=== PATIENT | male | born 1945 | race Caucasian/White ===

== ENCOUNTER 2020-05-29 12:18 | Outpatient (REF) | payer MEDICARE, SELFPAY ==
[2020-05-29 14:41] LABS: Prostate Specific Antigen 1.28 ng/mL (<0.05-4.0)
== END 2020-05-29 12:19 | disposition home or self-care (01) ==
LOC: HO.LAB 12:18
PROVIDERS: PCP Internal Medicine; Visit Provider Urology
DX: N40.0 Benign prostatic hyperplasia without lower urinary tract symptoms (principal)
CPT/HCPCS: 84153

== ENCOUNTER → 2020-06-02 | Outpatient (BNVA) | payer MEDICARE, SELFPAY | PROVIDERS: PCP Internal Medicine; Visit Provider Urology | DX: N40.1 Benign prostatic hyperplasia with lower urinary tract symptoms (principal); N13.8 Other obstructive and reflux uropathy; R39.12 Poor urinary stream; R35.1 Nocturia; Z79.899 Other long term (current) drug therapy | CPT/HCPCS: 81002; 99212 ==

== ENCOUNTER 2020-08-01 09:10 | Outpatient (REF) | payer MEDICARE, SELFPAY ==
[2020-08-01 09:35] LABS: MANUAL DIFF FLAG NO
[2020-08-01 09:37] LABS: Basophils Percent Auto 0.5 % (0-2); Eosinophils Absolute Auto 0.1 X10*3/uL (0.0-0.4); Eosinophils Percent Auto 1.9 % (0-4); Hematocrit 47.3 % (42-52); Hemoglobin 16.1 g/dl (14.0-18.0); Imm Gran Abs Auto 0.02 X10*3/uL (0.00-0.03); Imm Gran Pct Auto 0.3 % (0.0-0.4); Lymphocytes Absolute Auto 1.7 X10*3/uL (1.2-4.9); Lymphocytes Percent Auto 22.3 % (20-40); Mean Corpuscular Hemoglobin 29.8 pg (27.0-33.0); Mean Corpuscular Volume 87.4 fL (80-98); Mean Platelet Volume 8.8 fL (9.4-12.4); Monocytes Absolute Auto 0.7 X10*3/uL (0.1-1.2); Monocytes Percent Auto 9.9 % (2-11); Neutrophils Absolute Auto 4.8 X10*3/uL (2.0-8.3); Neutrophils Percent Auto 65.1 % (45-73); Platelet Count 174 X10*3/uL (160-400); Red Blood Count 5.41 X10*6/uL (4.60-5.80); Red Cell Distribution Width 12.7 % (11.0-16.0); White Blood Count 7.4 X10*3/uL (4.8-10.8)
[2020-08-01 10:00] LABS: Alanine Aminotransferase 27 U/L (0-40); Albumin Level 4.6 g/dL (3.5-5.0); Alkaline Phosphatase 63 U/L (39-117); Anion Gap 10 (12-20); Aspartate Amino Transferase 20 U/L (5-37); Bilirubin Total 1.3 mg/dL (0.0-1.0); Blood Urea Nitrogen 14 mg/dL (9-16); Calcium 9.2 mg/dL (8.4-10.2); Carbon Dioxide 32 mmol/L (22-29); Chloride 104 mmol/L (96-108); Cholesterol 155 mg/dL; Estimated Glomerular Filt Rate > 60; Glucose Fasting 108 mg/dL (60-99); HDL Cholesterol 43 mg/dL; LDL Cholesterol Calculated 94 mg/dl; Potassium 4.6 mmol/l (3.3-5.1); Sodium 141 mmol/L (135-145); Total Protein 7.2 g/dL (6.5-8.0); Triglycerides 91 mg/dL
[2020-08-01 10:22] LABS: T4 Thyroxine 6.5 ug/dL (4.5-12.0); Thyroid Stimulating Hormone 1.23 uIU/mL (0.32-4.0); Vitamin D 25-OH Total 28.4 ng/mL (>30)
[2020-08-01 10:51] LABS: Folate 17.3 ng/mL (> or = 4.0); Vitamin B12 425 pg/mL (200-900)
== END 2020-08-01 09:11 | disposition home or self-care (01) ==
LOC: HO.LAB 09:10
PROVIDERS: PCP Internal Medicine; Visit Provider Internal Medicine
DX: R73.01 Impaired fasting glucose (principal); E78.00 Pure hypercholesterolemia, unspecified; M81.0 Age-related osteoporosis without current pathological fracture; N40.1 Benign prostatic hyperplasia with lower urinary tract symptoms
CPT/HCPCS: 36415; 80053; 80061; 82306; 82607; 82746; 84436; 84443; 85025

== ENCOUNTER 2020-08-16 09:54 | Outpatient (REF) | payer MEDICARE, SELFPAY ==
--- NOTE | 2020-08-16 10:00 | MM_ITS ---
EXAMINATION: BONE DENSITOMETRY CLINICAL INDICATION: Age-related osteoporosis without current pathological fracture. Status post vertebral augmentation T12. COMPARISON: Baseline BD dated 06/12/2018. TECHNIQUE: Using a [employer]cam DXA System (software version: 13.1) manufactured by [employer], dual-energy x-ray absorptiometry was performed of the lumbar spine and left hip. The images are of good technical quality. Summary results are attached. FINDINGS: AP SPINE L1-L4: Current: BMD 0.830 g/cm2, Z-score -2.4, T-score -3.3, osteoporosis, 8.9% increase from baseline (<5% change is not significant). Baseline: BMD 0.762 g/cm2. LEFT FEMUR, NECK: Current: BMD 0.739 g/cm2, Z-score -1.0, T-score -2.5, osteoporosis. Baseline: BMD 0.680 g/cm2. LEFT FEMUR, TOTAL: Current: BMD 0.821 g/cm2, Z-score -0.9, T-score -1.9, osteopenia, 9.8% increase from baseline (<5% change is not significant). Baseline: BMD 0.748 g/cm2. IDENTIFIED RISK FACTORS: Osteoporosis, height loss, family history (parental hip fracture), history of fracture (adult). HISTORY OF FRACTURE: Shoulder. Other. MEDICATIONS: Bisphosphonates, Calcium supplements or multivitamin. MM/XR DEXA axial skeleton IMPRESSION: 1. DIAGNOSIS: Severe osteoporosis based on the lowest T-score value of -3.3 in the lumbar spine and vertebral fracture history applying World Health Organization criteria. 2. 10-YEAR FRACTURE RISK PREDICTION, FRAX: Major osteoporotic fracture (clinical spine, forearm, hip or shoulder) 30.5%. Hip fracture 22.3%. 3. Treatment Recommendations: NOF guidelines recommend consideration for treatment in postmenopausal women and men age 50 and older presenting with the following: -A hip or vertebral (clinical or morphometric) fracture. -T-score less than or equal to -2.5 at the femoral neck or spine after appropriate evaluation to exclude secondary causes. -Low bone mass at the hip or spine and a 10-year fracture probability by FRAX of greater than or equal to 3% for hip fracture or greater than or equal to 20% for major osteoporotic fracture based on the [place] adapted WHO algorithm. 4. Other Recommendations: All treatment decisions require clinical judgment and consideration of individual patient factors, including patient preferences, comorbidities, previous drug use, risk factors not captured in the FRAX model (e.g. frailty, falls, vitamin D deficiency, increased bone turnover, interval significant decline in bone density) and possible under or overestimation of fracture risk by FRAX. Additional medical evaluation for secondary cause of low bone mineral density may be appropriate. FUTURE SCAN RECOMMENDATION: People with diagnosed cases of osteoporosis or at high risk for fracture should have regular bone mineral density tests. For patients eligible for Medicare, routine testing is allowed once every 2 years. The testing frequency can be increased to one year for patients who have rapidly progressing disease, those who are receiving or discontinuing medical therapy to restore bone mass, or have additional risk factors.
== END 2020-08-16 09:55 | disposition home or self-care (01) ==
LOC: HO.MAMMO 09:54
PROVIDERS: PCP Internal Medicine; Visit Provider Internal Medicine
DX: M81.0 Age-related osteoporosis without current pathological fracture (principal)
CPT/HCPCS: 77080; 99212

== ENCOUNTER 2020-11-01 10:39 | Outpatient (REF) | payer MEDICARE, SELFPAY ==
--- NOTE | ~2020-11-01 | US_ITS ---
EXAMINATION: US PELVIS LIMITED (BLADDER) CLINICAL INFORMATION: Poor urinary stream. COMPARISON: CT abdomen and pelvis 02/10/2020. Ultrasound abdomen complete 08/03/2012. TECHNIQUE: Real-time imaging of the bladder. FINDINGS: BLADDER: The bladder wall is thickened and trabeculated. No stone or mass is seen. Bilateral ureteral jets are demonstrated. Prevoid bladder volume is 294 mL. Postvoid bladder volume is 79 mL. ADDITIONAL FINDINGS: The prostate gland measures 4.2 x 4.1 x 3.7 cm, volume 34 mL. US/US bladder IMPRESSION: Thickened trabeculated bladder wall. 79 mL post void bladder residual..
== END 2020-11-01 10:40 | disposition home or self-care (01) ==
LOC: HO.US 10:39
PROVIDERS: Visit Provider Urology
DX: N40.1 Benign prostatic hyperplasia with lower urinary tract symptoms (principal); R39.12 Poor urinary stream
CPT/HCPCS: 76857

== ENCOUNTER 2020-12-01 13:23 | Outpatient (REF) | payer MEDICARE, SELFPAY ==
[2020-12-01 16:32] LABS: PSA,Total (Free>4and<10) 0.72 ng/mL (0.00-4.00)
== END 2020-12-01 13:24 | disposition home or self-care (01) ==
LOC: HO.LAB 13:23
PROVIDERS: PCP Internal Medicine; Visit Provider Urology
DX: N40.1 Benign prostatic hyperplasia with lower urinary tract symptoms (principal); N13.8 Other obstructive and reflux uropathy
CPT/HCPCS: 36415; 84153

== ENCOUNTER → 2020-12-05 10:48 | Outpatient (BNVA) | payer MEDICARE, SELFPAY | PROVIDERS: Visit Provider Urology | DX: Z13.89 Encounter for screening for other disorder (principal) | CPT/HCPCS: Q3014 ==

== ENCOUNTER 2020-12-05 14:43 | Outpatient (REF) | payer MEDICARE, SELFPAY ==
--- NOTE | ~2020-12-05 | US_ITS ---
EXAMINATION: US VENOUS ULTRASOUND WITH DOPPLER LOWER EXTREMITY, RIGHT CLINICAL INFORMATION: Pain COMPARISON: None TECHNIQUE: Ultrasound of the deep veins is performed from the hip to the calf with compression sonography and color and pulse Doppler assessment. Spectral analysis with color-flow imaging is performed. FINDINGS: There is normal venous compression and respiratory variation and augmented flow. The visualized common femoral vein, superficial femoral vein, profunda femoral vein, popliteal vein, and the trifurcation region shows no evidence of deep venous thrombosis. There is no significant popliteal fossa cyst. US/US venous duplex LE RT IMPRESSION: No DVT demonstrated in the right lower extremity.
== END 2020-12-05 14:44 | disposition home or self-care (01) ==
LOC: HO.HMGCX 14:43
PROVIDERS: PCP Internal Medicine; Visit Provider Nurse Practitioner Family
DX: M79.661 Pain in right lower leg (principal)
CPT/HCPCS: 93971

== ENCOUNTER 2021-01-26 12:05 | Outpatient (REF) | payer MEDICARE, SELFPAY ==
[2021-01-26 14:05] LABS: Blood Urea Nitrogen 14 mg/dL (9-16); Estimated Glomerular Filt Rate > 60
== END 2021-01-26 12:06 | disposition home or self-care (01) ==
LOC: HO.LAB 12:05
PROVIDERS: PCP Internal Medicine; Visit Provider Otolaryngology
DX: J35.9 Chronic disease of tonsils and adenoids, unspecified (principal)
CPT/HCPCS: 36415; 82565; 84520

== ENCOUNTER 2021-01-30 10:39 | Outpatient (REF) | payer MEDICARE, SELFPAY ==
--- NOTE | ~2021-01-30 | CT_ITS ---
EXAMINATION: CT SOFT TISSUE NECK WITH CONTRAST CLINICAL INFORMATION: Right neck mass. Right tonsillar lesion. COMPARISON: None. TECHNIQUE: Following the intravenous administration of 100 mL of Omnipaque 350 intravenous contrast, helical imaging was performed in the axial plane with generation of coronal and sagittal reformatted images. This CT examination was performed using dose optimization techniques as appropriate, variously including the following: *Automated exposure control *Adjustment of mA and/or kV according to patient size (this includes techniques or standardized protocols for targeted exams where dose is matched to indication/reason for exam; i.e. extremities or head) *Use of iterative reconstruction technique DLP: 289 mGy-cm. FINDINGS: No cervical adenopathy is identified. The parotid glands are homogeneous in attenuation. The submandibular glands are normal. No contour abnormality or pathologic enhancement is seen within the oral cavity. There is mild enlargement of the right lingular tonsil extending laterally and involving the medial and lateral pterygoid muscles resulting in enlarged muscles. The pterygoid plates are intact. The mass extend to the palatoglossal sulcus and obliterates the parapharyngeal fat. The mass is hypodense with subtle thick wall enhancement. It measures approximately 2.8 x 2.3 cm on axial image 56/2 and 2.6 x 2.4 cm in the coronal image 28/3. The mass abuts the posterior right tongue and mildly deviates the tongue the left side. The laryngeal structures are normal. The parapharyngeal fat is preserved. The carotid sheath vasculature opacify normally. No extra mucosal soft tissue mass or fluid collection is seen. No retropharyngeal fluid collection is seen. The thyroid gland is normal. The superior mediastinum is unremarkable. Both lungs are emphysematous with bilateral apical parenchymal scarring. The mastoid air cells and visualized portions of the paranasal sinuses are well-aerated. The temporomandibular. Joints are normal. There are degenerative disc changes with spondylosis C2-C3, C3-C4, C4-C5, C5-C6 and C6-C7 disc levels. No periapical disease is identified. No osseous abnormalities are seen. The imaged portions of the brain parenchyma are unremarkable. CT/CT soft tissue neck w con IMPRESSION: Right tonsillar enlargement with moderate-sized peritonsillar mass. There is mild mass effect on the tongue deviating it to the left. No adjacent or distant abnormal lymph nodes seen. There is obliteration of the right parapharyngeal prestyloid space and palatoglossal sulcus. Bilateral apical emphysema and apical scarring.
[2021-01-30] MEDS: iohexoL 350 MG/ML 100 ML INFUS..BTL IV (11:59)
== END 2021-01-30 10:40 | disposition home or self-care (01) ==
LOC: HO.CT 10:39
PROVIDERS: Visit Provider Otolaryngology
DX: R22.1 Localized swelling, mass and lump, neck (principal)
CPT/HCPCS: 70491; Q9967

== ENCOUNTER → 2021-05-17 10:46 | Outpatient (BNVA) | payer MEDICARE, SELFPAY | PROVIDERS: PCP Internal Medicine; Visit Provider Internal Medicine | DX: J43.9 Emphysema, unspecified (principal); U07.1 COVID-19 | CPT/HCPCS: 99212 ==

== ENCOUNTER → 2021-07-25 12:48 | Outpatient (BNVA) | payer MEDICARE, SELFPAY | PROVIDERS: PCP Internal Medicine; Visit Provider Urology | DX: N40.1 Benign prostatic hyperplasia with lower urinary tract symptoms (principal); R39.12 Poor urinary stream; R39.14 Feeling of incomplete bladder emptying | CPT/HCPCS: 51798; 99212 ==

== ENCOUNTER 2021-08-24 13:31 | Outpatient (REF) | payer MEDICARE, SELFPAY ==
[2021-08-24 14:02] LABS: Binax Internal Control QC Valid; Binax Lot number: 9864; Binax Now Covid-19 Ag Negative (Negative)
== END 2021-08-24 13:32 | disposition home or self-care (01) ==
LOC: HO.LAB 13:31
PROVIDERS: Visit Provider Internal Medicine
DX: Z20.822 Contact with and (suspected) exposure to COVID-19 (principal)
CPT/HCPCS: C9803

== ENCOUNTER 2021-08-28 11:29 | Outpatient (REF) | payer MEDICARE, SELFPAY ==
[2021-08-28 12:23] LABS: COVID-19 Test Negative (Negative); IDNOW Serial# 16C4AD1C
== END 2021-08-28 11:30 | disposition home or self-care (01) ==
LOC: HO.LAB 11:29
PROVIDERS: Visit Provider Internal Medicine
DX: Z20.822 Contact with and (suspected) exposure to COVID-19 (principal)
CPT/HCPCS: 87635; C9803

== ENCOUNTER 2021-09-03 11:23 | Outpatient (REF) | payer MEDICARE, SELFPAY ==
[2021-09-03 12:01] LABS: Binax Internal Control QC Valid; Binax Now Covid-19 Ag Negative (Negative)
== END 2021-09-03 11:24 | disposition home or self-care (01) ==
LOC: HO.LAB 11:23
PROVIDERS: Visit Provider Internal Medicine
DX: Z20.822 Contact with and (suspected) exposure to COVID-19 (principal)
CPT/HCPCS: C9803

== ENCOUNTER → 2021-09-17 10:46 | Outpatient (BNVA) | payer MEDICARE, SELFPAY | PROVIDERS: PCP Internal Medicine; Visit Provider Internal Medicine | DX: J43.9 Emphysema, unspecified (principal) | CPT/HCPCS: 99212 ==

== ENCOUNTER 2021-11-22 08:41 | Outpatient (REF) | payer MEDICARE, SELFPAY ==
[2021-11-22 09:07] LABS: MANUAL DIFF FLAG NO
[2021-11-22 09:20] LABS: Basophils Percent Auto 0.3 % (0-2); Eosinophils Absolute Auto 0.2 X10*3/uL (0.0-0.4); Eosinophils Percent Auto 2.4 % (0-4); Hematocrit 39.2 % (42.0-52.0); Hemoglobin 13.3 g/dl (14.0-18.0); Imm Gran Abs Auto 0.02 X10*3/uL (0.00-0.03); Imm Gran Pct Auto 0.3 % (0.0-0.4); Lymphocytes Percent Auto 14.4 % (20-40); Mean Corpuscular HGB Conc 33.9 g/dl (31.0-36.0); Mean Corpuscular Hemoglobin 28.9 pg (27.0-33.0); Mean Platelet Volume 8.6 fL (9.4-12.4); Monocytes Absolute Auto 0.6 X10*3/uL (0.1-1.2); Monocytes Percent Auto 7.8 % (2-11); Neutrophils Absolute Auto 5.4 x10*3/uL (2.0-8.3); Neutrophils Percent Auto 74.8 % (45-73); Platelet Count 216 X10*3/uL (160-400); Red Blood Count 4.61 X10*6/uL (4.60-5.80); Red Cell Distribution Width 12.8 % (11.0-16.0); White Blood Count 7.2 X10*3/uL (4.8-10.8)
[2021-11-22 09:59] LABS: Alanine Aminotransferase 17 U/L (0-40); Albumin Level 3.9 g/dL (3.5-5.0); Alkaline Phosphatase 79 U/L (39-117); Anion Gap 12 (12-20); Aspartate Amino Transferase 17 U/L (5-37); Blood Urea Nitrogen 14 mg/dL (9-16); Calcium 9.5 mg/dL (8.4-10.2); Carbon Dioxide 29 mmol/L (22-29); Chloride 100 mmol/L (96-108); Cholesterol 119 mg/dL; Estimated Glomerular Filt Rate > 60; Glucose Random 105 mg/dL (60-115); HDL Cholesterol 36 mg/dL; LDL Cholesterol Calculated 65 mg/dl; Potassium 4.7 mmol/L (3.3-5.1); Sodium 136 mmol/L (135-145); Total Protein 6.7 g/dL (6.5-8.0); Triglycerides 90 mg/dL
[2021-11-22 10:12] LABS: Free T4 (Free Thyroxine) 0.99 ng/dL (0.71-1.85); Thyroid Stimulating Hormone 2.06 uIU/mL (0.32-4.0)
[2021-11-22 10:23] LABS: Folate 17.4 ng/mL (> or = 4.0); Vitamin B12 983 pg/mL (200-900)
== END 2021-11-22 08:42 | disposition home or self-care (01) ==
LOC: HO.LAB 08:41
PROVIDERS: PCP Internal Medicine; Visit Provider Internal Medicine
DX: E78.00 Pure hypercholesterolemia, unspecified (principal); I10 Essential (primary) hypertension
CPT/HCPCS: 36415; 80053; 80061; 82607; 82746; 84439; 84443; 85025

== ENCOUNTER 2021-12-01 17:23 | Emergency (ER) | payer MEDICARE, SELFPAY ==
[2021-12-01] VITALS (9 sets, daily range): BP systolic 76–132; BP diastolic 48–86; PULSE 92–136; RESP 16–25; TEMP 37.7–39.6; O2SAT 9–95; BMI 23.1
--- NOTE | ~2021-12-01 | XR_ITS ---
EXAMINATION: XR CHEST CLINICAL INFORMATION: Fever, cough, shortness of breath. COMPARISON: Chest radiograph dated from 01/06/2020. CT of the chest dated from 01/07/2020. TECHNIQUE: AP view of the chest was obtained. FINDINGS: Right-sided CT compatible chest port terminates at the level of the cavoatrial junction. Stable appearance of the cardiomediastinal silhouette. New multifocal patchy lung opacities and increased interstitial coarsening since 2020. No significant pleural effusion. No pneumothorax. No acute osseous abnormalities. XR/XR chest 1V IMPRESSION: Worsening lung disease since 2020 which could represent a combination of chronic emphysema/interstitial lung disease and superimposed multifocal pneumonia. Recommend clinical correlation and a follow-up examination to rule out underlying lesions.
--- NOTE | 2021-12-01 18:03 | ECG_ITS ---
Test Reason : CHEST PAIN Blood Pressure : / mmHG Vent. Rate : 128 BPM Atrial Rate : 128 BPM P-R Int : 144 ms QRS Dur : 068 ms QT Int : 308 ms P-R-T Axes : 072 077 079 degrees QTc Int : 449 ms Sinus tachycardia Septal infarct (cited on or before 01-DEC-2021) Abnormal ECG When compared with ECG of 07-JAN-2020 00:39, Questionable change in initial forces of Septal leads Referred By: Anant Avila Electronically Signed By:NICO GLASGOW MD
--- NOTE | 2021-12-01 18:18 | PC.NURSE ---
pt reports that this morning he woke up sob and throughout the day it progressively got worst. he also reports shakiness, loss of appetite, increased weakness. no chest pain/headache/dizziness. no n/v/d. pt has hx of COPD, he is not on O2 at baseline. pt satting low-mid 80s on 4L n/c on arrival to ed. 88-90% on 8L non-rebreather. Respiratory Therapist at bedside.
--- NOTE | 2021-12-01 18:26 | ED.SOB ---
HPI - SOB/Dyspnea General Chief Complaint: Dyspnea Stated Complaint: DIFF BREATHING 84% RA,NOT FEELING WELL,[id number] Time Seen by Provider: 12/01/21 17:59 Source: patient Mode of arrival: EMS Limitations: no limitations History of Present Illness HPI Narrative: 76-year-old male who presents emergency department for evaluation of shortness of breath. He states that he woke up this morning not feeling well. He states he feels short of breath and shortness of breath got progressively worse to the point where he could not breathe so he called an ambulance. The patient felt hot and cold but did not take his temperature at home. He denied cough, chest pain, nausea, vomiting. The patient states that he does have COPD but does not use oxygen at home, he states that his O2 saturation is normally around 89%. He states that he received 2 COVID 19 [employer] vaccinations but did not receive a booster vaccination. 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 Patient states he has lost a total of 20 lb but has no difficulty drinking and eating. He has been using Ensure. ED bed 8 ED bed a ED bed a bed 8 MD elicited complaint: shortness of breath Pertinent past history: COPD Onset (ago): day(s) (1) Timing: constant Severity: severe Exacerbating factors: nothing Relieving factors: nothing Known history of: COPD Associated symptoms: fever (Boss hot and cold) Related Data Home oxygen amount: none Home Medications Medication Instructions Recorded Confirmed albuterol sulfate 90 mcg/actuation 2 inh INHALATION Q4-6H PRN 05/03/21 11/23/21 aerosol inhaler (ProAir HFA) lidocaine HCl 2 % mucosal solution ml PO 05/17/21 11/23/21 (Lidocaine Viscous) nystatin 100,000 unit/mL oral ml PO 05/17/21 11/23/21 suspension polyethylene glycol 3350 17 17 g PO DAILY 07/25/21 11/23/21 gram/dose oral powder dronabinol 2.5 mg capsule mg PO 09/17/21 11/23/21 Previous Rx's Medication Instructions Recorded fluticasone 250 mcg-salmeterol 50 1 inh INHALATION BID 90 Days #3 ea 03/27/21 mcg/dose blistr powdr for inhalation (Advair Diskus) lisinopril 5 mg tablet 5 mg PO DAILY #90 tab 04/05/21 tamsulosin 0.4 mg capsule 0.4 mg PO BEDTIME #90 cap 07/02/21 alendronate 70 mg tablet 70 mg PO QWEEK #12 tab 07/19/21 sertraline 50 mg tablet 50 mg PO DAILY #90 tab 07/30/21 finasteride 5 mg tablet 5 mg PO DAILY #90 tab 09/12/21 simvastatin 10 mg tablet 10 mg PO BEDTIME 90 Days #90 tab 09/12/21 Allergies Allergy/AdvReac Type Severity Reaction Status Date / Time oxycodone Allergy Unknown severe Verified 11/23/21 16:13 constipation Sulfa (Sulfonamide Allergy Unknown RASH Verified 11/23/21 16:13 Antibiotics) [SULFA (SULFONAMIDE ANTIBIOTICS)] hydrocodone [HYDROCODONE] AdvReac Unknown CONSTIPSATI Verified 11/23/21 16:13 ON Review of Systems Review of Systems: Yes all other systems are reviewed and are negative [facility] Past Medical History [facility] Narrative: Social history: He lives with his and daughter. He is a former smoker, he quit smoking cigarettes 25 years ago. He smoked for at least 25 years. He denies alcohol and drug use. Medical History Anxiety and depression Compression fracture of T6 vertebra COPD (chronic obstructive pulmonary disease) Hypercholesterolemia Hypertension Obstructive sleep apnea Osteoporosis Right humeral fracture Tubular adenoma of colon Surgical History Deficient knowledge of leg surgery History of surgery History of tonsillectomy Family History Family History Father No problems noted. Mother Hypertension CVD (cardiovascular disease) Cancer Social History Social History Housing: House Alcohol intake: never Patient Tobacco Use Status: Former Tobacco user Tobacco use type: Cigarette e-Cigarette/Vaping Use: Never Used Second Hand Smoke Exposure: No Advance Directives: No Advance Directives Information Provided: No service: Yes Current occupational status: retired Cognitive needs: No Hearing needs: No Vision needs: Yes Physical Exam Vital Signs: Vital Signs: Last Vital Signs Temp 100 F 12/01/21 21:17 Pulse 92 12/01/21 22:53 Resp 18 12/01/21 22:53 BP 76/48 L 12/01/21 22:53 Pulse Ox 92 12/01/21 22:53 Oxygen Flow Rate 10 12/01/21 17:40 BMI result Body Mass Index 23.1 Const: General: cooperative and no acute distress Orientation/consciousness: oriented to person and oriented to place Limitations: no limitations HEENT: Head: Yes normal to inspection, Yes normocephalic and Yes atraumatic Ears: external ears normal General nose exam: Normal external nose present Face and sinus: Yes normal facial exam Mouth: Normal oral and palatal mucosa present Throat: Yes posterior oropharynx normal Eyes: General: appearance normal, both eyes and all related structures Pupils: Equal, round and reactive pupils present Neck: Neck: Yes normal visual inspection, Yes no lymphadenopathy, Yes trachea midline and Yes supple Chest: Chest palpation & inspection: normal inspection of the chest and normal palpation of entire chest wall Resp: Effort & Inspection: able to speak in complete sentences and tachypneic Auscultation: rales (Bases bilaterally), no rhonchi and no wheezes Cardio: Rate: tachycardic Rhythm: regular rhythm Heart sounds: S1 normal heart sound present, S2 normal heart sound present and no murmurs GI: Inspection: Yes normal to inspection Palpation (GI): Soft to palpation, nontender and no guarding Auscultation: normal bowel sounds : General: Yes no CVA tenderness Back/Spine/Pelvis: Back: no CVA tenderness Skin: General skin exam: no rashes or lesions noted Neuro: General: oriented to person and oriented to place Cranial nerves: Yes CN's II-XII intact bilaterally and Yes Equal, round and reactive pupils present Cognition (Neuro): normal cognition Motor exam (neuro): 5/5 motor strength present throughout Extrem: General: Yes normal to inspection Psych: Appearance: grossly normal Speech and movement: Normal speech and movement present Affect: normal affect Attitude: cooperative Thought process: Normal thought process present Thought content: Normal thought content present Course Course Course Narrative: 76-year-old male with a history of COPD with baseline O2 saturation of 89% on room air, does not use oxygen at home who presents emergency department for evaluation of shortness of breath this started this morning and got progressively worse. Patient denies cough or chest pain. Initial vital signs revealed a temperature of 103.2. Patient's respiratory was elevated at 22. Pulse was elevated 131. Lung exam revealed rales at the bases otherwise was unremarkable. I did order laboratory evaluation CBC, BMP, liver panel, lactic acid, PT/INR, PTT, troponin, blood cultures x2, COVID-19 influenza test. Twelve EKG and chest x-ray will also be obtained. Patient was ordered to get a 30 cc/kilogram IV normal saline bolus. I also ordered to get Tylenol 975 mg orally and ceftriaxone 1 g IV the orally for possible pneumonia. 1957: Laboratory evaluation: WBC elevated 15,500, glucose elevated 148. Lactate elevated 2.3. COVID-19 and influenza negative. Radiology evaluation: Chest x-ray one view: Radiology impression: Worsening lung disease since 2019 which could represent a combination of chronic emphysema/interstitial lung disease and superimposed multifocal pneumonia. Recommend clinical correlation and a follow-up examination to rule out underlying lesions. I will discuss admission with the covering hospitalist. The patient is currently on OxyMask at 10 L (53%). 3: The patient received is 30 cc/kilogram normal saline bolus (1800 mL) and became hypotensive, he was given another 1.5 L of lactated Ringer's and his systolic blood pressure still remains low. Patient will be started on Levophed. At this time I do not have any intensive care unit bed so I will need transfer this patient. 2303: I did contact the Heart for transfer line and the patient has been accepted at [facility] in [facility] into their medical ICU. The accepting doctor is Dr. Moy. ? MDM - SOB/Dyspnea Lab Data Attestation: I reviewed the patient's lab results. Result diagrams: 12/01/21 18:26 12/01/21 18:26 Labs: Lab Results 12/01/21 12/01/21 12/01/21 Range/Units 18:26 18:26 18:26 WBC 15.5 H (4.8-10.8) X10*3/uL RBC 4.99 (4.60-5.80) X10*6/uL Hgb 14.2 (14.0-18.0) g/dl Hct 42.2 (42.0-52.0) % MCV 84.6 (80.0-98.0) fL MCH 28.5 (27.0-33.0) pg MCHC 33.6 (31.0-36.0) g/dl RDW 13.4 (11.0-16.0) % Plt Count 186 (160-400) X10*3/uL MPV 8.2 L (9.4-12.4) fL Immature Gran % (Auto) 0.5 H (0.0-0.4) % Neut % (Auto) 95.7 H (45-73) % Lymph % (Auto) 1.6 L (20-40) % [place] % (Auto) 2.1 (2-11) % Eos % (Auto) 0.0 (0-4) % Baso % (Auto) 0.1 (0-2) % Lymph # (Auto) 0.3 L (1.2-4.9) X10*3/uL [place] # (Auto) 0.3 (0.1-1.2) X10*3/uL Eos # (Auto) 0.0 (0.0-0.4) X10*3/uL Baso # (Auto) 0.0 (0.0-0.2) X10*3/uL Abs Immat Gran (auto) 0.08 H (0.00-0.03) X10*3/uL Absolute Neuts (auto) 14.8 H (2.0-8.3) x10*3/uL Absolute Nucleated RBC 0.000 (0.0-0.012) X10*3/uL Nucleated RBC % (auto) 0.0 (0.0-0.2) /100WBC Smear Tech's Comments VERIFIED PT (9.9-13.0) SEC INR (0.9-1.1) APTT (24.1-38.0) SEC Sodium 134 L (135-145) mmol/L Potassium 4.2 (3.3-5.1) mmol/L Chloride 99 (96-108) mmol/L Carbon Dioxide 27 (22-29) mmol/L Anion Gap 12 (12-20) BUN 16 (9-16) mg/dL Creatinine 0.94 (0.5-1.4) mg/dL Estim Creat Clear Calc 58.1 Estimated GFR > 60 Random Glucose 148 H D (60-115) mg/dL Lactic Acid 2.3 H* (0.5-2.0) mmol/L Lactic Acid F/U @ 2Hr (0.5-2.0) mmol/L Calcium 9.3 (8.4-10.2) mg/dL Total Bilirubin 1.6 H (0.0-1.0) mg/dL Direct Bilirubin 0.7 H (0.0-0.5) mg/dL AST 17 (5-37) U/L ALT 19 (0-40) U/L Alkaline Phosphatase 83 (39-117) U/L Troponin I High Sens (<3.5-35.0) ng/L Total Protein 6.5 (6.5-8.0) g/dL Albumin 3.9 (3.5-5.0) g/dL COVID-19 ([facility]) (Negative) COVID-19 Clin Com Influenza Type A (CHRISTOPHER) (Negative) Influenza Type B (CHRISTOPHER) (Negative) Influenza A & B Note 12/01/21 12/01/21 12/01/21 Range/Units 18:26 18:26 18:26 WBC (4.8-10.8) X10*3/uL RBC (4.60-5.80) X10*6/uL Hgb (14.0-18.0) g/dl Hct (42.0-52.0) % MCV (80.0-98.0) fL MCH (27.0-33.0) pg MCHC (31.0-36.0) g/dl RDW (11.0-16.0) % Plt Count (160-400) X10*3/uL MPV (9.4-12.4) fL Immature Gran % (Auto) (0.0-0.4) % Neut % (Auto) (45-73) % Lymph % (Auto) (20-40) % [place] % (Auto) (2-11) % Eos % (Auto) (0-4) % Baso % (Auto) (0-2) % Lymph # (Auto) (1.2-4.9) X10*3/uL [place] # (Auto) (0.1-1.2) X10*3/uL Eos # (Auto) (0.0-0.4) X10*3/uL Baso # (Auto) (0.0-0.2) X10*3/uL Abs Immat Gran (auto) (0.00-0.03) X10*3/uL Absolute Neuts (auto) (2.0-8.3) x10*3/uL Absolute Nucleated RBC (0.0-0.012) X10*3/uL Nucleated RBC % (auto) (0.0-0.2) /100WBC Smear Tech's Comments PT 13.3 H (9.9-13.0) SEC INR 1.2 H (0.9-1.1) APTT 37.8 (24.1-38.0) SEC Sodium (135-145) mmol/L Potassium (3.3-5.1) mmol/L Chloride (96-108) mmol/L Carbon Dioxide (22-29) mmol/L Anion Gap (12-20) BUN (9-16) mg/dL Creatinine (0.5-1.4) mg/dL Estim Creat Clear Calc Estimated GFR Random Glucose (60-115) mg/dL Lactic Acid (0.5-2.0) mmol/L Lactic Acid F/U @ 2Hr (0.5-2.0) mmol/L Calcium (8.4-10.2) mg/dL Total Bilirubin (0.0-1.0) mg/dL Direct Bilirubin (0.0-0.5) mg/dL AST (5-37) U/L ALT (0-40) U/L Alkaline Phosphatase (39-117) U/L Troponin I High Sens (<3.5-35.0) ng/L Total Protein (6.5-8.0) g/dL Albumin (3.5-5.0) g/dL COVID-19 ([facility]) Negative (Negative) COVID-19 Clin Com See Note Influenza Type A (CHRISTOPHER) Negative (Negative) Influenza Type B (CHRISTOPHER) Negative (Negative) Influenza A & B Note See Note 12/01/21 12/01/21 12/01/21 Range/Units 18:26 20:37 22:34 WBC (4.8-10.8) X10*3/uL RBC (4.60-5.80) X10*6/uL Hgb (14.0-18.0) g/dl Hct (42.0-52.0) % MCV (80.0-98.0) fL MCH (27.0-33.0) pg MCHC (31.0-36.0) g/dl RDW (11.0-16.0) % Plt Count (160-400) X10*3/uL MPV (9.4-12.4) fL Immature Gran % (Auto) (0.0-0.4) % Neut % (Auto) (45-73) % Lymph % (Auto) (20-40) % [place] % (Auto) (2-11) % Eos % (Auto) (0-4) % Baso % (Auto) (0-2) % Lymph # (Auto) (1.2-4.9) X10*3/uL [place] # (Auto) (0.1-1.2) X10*3/uL Eos # (Auto) (0.0-0.4) X10*3/uL Baso # (Auto) (0.0-0.2) X10*3/uL Abs Immat Gran (auto) (0.00-0.03) X10*3/uL Absolute Neuts (auto) (2.0-8.3) x10*3/uL Absolute Nucleated RBC (0.0-0.012) X10*3/uL Nucleated RBC % (auto) (0.0-0.2) /100WBC Smear Tech's Comments PT (9.9-13.0) SEC INR (0.9-1.1) APTT (24.1-38.0) SEC Sodium (135-145) mmol/L Potassium (3.3-5.1) mmol/L Chloride (96-108) mmol/L Carbon Dioxide (22-29) mmol/L Anion Gap (12-20) BUN (9-16) mg/dL Creatinine (0.5-1.4) mg/dL Estim Creat Clear Calc Estimated GFR Random Glucose (60-115) mg/dL Lactic Acid (0.5-2.0) mmol/L Lactic Acid F/U @ 2Hr 1.0 (0.5-2.0) mmol/L Calcium (8.4-10.2) mg/dL Total Bilirubin (0.0-1.0) mg/dL Direct Bilirubin (0.0-0.5) mg/dL AST (5-37) U/L ALT (0-40) U/L Alkaline Phosphatase (39-117) U/L Troponin I High Sens 10.3 35.2 H D (<3.5-35.0) ng/L Total Protein (6.5-8.0) g/dL Albumin (3.5-5.0) g/dL COVID-19 ([facility]) (Negative) COVID-19 Clin Com Influenza Type A (CHRISTOPHER) (Negative) Influenza Type B (CHRISTOPHER) (Negative) Influenza A & B Note ECG Data Attestation: I personally reviewed and interpreted this ECG as follows: Interpretation: 1804: Sinus tachycardia with a rate of 128, normal AL interval, QRS duration QTC interval, no ST segment elevation, no ST segment depression. Critical Care Time Critical Care Time Critical Care Time: Yes Total Critical Care Time: 45 Attestation: Critical Care: The patient was critically ill with a high probability of imminent or life threatening deterioration. I spent greater than 30 minutes of discontinuous time evaluating the patient,delivering critical care at the bedside, discussing and evaluating pertinent data with consultants. Critical care time does not include time spent performing separately billable procedures or teaching. Total time spent performing critical care was 45 minutes. Discharge Plan Discharge Clinical Impression: Pneumonia, Hypoxia, Acute hypotension, COPD (chronic obstructive pulmonary disease) Patient Disposition: [facility] Transfer Details: [facility] ICU transfer Prescriptions: No Action fluticasone propion-salmeterol [Advair Diskus] 250-50 mcg/dose blister with device 1 inh inhalation BID 90 Days Qty: 3 3RF lisinopril 5 mg tablet 5 mg PO DAILY Qty: 90 3RF tamsulosin 0.4 mg capsule 0.4 mg PO BEDTIME Qty: 90 3RF alendronate 70 mg tablet 70 mg PO QWEEK Qty: 12 3RF sertraline 50 mg tablet 50 mg PO DAILY Qty: 90 2RF finasteride 5 mg tablet 5 mg PO DAILY Qty: 90 2RF simvastatin 10 mg tablet 10 mg PO BEDTIME 90 Days Qty: 90 3RF albuterol sulfate [ProAir HFA] 90 mcg/actuation HFA aerosol inhaler 2 inh inhalation Q4-6H PRN0RF polyethylene glycol 3350 17 gram/dose powder 17 g PO DAILY 0RF lidocaine HCl [Lidocaine Viscous] 2 % solution PO 0RF nystatin 100,000 unit/mL suspension PO 0RF dronabinol 2.5 mg capsule PO 0RF
[2021-12-01 18:38] LABS: Basophils Percent Auto 0.1 % (0-2); Hematocrit 42.2 % (42.0-52.0); Hemoglobin 14.2 g/dl (14.0-18.0); Imm Gran Abs Auto 0.08 X10*3/uL (0.00-0.03); Imm Gran Pct Auto 0.5 % (0.0-0.4); Lymphocytes Absolute Auto 0.3 X10*3/uL (1.2-4.9); Lymphocytes Percent Auto 1.6 % (20-40); MANUAL DIFF FLAG SCAN; Mean Corpuscular HGB Conc 33.6 g/dl (31.0-36.0); Mean Corpuscular Hemoglobin 28.5 pg (27.0-33.0); Mean Corpuscular Volume 84.6 fL (80.0-98.0); Mean Platelet Volume 8.2 fL (9.4-12.4); Monocytes Absolute Auto 0.3 X10*3/uL (0.1-1.2); Monocytes Percent Auto 2.1 % (2-11); Neutrophils Absolute Auto 14.8 x10*3/uL (2.0-8.3); Neutrophils Percent Auto 95.7 % (45-73); Platelet Count 186 X10*3/uL (160-400); Red Blood Count 4.99 X10*6/uL (4.60-5.80); Red Cell Distribution Width 13.4 % (11.0-16.0); SCAN SMEAR FLAG 1; White Blood Count 15.5 X10*3/uL (4.8-10.8)
[2021-12-01 18:49] LABS: IDNOW Serial# 55D5AD1C; INTERNATIONAL NORM RATIO 1.2 (0.9-1.1); Influenza A Negative (Negative); Influenza B2 Negative (Negative); Lactic Acid 2.3 mmol/L (0.5-2.0); Prothrombin Time 13.3 SEC (9.9-13.0)
[2021-12-01 18:51] LABS: COVID-19 Test Negative (Negative); Partial Thromboplastin Time 37.8 SEC (24.1-38.0)
[2021-12-01] MEDS: Acetaminophen 325 MG TABLET 975 MG PO (18:52)
[2021-12-01 18:53] LABS: Alanine Aminotransferase 19 U/L (0-40); Albumin Level 3.9 g/dL (3.5-5.0); Alkaline Phosphatase 83 U/L (39-117); Anion Gap 12 (12-20); Aspartate Amino Transferase 17 U/L (5-37); Bilirubin Direct 0.7 mg/dL (0.0-0.5); Bilirubin Total 1.6 mg/dL (0.0-1.0); Blood Urea Nitrogen 16 mg/dL (9-16); Calcium 9.3 mg/dL (8.4-10.2); Carbon Dioxide 27 mmol/L (22-29); Chloride 99 mmol/L (96-108); Creatinine Clr Calc Pharmacy 58.1; Estimated Glomerular Filt Rate > 60; Glucose Random 148 mg/dL (60-115); Potassium 4.2 mmol/L (3.3-5.1); Sodium 134 mmol/L (135-145); Total Protein 6.5 g/dL (6.5-8.0)
[2021-12-01] MEDS: cefTRIAXone sodium 1 GM in 0.9 % Sodium Chloride 50 ML IV (18:56)
[2021-12-01 18:57] LABS: Troponin-I High Sensitivity 10.3 ng/L (<3.5-35.0)
[2021-12-01 19:07] LABS: SLIDE REVIEW VERIFIED
[2021-12-01] MEDS: Azithromycin 500 MG in 0.9 % Sodium Chloride 250 ML 125 MG IV (20:00)
[2021-12-01] MEDS: Ibuprofen 600 MG TABLET PO (20:21)
[2021-12-01] MEDS: Lactated Ringers 500 ML 1000 ML IV ×2 (20:30→21:00)
[2021-12-01 20:33] LABS: Reflex Lactate? Lactic Acid Added
--- NOTE | 2021-12-01 20:40 | PC.NURSE ---
Pt BP 96/49, Dr Avila made aware, fluids to be given
[2021-12-01] MEDS: Lactated Ringers 500 ML 999 ML IV (21:16)
--- NOTE | 2021-12-01 22:26 | PM.IMHP ---
History of Present Illness Date of Service: 12/01/21 Chief Complaint: SOB PMFSH Medical History Anxiety and depression Compression fracture of T6 vertebra COPD (chronic obstructive pulmonary disease) Hypercholesterolemia Hypertension Obstructive sleep apnea Osteoporosis Right humeral fracture Tubular adenoma of colon Family History Father No problems noted. Mother Hypertension CVD (cardiovascular disease) Cancer Surgical History Deficient knowledge of leg surgery History of surgery History of tonsillectomy Social History Housing: House Alcohol intake: never Patient Tobacco Use Status: Former Tobacco user Tobacco use type: Cigarette e-Cigarette/Vaping Use: Never Used Second Hand Smoke Exposure: No Advance Directives: No Advance Directives Information Provided: No service: Yes Current occupational status: retired Cognitive needs: No Hearing needs: No Vision needs: Yes Meds Allergies Allergy/AdvReac Type Severity Reaction Status Date / Time oxycodone Allergy Unknown severe Verified 11/23/21 16:13 constipation Sulfa (Sulfonamide Allergy Unknown RASH Verified 11/23/21 16:13 Antibiotics) [SULFA (SULFONAMIDE ANTIBIOTICS)] hydrocodone [HYDROCODONE] AdvReac Unknown CONSTIPSATI Verified 11/23/21 16:13 ON Active Medications: Current Medications Acetaminophen (Acetaminophen 325 Mg Tablet) 650 mg PO Q6H PRN PRN Reason: Pain, Mild (Pain Scale 1-3) Albuterol/Ipratropium (Albuterol/Iprat 2.5/0.5mg 3 Ml Ampul.Neb) 3 ml INHALE RQ4H PRN PRN Reason: Shortness of Breath/Wheezing Albuterol/Ipratropium (Albuterol/Iprat 2.5/0.5mg 3 Ml Ampul.Neb) 3 ml INHALE RQ4H WHILE AWAKE ZAIRA Docusate Sodium (Docusate Sodium 100 Mg Capsule) 100 mg PO DAILY PRN PRN Reason: Constipation Ceftriaxone Sodium 1 gm/ (Sodium Chloride) 50 mls @ 100 mls/hr IV Q24H ZAIRA Azithromycin 500 mg/ Sodium (Chloride) 250 mls @ 125 mls/hr IV Q24H ZAIRA Ondansetron HCl (Ondansetron Hcl 4 Mg/2 Ml Vial) 4 mg IVPUSH Q8H PRN PRN Reason: Nausea and Vomiting Home Medications Medication Instructions Recorded Confirmed Last Taken Type albuterol sulfate 90 mcg/actuation 2 inh INHALATION Q4-6H PRN 05/03/21 11/23/21 Unknown History aerosol inhaler (ProAir HFA) lidocaine HCl 2 % mucosal solution ml PO 05/17/21 11/23/21 Unknown History (Lidocaine Viscous) nystatin 100,000 unit/mL oral ml PO 05/17/21 11/23/21 Unknown History suspension polyethylene glycol 3350 17 17 g PO DAILY 07/25/21 11/23/21 Unknown History gram/dose oral powder dronabinol 2.5 mg capsule mg PO 09/17/21 11/23/21 Unknown History Physical Exam Vital Signs and Narrative: Vital Signs: Last Vital Signs Temp 100 F 12/01/21 21:17 Pulse 100 12/01/21 21:17 Resp 17 12/01/21 21:17 BP 91/50 L 12/01/21 21:17 Pulse Ox 92 12/01/21 21:17 Oxygen Flow Rate 10 12/01/21 17:40 BMI result Body Mass Index 23.1 Results Labs CBC and Chem 7: 12/01/21 18:26 12/01/21 18:26 Labs: Laboratory Results - last 24 hr 12/01/21 12/01/21 12/01/21 18:26 18:26 18:26 MCV 84.6 MCH 28.5 MCHC 33.6 RDW 13.4 Plt Count 186 MPV 8.2 L Immature Gran % (Auto) 0.5 H Neut % (Auto) 95.7 H Lymph % (Auto) 1.6 L [place] % (Auto) 2.1 Eos % (Auto) 0.0 Baso % (Auto) 0.1 Lymph # (Auto) 0.3 L [place] # (Auto) 0.3 Eos # (Auto) 0.0 Baso # (Auto) 0.0 Abs Immat Gran (auto) 0.08 H Absolute Neuts (auto) 14.8 H Absolute Nucleated RBC 0.000 Nucleated RBC % (auto) 0.0 Smear Tech's Comments VERIFIED PT INR APTT Anion Gap 12 Estim Creat Clear Calc 58.1 Estimated GFR > 60 Random Glucose 148 H D Lactic Acid 2.3 H* Lactic Acid F/U @ 2Hr Calcium 9.3 Total Bilirubin 1.6 H Direct Bilirubin 0.7 H AST 17 ALT 19 Alkaline Phosphatase 83 Troponin I High Sens Total Protein 6.5 Albumin 3.9 COVID-19 ([facility]) COVID-19 Clin Com Influenza Type A (CHRISTOPHER) Influenza Type B (CHRISTOPHER) Influenza A & B Note 12/01/21 12/01/21 12/01/21 18:26 18:26 18:26 MCV MCH MCHC RDW Plt Count MPV Immature Gran % (Auto) Neut % (Auto) Lymph % (Auto) [place] % (Auto) Eos % (Auto) Baso % (Auto) Lymph # (Auto) [place] # (Auto) Eos # (Auto) Baso # (Auto) Abs Immat Gran (auto) Absolute Neuts (auto) Absolute Nucleated RBC Nucleated RBC % (auto) Smear Tech's Comments PT 13.3 H INR 1.2 H APTT 37.8 Anion Gap Estim Creat Clear Calc Estimated GFR Random Glucose Lactic Acid Lactic Acid F/U @ 2Hr Calcium Total Bilirubin Direct Bilirubin AST ALT Alkaline Phosphatase Troponin I High Sens Total Protein Albumin COVID-19 ([facility]) Negative COVID-19 Clin Com See Note Influenza Type A (CHRISTOPHER) Negative Influenza Type B (CHRISTOPHER) Negative Influenza A & B Note See Note 12/01/21 12/01/21 18:26 20:37 MCV MCH MCHC RDW Plt Count MPV Immature Gran % (Auto) Neut % (Auto) Lymph % (Auto) [place] % (Auto) Eos % (Auto) Baso % (Auto) Lymph # (Auto) [place] # (Auto) Eos # (Auto) Baso # (Auto) Abs Immat Gran (auto) Absolute Neuts (auto) Absolute Nucleated RBC Nucleated RBC % (auto) Smear Tech's Comments PT INR APTT Anion Gap Estim Creat Clear Calc Estimated GFR Random Glucose Lactic Acid Lactic Acid F/U @ 2Hr 1.0 Calcium Total Bilirubin Direct Bilirubin AST ALT Alkaline Phosphatase Troponin I High Sens 10.3 Total Protein Albumin COVID-19 ([facility]) COVID-19 Clin Com Influenza Type A (CHRISTOPHER) Influenza Type B (CHRISTOPHER) Influenza A & B Note Imaging Radiologist's Impressions: Impressions Chest X-Ray 12/01/21 18:33 IMPRESSION: Worsening lung disease since 2019 which could represent a combination of chronic emphysema/interstitial lung disease and superimposed multifocal pneumonia. Recommend clinical correlation and a follow-up examination to rule out underlying lesions. Quality VTE VTE Risk Level:: Medical - moderate - high VTE Device Contraindication: Treatment Not Indicated VTE Drug Contraindication: N/A - Med Ordered
--- NOTE | 2021-12-01 23:00 | PC.NURSE ---
See paper chart for all vital signs.
--- NOTE | 2021-12-01 23:00 | PC.NURSE ---
BP still low, Dr Avila made aware, Norepi to be given.
[2021-12-01 23:06] LABS: Troponin-I High Sensitivity 35.2 ng/L (<3.5-35.0)
== END 2021-12-02 00:45 | disposition short-term general hospital (02) ==
PROVIDERS: Emergency Provider Emergency Medicine Emergency Medical Services; PCP Internal Medicine
DX: J18.9 Pneumonia, unspecified organism (principal); I95.9 Hypotension, unspecified; R09.02 Hypoxemia; R50.9 Fever, unspecified; R05.9 Cough, unspecified; R06.02 Shortness of breath; Z20.822 Contact with and (suspected) exposure to COVID-19; Z87.891 Personal history of nicotine dependence; Z79.899 Other long term (current) drug therapy
CPT/HCPCS: 36415; 71045; 80048; 80076; 83605; 84484; 85025; 85610; 85730; 87040; 87502; 87635; 93005; 96361; 96365; 96366; 96367; 96375; 99285; 99291; J0456; J0696

== ENCOUNTER 2021-12-20 13:25 | Outpatient (REF) | payer MEDICARE, SELFPAY ==
--- NOTE | ~2021-12-20 | XR_ITS ---
EXAMINATION: XR CHEST CLINICAL INFORMATION: Pneumonia COMPARISON: Previous chest x-ray most recent November 2021 TECHNIQUE: 2 views of the chest were obtained. FINDINGS: The cardiac and mediastinal contours are stable. The previously identified multifocal bilateral infiltrates appears significantly improved. There is minimal residual scarring or subsegmental atelectasis at the left lung base. The lungs are otherwise clear. There is no pleural effusion or pneumothorax. There is a right jugular port with tip projecting over the SVC. There are multiple thoracic vertebral body compression fractures and post vertebroplasty change. There is an old sternal fracture. There are old left rib fractures. Bone findings are stable. XR/XR chest 2V IMPRESSION: Improved bilateral infiltrates from November 2021 chest x-ray. There is residual scarring or subsegmental atelectasis at the left lung base.
== END 2021-12-20 13:26 | disposition home or self-care (01) ==
LOC: HO.XRAY 13:25
PROVIDERS: PCP Internal Medicine; Visit Provider Internal Medicine
DX: J18.9 Pneumonia, unspecified organism (principal); J44.9 Chronic obstructive pulmonary disease, unspecified; R09.02 Hypoxemia
CPT/HCPCS: 71046; 99212

== ENCOUNTER → 2022-01-24 10:48 | Outpatient (BNVA) | payer MEDICARE, SELFPAY | PROVIDERS: PCP Internal Medicine; Visit Provider Urology | DX: N40.1 Benign prostatic hyperplasia with lower urinary tract symptoms (principal); N13.8 Other obstructive and reflux uropathy; R33.8 Other retention of urine | CPT/HCPCS: 51798; 99212 ==

== ENCOUNTER → 2022-01-29 13:10 | Outpatient (BNVA) | payer MEDICARE, SELFPAY | PROVIDERS: PCP Internal Medicine; Visit Provider Internal Medicine | DX: J44.9 Chronic obstructive pulmonary disease, unspecified (principal); R09.02 Hypoxemia; Z86.16 Personal history of COVID-19; Z85.9 Personal history of malignant neoplasm, unspecified; Z92.3 Personal history of irradiation; Z92.21 Personal history of antineoplastic chemotherapy | CPT/HCPCS: 99212 ==

== ENCOUNTER → 2022-03-14 13:16 | Outpatient (BNVA) | payer MEDICARE, SELFPAY | PROVIDERS: PCP Internal Medicine; Visit Provider Internal Medicine | DX: J44.9 Chronic obstructive pulmonary disease, unspecified (principal) | CPT/HCPCS: 99212 ==

== ENCOUNTER 2022-03-21 10:01 | Outpatient (REF) | payer MEDICARE, SELFPAY ==
[2022-03-21 10:30] LABS: MANUAL DIFF FLAG NO
--- NOTE | 2022-03-21 10:54 | ECG_ITS ---
Test Reason : preop Blood Pressure : / mmHG Vent. Rate : 075 BPM Atrial Rate : 075 BPM P-R Int : 152 ms QRS Dur : 074 ms QT Int : 352 ms P-R-T Axes : 074 077 063 degrees QTc Int : 393 ms Sinus rhythm with Premature atrial complexes Otherwise normal ECG When compared with ECG of 01-DEC-2021 18:04, Premature atrial complexes are now Present Vent. rate has decreased BY 53 BPM Referred By: Tila Mcclure Electronically Signed By:ALEAH YIN
[2022-03-21 11:26] LABS: Basophils Percent Auto 0.4 % (0-2); Eosinophils Absolute Auto 0.2 X10*3/uL (0.0-0.4); Eosinophils Percent Auto 2.7 % (0-4); Hematocrit 41.1 % (42.0-52.0); Hemoglobin 14.3 g/dl (14.0-18.0); Imm Gran Abs Auto 0.02 X10*3/uL (0.00-0.03); Imm Gran Pct Auto 0.4 % (0.0-0.4); Lymphocytes Absolute Auto 1.5 X10*3/uL (1.2-4.9); Lymphocytes Percent Auto 27.5 % (20-40); Mean Corpuscular HGB Conc 34.8 g/dl (31.0-36.0); Mean Corpuscular Hemoglobin 29.9 pg (27.0-33.0); Mean Corpuscular Volume 85.8 fL (80.0-98.0); Mean Platelet Volume 8.8 fL (9.4-12.4); Monocytes Absolute Auto 0.5 X10*3/uL (0.1-1.2); Monocytes Percent Auto 9.8 % (2-11); Neutrophils Absolute Auto 3.3 x10*3/uL (2.0-8.3); Neutrophils Percent Auto 59.2 % (45-73); Platelet Count 144 X10*3/uL (160-400); Red Blood Count 4.79 X10*6/uL (4.60-5.80); Red Cell Distribution Width 14.2 % (11.0-16.0); White Blood Count 5.5 X10*3/uL (4.8-10.8)
[2022-03-21 12:26] LABS: Anion Gap 14 (12-20); Blood Urea Nitrogen 12 mg/dL (9-16); Calcium 9.3 mg/dL (8.4-10.2); Carbon Dioxide 27 mmol/L (22-29); Chloride 102 mmol/L (96-108); Estimated Glomerular Filt Rate > 60; Glucose Random 90 mg/dL (60-115); Potassium 4.7 mmol/L (3.3-5.1); Sodium 138 mmol/L (135-145)
== END 2022-03-21 10:02 | disposition home or self-care (01) ==
LOC: HO.LAB 10:01
PROVIDERS: PCP Internal Medicine; Visit Provider Internal Medicine
DX: Z01.818 Encounter for other preprocedural examination (principal); I49.1 Atrial premature depolarization
CPT/HCPCS: 36415; 80048; 85025; 93005

== ENCOUNTER → 2022-03-22 11:18 | Outpatient (BNVA) | payer MEDICARE, SELFPAY | PROVIDERS: PCP Internal Medicine; Visit Provider Urology | DX: N40.1 Benign prostatic hyperplasia with lower urinary tract symptoms (principal); R33.9 Retention of urine, unspecified; R35.1 Nocturia | CPT/HCPCS: Q3014 ==

== ENCOUNTER 2022-04-01 08:46 | Day surgery (SDC) | payer MEDICARE, SELFPAY ==
[2022-03-25 16:47] VITALS: BMI 22.9
--- NOTE | 2022-03-28 13:40 | P.CONAN_ITS ---
Documented by User: Nathalie Deluca NP 03/28/22 13:41 HPI - Anesthesia Eval Consult details Narrative: 77yo M for Laser Ablation Prostate w/Green Light Medically optimized per PCP [facility] Active Problems Active Problems: All Active Problems (Updated 03/19/22 @ 16:04 by Tila Mcclure MD) BPH loc w urin obs/LUTS (Acute) Nocturia more than twice per night (Acute) Weak urinary stream (Acute) Impaired fasting glucose (Acute) Sialadenitis (Acute) Tonsillar cancer (Acute) Generalized anxiety disorder (Acute) Feeling of incomplete bladder emptying (Acute) Pulmonary nodule (Acute) Annual physical exam (Acute) Incomplete emptying of bladder due to benign prostatic hyperplasia (Acute) Preop exam for internal medicine (Acute) Hypoxemia (Acute) Pneumonia (Acute) Osteoporosis (Acute) Hypercholesterolemia (Acute) COPD (chronic obstructive pulmonary disease) (Acute) Hypertension (Acute) Past Medical History Medical History Anxiety and depression Calf pain Compression fracture of T6 vertebra COPD (chronic obstructive pulmonary disease) COVID-19 virus infection Dental infection Generalized anxiety disorder Hypercholesterolemia Hypertension Hypoxemia Mass of right side of neck Obstructive sleep apnea Osteoporosis Pneumonia Primary basaloid carcinoma of oropharynx Right humeral fracture Squamous cell carcinoma Tubular adenoma of colon Family History Family History Father No problems noted. Mother Hypertension CVD (cardiovascular disease) Cancer Surgical History Surgical History (Updated 03/25/22 @ 16:55 by Shamika Nicholson RN) Deficient knowledge of leg surgery History of tonsillectomy Hx of colonoscopy Hx of kyphoplasty Social History Social History Housing: House Are you a primary healthcare management consultant to a significant other at home: No Do you presently have visiting nurse or other home services: No Alcohol intake: never Patient Tobacco Use Status: Former Tobacco user Quit Date: 1996 Tobacco use type: Cigarette Years Smoked: quit 1995 e-Cigarette/Vaping Use: Never Used Second Hand Smoke Exposure: Yes Have you been hit, kicked, punched, or otherwise hurt by someone within the past year? If so, by whom?: No Are you DNR?: No Advance Directives: No (will bring dos) Advance Directives Information Provided: Yes Advance Directives on File: No Recently lost weight without trying: Yes How much weight loss: 24-33 pounds Eating poorly because of decreased appetite: Yes Nutrition screen score: 6 Nutrition Risks: Surgical patient >75years service: Yes Current occupational status: retired Cognitive needs: No Hearing needs: No Vision needs: Yes Meds Allergies Allergy/AdvReac Type Severity Reaction Status Date / Time Sulfa (Sulfonamide Allergy Unknown RASH Verified 04/01/22 09:37 Antibiotics) [SULFA (SULFONAMIDE ANTIBIOTICS)] hydrocodone [HYDROCODONE] AdvReac Severe severe Verified 04/01/22 09:37 constipation oxycodone AdvReac Severe severe Verified 04/01/22 09:37 constipation Home Medications Medication Instructions Recorded Confirmed Last Taken Type albuterol sulfate 90 mcg/actuation 2 inh inhalation Q4-6H PRN 05/03/21 03/25/22 Unknown History aerosol inhaler (ProAir HFA) Shortness Of Breath polyethylene glycol 3350 17 17 g PO DAILY PRN Constipation 07/25/21 03/25/22 Unknown History gram/dose oral powder mirtazapine 7.5 mg tablet 15 mg PO BEDTIME 12/26/21 03/25/22 Unknown History omeprazole 20 mg capsule,delayed 20 mg PO DAILY 12/26/21 03/25/22 Unknown History release pilocarpine HCl 5 mg tablet 5 mg PO TID 03/14/22 03/25/22 Unknown History multivitamin 1 tab PO DAILY 03/25/22 03/25/22 Unknown History Exam Exam Date and Time: March 28, 2022 1340 Height,Weight and Vital Signs: Height 5 ft 5 in Weight 62.596 kg Pertinent Lab Results Pertinent Lab Results: Laboratory Tests 03/21/22 03/21/22 10:27 10:27 WBC 5.5 Hgb 14.3 Hct 41.1 L Plt Count 144 L Sodium 138 Potassium 4.7 Chloride 102 Carbon Dioxide 27 BUN 12 Creatinine 0.95 Narrative Narrative: EKG 03/2022 Vent. Rate : 075 BPM ? ? Atrial Rate : 075 BPM ?? P-R Int : 152 ms? QRS Dur : 074 ms ? ? QT Int : 352 ms ? ? ? P-R-T Axes : 074 077 063 degrees ?? QTc Int : 393 ms ? Sinus rhythm with Premature atrial complexes Otherwise normal ECG When compared with ECG of 01-DEC-2021 18:04, Premature atrial complexes are now Present Vent. rate has decreased BY? 53 BPM Assessment and Plan Assessment Anesthesia Assessment: Chart Reviewed Documented by User: Brenda Musa MD 04/01/22 09:48 PMFSH Past Medical History Medical History Anxiety and depression Calf pain Compression fracture of T6 vertebra COPD (chronic obstructive pulmonary disease) COVID-19 virus infection Dental infection Generalized anxiety disorder Hypercholesterolemia Hypertension Hypoxemia Mass of right side of neck Obstructive sleep apnea Osteoporosis Pneumonia Primary basaloid carcinoma of oropharynx Right humeral fracture Squamous cell carcinoma Tubular adenoma of colon Family History Family History Father No problems noted. Mother Hypertension CVD (cardiovascular disease) Cancer Family history of problems with anesthesia: No Surgical History Surgical History (Updated 03/25/22 @ 16:55 by Shamika Nicholson RN) Deficient knowledge of leg surgery History of tonsillectomy Hx of colonoscopy Hx of kyphoplasty History of Problems with Anesthesia: No Social History Social History Housing: House Are you a primary healthcare management consultant to a significant other at home: No Do you presently have visiting nurse or other home services: No Alcohol intake: never Patient Tobacco Use Status: Former Tobacco user Quit Date: 1996 Tobacco use type: Cigarette Years Smoked: quit 1995 e-Cigarette/Vaping Use: Never Used Second Hand Smoke Exposure: Yes Have you been hit, kicked, punched, or otherwise hurt by someone within the past year? If so, by whom?: No Are you DNR?: No Advance Directives: No (will bring dos) Advance Directives Information Provided: Yes Advance Directives on File: No Recently lost weight without trying: Yes How much weight loss: 24-33 pounds Eating poorly because of decreased appetite: Yes Nutrition screen score: 6 Nutrition Risks: Surgical patient >75years service: Yes Current occupational status: retired Cognitive needs: No Hearing needs: No Vision needs: Yes Meds Allergies Allergy/AdvReac Type Severity Reaction Status Date / Time Sulfa (Sulfonamide Allergy Unknown RASH Verified 04/01/22 09:37 Antibiotics) [SULFA (SULFONAMIDE ANTIBIOTICS)] hydrocodone [HYDROCODONE] AdvReac Severe severe Verified 04/01/22 09:37 constipation oxycodone AdvReac Severe severe Verified 04/01/22 09:37 constipation Home Medications Medication Instructions Recorded Confirmed Last Taken Type albuterol sulfate 90 mcg/actuation 2 inh inhalation Q4-6H PRN 05/03/21 03/25/22 Unknown History aerosol inhaler (ProAir HFA) Shortness Of Breath polyethylene glycol 3350 17 17 g PO DAILY PRN Constipation 07/25/21 03/25/22 Unknown History gram/dose oral powder mirtazapine 7.5 mg tablet 15 mg PO BEDTIME 12/26/21 03/25/22 Unknown History omeprazole 20 mg capsule,delayed 20 mg PO DAILY 12/26/21 03/25/22 Unknown History release pilocarpine HCl 5 mg tablet 5 mg PO TID 03/14/22 03/25/22 Unknown History multivitamin 1 tab PO DAILY 03/25/22 03/25/22 Unknown History Exam Airway Mallampati Class: II TM Dist: >3cm Neck ROM: Full Denture: Upper and Lower Heart: rrr Lungs: cta Assessment and Plan Assessment Anesthesia Assessment: Anesthesia Plan Discussed and Chart Reviewed Final Anesthetic Review Family History of Problems with Anesthesia: No History of Problems with Anesthesia: No NPO: Yes ASA Class: III Final Preanesthetic Review: No Changes in Pt Med Stat, Meds/Allgs Chart Reviewed and Consent Obtained/Reviewed Patient Risk: Intermediate Procedure Risk: Intermediate Anesthetic Plan Anesthetic Plan: GA Disposition: Standard PACU
[2022-04-01] VITALS (7 sets, daily range): BP systolic 119–139; BP diastolic 64–77; PULSE 77–87; RESP 16–18; TEMP 36.1–36.7; O2SAT 93–97
[2022-04-01] MEDS: Lactated Ringers 1,000 ML 100 ML IVCONT (09:17)
--- NOTE | 2022-04-01 09:42 | MHC.SHP ---
Pre-Procedural Eval Section A Date of Service: 04/01/22 The patient is an INPATIENT: No Changes since office visit: No Cold of Flu in the past 2 weeks, No New Medical Problems, No Changes in Medication and No Patient answered all questions The History & Physical has been completed within 30 days and I have reviewed it.: Yes Section B Chief Complaint: bph Details of Present Illness: Persistent symptoms despite therapy Relevant Family History (Specify if Yes): No Relevant Social History: None Present Medications: see Short Stay Collaborative assessment Medical History: No relevant PMH History of Previous Operations: No relevant previous surgery Allergies: Allergies Allergy/AdvReac Type Severity Reaction Status Date / Time Sulfa (Sulfonamide Allergy Unknown RASH Verified 04/01/22 09:37 Antibiotics) [SULFA (SULFONAMIDE ANTIBIOTICS)] hydrocodone [HYDROCODONE] AdvReac Severe severe Verified 04/01/22 09:37 constipation oxycodone AdvReac Severe severe Verified 04/01/22 09:37 constipation Review of Systems Sugical H&P ROS: Negative: Constitution, Cardiovascular, Respiratory, Neurological, Psychiatric, Hem-Onc, Allergic/Immunologic, Gastrointestinal, Genitourinary, Musculoskeletal, Integumentary, Endocrine and Eyes/Ears/Nose/Throat Exam Surgical H&P Exam: Normal: HEENT, Normal: Heart, Normal: Lungs, Normal: Extremities, Normal: Abdomen, Normal: Skin and Normal: Neurological Plan Diagnosis/Plan: Unchanged (Laser prostatectomy) I have reviewed the history and physical and performed a pertinent physical examination on my patient. No changes have occurred unless specified.
--- NOTE | 2022-04-01 10:48 | P.OP_ITS ---
Operative Note Operative Note Date of Service: 04/01/22 Narrative: PreOperative Diagnosis: Bladder outlet obstruction Post Operative Diagnosis: Bladder outlet obstruction Procedure: GreenLight Laser Enucleation of the prostate Surgeon: Dr Carlos A Lewis Anesthesia: General Indications for procedure: Progressive symptoms despite medication History of bladder outlet obstruction. Treated with alpha-agnieszka and other medications. Still with symptoms. On cystoscopy in office has trilobar prostate . Recommendation for prostate procedure with laser enucleation of prostate. It has been discussed. Focus was placed on development of retrograde examination which is a normal part of this procedure. Procedure: After informed consent was verified the patient was brought to the operating room and placed in a supine position. Anesthesia was administered per protocol. Patient was placed in modified dorsal lithotomy position and prepped and draped in a sterile fashion. Safety pause time-out was confirmed. Antibiotics have been given. Twenty-four Burmese laser cystoscope was inserted per urethra. No abnormalities found the anterior posterior urethra. The bladder was filled on both ureteric orifices were seen in normal position away from our area of interest. Using a GreenLight laser settings of 80 w incisions were made at the 5 and 7 o'clock position. They were taken down and then laterally on each side. They were brought from the bladder neck down to the level of the veru. These defined the lateral aspects of the median lobe area. The median lobe was ablated and enucleated tissue removed. Once the median lobe area had been cleaned attention was directed to the lateral lobes. We started with the patient's left lateral lobe. Firstly the 05:00 o'clock groove was further developed. This was moved in the lateral position to undermine the tissue on the lateral side. Focus was then placed on the laser at the 1 o'clock position in developing a secondary groove down to the level of bladder fibers. The intervening tissue between these 2 grooves was removed with a combination of enucleation ablation working from the apex toward the bladder neck. A similar procedure was repeated on the patient's right-hand side. When this was completed debris and pieces of prostate removed from the bladder. Both ureteric orifices were reviewed again in shown to be patent in away from any areas of energy damage. The apical area was reviewed in any stray ooze was controlled. A 22 Burmese 30 cc balloon Moore catheter was placed over stylet into the bladder. Clear efflux was obtained. 30 cc was placed in the balloon and gentle traction was placed. A snap was used to hold tension once the patient will be moved and transported. Once transportation its finish this novel be removed. A belladonna and opiate suppository was placed for postprocedure pain man agement. He tolerated procedure well was extubated in the operating and transferred in a stable condition to the recovery area. Total Power 152 kW 20miun lase time Pathology: Prostate tissue Drains: Moore catheter
[2022-04-01] MEDS: traMADoL HCL 50 MG TABLET PO (11:09)
[2022-04-01] MEDS: Acetaminophen 325 MG TABLET 650 MG PO (11:09)
== END 2022-04-01 12:16 | disposition home or self-care (01) ==
PROVIDERS: PCP Internal Medicine; Visit Provider Urology
PROC: (CPT 52648; principal; 2022-04-01 10:50)
DX: N40.1 Benign prostatic hyperplasia with lower urinary tract symptoms (principal); R33.8 Other retention of urine; R35.1 Nocturia; N32.0 Bladder-neck obstruction; J44.9 Chronic obstructive pulmonary disease, unspecified; G47.33 Obstructive sleep apnea (adult) (pediatric); R09.02 Hypoxemia; F41.8 Other specified anxiety disorders; I10 Essential (primary) hypertension; E78.00 Pure hypercholesterolemia, unspecified; M81.0 Age-related osteoporosis without current pathological fracture; Z79.899 Other long term (current) drug therapy; Z88.2 Allergy status to sulfonamides; Z88.8 Allergy status to other drugs, medicaments and biological substances; Z85.818 Personal history of malignant neoplasm of other sites of lip, oral cavity, and pharynx; Z87.891 Personal history of nicotine dependence; Z86.16 Personal history of COVID-19
CPT/HCPCS: 52648; 88305; J1100; J1956; J2405; J3010

== ENCOUNTER → 2022-04-04 08:51 | Outpatient (BNVA) | payer MEDICARE, SELFPAY | PROVIDERS: PCP Internal Medicine; Visit Provider Urology | DX: N40.1 Benign prostatic hyperplasia with lower urinary tract symptoms (principal); N13.8 Other obstructive and reflux uropathy | CPT/HCPCS: 51700; 51798 ==

== ENCOUNTER → 2022-05-16 15:08 | Outpatient (BNVA) | payer MEDICARE, SELFPAY | PROVIDERS: PCP Internal Medicine; Visit Provider Urology | DX: N40.1 Benign prostatic hyperplasia with lower urinary tract symptoms (principal); N13.8 Other obstructive and reflux uropathy | CPT/HCPCS: 51798; 99212 ==

== ENCOUNTER 2022-09-13 13:53 | Outpatient (REF) | payer MEDICARE, SELFPAY ==
--- NOTE | ~2022-09-13 | MM_ITS ---
EXAMINATION: BONE DENSITOMETRY CLINICAL INDICATION: Osteoporosis. COMPARISON: Previous BD dated 08/16/2020 and baseline BD dated 06/12/2018. TECHNIQUE: Using a Canva DXA System (software version: 13.1) manufactured by [employer], dual-energy x-ray absorptiometry was performed of the lumbar spine and left hip. The images are of good technical quality. Summary results are attached. FINDINGS: AP SPINE L1-L4: Current: BMD 0.885 g/cm2, Z-score -1.7, T-score -2.8, osteoporosis, 6.6% increase from previous, 16.1% increase from baseline (<5% change is not significant). Prior: BMD 0.830 g/cm2. Baseline: BMD 0.762 g/cm2. LEFT FEMUR, NECK: Current: BMD 0.707 g/cm2, Z-score -1.1, T-score -2.8, osteoporosis. Prior: BMD 0.739 g/cm2. Baseline: BMD 0.680 g/cm2. LEFT FEMUR, TOTAL: Current: BMD 0.796 g/cm2, Z-score -0.9, T-score -2.1, osteopenia, 3.0% decrease from previous, 6.4% increase from baseline (<5% change is not significant). Prior: BMD 0.821 g/cm2. Baseline: BMD 0.748 g/cm2. IDENTIFIED RISK FACTORS: Osteoporosis, height loss, history of fracture (adult), family history (parent hip fracture). HISTORY OF FRACTURE: Thoracic spine, shoulder, other fracture. MEDICATIONS: Multivitamin. MM/XR DEXA axial skeleton IMPRESSION: 1. DIAGNOSIS: Severe osteoporosis based on the lowest T-score value of -2.8 in the lumbar spine and femur neck and history of fracture of spine and shoulder applying World Health Organization criteria. 2. 10-YEAR FRACTURE RISK PREDICTION, FRAX: According to the guidelines, FRAX calculation should only be performed on patients in the osteopenia bone density category. Therefore, FRAX was not performed on this patient. 3. Treatment Recommendations: NOF guidelines recommend consideration for treatment in postmenopausal women and men age 50 and older presenting with the following: -A hip or vertebral (clinical or morphometric) fracture. -T-score less than or equal to -2.5 at the femoral neck or spine after appropriate evaluation to exclude secondary causes. -Low bone mass at the hip or spine and a 10-year fracture probability by FRAX of greater than or equal to 3% for hip fracture or greater than or equal to 20% for major osteoporotic fracture based on the [place] adapted WHO algorithm. 4. Other Recommendations: All treatment decisions require clinical judgment and consideration of individual patient factors, including patient preferences, comorbidities, previous drug use, risk factors not captured in the FRAX model (e.g. frailty, falls, vitamin D deficiency, increased bone turnover, interval significant decline in bone density) and possible under or overestimation of fracture risk by FRAX. Additional medical evaluation for secondary cause of low bone mineral density may be appropriate. FUTURE SCAN RECOMMENDATION: People with diagnosed cases of osteoporosis or at high risk for fracture should have regular bone mineral density tests. For patients eligible for Medicare, routine testing is allowed once every 2 years. The testing frequency can be increased to one year for patients who have rapidly progressing disease, those who are receiving or discontinuing medical therapy to restore bone mass, or have additional risk factors.
== END 2022-09-13 13:54 | disposition home or self-care (01) ==
LOC: HO.MAMMO 13:53
PROVIDERS: PCP Internal Medicine; Visit Provider Internal Medicine
DX: M81.0 Age-related osteoporosis without current pathological fracture (principal)
CPT/HCPCS: 77080

== ENCOUNTER 2022-10-11 08:18 | Outpatient (REF) | payer MEDICARE, SELFPAY ==
[2022-10-11 08:32] LABS: MANUAL DIFF FLAG NO
[2022-10-11 08:56] LABS: Estimated Average Glucose 97 mg/dL
[2022-10-11 09:21] LABS: Basophils Percent Auto 0.5 % (0-2); Eosinophils Absolute Auto 0.2 X10*3/uL (0.0-0.4); Eosinophils Percent Auto 3.1 % (0-4); Hemoglobin 15.4 g/dl (14.0-18.0); Imm Gran Abs Auto 0.01 X10*3/uL (0.00-0.03); Imm Gran Pct Auto 0.2 % (0.0-0.4); Lymphocytes Absolute Auto 1.5 X10*3/uL (1.2-4.9); Lymphocytes Percent Auto 25.9 % (20-40); Mean Corpuscular Hemoglobin 30.4 pg (27.0-33.0); Mean Corpuscular Volume 86.8 fL (80.0-98.0); Mean Platelet Volume 8.8 fL (9.4-12.4); Monocytes Absolute Auto 0.4 X10*3/uL (0.1-1.2); Monocytes Percent Auto 7.4 % (2-11); Neutrophils Absolute Auto 3.7 x10*3/uL (2.0-8.3); Neutrophils Percent Auto 62.9 % (45-73); Platelet Count 157 X10*3/uL (160-400); Red Blood Count 5.07 X10*6/uL (4.60-5.80); Red Cell Distribution Width 12.9 % (11.0-16.0); White Blood Count 5.8 X10*3/uL (4.8-10.8)
[2022-10-11 09:33] LABS: Alanine Aminotransferase 16 U/L (0-40); Albumin Level 4.5 g/dL (3.5-5.0); Alkaline Phosphatase 63 U/L (39-117); Anion Gap 12 (12-20); Aspartate Amino Transferase 19 U/L (5-37); Bilirubin Total 1.9 mg/dL (0.0-1.0); Blood Urea Nitrogen 14 mg/dL (9-16); Calcium 9.4 mg/dL (8.4-10.2); Carbon Dioxide 29 mmol/L (22-29); Chloride 106 mmol/L (96-108); Cholesterol 140 mg/dL; Estimated Glomerular Filt Rate > 60; Glucose Random 101 mg/dL (60-115); HDL Cholesterol 42 mg/dL; LDL Cholesterol Calculated 86 mg/dl; Potassium 4.8 mmol/L (3.3-5.1); Sodium 142 mmol/L (135-145); Total Protein 6.9 g/dL (6.5-8.0); Triglycerides 60 mg/dL
[2022-10-11 09:42] LABS: Free T4 (Free Thyroxine) 0.86 ng/dL (0.71-1.85); Vitamin D 25-OH Total 39.1 ng/mL (>30)
[2022-10-11 10:04] LABS: Folate 16.5 ng/mL (> or = 4.0); Prostate Specific Antigen 0.42 ng/mL (<0.05-4.0); Thyroid Stimulating Hormone 4.14 uIU/mL (0.32-4.0); Vitamin B12 667 pg/mL (200-900)
== END 2022-10-11 08:19 | disposition home or self-care (01) ==
LOC: HO.LAB 08:18
PROVIDERS: Urology; Visit Provider Internal Medicine
DX: M80.00XS Age-related osteoporosis with current pathological fracture, unspecified site, sequela (principal); N40.1 Benign prostatic hyperplasia with lower urinary tract symptoms; E78.00 Pure hypercholesterolemia, unspecified; R73.01 Impaired fasting glucose; Z12.5 Encounter for screening for malignant neoplasm of prostate; X58.XXXD Exposure to other specified factors, subsequent encounter
CPT/HCPCS: 36415; 80053; 80061; 82306; 82607; 82746; 83036; 84153; 84439; 84443; 85025

== ENCOUNTER → 2022-11-14 14:36 | Outpatient (BNVA) | payer MEDICARE, SELFPAY | PROVIDERS: PCP Internal Medicine; Visit Provider Urology | DX: N40.1 Benign prostatic hyperplasia with lower urinary tract symptoms (principal) | CPT/HCPCS: Q3014 ==

== ENCOUNTER 2023-03-04 09:47 | Outpatient (REF) | payer MEDICARE, SELFPAY ==
[2023-03-04 11:33] LABS: Estimated Average Glucose 94 mg/dL; Hemoglobin A1c % 4.9 %
[2023-03-04 13:12] LABS: Alanine Aminotransferase 16 U/L (0-40); Albumin Level 4.3 g/dL (3.5-5.0); Alkaline Phosphatase 69 U/L (39-117); Anion Gap 8 (12-20); Aspartate Amino Transferase 15 U/L (5-37); Bilirubin Total 1.5 mg/dL (0.0-1.0); Blood Urea Nitrogen 9 mg/dL (9-16); Calcium 9.5 mg/dL (8.4-10.2); Carbon Dioxide 31 mmol/L (22-29); Chloride 106 mmol/L (96-108); Estimated Glomerular Filt Rate > 60; Free T4 (Free Thyroxine) 0.78 ng/dL (0.71-1.85); Glucose Random 95 mg/dL (60-115); Potassium 4.3 mmol/L (3.3-5.1); Sodium 141 mmol/L (135-145); Thyroid Stimulating Hormone 2.84 uIU/mL (0.32-4.0)
== END 2023-03-04 09:48 | disposition home or self-care (01) ==
LOC: HO.LAB 09:47
PROVIDERS: PCP Internal Medicine; Visit Provider Internal Medicine
DX: R73.01 Impaired fasting glucose (principal); R94.6 Abnormal results of thyroid function studies
CPT/HCPCS: 36415; 80053; 83036; 84439; 84443

== ENCOUNTER 2023-03-14 10:34 | Outpatient (AMB) | payer MEDICARE, SELFPAY ==
--- NOTE | 2023-03-14 10:38 | A.OFFPC_ITS ---
Vital Signs 03/14/23 10:40 Height 5 ft 5 in Weight 143 lb BMI 23.8 BP 130/62 Blood Pressure Location Lt brachial Position Sitting Pulse 65 Pulse Source Pulse Oximeter Pulse Oximetry (%) 97 Oxygen Delivery Method Room Air Intake Visit Reasons: IGT, TSH Allergies Sulfa (Sulfonamide Antibiotics) [SULFA (SULFONAMIDE ANTIBIOTICS)] Allergy (Unknown, Verified 03/14/23 10:41) RASH hydrocodone [HYDROCODONE] Adverse Reaction (Severe, Verified 03/14/23 10:41) severe constipation oxycodone Adverse Reaction (Severe, Verified 03/14/23 10:41) severe constipation Tobacco use date assessed: 09/03/22 Fall risk assessment: No Falls in past year Last assessed Fall Risk: 03/14/23 Dental Screening Dental Screen Date: 03/14/23 Did you have a dental visit in the last 12 months?: No Did you have a dental problem in the last 6 months where you did not have access to dental care?: No Was dental information given to patient?: No HPI IGT, TSH HPI Details 78-year-old male with tonsillar cancer, hypertension COPD hypercholesterolemia osteoporosis impaired glucose tolerance BPH coming in for follow-up last seen in November 2022 patient follows up with hematology oncology in [facility] concern of some dysphagia advised gastroenterology 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 Oncology referred to a Gastroenterology in [facility]. COPD on inhalers. controlled [facility] Medical History (Updated 12/04/22 @ 10:28 by Tila Mcclure MD) Anxiety and depression Calf pain Compression fracture of T6 vertebra COPD (chronic obstructive pulmonary disease) COVID-19 virus infection Dental infection Generalized anxiety disorder Hypercholesterolemia Hypertension Hypoxemia Mass of right side of neck Obstructive sleep apnea Osteoporosis Pneumonia Preop exam for internal medicine Primary basaloid carcinoma of oropharynx Right humeral fracture Squamous cell carcinoma Tubular adenoma of colon Surgical History Deficient knowledge of leg surgery History of tonsillectomy Hx of colonoscopy Hx of kyphoplasty Family History Father No problems noted. Mother Hypertension CVD (cardiovascular disease) Cancer Social History Housing: House Are you a primary care management specialist to a significant other at home: No Do you presently have visiting nurse or other home services: No Alcohol intake: never Patient Tobacco Use Status: Former Tobacco user Quit Date: 1996 Tobacco use type: Cigarette Years Smoked: quit 1995 e-Cigarette/Vaping Use: Never Used Second Hand Smoke Exposure: Yes service: Yes Current occupational status: retired Cognitive needs: No Hearing needs: No Vision needs: Yes Questionnaire PHQ-9 Over the last 2 weeks, how often have you been bothered by any of the following problems? 1. Little interest or pleasure in doing things: not at all 2. Feeling down, depressed, or hopeless: not at all 3. Trouble falling or staying asleep, or sleeping too much: not at all 4. Feeling tired or having little energy: not at all 5. Poor appetite or overeating: not at all 6. Feeling bad about yourself - or that you are a failure or have let yourself or your family down: not at all 7. Trouble concentrating on things, such as reading the newspaper or watching television: not at all 8. Moving or speaking so slowly that other people could have noticed. Or the opposite - being so fidgety or restless that you have been moving around a lot more than usual: not at all 9. Thoughts that you would be better off or of hurting yourself in some way: not at all Total score: 0 Depression Screening Interpretation: Negative Source: Developed by Drs. Paul Greer, Capri Meraz, Robin Barksdale and colleagues, with an educational nanette from [email or web address]. Thrive Questionnaire Date Thrive assessed: 09/03/22 Currently or been in a relationship where the following occur: no concerns reported AUDIT C Alcohol Use Questionnaire (AUDIT-C) 1. How often do you have a drink containing alcohol?: Never 3. How often do you have six or more drinks on one occasion?: Never Total Score: 0 JOHAN-7 AMB Questionnaire JOHAN-7 Date JOHAN - 7 assessed: 09/03/22 Source: Developed by Drs. Paul Greer, Capri Meraz, Robin Barksdale and colleagues, with an educational nanette from [email or web address]. Physical exam (Primary Care) Vital Signs: Last Vital Signs Pulse 65 03/14/23 10:40 BP 130/62 03/14/23 10:40 Pulse Ox 97 03/14/23 10:40 Oxygen Delivery Method Room Air 03/14/23 10:40 BMI result Body Mass Index 23.8 Tobacco/Smoking Status: Tobacco use Status Tobacco use date assessed 09/03/22 03/14/23 10:44 Patient Tobacco Use Status Former Tobacco user 03/14/23 10:44 Tobacco use type Cigarette 03/14/23 10:44 e-Cigarette/Vaping Use Never Used 03/14/23 10:44 PHQ-9: PHQ-9 Score PHQ-9: Total score 0 03/14/23 10:44 Depression Screening Interpretation: Negative Thrive Assessment: Date of Thrive Assessment Date Thrive assessed 09/03/22 03/14/23 10:44 Currently or been in a relationship where the following occur: no concerns reported Const General: alert; No acute distress Eyes Conjunctivae: conjunctivae normal Resp Auscultation: clear to auscultation bilaterally Cardio Rate: regular rate Rhythm: regular rhythm GI Inspection: Yes normal to inspection Extrem General: Yes normal to inspection and No edema Assessment and Plan Assessment & Plan (1) Tonsillar cancer: Comment: 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 Code(s): C09.9 - Malignant neoplasm of tonsil, unspecified Plan: Patient follows up with Hematology Oncology in [facility] was going to be discharged from the practice as the patient is doing good concerns though of dysphagia (2) Generalized anxiety disorder: Code(s): F41.1 - Generalized anxiety disorder Plan: Continue with present medication (3) Hypertension: Code(s): I10 - Essential (primary) hypertension Qualifiers: Hypertension type: essential hypertension Qualified Code(s): I10 - Essential (primary) hypertension Plan: Continue with blood pressure medication. Decrease salt intake and exercise patient on lisinopril 5 mg once a day (4) COPD (chronic obstructive pulmonary disease): Comment: Has rather severe degree of COPD , but doing OK on current regimen AND IS STABLE . TX : Continue Advair 250-50 1 inhalation b.i.d. and use albuterol HFA 2 puffs Q 4-6 hours p.r.n.. Rinse the mouth thoroughly after using Advair. Code(s): J44.9 - Chronic obstructive pulmonary disease, unspecified Plan: Continue with inhaler as needed (5) Hypercholesterolemia: Code(s): E78.00 - Pure hypercholesterolemia, unspecified Plan: Avoid fried foods, chicken skin, eggs, butter margarine, pastries and meat. Be it pork or beef they have a lot of cholesterol LDL goal of less than 130 and triglyceride of less than 1/5 Coding Level of Care Code Est Pt Level 4 (20236) Diagnoses Tonsillar cancer C09.9 Generalized anxiety disorder F41.1 Hypertension I10 Hypertension type: essential hypertension COPD (chronic obstructive pulmonary disease) J44.9 Hypercholesterolemia E78.00 Additional Codes PHQ-9 - 67950 - PHQ-9 Billing: Y ([id number])
[2023-03-14 10:40] VITALS: BP 130/62; PULSE 65; O2SAT 97; BMI 23.8
== END 2023-03-14 11:45 | disposition home or self-care (01) ==
PROVIDERS: PCP Internal Medicine; Visit Provider Internal Medicine
DX: C09.9 Malignant neoplasm of tonsil, unspecified (principal); F41.1 Generalized anxiety disorder; I10 Essential (primary) hypertension; J44.9 Chronic obstructive pulmonary disease, unspecified; E78.00 Pure hypercholesterolemia, unspecified
CPT/HCPCS: 99214

== ENCOUNTER 2023-08-21 11:05 | Outpatient (AMB) | payer MEDICARE, SELFPAY ==
[2023-08-21 11:07] VITALS: BP 146/78; PULSE 72; O2SAT 94; BMI 23.8
--- NOTE | 2023-08-21 11:07 | MHC.PC.OV ---
Vital Signs 08/21/23 11:07 Height 5 ft 5 in Weight 143 lb 0.8 oz BMI 23.8 BP 146/78 H Blood Pressure Location Lt brachial Position Sitting Pulse 72 Pulse Source Pulse Oximeter Pulse Oximetry (%) 94 Oxygen Delivery Method Room Air Intake Visit Reasons: pe Intake Note: Patient is here today for a physical. Surgery Specialist Required: No Allergies Sulfa (Sulfonamide Antibiotics) [SULFA (SULFONAMIDE ANTIBIOTICS)] Allergy (Unknown, Verified 08/21/23 11:07) RASH hydrocodone [HYDROCODONE] Adverse Reaction (Severe, Verified 08/21/23 11:07) severe constipation oxycodone Adverse Reaction (Severe, Verified 08/21/23 11:07) severe constipation Medication List - Last Reconciled 08/21/23 by Tila Mcclure MD albuterol sulfate 90 mcg/actuation (ProAir HFA) 2 inhalations inhalation Q4-6H PRN alendronate 70 mg PO QWEEK fluticasone propion-salmeterol 250-50 mcg/dose (Advair Diskus) 1 inh inhalation BID 90 days lisinopril 5 mg PO DAILY mirtazapine 15 mg PO BEDTIME multivitamin 1 tab PO DAILY omeprazole 20 mg PO DAILY pilocarpine HCl 5 mg PO .QD simvastatin 10 mg PO BEDTIME 90 days Tobacco use date assessed: 08/21/23 Fall risk assessment: No Falls in past year Last assessed Fall Risk: 08/21/23 Dental Screening Dental Screen Date: 08/21/23 Did you have a dental visit in the last 12 months?: No Did you have a dental problem in the last 6 months where you did not have access to dental care?: No HPI pe HPI Details 78-year-old male with history of tonsillar cancer status post surgery, hypertension COPD hypercholesterolemia and generalized anxiety disorder last seen in March 2023. Patient is here for physical exam. Colonoscopy May 2019 tubular adenoma. Patient follows up with Dermatology actinic keratosis seborrheic keratosis history of squamous cell carcinoma status post Mohs 2019 history of basal cell carcinoma. Received note also in March 2023 had an EGD done esophagus stomach and duodenum normal Dr. Chao. 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 Mother Hypertension CVD (cardiovascular disease) Cancer Social History Housing: House Are you a primary manager wound care to a significant other at home: No Do you presently have visiting nurse or other home services: No Alcohol intake: never Patient Tobacco Use Status: Former Tobacco user Quit Date: 1996 Tobacco use type: Cigarette Years Smoked: quit 1995 e-Cigarette/Vaping Use: Never Used Second Hand Smoke Exposure: Yes service: Yes Current occupational status: retired Cognitive needs: No Hearing needs: No Vision needs: Yes Questionnaire PHQ-9 Over the last 2 weeks, how often have you been bothered by any of the following problems? 1. Little interest or pleasure in doing things: not at all 2. Feeling down, depressed, or hopeless: not at all 3. Trouble falling or staying asleep, or sleeping too much: not at all 4. Feeling tired or having little energy: not at all 5. Poor appetite or overeating: not at all 6. Feeling bad about yourself - or that you are a failure or have let yourself or your family down: not at all 7. Trouble concentrating on things, such as reading the newspaper or watching television: not at all 8. Moving or speaking so slowly that other people could have noticed. Or the opposite - being so fidgety or restless that you have been moving around a lot more than usual: not at all 9. Thoughts that you would be better off or of hurting yourself in some way: not at all Total score: 0 Depression Screening Interpretation: Negative Depression Screening Done: Yes Source: Developed by Drs. Paul Greer, Capri B.W. Robin Meraz and colleagues, with an educational nanette from [employer]. Thrive Questionnaire Date Thrive assessed: 09/03/22 AUDIT C Alcohol Use Questionnaire (AUDIT-C) 1. How often do you have a drink containing alcohol?: Never 3. How often do you have six or more drinks on one occasion?: Never Total Score: 0 JOHAN-7 AMB Questionnaire JOHAN-7 Date JOHAN - 7 assessed: 08/21/23 Source: Developed by Drs. Paul Greer, Robin Neil and colleagues, with an educational nanette from [employer]. Review of Systems Const Denies poor appetite and Denies weakness Eyes Denies no additional complaints ENT Reports Normal hearing present, Denies dizziness, Denies nasal congestion, Denies tinnitus and Denies sore throat Card Denies chest pain, Denies syncope, Denies rapid heart rate and Denies dyspnea Resp Denies cough and Denies dyspnea GI Denies change in stool character, Reports constipation, Denies diarrhea, Denies nausea and Denies vomiting Denies dysuria and Denies urinary frequency Neuro Reports Normal hearing present, Denies confusion, Denies dizziness, Denies syncope and Denies weakness Psych Denies confusion Physical exam (Primary Care) Vital Signs: Last Vital Signs Pulse 72 08/21/23 11:07 BP 146/78 H 08/21/23 11:07 Pulse Ox 94 08/21/23 11:07 Oxygen Delivery Method Room Air 08/21/23 11:07 BMI result Body Mass Index 23.8 Tobacco/Smoking Status: Tobacco use Status Tobacco use date assessed 08/21/23 08/21/23 11:08 Patient Tobacco Use Status Former Tobacco user 08/21/23 11:08 Tobacco use type Cigarette 08/21/23 11:08 e-Cigarette/Vaping Use Never Used 08/21/23 11:08 PHQ-9: PHQ-9 Score PHQ-9: Total score 0 08/21/23 11:08 Depression Screening Interpretation: Negative Thrive Assessment: Date of Thrive Assessment Date Thrive assessed 09/03/22 08/21/23 11:08 Const General: alert and awake; No confusion Orientation/consciousness: No confusion HENMT Other: impacted cerumen bilateral Head: Yes normocephalic Ears: external ears normal Face and sinus: Yes normal facial exam Mouth: moist mucous membranes Throat: Yes tonsils normal Eyes Conjunctivae: conjunctivae normal Pupils: Equal, round and reactive pupils present and Pupil accommodation reflex normal Direct Ophthalmoscopy: normal light reflex Neck Neck: No lymphadenopathy Thyroid: Thyroid normal Chest Chest palpation & inspection: normal inspection of the chest Resp Effort & Inspection: normal respiratory effort and no audible wheezes Auscultation: clear to auscultation bilaterally, no crackles, no wheezes and lung sounds not diminished Cardio Rate: regular rate Rhythm: regular rhythm Peripheral pulses: radial pulses present and dorsalis pedis present GI Other: guaiac neg, prostate N Palpation (GI): no masses Auscultation: normal bowel sounds and normoactive bowel sounds Male General Exam: Yes normal external exam Skin General skin exam: no rashes or lesions noted Rashes: no rashes Neuro General: deep tendon reflexes 2+ bilaterally and No confusion Cranial nerves: Yes Equal, round and reactive pupils present, Yes Midline tongue present, Yes Normal hearing present and Yes Ability to bilaterally elevate shoulders present Cognition (Neuro): normal cognition Gait exam (Neuro): Normal gait present Motor exam (neuro): 5/5 motor strength present throughout Deep tendon reflexes (DTR's): Right brachioradialis reflex intensity grade: 2+, Left brachioradialis reflex intensity grade: 2+, Right patellar reflex intensity grade: 2+ and Left patellar reflex intensity grade: 2+ Extrem General: No edema Assessment and Plan Assessment & Plan (1) Annual physical exam: Code(s): Z00.00 - Encounter for general adult medical examination without abnormal findings (2) Tonsillar cancer: Comment: 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 Code(s): C09.9 - Malignant neoplasm of tonsil, unspecified Plan: Continue to follow-up with Hematology-Oncology (3) COPD (chronic obstructive pulmonary disease): Comment: Has rather severe degree of COPD , but doing OK on current regimen AND IS STABLE . TX : Continue Advair 250-50 1 inhalation b.i.d. and use albuterol HFA 2 puffs Q 4-6 hours p.r.n.. Rinse the mouth thoroughly after using Advair. Code(s): J44.9 - Chronic obstructive pulmonary disease, unspecified Plan: Continue with inhalers and follow-up with Pulmonary (4) Hypertension: Code(s): I10 - Essential (primary) hypertension Qualifiers: Hypertension type: essential hypertension Qualified Code(s): I10 - Essential (primary) hypertension Plan: Continue with blood pressure medication. Decrease salt intake and exercise patient on lisinopril 5 mg once a day (5) Osteoporosis: Comment: May Code(s): M81.0 - Age-related osteoporosis without current pathological fracture Qualifiers: Osteoporosis type: age-related Presence of current pathological fracture: with current pathological fracture Encounter type: sequela Qualified Code(s): M80.00XS - Age-related osteoporosis with current pathological fracture, unspecified site, sequela Plan: Bone density is up-to-date on alendronate (6) Pulmonary nodule: Comment: PET scan September 30 4.7 cm right lateral lung Code(s): R91.1 - Solitary pulmonary nodule (7) Generalized anxiety disorder: Code(s): F41.1 - Generalized anxiety disorder Plan: Continue with present medication (8) BPH loc w urin obs/LUTS: Comment: Laser enucleation of the prostate March 2022 Dr. Lewis Code(s): N40.1 - Benign prostatic hyperplasia with lower urinary tract symptoms Plan: Continue with tamsulosin 0.4 (9) Hypercholesterolemia: Code(s): E78.00 - Pure hypercholesterolemia, unspecified Plan: Avoid fried foods, chicken skin, eggs, butter margarine, pastries and meat. Be it pork or beef they have a lot of cholesterol LDL goal of less than 130 and triglyceride of less than 150 patient on simvastatin 10 mg once a day (10) Impacted cerumen of both ears: Code(s): H61.23 - Impacted cerumen, bilateral Plan: if causing problem will need to schedule for irrigation Orders: Orders Free T4 (Free Thyroxine) 2 Months E78.00 - Pure hypercholesterolemia, unspecified Lipid Panel 2 Months E78.00 - Pure hypercholesterolemia, unspecified Vitamin B12 and Folate 2 Months E78.00 - Pure hypercholesterolemia, unspecified Complete Blood Count Auto Diff 2 Months E78.00 - Pure hypercholesterolemia, unspecified Comprehensive Met. Panel 2 Months E78.00 - Pure hypercholesterolemia, unspecified Thyroid Stimulating Hormone 2 Months E78.00 - Pure hypercholesterolemia, unspecified Coding Level of Care Code Est Pt Prev Care >65y(34355) Diagnoses Annual physical exam Z00.00 Tonsillar cancer C09.9 Pulmonary emphysema, unspecified emphysema type J44.9 Essential hypertension I10 Hypertension type: essential hypertension Age-related osteoporosis with current pathological fracture, sequela M80.00XS Osteoporosis type: age-related Presence of current pathological fracture: with current pathological fracture Encounter type: sequela Pulmonary nodule R91.1 Generalized anxiety disorder F41.1 BPH loc w urin obs/LUTS N40.1 Hypercholesterolemia E78.00 Impacted cerumen of both ears H61.23 Additional Codes PHQ-9 - 01890 - PHQ-9 Billing: ([id number])
== END 2023-08-21 12:03 | disposition home or self-care (01) ==
PROVIDERS: PCP Internal Medicine; Visit Provider Internal Medicine
DX: Z00.00 Encounter for general adult medical examination without abnormal findings (principal); C09.9 Malignant neoplasm of tonsil, unspecified; J44.9 Chronic obstructive pulmonary disease, unspecified; I10 Essential (primary) hypertension; M80.00XS Age-related osteoporosis with current pathological fracture, unspecified site, sequela; R91.1 Solitary pulmonary nodule; F41.1 Generalized anxiety disorder; N40.1 Benign prostatic hyperplasia with lower urinary tract symptoms; E78.00 Pure hypercholesterolemia, unspecified; H61.23 Impacted cerumen, bilateral
CPT/HCPCS: 99397

== ENCOUNTER 2023-10-01 09:24 | Outpatient (AMB) | payer MEDICARE, SELFPAY ==
--- NOTE | 2023-10-01 09:25 | MHC.PC.OV ---
Intake Visit Reasons: Cold Symptoms Allergies Sulfa (Sulfonamide Antibiotics) [SULFA (SULFONAMIDE ANTIBIOTICS)] Allergy (Unknown, Verified 10/01/23 09:25) RASH hydrocodone [HYDROCODONE] Adverse Reaction (Severe, Verified 10/01/23 09:25) severe constipation oxycodone Adverse Reaction (Severe, Verified 10/01/23 09:25) severe constipation Tobacco use date assessed: 08/21/23 Fall risk assessment: No Falls in past year Last assessed Fall Risk: 10/01/23 Dental Screening Dental Screen Date: 10/01/23 Did you have a dental visit in the last 12 months?: No Did you have a dental problem in the last 6 months where you did not have access to dental care?: No Was dental information given to patient?: No (Dentures) HPI Cold Symptoms HPI Details 78-year-old male with multiple medical problems history of tonsillar cancer COPD hypertension generalized anxiety disorder hypercholesterolemia BPH calling in for an acute problem.cough, low grade temp, mild productive, no sob, , no wheezing. [facility] Medical History (Updated 10/01/23 @ 09:58 by Tila Mcclure MD) Preop exam for internal medicine Hypoxemia Pneumonia Generalized anxiety disorder Primary basaloid carcinoma of oropharynx Squamous cell carcinoma COVID-19 virus infection Mass of right side of neck Dental infection Calf pain Compression fracture of T6 vertebra Obstructive sleep apnea Osteoporosis Right humeral fracture Anxiety and depression Hypercholesterolemia COPD (chronic obstructive pulmonary disease) Hypertension Tubular adenoma of colon Surgical History Hx of kyphoplasty Hx of colonoscopy Deficient knowledge of leg surgery History of tonsillectomy Family History Father No problems noted. Mother Hypertension CVD (cardiovascular disease) Cancer Social History Housing: House Are you a primary foster care therapist to a significant other at home: No Do you presently have visiting nurse or other home services: No Alcohol intake: never Patient Tobacco Use Status: Former Tobacco user Quit Date: 1996 Tobacco use type: Cigarette Years Smoked: quit 1995 e-Cigarette/Vaping Use: Never Used Second Hand Smoke Exposure: Yes service: Yes Current occupational status: retired Cognitive needs: No Hearing needs: No Vision needs: Yes Questionnaire PHQ-9 Over the last 2 weeks, how often have you been bothered by any of the following problems? 1. Little interest or pleasure in doing things: not at all 2. Feeling down, depressed, or hopeless: not at all 3. Trouble falling or staying asleep, or sleeping too much: not at all 4. Feeling tired or having little energy: not at all 5. Poor appetite or overeating: not at all 6. Feeling bad about yourself - or that you are a failure or have let yourself or your family down: not at all 7. Trouble concentrating on things, such as reading the newspaper or watching television: not at all 8. Moving or speaking so slowly that other people could have noticed. Or the opposite - being so fidgety or restless that you have been moving around a lot more than usual: not at all 9. Thoughts that you would be better off or of hurting yourself in some way: not at all Total score: 0 Depression Screening Interpretation: Negative Depression Screening Done: Yes Source: Developed by Drs. Paul Greer, Capri Meraz, Robin Barksdale and colleagues, with an educational nanette from [employer]. Thrive Questionnaire Date Thrive assessed: 10/01/23 I am a: Patient What is your living situation today?: I have a steady place to live Within the past 12 months, did the food you bought not last and you didn't have the money to get more?: Never true Within the past 12 months, did you worry whether your food would run out before you got money to buy more?: Never true Do you have trouble paying for medicines?: No Do you have trouble getting transportation to medical appointments?: No Do you have trouble paying your heating and electricity bill?: No Do you have trouble taking care of your child, family member or friend?: No Do you have trouble with day-to-day activities such as bathing, preparing meals, shopping, managing finances, etc.?: No Are you currently unemployed and looking for a job?: No Are you interested in more education?: No Currently or been in a relationship where the following occur: no concerns reported THRIVE Score: 0 AUDIT C Alcohol Use Questionnaire (AUDIT-C) 1. How often do you have a drink containing alcohol?: Never 3. How often do you have six or more drinks on one occasion?: Never Total Score: 0 JOHAN-7 AMB Questionnaire JOHAN-7 Date JOHAN - 7 assessed: 08/21/23 Source: Developed by Drs. Paul Greer, Capri Meraz, Robin Barksdale and colleagues, with an educational nanette from [employer]. Physical exam (Primary Care) Tobacco/Smoking Status: Tobacco use Status Tobacco use date assessed 08/21/23 10/01/23 09:26 Patient Tobacco Use Status Former Tobacco user 10/01/23 09:26 Tobacco use type Cigarette 10/01/23 09:26 e-Cigarette/Vaping Use Never Used 10/01/23 09:26 PHQ-9: PHQ-9 Score PHQ-9: Total score 0 10/01/23 09:26 Depression Screening Interpretation: Negative Thrive Assessment: Date of Thrive Assessment Date Thrive assessed 10/01/23 10/01/23 09:26 Currently or been in a relationship where the following occur: no concerns reported Telehealth Telehealth Location of provider rendering services: practice address Location of patient: address on file Patient Identification confirmed using: Name, : Yes Telehealth method: voice only Patient verbally consented to treatment: Yes Patient verbally consented to billing insurance company: Yes Patient informed of any privacy concerns related to visit: Yes Assessment and Plan Assessment & Plan (1) Acute bronchitis: Code(s): J20.9 - Acute bronchitis, unspecified Plan: Advised to increase oral fluids antibiotics sent declined any cough medication. Medications: New azithromycin (Zithromax) For 250 mg dose pack: take 500 mg today (day 1), then 250 mg for 4 days (days 2-5) PO 6 tabs 0RF azithromycin (Zithromax) For 250 mg dose pack: take 500 mg today (day 1), then 250 mg for 4 days (days 2-5) PO 6 tabs 0RF Coding Level of Care Code Tele Est Pt Level 3 (16735) Diagnoses Acute bronchitis J20.9 Additional Codes PHQ-9 - 62504 - PHQ-9 Billing: ([id number])
== END 2023-10-01 10:21 | disposition home or self-care (01) ==
LOC: HO.HMGH 09:24
PROVIDERS: PCP Internal Medicine; Visit Provider Internal Medicine
DX: J20.9 Acute bronchitis, unspecified (principal)
CPT/HCPCS: 99442

== ENCOUNTER 2023-10-20 09:29 | Outpatient (REF) | payer MEDICARE, SELFPAY ==
[2023-10-20 09:54] LABS: MANUAL DIFF FLAG NO
[2023-10-20 10:50] LABS: Basophils Percent Auto 0.5 % (0-2); Eosinophils Absolute Auto 0.1 X10*3/uL (0.0-0.4); Eosinophils Percent Auto 1.2 % (0-4); Hematocrit 41.3 % (42.0-52.0); Hemoglobin 14.2 g/dl (14.0-18.0); Imm Gran Abs Auto 0.02 X10*3/uL (0.00-0.03); Imm Gran Pct Auto 0.2 % (0.0-0.4); Lymphocytes Absolute Auto 1.4 X10*3/uL (1.2-4.9); Lymphocytes Percent Auto 16.2 % (20-40); Mean Corpuscular HGB Conc 34.4 g/dl (31.0-36.0); Mean Corpuscular Hemoglobin 30.3 pg (27.0-33.0); Mean Corpuscular Volume 88.1 fL (80.0-98.0); Mean Platelet Volume 8.9 fL (9.4-12.4); Monocytes Absolute Auto 0.7 X10*3/uL (0.1-1.2); Monocytes Percent Auto 8.3 % (2-11); Neutrophils Absolute Auto 6.1 x10*3/uL (2.0-8.3); Neutrophils Percent Auto 73.6 % (45-73); Platelet Count 287 X10*3/uL (160-400); Red Blood Count 4.69 X10*6/uL (4.60-5.80); Red Cell Distribution Width 13.5 % (11.0-16.0); White Blood Count 8.3 X10*3/uL (4.8-10.8)
[2023-10-20 11:47] LABS: Alanine Aminotransferase 16 U/L (0-40); Albumin Level 4.2 g/dL (3.5-5.0); Alkaline Phosphatase 74 U/L (39-117); Anion Gap 11 (12-20); Aspartate Amino Transferase 13 U/L (5-37); Bilirubin Total 1.6 mg/dL (0.0-1.0); Blood Urea Nitrogen 12 mg/dL (9-16); Calcium 9.7 mg/dL (8.4-10.2); Carbon Dioxide 29 mmol/L (22-29); Chloride 105 mmol/L (96-108); Cholesterol 107 mg/dL (<200); Estimated Glomerular Filt Rate > 60; Glucose Random 100 mg/dL (60-115); HDL Cholesterol 39 mg/dL (>40); LDL Cholesterol Calculated 55 mg/dL (<100); Potassium 4.1 mmol/L (3.3-5.1); Sodium 141 mmol/L (135-145); Total Protein 7.7 g/dL (6.5-8.0); Triglycerides 69 mg/dL (<150)
[2023-10-20 11:52] LABS: Thyroid Stimulating Hormone 2.57 uIU/mL (0.32-4.0)
[2023-10-20 12:07] LABS: Folate 14.1 ng/mL (> or = 4.0); Vitamin B12 780 pg/mL (200-900)
== END 2023-10-20 09:30 | disposition home or self-care (01) ==
LOC: HO.LAB 09:29
PROVIDERS: PCP Internal Medicine; Visit Provider Internal Medicine
DX: E78.00 Pure hypercholesterolemia, unspecified (principal)
CPT/HCPCS: 36415; 80053; 80061; 82607; 82746; 84439; 84443; 85025

== ENCOUNTER 2023-11-13 09:02 | Outpatient (AMB) | payer MEDICARE, SELFPAY ==
--- NOTE | 2023-11-13 09:58 | A.OFFVIS_ITS ---
Intake Intake Visit Reasons: 1y/PVR Intake Note: Patient presents today for a telehealth follow up on BPH w Luts Meds- None Allergies to Antibiotic- Sulfa Blood Thinner- None Director Of Career Services Required: No Allergies Sulfa (Sulfonamide Antibiotics) [SULFA (SULFONAMIDE ANTIBIOTICS)] Allergy (Unknown, Verified 11/13/23 10:00) RASH hydrocodone [HYDROCODONE] Adverse Reaction (Severe, Verified 11/13/23 10:00) severe constipation oxycodone Adverse Reaction (Severe, Verified 11/13/23 10:00) severe constipation HPI HPI Comments History of Present Illness Details Laureano is a pleasant male. He is a patient of Dr. Mcclure. He is seen for following urologic conditions - incomplete bladder emptying - bladder outlet obstruction Telemedicine Evaluation 15 min Consultation Right Hemisphere Hector Video attempted Less nocturia x1 Adequate force of stream, good emptying Maintaining adequate function since procedure Follow-up p.r.n. Lower Urinary Tract Symptoms: Current visit is for further symptom evaluation of, lower urinary tract symptoms, predominate obstructive symptoms. Current treatment includes 04/01 GreenLight laser prostate Prostate Symptom Score Moderate (9-19), Bother 2. Prostate volume 30-50gm. Investigations - bladder ultrasound 11/29 prostate 40 g, PVR 80 cc, trabeculated bladder with thickened wall PSA - 11/29 0.72, 12/01 0.4 PFSH Medical History Preop exam for internal medicine Hypoxemia Pneumonia Generalized anxiety disorder Primary basaloid carcinoma of oropharynx Squamous cell carcinoma COVID-19 virus infection Mass of right side of neck Dental infection Calf pain Compression fracture of T6 vertebra Obstructive sleep apnea Osteoporosis Right humeral fracture Anxiety and depression Hypercholesterolemia COPD (chronic obstructive pulmonary disease) Hypertension Tubular adenoma of colon Surgical History Hx of kyphoplasty Hx of colonoscopy Deficient knowledge of leg surgery History of tonsillectomy Family History Father No problems noted. Mother Hypertension CVD (cardiovascular disease) Cancer Social History Housing: House Are you a primary healthcare network consultant to a significant other at home: No Do you presently have visiting nurse or other home services: No Alcohol intake: never Patient Tobacco Use Status: Former Tobacco user Quit Date: 1996 Tobacco use type: Cigarette Years Smoked: quit 1995 e-Cigarette/Vaping Use: Never Used Second Hand Smoke Exposure: Yes service: Yes Current occupational status: retired Cognitive needs: No Hearing needs: No Vision needs: Yes Review of Systems Const All systems reviewed & are unremarkable except as noted in HPI and below Reports no additional complaints Resp Reports no additional complaints GI Reports no additional complaints Reports as per HPI Musc Reports no additional complaints Physical Exam Telemedicine evaluation Appropriate responses Regular breathing rate and rhythm HEENT Head: Yes normal to inspection Ears: hearing grossly normal bilaterally Eyes General: appearance normal, both eyes and all related structures Neck Neck: Yes normal visual inspection Chest Chest palpation & inspection: normal inspection of the chest Resp Effort & Inspection: normal respiratory effort and able to speak in complete sentences Assessment & Plan Assessment & Plan (1) BPH loc w urin obs/LUTS: Comment: Laser enucleation of the prostate March 2022 Dr. Lewis Code(s): N40.1 - Benign prostatic hyperplasia with lower urinary tract symptoms (2) Nocturia more than twice per night: Code(s): R35.1 - Nocturia Plan P.r.n. follow-up Patient Instructions: Imaging studies, laboratory and physical exam results were discussed and reviewed in detail. No major barriers to patient understanding were identified. An opportunity to ask questions regarding the treatment plan was provided. All questions were answered. The patient expressed understanding and agreement with the above treatment plan. The patient is aware they should contact our office by phone for worsening of their current condition or the appearance of new urologic symptoms. Compliance is encouraged with any medications and followup testing that is ordered. It is a privilege to participate in the urologic care of your patient. If you have any questions or concerns regarding treatment for the above conditions, or other urologic issues, please do not hesitate to contact me. The office telephone contact is [phone]. This note is constructed using voice recognition software. While every effort has been made to ensure accuracy responder errors may have been included. Yours sincerely, Dr Carlos A Lewis MD, [facility] Urology Providers of Expert, Compassionate Care for the Genitourinary System Telehealth Telehealth Location of provider rendering services: practice address Location of patient: address on file Patient Identification confirmed using: Name, : Yes Telehealth method: voice only Patient verbally consented to treatment: Yes Patient verbally consented to billing insurance company: Yes Patient informed of any privacy concerns related to visit: Yes Coding Level of Care Code Tele Est Pt Level 4 (15426) Diagnoses BPH loc w urin obs/LUTS N40.1 Nocturia more than twice per night R35.1
== END 2023-11-13 11:13 | disposition home or self-care (01) ==
LOC: HO.HUSH 09:02
PROVIDERS: PCP Internal Medicine; Visit Provider Urology
DX: N40.1 Benign prostatic hyperplasia with lower urinary tract symptoms (principal); R35.1 Nocturia
CPT/HCPCS: 99442

== ENCOUNTER → 2023-11-13 09:02 | Outpatient (BNVA) | payer MEDICARE, SELFPAY | PROVIDERS: PCP Internal Medicine; Visit Provider Urology ==

== ENCOUNTER 2024-02-24 10:47 | Outpatient (AMB) | payer MEDICARE, SELFPAY ==
[2024-02-24 10:48] VITALS: BP 142/74; PULSE 84; O2SAT 93; BMI 22.1
--- NOTE | 2024-02-24 10:48 | MHC.PC.OV ---
Vital Signs 02/24/24 10:48 Height 5 ft 5 in Weight 133 lb 0.8 oz BMI 22.1 BP 142/74 H Blood Pressure Location Lt brachial Position Sitting Pulse 84 Pulse Source Pulse Oximeter Pulse Oximetry (%) 93 Oxygen Delivery Method Room Air Intake Visit Reasons: COPD, HTN - see comments Intake Note: Patient is here to follow up on [symptoms]. Waste Chopper Required: No Allergies Sulfa (Sulfonamide Antibiotics) [SULFA (SULFONAMIDE ANTIBIOTICS)] Allergy (Unknown, Verified 02/24/24 10:48) RASH hydrocodone [HYDROCODONE] Adverse Reaction (Severe, Verified 02/24/24 10:48) severe constipation oxycodone Adverse Reaction (Severe, Verified 02/24/24 10:48) severe constipation Tobacco use date assessed: 08/21/23 Fall risk assessment: No Falls in past year Last assessed Fall Risk: 02/24/24 Dental Screening Dental Screen Date: 10/01/23 HPI COPD, HTN - see comments HPI Details 79 year old male with multiple medical problems last seen in September for bronchitis but patient has COPD hypertension hypercholesterolemia BPH (laser enucleation of prostate March 2022) generalized anxiety disorder tonsillar cancer impaired glucose tolerance. Review of the notes patient follows up with urology for the BPH with incomplete bladder emptying through Telehealth. change insurance and not covering ff up with oncology??? 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 Mother Hypertension CVD (cardiovascular disease) Cancer Social History Housing: House Are you a primary women's health care nurse practitioner to a significant other at home: No Do you presently have visiting nurse or other home services: No Alcohol intake: never Patient Tobacco Use Status: Former Tobacco user Tobacco use type: Cigarette Years Smoked: quit 1995 e-Cigarette/Vaping Use: Never Used Second Hand Smoke Exposure: Yes service: Yes Current occupational status: retired Cognitive needs: No Hearing needs: No Vision needs: Yes Questionnaire Thrive Questionnaire Date Thrive assessed: 10/01/23 I am a: Patient What is your living situation today?: I have a steady place to live Within the past 12 months, did the food you bought not last and you didn't have the money to get more?: Never true Within the past 12 months, did you worry whether your food would run out before you got money to buy more?: Never true Do you have trouble paying for medicines?: No Do you have trouble getting transportation to medical appointments?: No Do you have trouble paying your heating and electricity bill?: No Do you have trouble taking care of your child, family member or friend?: No Do you have trouble with day-to-day activities such as bathing, preparing meals, shopping, managing finances, etc.?: No Are you currently unemployed and looking for a job?: No Are you interested in more education?: No THRIVE Score: 0 AUDIT C Alcohol Use Questionnaire (AUDIT-C) 1. How often do you have a drink containing alcohol?: Never 3. How often do you have six or more drinks on one occasion?: Never Total Score: 0 JOHAN-7 AMB Questionnaire JOHAN-7 Date JOHAN - 7 assessed: 08/21/23 Source: Developed by Drs. Paul Greer, Capri Meraz, Robin Barksdale and colleagues, with an educational nanette from [employer]. Physical exam (Primary Care) Vital Signs: Last Vital Signs Pulse 84 02/24/24 10:48 BP 142/74 H 02/24/24 10:48 Pulse Ox 93 02/24/24 10:48 Oxygen Delivery Method Room Air 02/24/24 10:48 BMI result Body Mass Index 22.1 Tobacco/Smoking Status: Tobacco use Status Tobacco use date assessed 08/21/23 02/24/24 10:49 Patient Tobacco Use Status Former Tobacco user 02/24/24 10:49 Tobacco use type Cigarette 02/24/24 10:49 e-Cigarette/Vaping Use Never Used 02/24/24 10:49 Thrive Assessment: Date of Thrive Assessment Date Thrive assessed 10/01/23 02/24/24 10:49 Const General: alert; No acute distress Eyes Conjunctivae: conjunctivae normal Resp Auscultation: clear to auscultation bilaterally Cardio Rate: regular rate Rhythm: regular rhythm GI Inspection: Yes normal to inspection Extrem General: Yes normal to inspection and No edema Assessment and Plan Assessment & Plan (1) Tonsillar cancer: Comment: 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 Code(s): C09.9 - Malignant neoplasm of tonsil, unspecified Plan: Continue to follow-up with urology (2) Hypertension: Code(s): I10 - Essential (primary) hypertension Qualifiers: Hypertension type: essential hypertension Qualified Code(s): I10 - Essential (primary) hypertension Plan: Continue with blood pressure medication. Decrease salt intake and exercise presently on lisinopril 5 mg once a day (3) COPD (chronic obstructive pulmonary disease): Comment: Has rather severe degree of COPD , but doing OK on current regimen AND IS STABLE . TX : Continue Advair 250-50 1 inhalation b.i.d. and use albuterol HFA 2 puffs Q 4-6 hours p.r.n.. Rinse the mouth thoroughly after using Advair. Code(s): J44.9 - Chronic obstructive pulmonary disease, unspecified Plan: Continue with the inhalers ProAir as needed and continue with the Advair and remember to rinse mouth after using the inhaler every time. (4) Hypercholesterolemia: Code(s): E78.00 - Pure hypercholesterolemia, unspecified Plan: Avoid fried foods, chicken skin, eggs, butter margarine, pastries and meat. Be it pork or beef they have a lot of cholesterol 10/2023 blood work (5) BPH loc w urin obs/LUTS: Comment: Laser enucleation of the prostate March 2022 Dr. Lewis Code(s): N40.1 - Benign prostatic hyperplasia with lower urinary tract symptoms Plan: Continue to follow-up with urology. (6) Weight loss: Code(s): R63.4 - Abnormal weight loss Plan: patient states loss of taste from the surgery and will be ff up with Oncology Medications: Changed From lisinopril 5 mg PO DAILY 90 tabs 3RF E78.00 - Pure hypercholesterolemia, unspecified To lisinopril 10 mg PO DAILY 90 tabs 3RF E78.00 - Pure hypercholesterolemia, unspecified Refilled simvastatin 10 mg PO BEDTIME 90 days 90 tabs 3RF Coding Level of Care Code Est Pt Level 4 (42088) Diagnoses Tonsillar cancer C09.9 Essential hypertension I10 Hypertension type: essential hypertension Pulmonary emphysema, unspecified emphysema type J44.9 Hypercholesterolemia E78.00 BPH loc w urin obs/LUTS N40.1 Weight loss R63.4
== END 2024-02-24 11:21 | disposition home or self-care (01) ==
PROVIDERS: PCP Internal Medicine; Visit Provider Internal Medicine
DX: C09.9 Malignant neoplasm of tonsil, unspecified (principal); I10 Essential (primary) hypertension; J44.9 Chronic obstructive pulmonary disease, unspecified; E78.00 Pure hypercholesterolemia, unspecified; N40.1 Benign prostatic hyperplasia with lower urinary tract symptoms; R63.4 Abnormal weight loss
CPT/HCPCS: 99214

== ENCOUNTER 2024-03-05 10:05 | Inpatient (IN) | payer MEDICARE, SELFPAY ==
[2024-03-05] VITALS (11 sets, daily range): BP systolic 98–153; BP diastolic 50–77; PULSE 91–108; RESP 16–22; TEMP 36.2–36.9; O2SAT 84–95; BMI 21.8; BMI 22.2
--- NOTE | 2024-03-05 | ECG_ITS ---
Test Reason : dif breathing Blood Pressure : / mmHG Vent. Rate : 088 BPM Atrial Rate : 088 BPM P-R Int : 142 ms QRS Dur : 074 ms QT Int : 358 ms P-R-T Axes : 064 052 043 degrees QTc Int : 433 ms Normal sinus rhythm Normal ECG When compared with ECG of 21-MAR-2022 10:51, No significant changes seen Referred By: Cara Berman Electronically Signed By:ALEAH YIN
--- NOTE | ~2024-03-05 | CT_ITS ---
EXAMINATION: CT ANGIOGRAM OF THE CHEST WITH AND WITHOUT CONTRAST (CT PULMONARY ANGIOGRAM FOR PE) CLINICAL INFORMATION: Reason for Exam elevated dimer, sob, hypoxia COMPARISON: 01/07/2020 TECHNIQUE: Prior to contrast administration, noncontrast localization images were obtained. Subsequently, multidetector volumetric imaging was performed from the thoracic inlet to below the diaphragms following the administration of 65 mL Omnipaque 350 intravenous contrast. No contrast reaction reported Sagittal, coronal, and MIP oblique sagittal reformatted images were obtained on the CT workstation, uploaded to PACS, and reviewed. This CT examination was performed using dose optimization techniques as appropriate, variously including the following: *Automated exposure control *Adjustment of mA and/or kV according to patient size (this includes techniques or standardized protocols for targeted exams where dose is matched to indication/reason for exam; i.e. extremities or head) *Use of iterative reconstruction technique Total exam dose-length product 186 mGy-cm FINDINGS: QUALITY OF STUDY/CONTRAST BOLUS: Suboptimal. PULMONARY ARTERIES: No central pulmonary emboli. THORACIC AORTA: No aneurysm. LUNG: Scarring at the lung apices. Marked centrilobular emphysema. Multifocal tree-in-bud nodules involving the left upper lobe, lingula, left lower lobe and right middle lobe. 9 mm nodule right middle lobe on image 322. 9 mm nodule right middle lobe on image 298. 1.3 cm nodule left lower lobe on image 296. There is bronchial wall thickening with peribronchial consolidation involving the right middle lobe and bilateral lower lobes. Central airways are patent. PLEURA: No significant pleural effusion. MEDIASTINUM: Normal heart size. Trace pericardial effusion. No hilar or mediastinal lymphadenopathy. No evidence of septal bowing or right heart strain. CORONARY ARTERY CALCIFICATION: Severe. CHEST WALL/AXILLA: No axillary or internal mammary lymphadenopathy. OSSEOUS STRUCTURES: Prior vertebral body augmentation at T6. Mild height loss of T4 and T5 vertebral bodies. Old healed sternal fracture. UPPER ABDOMEN: Small hiatal hernia. No reflux of contrast into the hepatic veins to suggest elevated right heart pressures. CT/CT angio chest PE protocol IMPRESSION: No central pulmonary embolus. Multifocal tree-in-bud nodules involving the left upper lobe, lingula, left lower lobe and right middle lobe. Bronchial wall thickening with peribronchial consolidation involving the right middle lobe and bilateral lower lobes. Infectious and inflammatory etiologies should be considered. Bilateral pulmonary nodules measuring up to 1.3 cm. These may be on an inflammatory basis. Follow-up chest CT in 3 months is advised. VTE: negative Fleischner guidelines were followed.
--- NOTE | ~2024-03-05 | XR_ITS ---
EXAMINATION: XR CHEST CLINICAL INFORMATION: Shortness of breath. COMPARISON: 12/20/2021 TECHNIQUE: Frontal view of the chest was obtained. FINDINGS: The lungs are hyperexpanded. There is stable left apical scarring. No significant pleural effusion. There is bilateral multifocal airspace disease. Cardiac silhouette is unchanged. XR/XR chest 1V IMPRESSION: Bilateral multifocal airspace disease may represent pneumonia. Follow-up until resolution is advised.
--- NOTE | 2024-03-05 10:30 | ED_ITS ---
HPI - SOB/Dyspnea General Chief Complaint: Dyspnea Stated Complaint: diff breating, copd Time Seen by Provider: 03/05/24 10:10 Source: patient, RN notes reviewed and old records reviewed History of Present Illness ED Provider: Cara Berman PA-C HPI Narrative: 79-year-old male with a past medical history of anxiety, JOSE, osteoporosis, HLD, HTN, COPD with p.r.n. O2, presenting to the ED complaining of COPD exacerbation with increasing O2 requirement. States has been using oxygen at home continuously the past few days when usually only uses at night. Reports chronic productive cough. Denies SOB at present, chest pain, pedal edema, recent travel, sick contacts, abdominal pain, nausea/vomiting Related Data Home Medications ?Medication ?Instructions ?Recorded ?Confirmed albuterol sulfate 90 mcg/actuation 2 inh inhalation Q4-6H PRN 05/03/21 08/21/23 aerosol inhaler (ProAir HFA) Shortness Of Breath mirtazapine 7.5 mg tablet 15 mg PO BEDTIME 12/26/21 08/21/23 omeprazole 20 mg capsule,delayed 20 mg PO DAILY 12/26/21 08/21/23 release multivitamin 1 tab PO DAILY 03/25/22 08/21/23 pilocarpine HCl 5 mg tablet 5 mg PO .QD 12/04/22 08/21/23 Previous Rx's ?Medication ?Instructions ?Recorded alendronate 70 mg tablet 70 mg PO QWEEK #12 tabs 06/17/23 fluticasone 250 mcg-salmeterol 50 1 inh inhalation BID 90 days #3 ea 01/22/24 mcg/dose blistr powdr for inhalation (Advair Diskus) lisinopril 10 mg tablet 10 mg PO DAILY #90 tabs 02/24/24 simvastatin 10 mg tablet 10 mg PO BEDTIME 90 days #90 tabs 02/24/24 Allergies Allergy/AdvReac Type Severity Reaction Status Date / Time Sulfa (Sulfonamide Allergy Unknown RASH Verified 03/05/24 10:10 Antibiotics) [SULFA (SULFONAMIDE ANTIBIOTICS)] hydrocodone [HYDROCODONE] AdvReac Severe severe Verified 03/05/24 10:10 constipation oxycodone AdvReac Severe severe Verified 03/05/24 10:10 constipation Review of Systems 2 Review of Systems: Constitutional: No Fever, No Chills ENT/Mouth: No Ear Pain, No Nasal Congestion, No Sinus Pain, No Hoarseness, No sore throat, No Rhinorrhea, No Swallowing Difficulty Cardiovascular: No Chest Pain, + SOB Respiratory: + Cough, + Sputum, No Wheezing Gastrointestinal: No Nausea, No Vomiting, No Diarrhea, No Constipation, No Abdominal pain Musculoskeletal: No joint pain, No Myalgias, No Joint Swelling Skin: No Skin Lesions, No rash Neuro: No Weakness, No Numbness, No Paresthesias Yes all other systems are reviewed and are negative Constitutional: Constitutional: Reports as per [facility] Past Medical History Attestation statement: The following information was validated with the patient. 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 Mother Hypertension CVD (cardiovascular disease) Cancer Social History Social History Housing: House Are you a primary hearing healthcare practitioner to a significant other at home: No Do you presently have visiting nurse or other home services: No Alcohol intake: never Patient Tobacco Use Status: Former Tobacco user Tobacco use type: Cigarette Years Smoked: quit 1996 Smoked in Last 30 Days: No e-Cigarette/Vaping Use: Never Used Second Hand Smoke Exposure: Yes Use of substances other than those prescribed or required for medical reasons: No Advance Directives: No Advance Directives Information Provided: Yes Do you have a plan to hurt others: No Plan service: Yes Current occupational status: retired Cognitive needs: No Hearing needs: No Vision needs: Yes Physical Exam 2 Vital Signs: Vital Signs: Last Vital Signs Temp 98.2 F 03/05/24 14:13 Pulse 93 03/05/24 14:13 Resp 19 03/05/24 14:13 BP 119/63 03/05/24 14:13 Pulse Ox 95 03/05/24 14:13 O2 Del Method Nasal Cannula 03/05/24 14:13 O2 Flow Rate 2 03/05/24 14:13 BMI result Body Mass Index 21.8 Const: General: cooperative, healthy appearing and no acute distress O rientation/consciousness: patient oriented x3 Limitations: no limitations HEENT: Head: Yes normal to inspection and Yes atraumatic Ears: hearing grossly normal bilaterally General nose exam: Normal external nose present Face and sinus: Yes normal facial exam Eyes: General: appearance normal, both eyes and all related structures EOM: EOMs intact bilaterally Neck: Neck: Yes normal visual inspection and Yes no meningeal signs Resp: Effort & Inspection: normal respiratory effort, no respiratory distress and tachypneic Auscultation: clear to auscultation bilaterally and diminished lung sounds bilateral in the lower lung costa Cardio: Rate: regular rate Heart sounds: S1 normal heart sound present and S2 normal heart sound present GI: Inspection: Yes normal to inspection Palpation (GI): Soft to palpation, nontender, no guarding and not rigid : General: Yes no CVA tenderness Back/Spine/Pelvis: Back: no CVA tenderness Skin: Rashes: no rashes Wounds: no wounds Neuro: General: patient oriented x3, tone normal and no meningeal signs C ranial nerves: Yes CN's II-XII intact bilaterally Gait exam (Neuro): Normal gait present Extrem: General: Yes normal to inspection, Yes no pedal edema and Yes no calf tenderness Course Course Course Narrative: -1205--no leukocytosis. D-dimer elevated > will obtain CTA to rule out PE -troponin negative -COVID/flu/RSV negative XR chest 1V IMPRESSION: Bilateral multifocal airspace disease may represent pneumonia. Follow-up until resolution is advised. >> IV Azithro and Rocephin ordered 1547--CT angio chest PE protocol IMPRESSION: No central pulmonary embolus. Multifocal tree-in-bud nodules involving the left upper lobe, lingula, left lower lobe and right middle lobe. Bronchial wall thickening with peribronchial consolidation involving the right middle lobe and bilateral lower lobes. Infectious and inflammatory etiologies should be considered. Bilateral pulmonary nodules measuring up to 1.3 cm. These may be on an inflammatory basis. Follow-up chest CT in 3 months is advised. VTE: negative Fleischner guidelines were followed. > plan to admit for further management Medications Administered Discontinued Medications Generic Name Dose Route Start Last Admin Trade Name Funmilayo PRN Reason Stop Dose Admin Albuterol/Ipratropium 3 ml 03/05/24 11:06 03/05/24 11:38 Albuterol/Iprat 2.5/0.5mg 3 Ml Ampul.Neb INHALE 03/05/24 11:07 3 ml ONCE ONE Administration Azithromycin 500 mg/ Sodium 250 mls @ 125 mls/hr 03/05/24 10:52 03/05/24 13:04 Chloride IV 03/05/24 12:51 Infused ONCE ONE Infusion Ceftriaxone Sodium 1 gm/ 50 mls @ 100 mls/hr 03/05/24 12:06 03/05/24 12:53 Sodium Chloride IV 03/05/24 12:35 Infused ONCE ONE Infusion Iohexol 100 ml 03/05/24 13:17 03/05/24 13:17 Iohexol 350 Mg/Ml 100 Ml Infus..Btl IV 03/05/24 13:18 65 ml ONCE ONE Administration Methylprednisolone Sodium Succinate 125 mg 03/05/24 10:24 03/05/24 10:33 Methylprednisolone Sod Succ 125 Mg/2 Ml Vial IVPUSH 03/05/24 10:25 125 mg ONCE ONE Administration Medical Decision Making Medical Decision Making [facility] Narrative: 79-year-old male with a past medical history of anxiety, JOSE, osteoporosis, HLD, HTN, COPD with p.r.n. O2, presenting to the ED complaining of COPD exacerbation with increasing O2 requirement. On exam initially tachycardic, satting 84% on RA, tachypneic, diminished lung sounds bibasilarly, no pedal edema/calf tenderness. Concern for COPD exacerbation vs pneumonia vs bronchitis vs PE. Unlikely ACS. Low suspicion for severe sepsis at this time Plan: EKG, labs, CXR, viral testing, ED Pedro protocol, IV Solu-Medrol Please refer to course for remaining clinical decision making, interpretation of labs/imaging results, and discussions with consultants and/or family members. Differential Diagnosis Differential Diagnoses: The differential diagnosis associated with the presentation includes As above Admission/Observation Consideration of admission/observation: Escalation of care including admission/observation considered Lab Data [facility] Lab Attestation statement: I reviewed the patient's lab results. 03/05/24 10:24 03/05/24 10:24 Labs: Lab Results 03/05/24 03/05/24 03/05/24 Range/Units 10:24 10:25 10:38 WBC 7.6 (4.8-10.8) X10*3/uL RBC 4.68 (4.60-5.80) X10*6/uL Hgb 14.5 (14.0-18.0) g/dl Hct 41.2 L (42.0-52.0) % MCV 88.0 (80.0-98.0) fL MCH 31.0 (27.0-33.0) pg MCHC 35.2 (31.0-36.0) g/dl RDW 13.6 (11.0-16.0) % Plt Count 165 D (160-400) X10*3/uL MPV 8.8 L (9.4-12.4) fL Immature Gran % (Auto) 0.5 H (0.0-0.4) % Neut % (Auto) 78.8 H (45-73) % Lymph % (Auto) 12.6 L (20-40) % Sterling % (Auto) 6.6 (2-11) % Eos % (Auto) 1.2 (0-4) % Baso % (Auto) 0.3 (0-2) % Lymph # (Auto) 1.0 L (1.2-4.9) X10*3/uL Sterling # (Auto) 0.5 (0.1-1.2) X10*3/uL Eos # (Auto) 0.1 (0.0-0.4) X10*3/uL Baso # (Auto) 0.0 (0.0-0.2) X10*3/uL Abs Immat Gran (auto) 0.04 H (0.00-0.03) X10*3/uL Absolute Neuts (auto) 6.0 (2.0-8.3) x10*3/uL Absolute Nucleated RBC 0.000 (0.0-0.012) X10*3/uL Nucleated RBC % (auto) 0.0 (0.0-0.2) /100WBC D-Dimer High Sensitivty 413 NG/ML Sodium 141 (135-145) mmol/L Potassium 3.7 (3.3-5.1) mmol/L Chloride 106 (96-108) mmol/L Carbon Dioxide 24 (22-29) mmol/L Anion Gap 15 (12-20) BUN 13 (9-16) mg/dL Creatinine 0.98 (0.5-1.4) mg/dL Estim Creat Clear Calc 51.2 Estimated GFR > 60 Random Glucose 136 H (60-115) mg/dL Lactic Acid 2.0 (0.5-2.0) mmol/L Calcium 9.1 D (8.4-10.2) mg/dL Total Bilirubin 1.4 H (0.0-1.0) mg/dL AST 15 (5-37) U/L ALT 11 (0-40) U/L Alkaline Phosphatase 89 (39-117) U/L Troponin I High Sens < 2.7 (<3.5-35.0) ng/L B-Natriuretic Peptide < 10 (<100) pg/mL Total Protein 7.5 (6.5-8.0) g/dL Albumin 4.2 (3.5-5.0) g/dL Influenza Type A (PCR) NEGATIVE (Negative) Influenza Type B (PCR) NEGATIVE (Negative) RSV RNA Qual (PCR) NEGATIVE (Negative) SARS-CoV-2 RNA (RT-PCR) NEGATIVE (Negative) Independent Interpretation I performed an independent interpretation of an: EKG and Plain X-Ray Radiology Impression Discussion of test interpretation with radiology: I have reviewed the radiologist's reading. Independent Historian Clinical information obtained from an independent historian. History obtained from or confirmed by: Spouse External Record Review External record reviewed: Inpatient record, Office record, Outpatient record, Prior outpatient labs, Prior outpatient radiology, Primary care record and Outside ED record Tests considered The following testing was considered but not selected: As above Chronic Conditions Patient?s care impacted by: Hypertension and Other (COPD) Critical Care Time Critical Care Time Critical Care Time: Yes Total Critical Care Time: 40 Attestation: I have personally provided critical care time exclusive of time spent on separately billable procedures. Time includes review of lab data, radiology results, discussion with consultants, and monitoring for potential decompensation. Intervention performed as documented. Discharge Plan Discharge Clinical Impression: Multifocal pneumonia Patient Disposition: Admitted As Inpatient Print Language: [place]
[2024-03-05 10:31] LABS: MANUAL DIFF FLAG NO
[2024-03-05] MEDS: methylPREDNISolone Sod Succ 125 MG/2 ML VIAL IVPUSH (10:33)
[2024-03-05 10:35] LABS: Basophils Percent Auto 0.3 % (0-2); Eosinophils Absolute Auto 0.1 X10*3/uL (0.0-0.4); Eosinophils Percent Auto 1.2 % (0-4); Hematocrit 41.2 % (42.0-52.0); Hemoglobin 14.5 g/dl (14.0-18.0); Imm Gran Abs Auto 0.04 X10*3/uL (0.00-0.03); Imm Gran Pct Auto 0.5 % (0.0-0.4); Lymphocytes Percent Auto 12.6 % (20-40); Mean Corpuscular HGB Conc 35.2 g/dl (31.0-36.0); Mean Platelet Volume 8.8 fL (9.4-12.4); Monocytes Absolute Auto 0.5 X10*3/uL (0.1-1.2); Monocytes Percent Auto 6.6 % (2-11); Neutrophils Percent Auto 78.8 % (45-73); Platelet Count 165 X10*3/uL (160-400); Red Blood Count 4.68 X10*6/uL (4.60-5.80); Red Cell Distribution Width 13.6 % (11.0-16.0); White Blood Count 7.6 X10*3/uL (4.8-10.8)
--- NOTE | 2024-03-05 10:35 | PC.NURSE ---
a&ox4. vss and up to date aside from being 87% on RA. nsr on the cardiac exercise specialist. pt presents to the ED w/ increasing sob/productive cough/intermittent fevers for the past few days. pt has a hx of copd. reports using home O2 PRN but has been using it more frequently (mostly at night). 87% on RA - pt placed on 2L via NC - resting at 93%. productive cough noted. no sob/wob noted. respirations even/unlabored. lung sounds slightly diminished throughout. 18gIV placed in the right AC - labs obtained/sent to lab. medication administered per provider order. ekg performed by tech. pt resting comfortably in no apparent distress. pt waiting for chest xray to be completed. family bedside for support. plan of care ongoing.
--- NOTE | 2024-03-05 10:43 | PC.NURSE ---
xray being completed at this time.
[2024-03-05 10:50] LABS: Alanine Aminotransferase 11 U/L (0-40); Albumin Level 4.2 g/dL (3.5-5.0); Alkaline Phosphatase 89 U/L (39-117); Anion Gap 15 (12-20); Aspartate Amino Transferase 15 U/L (5-37); Bilirubin Total 1.4 mg/dL (0.0-1.0); Blood Urea Nitrogen 13 mg/dL (9-16); Calcium 9.1 mg/dL (8.4-10.2); Carbon Dioxide 24 mmol/L (22-29); Chloride 106 mmol/L (96-108); Creatinine Clr Calc Pharmacy 51.2; Estimated Glomerular Filt Rate > 60; Glucose Random 136 mg/dL (60-115); Potassium 3.7 mmol/L (3.3-5.1); Sodium 141 mmol/L (135-145); Total Protein 7.5 g/dL (6.5-8.0)
[2024-03-05 10:55] LABS: D Dimer High Sensitivity 413 NG/ML
[2024-03-05 10:56] LABS: B Type Natriuretic Peptide < 10 pg/mL (<100)
[2024-03-05 10:58] LABS: Troponin-I High Sensitivity < 2.7 ng/L (<3.5-35.0)
[2024-03-05] MEDS: Azithromycin 500 MG in 0.9 % Sodium Chloride 250 ML 125 MG IV (11:01)
--- NOTE | 2024-03-05 11:03 | PC.NURSE ---
abx administered per provider order.
--- NOTE | 2024-03-05 11:07 | PC.NURSE ---
pt receiving breathing treatment via RT at this time.
[2024-03-05 11:11] LABS: Influenza A PCR NEGATIVE (Negative); Influenza B PCR NEGATIVE (Negative); Resp Syncy Virus RNA Qual PCR NEGATIVE (Negative); SARS COV2 PCR INHOUSE NEGATIVE (Negative)
[2024-03-05] MEDS: Albuterol/Iprat 2.5/0.5MG 3 ML AMPUL.NEB INHALE ×2 (11:38→19:49)
[2024-03-05] MEDS: cefTRIAXone sodium 1 GM in 0.9 % Sodium Chloride 50 ML IV (12:21)
--- NOTE | 2024-03-05 12:49 | PC.NURSE ---
new 18gIV placed in the left forearm - abx administered per provider order. pt continues to rest on 2L via NC - resting at 92%. no sob/wob noted. respirations even/unlabored. pt sitting upright to promote patent airway. family remains bedside for support. plan of care ongoing. call clay placed within reach.
--- NOTE | 2024-03-05 13:03 | PC.NURSE ---
pt to CT at this time.
[2024-03-05] MEDS: iohexoL 350 MG/ML 100 ML INFUS..BTL IV (13:17)
--- NOTE | 2024-03-05 16:36 | P.HPHOSP_ITS ---
History of Present Illness Date of Service: 03/05/24 Attending physician on admission: Sabina Roberts Chief Complaint: SOB, difficulty breathing Pt is a 79-year-old male with a PMH significant for?HTN, HLD, COPD on prn home O2, BPH, tonsilar cancer with residual dysphagia, and osteoporosis who presents to the ED with?increasing SOB, WALTER, and difficulty breathing x3 days. Reports symptoms began when he awoke on Friday morning. Has been feeling tired with generalized weakness. Chronic cough mostly productive in the mornings, around baseline. On Friday night measured a fever at home of 102, for which he has been taking Tylenol. Home inhalers have been of little relief, but reports taking a couple of pills of amoxicillin that his had left over which helped some. Patient also has been using his home O2 around the clock, which he normally rarely uses. Presents today as symptoms have persisted and worsened. Denies nausea, vomiting, abdominal pain. No chest pain/pressure, palpitations. In the ED pt was tachycardic up to 108, tachypneic up to 22, and desatting as low as 84% on RA. Labs were grossly unremarkable and around baseline for patient. No leukocytosis. Stable H& H. No significant electrolyte abnormalities. Renal function baseline. Hepatic function baseline. BNP and troponin negative. Lactic acid WNL at 2.0. Tested negative for flu, RSV, and COVID. CXR showed bilateral multifocal airspace disease may represent pneumonia. CTA of chest found no central pulmonary embolus, but multifocal tree-in-bud nodules involving left upper lobe, lingula, left lower lobe, and right middle lobe suggestive of infectious or inflammatory etiology. EKG demonstrated normal sinus rhythm without evidence of significant ST elevations or depressions. Pt was treated with Solu-Medrol, DuoNebs, ceftriaxone, and azithromycin. Pt will be admitted to the hospital for treatment and further evaluation of acute hypoxic respiratory failure in the setting of COPD exacerbation with underlying multifocal pneumonia with sepsis. 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 Mother Hypertension CVD (cardiovascular disease) Cancer Surgical History Hx of kyphoplasty Hx of colonoscopy Deficient knowledge of leg surgery History of tonsillectomy Social History Household Members: Spouse and Family Housing: House Are you a primary care trainer to a significant other at home: No Do you presently have visiting nurse or other home services: No Alcohol intake: never Patient Tobacco Use Status: Former Tobacco user Tobacco use type: Cigarette Years Smoked: quit 1995 Smoked in Last 30 Days: No e-Cigarette/Vaping Use: Never Used Second Hand Smoke Exposure: Yes Use of substances other than those prescribed or required for medical reasons: No Currently Displaying Signs/Symptoms of Drug Intoxication Withdrawal: No Have you been hit, kicked, punched, or otherwise hurt by someone within the past year? If so, by whom?: No Do you feel safe in your current relationship?: Yes Is there a partner from a previous relationship who is making you feel unsafe now?: No Are you made to feel afraid or neglected: No Advance Directives: No Advance Directives Information Provided: Yes Do you have a plan to hurt others: No Plan Recently lost weight without trying: Yes How much weight loss: Unsure Eating poorly because of decreased appetite: Yes Nutrition screen score: 5 Nutrition Risks: Difficulty chewing service: Yes Current occupational status: retired Cognitive needs: No Hearing needs: No Vision needs: Yes Meds Allergies Allergy/AdvReac Type Severity Reaction Status Date / Time Sulfa (Sulfonamide Allergy Unknown RASH Verified 03/05/24 10:10 Antibiotics) [SULFA (SULFONAMIDE ANTIBIOTICS)] hydrocodone [HYDROCODONE] AdvReac Severe severe Verified 03/05/24 10:10 constipation oxycodone AdvReac Severe severe Verified 03/05/24 10:10 constipation Home Medications ?Medication ?Instructions ?Recorded ?Confirmed ?Last Taken ?Type omeprazole 20 mg capsule,delayed 20 mg PO DAILY@0630 12/26/21 03/05/24 03/05/24 06:30 History release multivitamin 1 tab PO DAILY 03/25/22 03/05/24 03/05/24 06:30 History albuterol sulfate 90 mcg/actuation 2 puff inhalation Q6H PRN 03/05/24 03/05/24 03/05/24 06:30 History aerosol inhaler Shortness Of Breath alendronate 70 mg tablet 70 mg PO ROLDAN 03/05/24 03/05/24 02/29/24 History melatonin 10 mg tablet 10 mg PO BEDTIME PRN Sleep 03/05/24 03/05/24 03/04/24 History Physical Exam 2 Vital Signs and Narrative: Vital Signs: Last Vital Signs Temp 98.2 F 03/05/24 14:13 Pulse 93 03/05/24 14:13 Resp 19 03/05/24 14:13 BP 119/63 03/05/24 14:13 Pulse Ox 95 03/05/24 14:13 O2 Del Method Nasal Cannula 03/05/24 14:13 O2 Flow Rate 2 03/05/24 14:13 BMI result Body Mass Index 21.8 General: AOx3, no acute distress Resp: Lung sounds diminished, expiratory rhonchi CVS: S1, S2, RRR GI: +BS, NT, no distention Skin: Warm, dry Neuro: Cranial nerves II-XII grossly intact bilaterally. Motor grossly intact bilaterally Extremities: No edema Psych: Appropriate affect Results Labs 03/05/24 10:24 03/05/24 10:24 Labs: Laboratory Results - last 24 hr 03/05/24 03/05/24 03/05/24 10:24 10:25 10:38 MCV 88.0 MCH 31.0 MCHC 35.2 RDW 13.6 Plt Count 165 D MPV 8.8 L Immature Gran % (Auto) 0.5 H Neut % (Auto) 78.8 H Lymph % (Auto) 12.6 L [place] % (Auto) 6.6 Eos % (Auto) 1.2 Baso % (Auto) 0.3 Lymph # (Auto) 1.0 L [place] # (Auto) 0.5 Eos # (Auto) 0.1 Baso # (Auto) 0.0 Abs Immat Gran (auto) 0.04 H Absolute Neuts (auto) 6.0 Absolute Nucleated RBC 0.000 Nucleated RBC % (auto) 0.0 D-Dimer High Sensitivty 413 Anion Gap 15 Estim Creat Clear Calc 51.2 Estimated GFR > 60 Random Glucose 136 H Lactic Acid 2.0 Calcium 9.1 D Total Bilirubin 1.4 H AST 15 ALT 11 Alkaline Phosphatase 89 Troponin I High Sens < 2.7 B-Natriuretic Peptide < 10 Total Protein 7.5 Albumin 4.2 Influenza Type A (PCR) NEGATIVE Influenza Type B (PCR) NEGATIVE RSV RNA Qual (PCR) NEGATIVE SARS-CoV-2 RNA (RT-PCR) NEGATIVE Imaging Radiologist's Impressions: Impressions Chest X-Ray 03/05/24 10:40 IMPRESSION: Bilateral multifocal airspace disease may represent pneumonia. Follow-up until resolution is advised. Chest CTA 03/05/24 13:45 IMPRESSION: No central pulmonary embolus. Multifocal tree-in-bud nodules involving the left upper lobe, lingula, left lower lobe and right middle lobe. Bronchial wall thickening with peribronchial consolidation involving the right middle lobe and bilateral lower lobes. Infectious and inflammatory etiologies should be considered. Bilateral pulmonary nodules measuring up to 1.3 cm. These may be on an inflammatory basis. Follow-up chest CT in 3 months is advised. VTE: negative Fleischner guidelines were followed. Assessment and Plan (1) Multifocal pneumonia: Status: Acute Plan Pt is a 79-year-old male with a PMH significant for?HTN, HLD, COPD on prn home O2, BPH, tonsilar cancer with residual dysphagia, and osteoporosis who presents to the ED with?increasing SOB, WALTER, and difficulty breathing x3 days. Pt will be admitted to the hospital for treatment and further evaluation of acute hypoxic respiratory failure in the setting of COPD exacerbation with underlying multifocal pneumonia with sepsis. Acute hypoxic respiratory failure in the setting of COPD exacerbation with underlying multifocal pneumonia with sepsis Patient with increased SOB, WALTER, productive cough, desatting to 84% on RA, Imaging showing multifocal pneumonia Patient meets sepsis criteria: Tachycardia and tachypnea; lactic acid WNL Patient is started broad-spectrum antibiotics in the ED Will treat with ceftriaxone and azithromycin, started 03/05/2024 DuoNebs, Solu-Medrol, guaifenesin Titrate supplemental O2 >92, wean as tolerated Monitor respiratory status Follow cultures Pulmonary nodules CTA of chest found bilateral pulmonary nodules measuring up to 1.3 cm Possibly inflammatory Follow-up chest CT in 3 months is advised Hx of tonsillar cancer with dysphagia Patient reports difficulty swallowing meets Will place on chopped/advanced diet HTN Continue lisinopril HLD Continue statin GERD Continue PPI Full Code Attending:?Dr. Roberts DVT Prophylaxis: Lovenox Pt will require a hospitalization of at least two nights for treatment of?acute hypoxic respiratory failure in the setting of COPD exacerbation with underlying multifocal pneumonia with sepsis. Given that patient is requiring increased O2 demands and meets sepsis criteria, he will require hospitalization for administration of IV antibiotics, IV steroids, breathing treatments, and close monitoring respiratory status. Quality Stroke Does the patient have a stroke diagnosis?: No VTE Prior VTE?: No VTE Risk Level:: Medical - moderate - high VTE Device Contraindication: Treatment Not Indicated VTE Drug Contraindication: N/A - Med Ordered
--- NOTE | 2024-03-05 17:50 | PHA.MEDREC ---
Pharmacy Consult ? Medication Reconciliation Pharmacy has completed the medication reconciliation. Confirmed medications with patient. Patient confirmed his Alendronate 70mg tab once weekly, he said he usually takes it on Sundays and he last took it this past Wednesday 02/28.
--- NOTE | 2024-03-05 18:18 | PC.NURSE ---
pt continues to rest in no apparent distress. pt remains on 2L via NC. no sob/wob noted. respirations even/unlabored. waiting for bed assignment at this time. plan of care ongoing. call clay placed within reach.
[2024-03-05] MEDS: methylPREDNISolone Sod Succ 40 MG/ML VIAL IVPUSH (20:31)
[2024-03-05] MEDS: Enoxaparin Sodium 40 MG/0.4 ML SYRINGE SUBCUT (20:31)
[2024-03-05] MEDS: Atorvastatin Calcium 10 MG TABLET PO (20:31)
[2024-03-05] MEDS: 0.9 % Sodium Chloride Flush 3 ML SYRINGE IVFLUSH (21:13)
[2024-03-06] VITALS (8 sets, daily range): BP systolic 118–148; BP diastolic 63–72; PULSE 88–111; RESP 16–20; TEMP 36.2–37.2; O2SAT 92–96
[2024-03-06] MEDS: Omeprazole 20 MG CAPSULE.DR PO (06:21)
[2024-03-06] MEDS: Albuterol/Iprat 2.5/0.5MG 3 ML AMPUL.NEB INHALE ×4 (07:52→19:40)
[2024-03-06] MEDS: 0.9 % Sodium Chloride Flush 3 ML SYRINGE IVFLUSH ×3 (09:03→21:01)
[2024-03-06] MEDS: methylPREDNISolone Sod Succ 40 MG/ML VIAL IVPUSH ×2 (09:04→21:01)
[2024-03-06] MEDS: Azithromycin 500 MG in 0.9 % Sodium Chloride 250 ML 125 MG IV (11:20)
[2024-03-06] MEDS: cefTRIAXone sodium 1 GM in 0.9 % Sodium Chloride 50 ML IV (12:33)
--- NOTE | 2024-03-06 14:19 | HO.PM.IMPN ---
Subjective Subjective Date of Service: 03/06/24 Interval History: seen and evaluated this morning still on O2 supplement feels little better Review of Systems Review of Systems: Yes all other systems are reviewed and are negative Physical Exam Vital Signs: Vital Signs: Last Vital Signs Temp 97.9 F 03/06/24 06:57 Pulse 93 03/06/24 11:19 Resp 16 03/06/24 11:19 BP 123/63 03/06/24 06:57 Pulse Ox 92 03/06/24 06:57 O2 Del Method Nasal Cannula 03/06/24 06:57 O2 Flow Rate 2 03/06/24 06:57 BMI result Body Mass Index 22.2 Const: Other: Constitutional : Awake, interactive, not in distress Neck : Normal inspection, Supple Cardiovascular : RRR, no JVP, no lower extremity edema Respiratory : decreased bilateral air entry, no crackles, expiratory wheezes Gastrointestinal: soft, lax, Normal bowel sounds, Non tender Skin : Warm, Dry Neurological : Alert & oriented x3, No focal deficit Objective Data Active Medications Acetaminophen (Acetaminophen 325 Mg Tablet) 650 mg PO Q6H PRN PRN Reason: Pain, Mild (Pain Scale 1-3), fever or headache Albuterol/Ipratropium (Albuterol/Iprat 2.5/0.5mg 3 Ml Ampul.Neb) 3 ml INHALE RQ4H WHILE AWAKE [facility] Last Admin: 03/06/24 11:17 Dose: 3 ml Documented By: GHASSAN Atorvastatin Calcium (Atorvastatin Calcium 10 Mg Tablet) 10 mg PO BEDTIME [facility] Last Admin: 03/05/24 20:31 Dose: 10 mg Documented By: DUDLEY Calcium Carbonate (Calcium Carbonate 750 Mg Tab.Chew) 750 mg PO Q4H PRN PRN Reason: Heartburn Enoxaparin Sodium (Enoxaparin Sodium 40 Mg/0.4 Ml Syringe) 40 mg SUBCUT Q24H [facility] Last Admin: 03/05/24 20:31 Dose: 40 mg Documented By: DUDLEY Guaifenesin/Dextromethorphan (Guaifenesin Dm 200/20/10 Ml 10 Ml Syrup) 10 ml PO Q6H PRN PRN Reason: Cough Ceftriaxone Sodium 1 gm/ (Sodium Chloride) 50 mls @ 100 mls/hr IV Q24H [facility] Last Infusion: 03/06/24 13:18 Dose: Infused Documented By: KATIUSKA Azithromycin 500 mg/ Sodium (Chloride) 250 mls @ 125 mls/hr IV Q24H [facility] Last Infusion: 03/06/24 13:58 Dose: Infused Documented By: KATIUSKA Magnesium Hydroxide (Milk Of Magnesia 30 Ml Oral.Susp) 30 ml PO DAILY PRN PRN Reason: Constipation Melatonin (Melatonin 3 Mg Tablet) 6 mg PO BEDTIME PRN PRN Reason: Insomnia Methylprednisolone Sodium Succinate (Methylprednisolone Sod Succ 40 Mg/Ml Vial) 40 mg IVPUSH Q12H [facility] Last Admin: 03/06/24 09:04 Dose: 40 mg Documented By: KATIUSKA Omeprazole (Omeprazole 20 Mg Capsule.Dr) 20 mg PO DAILY@0630 [facility] Last Admin: 03/06/24 06:21 Dose: 20 mg Documented By: ROBYN Ondansetron HCl (Ondansetron Hcl 4 Mg/2 Ml Vial) 4 mg IVPUSH Q8H PRN PRN Reason: Nausea and Vomiting Sodium Chloride (0.9 % Sodium Chloride Flush 3 Ml Syringe) 3 ml IVFLUSH QSHIFT [facility] Last Admin: 03/06/24 09:03 Dose: 3 ml Documented By: KATIUSKA Labs 03/05/24 10:24 03/05/24 10:24 Microbiology Microbiology Results: Microbiology 03/05/24 10:38 Blood Culture - Preliminary Blood - Subclavian No growth after 24 hours. 03/05/24 10:25 Blood Culture - Preliminary Blood - Subclavian No growth after 24 hours. Assessment and Plan (1) Multifocal pneumonia: Status: Acute (2) COPD (chronic obstructive pulmonary disease): Status: Acute (3) Acute on chronic respiratory failure with hypoxemia: Status: Acute Plan Pt is a 79-year-old male with a PMH significant for?HTN, HLD, COPD on prn home O2, BPH, tonsilar cancer with residual dysphagia, and osteoporosis who presents to the ED with?increasing SOB, WALTER, and difficulty breathing x3 days. Pt will be admitted to the hospital for treatment and further evaluation of acute hypoxic respiratory failure in the setting of COPD exacerbation with underlying multifocal pneumonia with sepsis. Acute hypoxic respiratory failure 2/2 Sepsis from CAP and COPD exacerbation Pending cultures Continue ceftriaxone and azithromycin, started 03/05/2024 DuoNebs, Solu-Medrol, guaifenesin Titrate supplemental O2 >92, wean as tolerated Monitor respiratory status Follow cultures Pulmonary nodules CTA of chest found bilateral pulmonary nodules measuring up to 1.3 cm Possibly inflammatory Follow-up chest CT in 3 months is advised Hx of tonsillar cancer with dysphagia Patient reports difficulty swallowing meets on modified diet HTN Continue lisinopril HLD Continue statin GERD Continue PPI Full Code DVT Prophylaxis: Lovenox Pt will require a hospitalization overnight for treatment of?acute hypoxic respiratory failure in the setting of COPD exacerbation with underlying multifocal pneumonia with sepsis for administration of IV antibiotics, IV steroids, breathing treatments, and close monitoring respiratory status. Quality Stroke Does the patient have a stroke diagnosis?: No VTE Prior VTE?: No VTE Risk Level:: Medical - moderate - high VTE Device Contraindication: Treatment Not Indicated VTE Drug Contraindication: N/A - Med Ordered
[2024-03-06] MEDS: Enoxaparin Sodium 40 MG/0.4 ML SYRINGE SUBCUT (21:00)
[2024-03-06] MEDS: Atorvastatin Calcium 10 MG TABLET PO (21:01)
[2024-03-07] VITALS (9 sets, daily range): BP systolic 131–151; BP diastolic 59–75; PULSE 88–103; RESP 16–20; TEMP 36.4–37.4; O2SAT 90–98
[2024-03-07] MEDS: Omeprazole 20 MG CAPSULE.DR PO (06:00)
[2024-03-07 07:16] LABS: Hematocrit 35.8 % (42.0-52.0); Hemoglobin 12.8 g/dl (14.0-18.0); Mean Corpuscular HGB Conc 35.8 g/dl (31.0-36.0); Mean Corpuscular Hemoglobin 30.8 pg (27.0-33.0); Mean Corpuscular Volume 86.3 fL (80.0-98.0); Mean Platelet Volume 8.9 fL (9.4-12.4); Platelet Count 201 X10*3/uL (160-400); Red Blood Count 4.15 X10*6/uL (4.60-5.80); Red Cell Distribution Width 13.2 % (11.0-16.0); White Blood Count 13.2 X10*3/uL (4.8-10.8)
[2024-03-07 07:20] LABS: Anion Gap 13 (12-20); Blood Urea Nitrogen 14 mg/dL (9-16); Carbon Dioxide 24 mmol/L (22-29); Chloride 107 mmol/L (96-108); Creatinine Clr Calc Pharmacy 58.3; Estimated Glomerular Filt Rate > 60; Glucose Random 118 mg/dL (60-115); Potassium 4.3 mmol/L (3.3-5.1); Sodium 140 mmol/L (135-145)
[2024-03-07] MEDS: Albuterol/Iprat 2.5/0.5MG 3 ML AMPUL.NEB INHALE ×4 (07:44→19:35)
[2024-03-07] MEDS: methylPREDNISolone Sod Succ 40 MG/ML VIAL IVPUSH ×2 (08:09→20:07)
[2024-03-07] MEDS: 0.9 % Sodium Chloride Flush 3 ML SYRINGE IVFLUSH ×3 (08:10→20:07)
[2024-03-07] MEDS: Azithromycin 500 MG in 0.9 % Sodium Chloride 250 ML 125 MG IV (09:24)
--- NOTE | 2024-03-07 10:40 | P.PNIM_ITS ---
Subjective Subjective Date of Service: 03/07/24 Interval History: seen and evaluated this morning feels better overall still on O2 supplement no other overnight events Review of Systems Review of Systems: Yes all other systems are reviewed and are negative Physical Exam 2 Vital Signs: Vital Signs: Last Vital Signs Temp 97.5 F 03/07/24 07:30 Pulse 94 03/07/24 07:46 Resp 18 03/07/24 07:46 BP 131/75 03/07/24 07:30 Pulse Ox 97 03/07/24 07:30 O2 Del Method Room Air 03/07/24 07:30 O2 Flow Rate 2 03/07/24 04:00 BMI result Body Mass Index 22.2 Const: Other: Constitutional : Awake, interactive, not in distress Neck : Normal inspection, Supple Cardiovascular : RRR, no JVP, no lower extremity edema Respiratory : decreased bilateral air entry, basal fine crackles, expiratory wheezes Gastrointestinal: soft, lax, Normal bowel sounds, Non tender Skin : Warm, Dry Neurological : Alert & oriented x3, No focal deficit Objective Data Active Medications Acetaminophen (Acetaminophen 325 Mg Tablet) 650 mg PO Q6H PRN PRN Reason: Pain, Mild (Pain Scale 1-3), fever or headache Albuterol/Ipratropium (Albuterol/Iprat 2.5/0.5mg 3 Ml Ampul.Neb) 3 ml INHALE RQ4H WHILE AWAKE [facility] Last Admin: 03/07/24 07:44 Dose: 3 ml Documented By: GHASSAN Atorvastatin Calcium (Atorvastatin Calcium 10 Mg Tablet) 10 mg PO BEDTIME [facility] Last Admin: 03/06/24 21:01 Dose: 10 mg Documented By: ROBYN Calcium Carbonate (Calcium Carbonate 750 Mg Tab.Chew) 750 mg PO Q4H PRN PRN Reason: Heartburn Enoxaparin Sodium (Enoxaparin Sodium 40 Mg/0.4 Ml Syringe) 40 mg SUBCUT Q24H [facility] Last Admin: 03/06/24 21:00 Dose: 40 mg Documented By: ROBYN Guaifenesin/Dextromethorphan (Guaifenesin Dm 200/20/10 Ml 10 Ml Syrup) 10 ml PO Q6H PRN PRN Reason: Cough Ceftriaxone Sodium 1 gm/ (Sodium Chloride) 50 mls @ 100 mls/hr IV Q24H [facility] Last Infusion: 03/06/24 13:18 Dose: Infused Documented By: KATIUSKA Azithromycin 500 mg/ Sodium (Chloride) 250 mls @ 125 mls/hr IV Q24H [facility] Last Admin: 03/07/24 09:24 Dose: 125 mls/hr Documented By: SUZANNE Magnesium Hydroxide (Milk Of Magnesia 30 Ml Oral.Susp) 30 ml PO DAILY PRN PRN Reason: Constipation Melatonin (Melatonin 3 Mg Tablet) 6 mg PO BEDTIME PRN PRN Reason: Insomnia Methylprednisolone Sodium Succinate (Methylprednisolone Sod Succ 40 Mg/Ml Vial) 40 mg IVPUSH Q12H [facility] Last Admin: 03/07/24 08:09 Dose: 40 mg Documented By: SUZANNE Omeprazole (Omeprazole 20 Mg Capsule.Dr) 20 mg PO DAILY@0630 [facility] Last Admin: 03/07/24 06:00 Dose: 20 mg Documented By: BREANN Ondansetron HCl (Ondansetron Hcl 4 Mg/2 Ml Vial) 4 mg IVPUSH Q8H PRN PRN Reason: Nausea and Vomiting Sodium Chloride (0.9 % Sodium Chloride Flush 3 Ml Syringe) 3 ml IVFLUSH QSHIFT [facility] Last Admin: 03/07/24 08:10 Dose: 3 ml Documented By: SUZANNE Labs 03/07/24 06:57 03/07/24 06:57 Labs: Laboratory Results - last 24 hr 03/07/24 06:57 MCV 86.3 MCH 30.8 MCHC 35.8 RDW 13.2 Plt Count 201 MPV 8.9 L Absolute Nucleated RBC 0.000 Nucleated RBC % (auto) 0.0 Anion Gap 13 Estim Creat Clear Calc 58.3 Estimated GFR > 60 Random Glucose 118 H Calcium 9.0 Microbiology Microbiology Results: Microbiology 03/05/24 10:38 Blood Culture - Preliminary Blood - Subclavian No growth after 24 hours. 03/05/24 10:25 Blood Culture - Preliminary Blood - Subclavian No growth after 24 hours. Assessment and Plan (1) Acute on chronic respiratory failure with hypoxemia: Status: Acute (2) Multifocal pneumonia: Status: Acute Plan Pt is a 79-year-old male with a PMH significant for?HTN, HLD, COPD on prn home O2, BPH, tonsilar cancer with residual dysphagia, and osteoporosis who presents to the ED with?increasing SOB, WALTER, and difficulty breathing x3 days. Pt will be admitted to the hospital for treatment and further evaluation of acute hypoxic respiratory failure in the setting of COPD exacerbation with underlying multifocal pneumonia with sepsis. Acute hypoxic respiratory failure 2/2 Sepsis from CAP and COPD exacerbation Pending cultures Continue ceftriaxone and azithromycin, started 03/05/2024 DuoNebs, Solu-Medrol, guaifenesin Titrate supplemental O2 >92, wean as tolerated Monitor respiratory status Follow cultures Pulmonary nodules CTA of chest found bilateral pulmonary nodules measuring up to 1.3 cm Possibly inflammatory Follow-up chest CT in 3 months is advised Hx of tonsillar cancer with dysphagia Patient reports difficulty swallowing meets on modified diet HTN Continue lisinopril HLD Continue statin GERD Continue PPI Full Code DVT Prophylaxis: Lovenox Pt will require a hospitalization overnight for treatment of?acute hypoxic respiratory failure in the setting of COPD exacerbation with underlying multifocal pneumonia with sepsis for administration of IV antibiotics, IV steroids, breathing treatments, and close monitoring respiratory status. Quality Stroke Does the patient have a stroke diagnosis?: No VTE Prior VTE?: No VTE Risk Level:: Medical - moderate - high VTE Device Contraindication: Treatment Not Indicated VTE Drug Contraindication: N/A - Med Ordered
[2024-03-07] MEDS: cefTRIAXone sodium 1 GM in 0.9 % Sodium Chloride 50 ML IV (13:14)
--- NOTE | 2024-03-07 16:21 | MHC.CM.PN ---
CM MET WITH PT AND AT BEDSIDE PT LIVES AT HOME WITH HIS , DAUGHTER, GRANDDAUGHTER AND GREAT GRANDSON HE IS INDEPENDENT WITH CARE AND USES HOME OXYGEN PT REPORTS HE WAS GETTING O2 FROM [facility], HOWEVER HIS INSURANCE CHANGED AND HE IS WAITING FOR MD ORDERS TO GET IT FROM A CONTRACTED VENDOR. [facility] IS SUPPOSED TO BE PICKING UP THEIR EQUIPMENT ANY TIME. PT SAYS HE HAS A HCP, COPY REQUESTED PCP: STEPHY JAIN IMM DELIVERED DCP: HOME NO SERVICES VIA FAMILY TRANSPORT
[2024-03-07] MEDS: Enoxaparin Sodium 40 MG/0.4 ML SYRINGE SUBCUT (20:05)
[2024-03-07] MEDS: Atorvastatin Calcium 10 MG TABLET PO (20:07)
[2024-03-08 00:40] VITALS: RESP 16
[2024-03-08 03:10] VITALS: BP 139/69; PULSE 81; RESP 20; TEMP 36.8; O2SAT 91
[2024-03-08 06:40] LABS: Anion Gap 13 (12-20); Blood Urea Nitrogen 15 mg/dL (9-16); Calcium 8.8 mg/dL (8.4-10.2); Carbon Dioxide 25 mmol/L (22-29); Chloride 106 mmol/L (96-108); Creatinine Clr Calc Pharmacy 64.1; Estimated Glomerular Filt Rate > 60; Glucose Random 113 mg/dL (60-115); Potassium 4.1 mmol/L (3.3-5.1); Sodium 140 mmol/L (135-145)
[2024-03-08] MEDS: Omeprazole 20 MG CAPSULE.DR PO (06:43)
[2024-03-08 06:59] LABS: Hematocrit 37.3 % (42.0-52.0); Hemoglobin 13.2 g/dl (14.0-18.0); Mean Corpuscular HGB Conc 35.4 g/dl (31.0-36.0); Mean Corpuscular Hemoglobin 30.6 pg (27.0-33.0); Mean Corpuscular Volume 86.3 fL (80.0-98.0); Mean Platelet Volume 9.2 fL (9.4-12.4); Platelet Count 189 X10*3/uL (160-400); Red Blood Count 4.32 X10*6/uL (4.60-5.80); Red Cell Distribution Width 12.8 % (11.0-16.0); White Blood Count 10.3 X10*3/uL (4.8-10.8)
[2024-03-08 07:31] VITALS: BP 156/72; PULSE 86; RESP 20; TEMP 36.5; O2SAT 92
[2024-03-08] MEDS: Albuterol/Iprat 2.5/0.5MG 3 ML AMPUL.NEB INHALE ×2 (07:37→11:13)
[2024-03-08 07:38] VITALS: PULSE 92; RESP 18; O2SAT 91
[2024-03-08] MEDS: methylPREDNISolone Sod Succ 40 MG/ML VIAL IVPUSH (08:08)
[2024-03-08] MEDS: 0.9 % Sodium Chloride Flush 3 ML SYRINGE IVFLUSH (08:08)
--- NOTE | 2024-03-08 10:26 | PM.DS ---
DS: Providers Provider Date of Service: 03/08/24 Date of admission: 03/05/24 17:43 Primary care physician: Tila Mcclure MD DS: Diagnosis Discharge Diagnosis (1) Acute on chronic respiratory failure with hypoxemia: Status: Acute (2) Multifocal pneumonia: Status: Acute (3) COPD exacerbation: Status: Acute (4) Pulmonary nodule: Status: Acute DS: Summary Hospital Course Hospital Course: Admission note HPI Pt is a 79-year-old male with a PMH significant for?HTN, HLD, COPD on prn home O2, BPH, tonsilar cancer with residual dysphagia, and osteoporosis who presents to the ED with?increasing SOB, WALTER, and difficulty breathing x3 days. Reports symptoms began when he awoke on Friday morning. Has been feeling tired with generalized weakness. Chronic cough mostly productive in the mornings, around baseline. On Friday night measured a fever at home of 102, for which he has been taking Tylenol. Home inhalers have been of little relief, but reports taking a couple of pills of amoxicillin that his had left over which helped some. Patient also has been using his home O2 around the clock, which he normally rarely uses. Presents today as symptoms have persisted and worsened. Denies nausea, vomiting, abdominal pain. No chest pain/pressure, palpitations. In the ED pt was tachycardic up to 108, tachypneic up to 22, and desatting as low as 84% on RA. Labs were grossly unremarkable and around baseline for patient. No leukocytosis. Stable H& H. No significant electrolyte abnormalities. Renal function baseline. Hepatic function baseline. BNP and troponin negative. Lactic acid WNL at 2.0. Tested negative for flu, RSV, and COVID. CXR showed bilateral multifocal airspace disease may represent pneumonia. CTA of chest found no central pulmonary embolus, but multifocal tree-in-bud nodules involving left upper lobe, lingula, left lower lobe, and right middle lobe suggestive of infectious or inflammatory etiology. EKG demonstrated normal sinus rhythm without evidence of significant ST elevations or depressions. Pt was treated with Solu-Medrol, DuoNebs, ceftriaxone, and azithromycin. Pt will be admitted to the hospital for treatment and further evaluation of acute hypoxic respiratory failure in the setting of COPD exacerbation with underlying multifocal pneumonia with sepsis. Hospital course Acute hypoxic respiratory failure secondary to Sepsis from CAP and COPD exacerbation that was treated with IV antibiotics of Ceftriaxone and azithromycin, started 03/05/2024, DuoNebs, Solu-Medrol, guaifenesin and O2 supplement with good response over the course of hospital stay. Titrated down to room air maintaining O2 88-91 on RA. dropped to 86% upon ambulation but recovered within 30 sec back to 90s with no complaints of dyspnea or SOB. He has O2 at home that he uses PRN and was advised to wear it to keep sats 88-92%. To be discharged on Steroid taper, Antibiotics, LABA+steroid inhaler. blood cultures remained negative. Has hx of Pulmonary nodules with CTA of chest found bilateral pulmonary nodules measuring up to 1.3 cm. Will need a Follow-up chest CT in 3 months by PCP. Discharge plan Start Prednisone tapering dose as prescribed Finish 5 more days of Azithromycin and Ceftin Start Fluticasone\Salmeterol inhaler twice daily Cough medicine as needed Albuterol inhaler as needed Time Attestation Discharge Coordination Time (in mins): 38 Quality: Safe Use of Opioids Does Pt have an Active Cancer Diagnosis on the Problem List?: No Quality: Stroke Does the patient have a stroke diagnosis?: No Physical Exam Vital Signs: Vital Signs: Last Vital Signs Temp 97.7 F 03/08/24 07:31 Pulse 92 03/08/24 07:38 Resp 18 03/08/24 07:38 BP 156/72 H 03/08/24 07:31 Pulse Ox 92 03/08/24 07:31 O2 Del Method Nasal Cannula 03/08/24 07:31 O2 Flow Rate 2 03/08/24 07:31 BMI result Body Mass Index 22.2 Const: Other: Constitutional : Awake, interactive, not in distress Neck : Normal inspection, Supple Cardiovascular : RRR, no JVP, no lower extremity edema Respiratory : fair bilateral air entry, no crackles, no wheezes Gastrointestinal: soft, lax, Normal bowel sounds, Non tender Skin : Warm, Dry Neurological : Alert & oriented x3, No focal deficit DS: Data Data Completed and Pending Labs on day of discharge: Laboratory Results - last 24 hr 03/08/24 05:56 WBC 10.3 RBC 4.32 L Hgb 13.2 L Hct 37.3 L MCV 86.3 MCH 30.6 MCHC 35.4 RDW 12.8 Plt Count 189 MPV 9.2 L Absolute Nucleated RBC 0.000 Nucleated RBC % (auto) 0.0 Sodium 140 Potassium 4.1 Chloride 106 Carbon Dioxide 25 Anion Gap 13 BUN 15 Creatinine 0.80 Estim Creat Clear Calc 64.1 Estimated GFR > 60 Random Glucose 113 Calcium 8.8 Preliminary micro results at discharge 03/05/24 10:38 Blood Culture - Preliminary Blood - Subclavian No growth after 48 hours. 03/05/24 10:25 Blood Culture - Preliminary Blood - Subclavian No growth after [address] scan - chest: Radiologist's impression: ITS Impressions Chest X-Ray 03/05/24 10:40 IMPRESSION: Bilateral multifocal airspace disease may represent pneumonia. Follow-up until resolution is advised. Chest CTA 03/05/24 13:45 IMPRESSION: No central pulmonary embolus. Multifocal tree-in-bud nodules involving the left upper lobe, lingula, left lower lobe and right middle lobe. Bronchial wall thickening with peribronchial consolidation involving the right middle lobe and bilateral lower lobes. Infectious and inflammatory etiologies should be considered. Bilateral pulmonary nodules measuring up to 1.3 cm. These may be on an inflammatory basis. Follow-up chest CT in 3 months is advised. VTE: negative Fleischner guidelines were followed. Discharge Plan Discharge Anticipated Discharge Date/Time: 03/08/24 10:20 Patient Disposition: Home, Self-Care Discharge Diagnosis: Pneumonia COPD exacerbation Referrals: Po,Tila Gonzalez MD [Primary Care Provider] - 1 Week Discharge Medications: New dextromethorphan-guaifenesin 10-100 mg/5 mL Syrup 10 ml PO Q6H PRN (Reason: Cough) Qty: 237 1RF prednisone 10 mg tablet See Taper PO DIRECTED Qty: 30 0RF Taper: Prednisone 40 mg daily for 3 Days and 0 Hour 30 mg daily for 3 Days and 0 Hour 20 mg daily for 3 Days and 0 Hour 10 mg daily for 3 Days and 0 Hour Rx Instructions: see taper instructions azithromycin 500 mg tablet 500 mg PO DAILY 5 Days Qty: 5 0RF cefuroxime axetil 500 mg tablet 500 mg PO BID Qty: 10 0RF fluticasone propion-salmeterol 55-14 mcg/actuation aerosol powdr breath activated 1 inh inhalation BID Qty: 1 1RF Continued multivitamin Tablet 1 tab PO DAILY melatonin 10 mg Tablet 10 mg PO BEDTIME PRN (Reason: Sleep) alendronate 70 mg tablet 70 mg PO ROLDAN albuterol sulfate 90 mcg/actuation Hfa Aerosol Inhaler 2 puff INHALATION Q6H PRN (Reason: Shortness Of Breath) omeprazole 20 mg capsule,delayed release(DR/EC) 20 mg PO DAILY@0630 lisinopril 10 mg tablet 10 mg PO DAILY Qty: 90 3RF simvastatin 10 mg tablet 10 mg PO BEDTIME 90 Days Qty: 90 3RF Discharge Orders: Discharge Order (Routine); Ordered 03/08/24 Ordered By: Sabina Roberts Diet: Advance to usual diet Activity on Discharge: As tolerated Stand Alone Forms: Patient Portal Discharge page Print Language: Azerbaijani Care Plan Goals: Start Prednisone tapering dose as prescribed Finish 5 more days of Azithromycin and Ceftin Start Fluticasone\Salmeterol inhaler twice daily Cough medicine as needed Albuterol inhaler as needed Health Concerns: Read below Plan of Treatment: Read below Assessment: Read below
[2024-03-08 11:14] VITALS: PULSE 102; PULSE 104; RESP 16; O2SAT 89; O2SAT 92; O2SAT 97
[2024-03-08 11:18] LABS: Glucose, Whole Blood 107 mg/dL (60-115)
== END 2024-03-08 12:01 | disposition home or self-care (01) | DRG 871 ==
LOC: HO.ED 14:54 → HO.EDOVER 18:12 → HO.IMC 19:21
PROVIDERS: Physician Assistant; Admitting Provider Student in an Organized Health Care Education/Training Program; Emergency Provider Emergency Medicine; PCP Internal Medicine; Visit Provider Student in an Organized Health Care Education/Training Program
DX: A41.9 Sepsis, unspecified organism (principal); J18.9 Pneumonia, unspecified organism; J96.01 Acute respiratory failure with hypoxia; J44.0 Chronic obstructive pulmonary disease with (acute) lower respiratory infection; N40.0 Benign prostatic hyperplasia without lower urinary tract symptoms; R13.10 Dysphagia, unspecified; I10 Essential (primary) hypertension; R91.8 Other nonspecific abnormal finding of lung field; Z20.822 Contact with and (suspected) exposure to COVID-19; Z85.819 Personal history of malignant neoplasm of unspecified site of lip, oral cavity, and pharynx; Z99.81 Dependence on supplemental oxygen; Z87.891 Personal history of nicotine dependence; Z79.51 Long term (current) use of inhaled steroids; Z79.899 Other long term (current) drug therapy
CPT/HCPCS: 0241U; 36415; 71045; 71275; 80048; 80053; 82947; 83605; 83880; 84484; 85025; 85027; 85379; 87040; 93005; 94640; 99285; J0456; J0696; J1650; J2919; Q9967

== ENCOUNTER → 2024-03-05 10:48 | Outpatient (BNV) | payer MEDICARE, SELFPAY | PROVIDERS: Emergency Provider Emergency Medicine; PCP Internal Medicine; Visit Provider Internal Medicine | DX: R06.02 Shortness of breath (principal) | CPT/HCPCS: 93010 ==

== ENCOUNTER → 2024-03-05 17:43 | Outpatient (BNV) | payer MEDICARE, SELFPAY | PROVIDERS: Admitting Provider Student in an Organized Health Care Education/Training Program; Emergency Provider Emergency Medicine; PCP Internal Medicine; Visit Provider Student in an Organized Health Care Education/Training Program | DX: J96.21 Acute and chronic respiratory failure with hypoxia (principal); J18.9 Pneumonia, unspecified organism; J44.1 Chronic obstructive pulmonary disease with (acute) exacerbation; R91.1 Solitary pulmonary nodule | CPT/HCPCS: 99223; 99232; 99239 ==

== ENCOUNTER 2024-03-15 14:05 | Outpatient (AMB) | payer MEDICARE, SELFPAY ==
--- NOTE | 2024-03-15 14:10 | MHC.OFFVIS ---
Vital Signs 03/15/24 14:11 Height 5 ft 5 in Weight 128 lb 15.527 oz BMI 21.5 BP 130/58 L Blood Pressure Location Lt brachial Position Sitting Pulse 99 Pulse Source Pulse Oximeter Pulse Oximetry (%) 91 L Oxygen Delivery Method Room Air Intake Visit Reasons: hospital follow up Intake Note: pt is here for follow up and states his shortness of breath is always there, almost at baseline, Animal Impersonator Required: No Allergies Sulfa (Sulfonamide Antibiotics) [SULFA (SULFONAMIDE ANTIBIOTICS)] Allergy (Unknown, Verified 03/15/24 14:41) RASH hydrocodone [HYDROCODONE] Adverse Reaction (Severe, Verified 03/15/24 14:41) severe constipation oxycodone Adverse Reaction (Severe, Verified 03/15/24 14:41) severe constipation Medication List - Last Reconciled 03/15/24 by Niranjan Yusuf MD albuterol sulfate 90 mcg/actuation 2 puffs inhalation Q6H PRN alendronate 70 mg PO ROLDAN dextromethorphan-guaifenesin 10-100 mg/5 mL 10 mL PO Q6H PRN fluticasone propion-salmeterol 250-50 mcg/dose (Wixela Inhub) 1 inh inhalation BID lisinopril 10 mg PO DAILY melatonin 10 mg PO BEDTIME PRN multivitamin 1 tab PO DAILY omeprazole 20 mg PO DAILY@0630 prednisone See Taper mg PO DIRECTED simvastatin 10 mg PO BEDTIME 90 days Do you need a note to return to daycare/school/sports/work: No HPI HPI hospital follow up: Details: THIS 75 YEARS OLD GENTLEMAN IS FOR POST HOSPITAL FOLLOW-UP. ADMITTED TO [facility] ABOUT 10 DAYS AGO WITH THE COUGH SHORTNESS OF BREATH AND LOW-GRADE FEVER. FOUND TO HAVE ACUTE RESPIRATORY INFECTION AND THE CTA OF THE CHEST SHOWED MULTILOBAR INFILTRATES. HE WAS TREATED FOR COMMUNITY-ACQUIRED MULTILOBAR PNEUMONIA WITH BROAD-SPECTRUM ANTIBIOTICS. HE IMPROVED RELATIVELY QUICKLY. HE WAS ALSO ON IV STEROIDS. HE WAS ON OXYGEN SUPPLEMENTATION BUT BE FOR DISCHARGE HE WAS CHECKED WITH WALKING TEST AND HIS O2 SAT REMAINED ABOVE 89%. AT PRESENT HE FEELS MORE, AT BASELINE HOWEVER HE STILL LITTLE BIT WEAK HE IS ON TAPERING PREDNISONE AND HIS IS AFRAID THAT ONCE THE PREDNISONE IS STOP COMPLETELY HIS O2 SAT MAY FALL DOWN. * THIS GENTLEMAN HAS HISTORY OF RIGHT TONSILLAR CARCINOMA, DIAGNOSED AND TREATED IN 2020, WITH RADIATION THERAPY WELL CHEMOTHERAPY. LUCKILY, HE RECOVERED BUT AFTER THE TREATMENT HE HAS CONTINUE TO HAVE DIFFICULTY IN SWALLOWING SOLID FOOD ESPECIALLY BEEF ( EVEN GROUND MEAT) HE DOES SWALLOW THICK CURRENT LIQUIDS AND SOFT TYPE OF FOODS, AND HAS MAINTAINED HIS WEIGHT.. HE ALSO HAS THE CHRONIC OBSTRUCTIVE PULMONARY DISEASE, MODERATELY SEVERE, REMAINED CONTROLLED WITH USE OF WIXELA 250-51 INHALATION B.I.D.. PAST 80 OF SMOKING BUT QUIT IN 2020. 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 Mother Hypertension CVD (cardiovascular disease) Cancer Social History Household Members: Spouse and Family Housing: House Are you a primary restorative care technician to a significant other at home: No Do you presently have visiting nurse or other home services: No Alcohol intake: never Patient Tobacco Use Status: Former Tobacco user Tobacco use type: Cigarette Years Smoked: quit 1995 e-Cigarette/Vaping Use: Never Used Second Hand Smoke Exposure: Yes service: Yes Current occupational status: retired Cognitive needs: No Hearing needs: No Vision needs: Yes Review of Systems Const All systems reviewed & are unremarkable except as noted in HPI and below Eyes Reports no additional complaints ENT Reports no additional complaints Card Denies chest pain, Denies irregular heart rhythm and Denies leg edema Resp Reports as per HPI GI Reports constipation Reports no additional complaints Musc Reports back pain (Mild) Skin/Breast Reports system reviewed and no additional complaints, except as documented Neuro Reports no additional complaints Psych Reports depression (Well controlled with med) Endo Reports no additional complaints Physical Exam Vital Signs: Last Vital Signs Pulse 99 03/15/24 14:11 BP 130/58 L 03/15/24 14:11 Pulse Ox 91 L 03/15/24 14:11 Oxygen Delivery Method Room Air 03/15/24 14:11 BMI result Body Mass Index 21.5 Const General: comfortable, no acute distress, alert and awake Orientation/consciousness: patient oriented x3 HEENT Head: Yes normal to inspection General nose exam: No nasal polyps present and No nasal discharge present Face and sinus: Yes sinuses nontender Mouth: oropharynx normal Throat: Yes posterior oropharynx normal Eyes General: appearance normal, both eyes and all related structures Neck Neck: Yes normal visual inspection, Yes no lymphadenopathy, Yes trachea midline and Yes no JVD Thyroid: Thyroid normal Chest Chest palpation & inspection: normal inspection of the chest, normal palpation of entire chest wall and no tenderness Resp Other: Percussion note hyper-resonant, breath sounds are equal on both sides but distant with prolonged expiratory phase. Both lungs are clear and there are no audible wheezes or Creps. Cardio Palpation: normal PMI Rate: regular rate Rhythm: regular rhythm Heart sounds: no gallops and no murmurs Peripheral pulses: Peripheral pulses 2+ throughout GI Palpation (GI): Soft to palpation, nontender, No hepatosplenomegaly present and no masses Auscultation: normal bowel sounds Back/Spine/Pelvis Thoracic/Lumbar Spine: thoracic and lumbar spine normal to inspection Skin General skin exam: no rashes or lesions noted Neuro General: patient oriented x3 and no focal motor deficits Cranial nerves: Yes CN's II-XII intact bilaterally Extrem General: Yes normal to inspection, Yes no clubbing, cyanosis or edema and Yes no calf tenderness Psych Appearance: grossly normal and well kempt Speech and movement: Normal speech and movement present Results Reviewed Results Reviewed: HOSPITAL COURSE IS REVIEWED. CAT OF CHEST REPORT 03/05 REVIEWED No central pulmonary embolus. Multifocal tree-in-bud nodules involving the left upper lobe, lingula, left lower lobe and right middle lobe. Bronchial wall thickening with peribronchial consolidation involving the right middle lobe and bilateral lower lobes. Infectious and inflammatory etiologies should be considered. Bilateral pulmonary nodules measuring up to 1.3 cm. These may be on an inflammatory basis. Follow-up chest CT in 3 months is advised. Assessment & Plan Assessment & Plan (1) COPD exacerbation: Comment: HE HAD AN ACUTE EXACERBATION OF COPD, CAUSED BY MULTILOBAR PNEUMONIA. TREATED IN THE HOSPITAL WITH BROAD-SPECTRUM ANTIBIOTIC AND DISCHARGED HOME ON AZITHROMYCIN WELL CEFTIN WHICH HE IS COMPLETING. SEEMS TO HAVE RESOLVED AND CURRENTLY SEEMS TO BE AT BASELINE. Code(s): J44.1 - Chronic obstructive pulmonary disease with (acute) exacerbation Category: Medical Plan: CONTINUE PREDNISONE TAPER. CONTINUE TO USE WIXELA 250-51 INHALATION B.I.D.. CONTINUE TO USE ALBUTEROL HFA 2 PUFFS Q 6 HOURS P.R.N. (2) Acute on chronic respiratory failure with hypoxemia: Comment: THIS PATIENT HAS HAD BORDERLINE O2 SATS IN THE PAST. HE DID HAVE O2 CONCENTRATOR AT HOME AFTER HE HAD TREATMENT FOR THROAT CANCER. BUT THEN HIS O2 APPARATUS WAS TAKEN AWAY HE DID NOT USE O2. NOW WHILE IN THE HOSPITAL HE REQUIRED OXYGEN SUPPLEMENTATION. HOWEVER AT THE TIME OF DISCHARGE HE HAD 6 MINUTES WALK TEST AND O2 SAT DID NOT DROP BELOW 89% SO HE WAS SENT HOME WITHOUT OXYGEN. I MADE HIM WALK [facility] FOR FOR 5 MINUTES AND THE LOWEST O2 SAT AT THE END OF THE WALK WAS 89%. Code(s): J96.21 - Acute and chronic respiratory failure with hypoxia Category: Medical Plan: HAD GOOD DISCUSSION WITH THE PATIENT AND HIS THAT AT PRESENT HE DOES NOT NEED OXYGEN SUPPLEMENTATION AT HOME HOWEVER AFTER HE STOPS PREDNISONE COMPLETELY THE O2 SATS MAY FALL DOWN I WOULD LIKE TO SEE HIM IN 2 WEEKS FOR FOLLOW-UP, AND CHECK WITH 6 MINUTES WALK AT THAT TIME. (3) Multifocal pneumonia: Comment: PATIENT HAD MULTIFOCAL PNEUMONIA. IT MAY BE SECONDARY TO ACUTE RESPIRATORY INFECTION OR MAY BE ASPIRATION PNEUMONITIS. ANYWAY HE RECOVERED VERY WELL . SO FOR Code(s): J18.9 - Pneumonia, unspecified organism Category: Medical Plan: COMPLETE THE COURSE OF AZITHROMYCIN AND CEFTIN. WILL RECHECK HIM IN [address] HE NEEDS CT SCAN OF THE CHEST IN 3 MONTHS (4) Tonsillar cancer: Comment: 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 Code(s): C09.9 - Malignant neoplasm of tonsil, unspecified Category: Medical Plan: AT PRESENT THERE IS NO INDICATION OF ANY RECURRENCE OF NEOPLASTIC PROCESS IN THE THROAT. Coding Level of Care Code Est Pt Level 4 (49184) Diagnoses COPD exacerbation J44.1 Acute on chronic respiratory failure with hypoxemia J96.21 Multifocal pneumonia J18.9 Tonsillar cancer C09.9
[2024-03-15 14:11] VITALS: BP 130/58; PULSE 99; O2SAT 91; BMI 21.5
== END 2024-03-15 14:37 | disposition home or self-care (01) ==
PROVIDERS: PCP Internal Medicine; Visit Provider Internal Medicine
DX: J44.1 Chronic obstructive pulmonary disease with (acute) exacerbation (principal); J96.21 Acute and chronic respiratory failure with hypoxia; J18.9 Pneumonia, unspecified organism; C09.9 Malignant neoplasm of tonsil, unspecified
CPT/HCPCS: 99214

== ENCOUNTER → 2024-03-15 14:05 | Outpatient (BNVA) | payer MEDICARE, SELFPAY | PROVIDERS: PCP Internal Medicine; Visit Provider Internal Medicine | DX: J44.1 Chronic obstructive pulmonary disease with (acute) exacerbation (principal); J96.21 Acute and chronic respiratory failure with hypoxia; J18.9 Pneumonia, unspecified organism; C09.9 Malignant neoplasm of tonsil, unspecified; Z87.891 Personal history of nicotine dependence | CPT/HCPCS: 99212 ==

== ENCOUNTER 2024-03-19 08:58 | Outpatient (AMB) | payer MEDICARE, SELFPAY ==
--- NOTE | 2024-03-19 09:05 | MHC.PC.OV ---
Vital Signs 03/19/24 09:07 Height 5 ft 5 in Weight 128 lb 0.6 oz BMI 21.3 BP 148/70 H Blood Pressure Location Lt brachial Position Sitting Pulse 107 H Pulse Source Pulse Oximeter Pulse Oximetry (%) 95 Oxygen Delivery Method Room Air Intake Visit Reasons: COPD EXACERBATION Camp Counselor Required: No Allergies Sulfa (Sulfonamide Antibiotics) [SULFA (SULFONAMIDE ANTIBIOTICS)] Allergy (Unknown, Verified 03/19/24 09:05) RASH hydrocodone [HYDROCODONE] Adverse Reaction (Severe, Verified 03/19/24 09:05) severe constipation oxycodone Adverse Reaction (Severe, Verified 03/19/24 09:05) severe constipation Tobacco use date assessed: 08/21/23 Fall risk assessment: No Falls in past year Last assessed Fall Risk: 03/19/24 Dental Screening Dental Screen Date: 10/01/23 HPI TCM TCM Information Date of Discharge 03/08/24 Discharged From [facility] HPI Comments History of Present Illness Details 79 y/o male patient who presents to the clinic today for HDF. He was [place] [facility] [place]05[place] for Pneumonia. He was discharged home on 03/08/24. Had a f/u Appointment with Pulmonology 03/15/24. He is currently using Wixela with good improvement. Today Pt c/o difficult swallowing solids, this is aslo associated with changes on Taste buds. Reports that unable to taste most foods and some mild oral pain and burning. 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 Mother Hypertension CVD (cardiovascular disease) Cancer Social History Household Members: Spouse and Family Housing: House Are you a primary intensive care unit registered nurse to a significant other at home: No Do you presently have visiting nurse or other home services: No Alcohol intake: never Patient Tobacco Use Status: Former Tobacco user Tobacco use type: Cigarette Years Smoked: quit 1995 e-Cigarette/Vaping Use: Never Used Second Hand Smoke Exposure: Yes service: Yes Current occupational status: retired Cognitive needs: No Hearing needs: No Vision needs: Yes Questionnaire Thrive Questionnaire Date Thrive assessed: 03/07/24 AUDIT C Alcohol Use Questionnaire (AUDIT-C) 1. How often do you have a drink containing alcohol?: Never 3. How often do you have six or more drinks on one occasion?: Never Total Score: 0 JOHAN-7 AMB Questionnaire JOHAN-7 Date JOHAN - 7 assessed: 08/21/23 Source: Developed by Drs. Paul Greer, Capri Meraz, Robin Barksdale and colleagues, with an educational nanette from [employer]. Review of Systems Const All systems reviewed & are unremarkable except as noted in HPI and below Physical exam (Primary Care) Vital Signs: Last Vital Signs Pulse 107 H 03/19/24 09:07 BP 148/70 H 03/19/24 09:07 Pulse Ox 95 03/19/24 09:07 Oxygen Delivery Method Room Air 03/19/24 09:07 BMI result Body Mass Index 21.3 Tobacco/Smoking Status: Tobacco use Status Tobacco use date assessed 08/21/23 03/19/24 09:05 Patient Tobacco Use Status Former Tobacco user 03/19/24 09:05 Tobacco use type Cigarette 03/19/24 09:05 e-Cigarette/Vaping Use Never Used 03/19/24 09:05 Thrive Assessment: Date of Thrive Assessment Date Thrive assessed 03/07/24 03/19/24 09:05 Const General: comfortable and no acute distress Orientation/consciousness: patient oriented x3 HENMT Head: Yes normocephalic Ears: hearing grossly normal bilaterally and external ears normal General nose exam: Normal nasal mucous membranes and turbinates present Face and sinus: Yes sinuses nontender Mouth: Abnormal oral and palatal mucosa present erythematous and white patches (on the tongue and throat) and tongue abnormal with white coating and papillated Teeth and gingiva: dentures Throat: Yes uvula midline Resp Effort & Inspection: normal respiratory effort Auscultation: clear to auscultation bilaterally, no crackles, no rales, no rhonchi and no wheezes Cardio Heart sounds: S1 normal heart sound present and S2 normal heart sound present Neuro General: patient oriented x3, gait normal and moves all extremities Psych Speech and movement: Normal speech and movement present Vital Signs: Last Vital Signs Pulse 107 H 03/19/24 09:07 BP 148/70 H 03/19/24 09:07 Pulse Ox 95 03/19/24 09:07 Oxygen Delivery Method Room Air 03/19/24 09:07 BMI result Body Mass Index 21.3 Const General: comfortable and no acute distress Orientation/consciousness: patient oriented x3 HEENT Head: Yes normocephalic Ears: hearing grossly normal bilaterally and external ears normal General nose exam: Normal nasal mucous membranes and turbinates present Face and sinus: Yes sinuses nontender Mouth: Abnormal oral and palatal mucosa present erythematous and white patches (on the tongue and throat) and tongue abnormal with white coating and papillated Teeth and gingiva: dentures Throat: Yes uvula midline Resp Effort & Inspection: normal respiratory effort Auscultation: clear to auscultation bilaterally, no crackles, no rales, no rhonchi and no wheezes Cardio Heart sounds: S1 normal heart sound present and S2 normal heart sound present Neuro General: patient oriented x3, gait normal and moves all extremities Psych Speech and movement: Normal speech and movement present Assessment and Plan Assessment & Plan (1) COPD exacerbation: Comment: HE HAD AN ACUTE EXACERBATION OF COPD, CAUSED BY MULTILOBAR PNEUMONIA. TREATED IN THE HOSPITAL WITH BROAD-SPECTRUM ANTIBIOTIC AND DISCHARGED HOME ON AZITHROMYCIN WELL CEFTIN WHICH HE IS COMPLETING. SEEMS TO HAVE RESOLVED AND CURRENTLY SEEMS TO BE AT BASELINE. Code(s): J44.1 - Chronic obstructive pulmonary disease with (acute) exacerbation Plan: Continue f/u with Pulmonology as scheduled Continue on Wixela as directed. (2) Acute pneumonia: Code(s): J18.9 - Pneumonia, unspecified organism Plan: Recovering well at home. Finish Abx as directed. (3) Oral thrush: Code(s): B37.0 - Candidal stomatitis Plan: Ordered Nystatin Oral wash. Coding Level of Care Code TCM Mod MDM <= 14 Days Diagnoses COPD exacerbation J44.1 Acute pneumonia J18.9 Oral thrush B37.0 Time Spent (min) 20 Comment Spent reviewing hospital notes and education
[2024-03-19 09:07] VITALS: BP 148/70; PULSE 107; O2SAT 95; BMI 21.3
== END 2024-03-19 09:33 | disposition home or self-care (01) ==
PROVIDERS: PCP Internal Medicine; Visit Provider Nurse Practitioner Family
DX: J44.1 Chronic obstructive pulmonary disease with (acute) exacerbation (principal); J18.9 Pneumonia, unspecified organism; B37.0 Candidal stomatitis
CPT/HCPCS: 99495

== ENCOUNTER 2024-03-30 10:14 | Outpatient (AMB) | payer MEDICARE, SELFPAY ==
[2024-03-30 10:17] VITALS: BP 140/60; PULSE 67; O2SAT 93; BMI 21.8
--- NOTE | 2024-03-30 10:17 | A.OFFVIS_ITS ---
Vital Signs 03/30/24 10:17 Height 5 ft 5 in Weight 131 lb 2.801 oz BMI 21.8 BP 140/60 H Blood Pressure Location Lt brachial Position Sitting Pulse 67 Pulse Source Pulse Oximeter Pulse Oximetry (%) 93 Oxygen Delivery Method Room Air Intake Visit Reasons: COPD Intake Note: pt is here for 2 week follow up and states his breathing is affected by what he is doing. 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 Allergies Sulfa (Sulfonamide Antibiotics) [SULFA (SULFONAMIDE ANTIBIOTICS)] Allergy (Unknown, Verified 03/30/24 10:26) RASH hydrocodone [HYDROCODONE] Adverse Reaction (Severe, Verified 03/30/24 10:26) severe constipation oxycodone Adverse Reaction (Severe, Verified 03/30/24 10:26) severe constipation Medication List - Last Reconciled 03/30/24 by Niranjan Yusuf MD albuterol sulfate 90 mcg/actuation 2 puffs inhalation Q6H PRN alendronate 70 mg PO ROLDAN dextromethorphan-guaifenesin 10-100 mg/5 mL 10 mL PO Q6H PRN fluticasone propion-salmeterol 250-50 mcg/dose (Wixela Inhub) 1 inh inhalation BID lisinopril 10 mg PO DAILY melatonin 10 mg PO BEDTIME PRN mirtazapine 15 mg (2 x 7.5 mg) PO BEDTIME multivitamin 1 tab PO DAILY nystatin 1 mL PO QID 7 days omeprazole 20 mg PO DAILY@0630 simvastatin 10 mg PO BEDTIME 90 days Do you need a note to return to daycare/school/sports/work: No HPI HPI COPD: Details: CARMEN 79 YEARS OLD GENTLEMAN IS HERE FOR A SHORT TERM FOLLOW-UP, AFTER HE WAS TREATED FOR MULTILOBAR PNEUMONIA IN THE HOSPITAL. HE IS DOING VERY WELL AND SEEMS TO BE BACK TO HIS BASELINE. HE GETS SHORT OF BREATH WHEN HE WALKS THE MORE THAN A FEW MINUTES AND ESPECIALLY IF HE WALKS UP HILL. 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 HE USES WIXELA 250-51 INHALATION B.I.D. AND HARDLY NEEDS TO USE THE ALBUTEROL. HE IS EATING SOFT FOOD FAIRLY WELL, THERE IS SOME COUGH AFTER EATING BUT HE HAS HAD NO CHOKING EPISODES. 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 Mother Hypertension CVD (cardiovascular disease) Cancer Social History Household Members: Spouse and Family Housing: House Are you a primary hospice care sales consultant to a significant other at home: No Do you presently have visiting nurse or other home services: No Alcohol intake: never Patient Tobacco Use Status: Former Tobacco user Tobacco use type: Cigarette Years Smoked: quit 1995 e-Cigarette/Vaping Use: Never Used Second Hand Smoke Exposure: Yes service: Yes Current occupational status: retired Cognitive needs: No Hearing needs: No Vision needs: Yes Review of Systems Const All systems reviewed & are unremarkable except as noted in HPI and below Eyes Reports no additional complaints ENT Reports no additional complaints Card Denies chest pain, Denies irregular heart rhythm and Denies leg edema Resp Reports as per HPI GI Reports constipation Reports no additional complaints Musc Reports back pain (Mild) Skin/Breast Reports system reviewed and no additional complaints, except as documented Neuro Reports no additional complaints Psych Reports depression (Well controlled with med) Endo Reports no additional complaints Physical Exam Vital Signs: Last Vital Signs Pulse 67 03/30/24 10:17 BP 140/60 H 03/30/24 10:17 Pulse Ox 93 03/30/24 10:17 Oxygen Delivery Method Room Air 03/30/24 10:17 BMI result Body Mass Index 21.8 Const General: comfortable, no acute distress, alert and awake Orientation/consciousness: patient oriented x3 HEENT Head: Yes normal to inspection General nose exam: No nasal polyps present and No nasal discharge present Face and sinus: Yes sinuses nontender Mouth: oropharynx normal Throat: Yes posterior oropharynx normal Eyes General: appearance normal, both eyes and all related structures Neck Neck: Yes normal visual inspection, Yes no lymphadenopathy, Yes trachea midline and Yes no JVD Thyroid: Thyroid normal Chest Chest palpation & inspection: normal inspection of the chest, normal palpation of entire chest wall and no tenderness Resp Other: Percussion note hyper-resonant, breath sounds are equal on both sides but distant with prolonged expiratory phase. Both lungs are clear and there are no audible wheezes or Creps. Cardio Palpation: normal PMI Rate: regular rate Rhythm: regular rhythm Heart sounds: no gallops and no murmurs Peripheral pulses: Peripheral pulses 2+ throughout GI Palpation (GI): Soft to palpation, nontender, No hepatosplenomegaly present and no masses Auscultation: normal bowel sounds Back/Spine/Pelvis Thoracic/Lumbar Spine: thoracic and lumbar spine normal to inspection Skin General skin exam: no rashes or lesions noted Neuro General: patient oriented x3 and no focal motor deficits Cranial nerves: Yes CN's II-XII intact bilaterally Extrem General: Yes normal to inspection, Yes no clubbing, cyanosis or edema and Yes no calf tenderness Psych Appearance: grossly normal and well kempt Speech and movement: Normal speech and movement present Results Reviewed Results Reviewed: I WALKED WITH HIM AT A RELATIVELY FAST PACE. O2 SAT AT REST 92%. AFTER WALKING 5 MINUTES, THE LOWEST O2 SAT WAS 89%, HE WAS NOT VISIBLY SHORT OF BREATH. Assessment & Plan Assessment & Plan (1) COPD exacerbation: Comment: HE HAD AN ACUTE EXACERBATION OF COPD, CAUSED BY MULTILOBAR PNEUMONIA. TREATED IN THE HOSPITAL WITH BROAD-SPECTRUM ANTIBIOTIC AND DISCHARGED HOME ON AZITHROMYCIN WELL CEFTIN WHICH HE IS COMPLETING. SEEMS TO HAVE RESOLVED AND CURRENTLY SEEMS TO BE AT BASELINE. Code(s): J44.1 - Chronic obstructive pulmonary disease with (acute) exacerbation Category: Medical Plan: HE STEAM TO BE STABLE AT THIS TIME. ADVISED TO CONTINUE USING WIXELA 250-51 INHALATION B.I.D. AND USE ALBUTEROL HFA 2 PUFFS Q 4-6 HOURS BUT ONLY P.R.N. FOR ACUTE DISTRESS. REPEAT CT SCAN OF THE CHEST IN 3 MONTHS INTERVAL. 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 LUCKILY NO RECURRENCE. Code(s): C09.9 - Malignant neoplasm of tonsil, unspecified Category: Medical Plan: ADVISED TO BE CAREFUL WHEN EATING AND, STAY ON SOFT DIET, AVOID ANY CHOKING EPISODE (3) Hypoxemia: Comment: Post hospital discharge he was on oxygen supplementation, Now he has not used oxygen in the last few months. He walked with me for 5 minutes in the hallway, and O2 sat at rest 92% after walking THE LOWEST O2 SAT 89 % HE WAS NOT VISIBLY SHORT OF BREATH. Code(s): R09.02 - Hypoxemia Category: Medical Plan: As he is reluctant to use O2 I think he can go without oxygen at this time. Orders: Orders CT chest wo IV con 10 Weeks C09.9 - Malignant neoplasm of tonsil, unspecified, J44.1 - Chronic obstructive pulmonary disease with (acute) exacerbation Coding Level of Care Code Est Pt Level 3 (21876) Diagnoses COPD exacerbation J44.1 Tonsillar cancer C09.9 Hypoxemia R09.02
== END 2024-03-30 10:36 | disposition home or self-care (01) ==
PROVIDERS: PCP Internal Medicine; Visit Provider Internal Medicine
DX: J44.1 Chronic obstructive pulmonary disease with (acute) exacerbation (principal); C09.9 Malignant neoplasm of tonsil, unspecified; R09.02 Hypoxemia
CPT/HCPCS: 99213

== ENCOUNTER → 2024-03-30 10:14 | Outpatient (BNVA) | payer MEDICARE, SELFPAY | PROVIDERS: PCP Internal Medicine; Visit Provider Internal Medicine | DX: J44.1 Chronic obstructive pulmonary disease with (acute) exacerbation (principal); C09.9 Malignant neoplasm of tonsil, unspecified; R09.02 Hypoxemia | CPT/HCPCS: 99212 ==

== ENCOUNTER 2024-06-18 14:27 | Outpatient (REF) | payer MEDICARE, SELFPAY | END 2024-06-18 14:28 | disposition home or self-care (01) | LOC: HO.CT 14:27 | PROVIDERS: PCP Internal Medicine; Visit Provider Internal Medicine | DX: J44.1 Chronic obstructive pulmonary disease with (acute) exacerbation (principal); C09.9 Malignant neoplasm of tonsil, unspecified | CPT/HCPCS: 71250 ==

== ENCOUNTER → 2024-06-18 14:29 | Outpatient (BNV) | payer MEDICARE, SELFPAY | PROVIDERS: PCP Internal Medicine; Visit Provider Radiology Diagnostic Radiology | DX: R91.1 Solitary pulmonary nodule (principal); J43.2 Centrilobular emphysema | CPT/HCPCS: 71250 ==

== ENCOUNTER 2024-06-29 11:04 | Outpatient (AMB) | payer MEDICARE, SELFPAY ==
[2024-06-29 11:11] VITALS: BP 130/60; PULSE 78; O2SAT 94; BMI 22.2
--- NOTE | 2024-06-29 11:11 | A.OFFVIS_ITS ---
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 Allergies Sulfa (Sulfonamide Antibiotics) [SULFA (SULFONAMIDE ANTIBIOTICS)] Allergy (Unknown, Verified 06/29/24 11:34) RASH hydrocodone [HYDROCODONE] Adverse Reaction (Severe, Verified 06/29/24 11:34) severe constipation oxycodone Adverse Reaction (Severe, Verified 06/29/24 11:34) severe constipation Medication List - Last Reconciled 06/29/24 by Niranjan Yusuf MD albuterol sulfate 90 mcg/actuation 2 puffs inhalation Q6H PRN alendronate 70 mg PO ROLDAN dextromethorphan-guaifenesin 10-100 mg/5 mL 10 mL PO Q6H PRN fluticasone propion-salmeterol 250-50 mcg/dose (Wixela Inhub) 1 inh inhalation BID lisinopril 10 mg PO DAILY melatonin 10 mg PO BEDTIME PRN mirtazapine 15 mg (2 x 7.5 mg) PO BEDTIME multivitamin 1 tab PO DAILY nystatin 1 mL PO QID PRN omeprazole 20 mg PO DAILY@0630 simvastatin 10 mg PO BEDTIME 90 days Do you need a note to return to daycare/school/sports/work: No HPI HPI COPD: Details: THIS 79 YEARS OLD VERY PLEASANT GENTLEMAN, WITH COPD. HAS BEEN TREATED FOR ORAL CANCER A FEW YEARS AGO. HE HAS DIFFICULTY IN SWALLOWING BUT DOING WELL WITH SOFT DIET. AND RECENTLY HE HAS HAD NO CHOKING EPISODES. HE GETS SHORT OF BREATH WHEN HE WALKS AROUND BUT AT REST HE IS DOING OKAY. HAS MILD INTERMITTENT COUGH, NO WHEEZING ATTACKS. HE IS MAINTAINING HIS WEIGHT. 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 Mother Hypertension CVD (cardiovascular disease) Cancer Social History Household Members: Spouse and Family Housing: House Are you a primary child care lead teacher to a significant other at home: No Do you presently have visiting nurse or other home services: No Alcohol intake: never Patient Tobacco Use Status: Former Tobacco user Tobacco use type: Cigarette Years Smoked: quit 1995 e-Cigarette/Vaping Use: Never Used Second Hand Smoke Exposure: Yes service: Yes Current occupational status: retired Cognitive needs: No Hearing needs: No Vision needs: Yes Review of Systems Const All systems reviewed & are unremarkable except as noted in HPI and below Eyes Reports no additional complaints ENT Reports no additional complaints Card Denies chest pain, Denies irregular heart rhythm and Denies leg edema Resp Reports as per HPI GI Reports constipation Reports no additional complaints Musc Reports back pain (Mild) Skin/Breast Reports system reviewed and no additional complaints, except as documented Neuro Reports no additional complaints Psych Reports depression (Well controlled with med) Endo Reports no additional complaints Physical Exam Vital Signs: Last Vital Signs Pulse 78 06/29/24 11:11 BP 130/60 06/29/24 11:11 Pulse Ox 94 06/29/24 11:11 Oxygen Delivery Method Room Air 06/29/24 11:11 BMI result Body Mass Index 22.2 Const General: comfortable, no acute distress, alert and awake Orientation/consciousness: patient oriented x3 HEENT Head: Yes normal to inspection General nose exam: No nasal polyps present and No nasal discharge present Face and sinus: Yes sinuses nontender Mouth: oropharynx normal Throat: Yes posterior oropharynx normal Eyes General: appearance normal, both eyes and all related structures Neck Neck: Yes normal visual inspection, Yes no lymphadenopathy, Yes trachea midline and Yes no JVD Thyroid: Thyroid normal Chest Chest palpation & inspection: normal inspection of the chest, normal palpation of entire chest wall and no tenderness Resp Other: Percussion note hyper-resonant, breath sounds are equal on both sides but distant with prolonged expiratory phase. Both lungs are clear and there are no audible wheezes or Creps. Cardio Palpation: normal PMI Rate: regular rate Rhythm: regular rhythm Heart sounds: no gallops and no murmurs Peripheral pulses: Peripheral pulses 2+ throughout GI Palpation (GI): Soft to palpation, nontender, No hepatosplenomegaly present and no masses Auscultation: normal bowel sounds Back/Spine/Pelvis Thoracic/Lumbar Spine: thoracic and lumbar spine normal to inspection Skin General skin exam: no rashes or lesions noted Neuro General: patient oriented x3 and no focal motor deficits Cranial nerves: Yes CN's II-XII intact bilaterally Extrem General: Yes normal to inspection, Yes no clubbing, cyanosis or edema and Yes no calf tenderness Psych Appearance: grossly normal and well kempt Speech and movement: Normal speech and movement present Results Reviewed Results Reviewed: Had a CT scan of the chest last week. Has not been officially read. I HAVE LOOKED AT THE IMAGING. HE HAS NO RESIDUAL PNEUMONIA OR INFILTRATE. HAS FINDINGS OF PULMONARY EMPHYSEMA AND BRONCHIECTASIS. 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 LUCKILY NO RECURRENCE. HAS INTERMITTENT DIFFICULTY IN SWALLOWING. BUT NOW DOING OKAY WITH SOFT DIET. Code(s): C09.9 - Malignant neoplasm of tonsil, unspecified Category: Medical Plan: SOFT DIET, HEAT IN SMALL AMOUNTS, BE WATCHFUL FOR ANY CHOKING. (2) COPD (chronic obstructive pulmonary disease): Comment: Has rather severe degree of COPD , but doing OK on current regimen AND IS STABLE . Code(s): J44.9 - Chronic obstructive pulmonary disease, unspecified Category: Medical Plan: TX : Continue Advair 250-50 1 inhalation b.i.d. and use albuterol HFA 2 puffs Q 4-6 hours p.r.n.. Rinse the mouth thoroughly after using Advair. PRESCRIPTIONS SENT TO THE PHARMACY, Medications: New fluticasone propion-salmeterol 250-50 mcg/dose (Wixela Inhub) 1 inh inhalation BID 60 ea 5RF 30 days albuterol sulfate 90 mcg/actuation 2 puffs inhalation Q4-6H PRN 8.5 grams 3RF shortness of breath or wheezing 30 days Coding Level of Care Code Est Pt Level 3 (46630) Diagnoses Tonsillar cancer C09.9 Pulmonary emphysema, unspecified emphysema type J44.9
== END 2024-06-29 11:29 | disposition home or self-care (01) ==
PROVIDERS: PCP Internal Medicine; Visit Provider Internal Medicine
DX: C09.9 Malignant neoplasm of tonsil, unspecified (principal); J44.9 Chronic obstructive pulmonary disease, unspecified
CPT/HCPCS: 99213

== ENCOUNTER → 2024-06-29 11:04 | Outpatient (BNVA) | payer MEDICARE, SELFPAY | PROVIDERS: PCP Internal Medicine; Visit Provider Internal Medicine | DX: C09.9 Malignant neoplasm of tonsil, unspecified (principal); J44.9 Chronic obstructive pulmonary disease, unspecified | CPT/HCPCS: 99212 ==

== ENCOUNTER 2024-07-06 10:32 | Outpatient (AMB) | payer MEDICARE, SELFPAY ==
[2024-07-06 10:36] VITALS: BP 130/68; PULSE 65; O2SAT 97; BMI 22.0
--- NOTE | 2024-07-06 10:36 | MHC.PC.OV ---
Vital Signs 07/06/24 10:36 Height 5 ft 5 in Weight 132 lb BMI 22.0 BP 130/68 Blood Pressure Location Lt brachial Position Sitting Pulse 65 Pulse Source Pulse Oximeter Pulse Oximetry (%) 97 Oxygen Delivery Method Room Air Intake Visit Reasons: HTN, weight loss , tonsillar cancer Allergies Sulfa (Sulfonamide Antibiotics) [SULFA (SULFONAMIDE ANTIBIOTICS)] Allergy (Unknown, Verified 07/06/24 10:36) RASH hydrocodone [HYDROCODONE] Adverse Reaction (Severe, Verified 07/06/24 10:36) severe constipation oxycodone Adverse Reaction (Severe, Verified 07/06/24 10:36) severe constipation Tobacco use date assessed: 08/21/23 Fall risk assessment: No Falls in past year Last assessed Fall Risk: 07/06/24 Dental Screening Dental Screen Date: 10/01/23 HPI HTN, weight loss , tonsillar cancer HPI Details 79-year-old male with a history of tonsillar cancer(2020) hypertension COPD hypercholesterolemia BPH last seen in 02/28/2024. Review of the notes was seen by Pulmonary and June 29 severe degree of COPD on Advair and albuterol had a chest CT but the results are pending. 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 Mother Hypertension CVD (cardiovascular disease) Cancer Social History Household Members: Spouse and Family Housing: House Are you a primary home care liaison to a significant other at home: No Do you presently have visiting nurse or other home services: No Alcohol intake: never Patient Tobacco Use Status: Former Tobacco user Tobacco use type: Cigarette Years Smoked: quit 1995 e-Cigarette/Vaping Use: Never Used Second Hand Smoke Exposure: Yes service: Yes Current occupational status: retired Cognitive needs: No Hearing needs: No Vision needs: Yes Questionnaire PHQ-9 Over the last 2 weeks, how often have you been bothered by any of the following problems? 1. Little interest or pleasure in doing things: not at all 2. Feeling down, depressed, or hopeless: not at all 3. Trouble falling or staying asleep, or sleeping too much: not at all 4. Feeling tired or having little energy: not at all 5. Poor appetite or overeating: not at all 6. Feeling bad about yourself - or that you are a failure or have let yourself or your family down: not at all 7. Trouble concentrating on things, such as reading the newspaper or watching television: not at all 8. Moving or speaking so slowly that other people could have noticed. Or the opposite - being so fidgety or restless that you have been moving around a lot more than usual: not at all 9. Thoughts that you would be better off or of hurting yourself in some way: not at all Total score: 0 Depression Screening Interpretation: Negative Depression Screening Done: Yes Source: Developed by Drs. Paul Greer, Robin Neil and colleagues, with an educational nanette from [employer]. Thrive Questionnaire Date Thrive assessed: 03/07/24 AUDIT C Alcohol Use Questionnaire (AUDIT-C) 1. How often do you have a drink containing alcohol?: Never 3. How often do you have six or more drinks on one occasion?: Never Total Score: 0 JOHAN-7 AMB Questionnaire JOHAN-7 Date JOHAN - 7 assessed: 08/21/23 Source: Developed by Drs. Paul Greer, Robin Neil and colleagues, with an educational nanette from [employer]. Physical exam (Primary Care) Vital Signs: Last Vital Signs Pulse 65 07/06/24 10:36 BP 130/68 07/06/24 10:36 Pulse Ox 97 07/06/24 10:36 Oxygen Delivery Method Room Air 07/06/24 10:36 BMI result Body Mass Index 22.0 Tobacco/Smoking Status: Tobacco use Status Tobacco use date assessed 08/21/23 07/06/24 10:41 Patient Tobacco Use Status Former Tobacco user 07/06/24 10:41 Tobacco use type Cigarette 07/06/24 10:41 e-Cigarette/Vaping Use Never Used 07/06/24 10:41 PHQ-9: PHQ-9 Score PHQ-9: Total score 0 07/06/24 10:41 Depression Screening Interpretation: Negative Thrive Assessment: Date of Thrive Assessment Date Thrive assessed 03/07/24 07/06/24 10:41 Const General: alert; No acute distress Eyes Conjunctivae: conjunctivae normal Resp Auscultation: clear to auscultation bilaterally Cardio Rate: regular rate Rhythm: regular rhythm GI Inspection: Yes normal to inspection Extrem General: Yes normal to inspection and No edema Coding Level of Care Code Est Pt Level 4 (01555) Complex EM visit Add On G2211 Diagnoses Pulmonary emphysema, unspecified emphysema type J43.9 COPD type: emphysema Emphysema type: unspecified Essential hypertension I10 Hypertension type: essential hypertension Hypercholesterolemia E78.00 Generalized anxiety disorder F41.1 BPH loc w urin obs/LUTS N40.1 Age-related osteoporosis with current pathological fracture, sequela M80.00XS Osteoporosis type: age-related Presence of current pathological fracture: with current pathological fracture Encounter type: sequela Assessment & Plan Assessment & Plan (1) COPD (chronic obstructive pulmonary disease): Comment: Has rather severe degree of COPD , but doing OK on current regimen AND IS STABLE . Code(s): J44.9 - Chronic obstructive pulmonary disease, unspecified Category: Medical Qualifiers: COPD type: emphysema Emphysema type: unspecified Qualified Code(s): J43.9 - Emphysema, unspecified Plan: Patient follows up with Pulmonary and the on Wixela and albuterol. (2) Hypertension: Code(s): I10 - Essential (primary) hypertension Category: Medical Qualifiers: Hypertension type: essential hypertension Qualified Code(s): I10 - Essential (primary) hypertension Plan: Continue with blood pressure medication. Decrease salt intake and exercise lisinopril 10 mg once a day (3) Hypercholesterolemia: Code(s): E78.00 - Pure hypercholesterolemia, unspecified Category: Medical Plan: Avoid fried foods, chicken skin, eggs, butter margarine, pastries and meat. Be it pork or beef they have a lot of cholesterol LDL goal of less than 130 and triglyceride of less than 150. Last blood work was in October 2023 (4) Generalized anxiety disorder: Code(s): F41.1 - Generalized anxiety disorder Category: Medical Plan: Continue with present medication of mirtazapine (5) BPH loc w urin obs/LUTS: Comment: Laser enucleation of the prostate March 2022 Dr. Lewis Code(s): N40.1 - Benign prostatic hyperplasia with lower urinary tract symptoms Category: Medical Plan: Stable (6) Osteoporosis: Comment: May Code(s): M81.0 - Age-related osteoporosis without current pathological fracture Category: Medical Qualifiers: Osteoporosis type: age-related Presence of current pathological fracture: with current pathological fracture Encounter type: sequela Qualified Code(s): M80.00XS - Age-related osteoporosis with current pathological fracture, unspecified site, sequela Plan: Continuing with alendronate and next year September will need bone density. Orders: Orders Hemoglobin A1c 4 Months R73.01 - Impaired fasting glucose Thyroid Stimulating Hormone 4 Months R73.01 - Impaired fasting glucose Comprehensive Met. Panel 4 Months R73.01 - Impaired fasting glucose Ferritin 4 Months R73.01 - Impaired fasting glucose Lipid Panel 4 Months E78.00 - Pure hypercholesterolemia, unspecified, R73.01 - Impaired fasting glucose Vitamin B12 and Folate 4 Months R73.01 - Impaired fasting glucose Reticulocyte Count 4 Months R73.01 - Impaired fasting glucose XR DEXA axial skeleton 4 Months M80.00XS - Age-related osteoporosis with current pathological fracture, unspecified site, sequela, M81.0 - Age-related osteoporosis without current pathological fracture Free T4 (Free Thyroxine) 4 Months R73.01 - Impaired fasting glucose Complete Blood Count Auto Diff 4 Months R73.01 - Impaired fasting glucose IRON PROFILE 4 Months R73.01 - Impaired fasting glucose
== END 2024-07-06 10:58 | disposition home or self-care (01) ==
PROVIDERS: PCP Internal Medicine; Visit Provider Internal Medicine
DX: J43.9 Emphysema, unspecified (principal); I10 Essential (primary) hypertension; E78.00 Pure hypercholesterolemia, unspecified; F41.1 Generalized anxiety disorder; N40.1 Benign prostatic hyperplasia with lower urinary tract symptoms; M80.00XS Age-related osteoporosis with current pathological fracture, unspecified site, sequela

== ENCOUNTER → 2024-07-06 10:32 | Outpatient (BNVA) | payer MEDICARE, SELFPAY | PROVIDERS: PCP Internal Medicine; Visit Provider Internal Medicine | DX: J43.9 Emphysema, unspecified (principal); I10 Essential (primary) hypertension; E78.00 Pure hypercholesterolemia, unspecified; F41.1 Generalized anxiety disorder; N40.1 Benign prostatic hyperplasia with lower urinary tract symptoms; M80.00XS Age-related osteoporosis with current pathological fracture, unspecified site, sequela | CPT/HCPCS: 96127; 99212 ==

== ENCOUNTER 2024-09-03 19:46 | Inpatient (IN) | payer MEDICARE, SELFPAY ==
--- NOTE | 2024-09-03 | ECG_ITS ---
Test Reason : sob Blood Pressure : */* mmHG Vent. Rate : 118 BPM Atrial Rate : 118 BPM P-R Int : 172 ms QRS Dur : 64 ms QT Int : 300 ms P-R-T Axes : 78 68 145 degrees QTcB Int : 420 ms Sinus tachycardia Septal infarct , age undetermined Nonspecific ST abnormality Abnormal ECG When compared with ECG of 05-Mar-2024 10:48, Septal infarct is now Present ST now depressed in Inferior leads Nonspecific T wave abnormality now evident in Lateral leads Referred By: Generic ED Physician Electronically Signed By: NICO GLASGOW MD
--- NOTE | ~2024-09-03 | CT_ITS ---
CLINICAL HISTORY: hypoxia, fever ro pe CT angiography chest with contrast. 3D Postprocessing. Comparison: CT/DC/SR - CT CHEST WO IV CON - 06/18/2024 02:[address]/DC/SR - CT ANGIO CHEST PE PROTOCOL - 03/05/2024 01:03 PM EDT Findings: There is no cardiomegaly. There is atherosclerotic disease of the coronary arteries. No mediastinal adenopathy or pericardial effusion. No heart strain by CT. No large central or segmental pulmonary embolism. Patchy multifocal airspace opacity most pronounced within the right lower lobe. Severe centrilobular emphysema with regions of scarring and/or atelectasis. No effusion. No pneumothorax. The visualized upper abdomen is unremarkable. Impression: Multifocal pneumonia. No evidence of pulmonary embolism or heart strain. Follow-up recommended to ensure resolution. This document has been electronically signed by: Luc Fraser MD on 09/04/2024 13:39:41
--- NOTE | ~2024-09-03 | XR_ITS ---
CLINICAL HISTORY: Shortness of breath Chest X-ray, 1 View COMPARISON: CR/VA/SR - XR CHEST 1V - 03/05/24 10:42 EDT CR/VA/SR - XR CHEST 1V - 12/01/21 18:24 EDT FINDINGS: Diffuse prominent bilateral interstitial pulmonary markings. Patchy airspace disease in the bilateral mid to lower lungs. Pulmonary hyperinflation suggestive of COPD. Atelectasis or scarring at the lung bases. No pleural effusion. No pneumothorax. No cardiomegaly. No acute fracture. IMPRESSION: Bilateral airspace disease, which could be due to pulmonary edema and/or atypical pneumonia. Interstitial pulmonary edema versus chronic interstitial lung disease. This document has been electronically signed by: Adam Lindsey MD on 09/03/2024 21:22:51
[2024-09-03 19:53] VITALS: BP 136/77; PULSE 122; RESP 22; TEMP 37.1; O2SAT 92; O2SAT 94; BMI 22.7
[2024-09-03 20:44] LABS: Hematocrit 46.1 % (42.0-52.0); Hemoglobin 16.4 g/dl (14.0-18.0); Mean Corpuscular HGB Conc 35.6 g/dl (31.0-36.0); Mean Corpuscular Hemoglobin 30.2 pg (27.0-33.0); Mean Corpuscular Volume 84.9 fL (80.0-98.0); Mean Platelet Volume 8.7 fL (9.4-12.4); Platelet Count 133 X10*3/uL (160-400); Red Blood Count 5.43 X10*6/uL (4.60-5.80); Red Cell Distribution Width 14.1 % (11.0-16.0); White Blood Count 14.4 X10*3/uL (4.8-10.8)
--- OUTSIDE RECORDS SUMMARY | 2024-09-03 20:50 | XMS_ITS | Data Portability ---
Author Organization [place] - [facility], Allergy Address [address] [place] [id number] Care Team Providers Care Security Business Analyst Name Role Phone STEPHY JAIN Primary Care Provider Assessment Encounter Date Assessment Date Assessment LastModified by Organization Details LastModified Time 04/22/2024 04/22/2024 No evidence of disease on examination today. Fiberoptic examination of nasopharynx, hypopharynx and larynx was stable. Cancer surveillance in 6 months was recommended. [email or web address] Not available 04/21/2024 17:37:16 Plan of Treatment Reminders Order Date Submit Date Provider Last Modified By Organization Details Last Modified Time Details Appointments Establish ed 15 2024 11:00A M LINDA EDOUARD MD Not available Not available Not available Lab None recorded. Referral None recorded. Procedures None recorded. Surgeries None recorded. Imaging None recorded. Medication Orders None recorded. Patient TargetsNo targets recorded. Patient InstructionsNo instructions recorded. Reason for Referral None Reported. Results Created Date Observation Date Name Description Value Unit Range Abnormal Flag Note LastModifiedBy Organization Detail LastModifiedTime 04/01/2009/24/2021 imagi ng/di agnos tic resul t No observ ation record ed. [email or web address] Not Available 19:53:38 04/01/20 24 09/24/2021 imagi ng/di agnos tic resul t No observ ation record ed. [email or web address] Not Available 19:53:40 04/01/20 24 10/02/2022 imagi ng/di agnos tic resul t No observ ation record ed. [email or web address] Not Available 19:53:42 04/01/20 24 11/12/2021 imagi ng/di agnos tic resul t No observ ation record ed. [email or web address] Not Available 19:53:45 04/01/20 24 01/30/2021 imagi ng/di agnos tic resul t No observ ation record ed. [email or web address] Not Available 19:53:54 04/01/20 24 02/13/2021 imagi ng/di agnos tic resul t No observ ation record ed. [email or web address] Not Available 19:54:05 04/01/20 24 02/14/2021 imagi ng/di agnos tic resul t No observ ation record ed. [email or web address] Not Available 19:54:08 04/01/20 24 02/16/2021 imagi ng/di agnos tic resul t No observ ation record ed. [email or web address] Not Available 19:54:09 04/01/20 24 03/23/2021 imagi ng/di agnos tic resul t No observ ation record ed. [email or web address] Not Available 19:54:23 Result Notes None recorded. 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; Note: Date Diagnosed : 02/09/2021 2:43 PM (C11.1) Not Available [facility] 4 03:29:21 Dysphagia [id number] Active 2022 Dysphagia , unspecifi ed; Note: Date Diagnosed : 01/22/2023 2:16 PM (R13.10) Not Available [facility] 4 03:29:21 Follow-up visit Active 2021 Encounter for follow-up examinati on after completed treatment for malignant neoplasm; Note: Date Diagnosed : 06/13/2022 11:00 AM (Z08) Not Available [facility] 4 03:29:22 History of malignant neoplasm of tonsil [id number] 102 Active 2023 Primary tumor location: Right tonsil SCCA p16+ T umor staging: T2N1 Treatment : chemo XRT Date of treatment completio n: 05/29/21 Oncology team: Antonio De Los Santos MD [address],[facility], [address], [place], [address] , [place] - [facility] 17:35:39 Problem Notes None recorded. Procedures Surgical History Date Name Laterality Status Provider Name and Address Organization Details Recorded Time 04/22/2024 FOL_DP completed LINDA EDOUARD MD [address], [place], [address], [place] - [facility] 04/21/2024 17:36:01 Imaging Results Imaging Date Name Status LastModified by Organiz ation Details LastModified Time 09/24/2021 imaging/diag nostic result completed Information not available 04/01/2024 19:53:38 09/24/2021 imaging/diag nostic result completed Information not available 04/01/2024 19:53:40 10/02/2022 imaging/diag nostic result completed Information not available 04/01/2024 19:53:42 11/12/2021 imaging/diag nostic result completed Information not available 04/01/2024 19:53:45 01/30/2021 imaging/diag nostic result completed Information not available 04/01/2024 19:53:54 02/13/2021 imaging/diag nostic result completed Information not available 04/01/2024 19:54:05 02/14/2021 imaging/diag nostic result completed Information not available 04/01/2024 19:54:08 02/16/2021 imaging/diag nostic result completed Information not available 04/01/2024 19:54:09 03/23/2021 imaging/diag nostic result completed Information not available 04/01/2024 19:54:23 Procedure Notes None recorded. Medical Equipment None Reported. Allergies Allergen ID Allergen Name Allergen Category Reaction Reaction Severity Criticality Documentation Date Start Date Code Code System Note Provider Name and Address Organization Details Recorded Time [id number] hydrocodo ne Not available other Not available Not available 12/23/2023 5489 RxNorm React ion: other react ion, Unkno wn; Not Available [facility] Medications Name Sig Start Date Stop Date Status Note LastModified by Organization Details LastModified Time fluticaso ne 250 mcg-salme terol 50 mcg/dose blistr powdr for inhalatio n active Medicati on ID: [id number] B rand Name: fluticas one propion- salmeter ol Send Method: E-Prescr ibed Sub s Allowed: subs OK Speci al Instruct ion: INHALE 1 PUFF BY MOUTH TWICE DAILY Me dication GenericN jolynn: fluticas one propion- salmeter ol Not Available Not Available Not Available nystatin 100,000 unit/mL oral suspensio n 04/22 completed Not Available Not Available Not Available prednison e 10 mg tablet TAKE 4 TABLETS BY MOUTH EVERY DAY FOR 3 DAYS. TAKE 3 TABLETS BY MOUTH X3 DAYS. T2 TABLETS X3 DAYS. 1 TABLET X3 DAYS. TAPER DIRECTED 04/22 completed Not Available Not Available Not Available azithromy maryann 250 mg tablet TAKE 2 TABLETS BY MOUTH ON DAY 1 TAKE 1 TABLET BY MOUTH DAILY ON DAYS 2-5 04/22 completed Not Available Not Available Not Available alendrona te 70 mg tablet TAKE 1 TABLET BY MOUTH EVERY WEEK active Not Available Not Available No t Available simvastat in 10 mg tablet TAKE 1 TABLET BY MOUTH AT BEDTIME active Not Available Not Available No t Available tamsulosi n 0.4 mg capsule 08/13 completed Medicati on ID: [id number] B rand Name: tamsulos in Send Method: E-Prescr ibed Sub s Allowed: subs OK Speci al Instruct ion: TAKE 1 CAPSULE BY MOUTH AT BEDTIME Medicati onGeneri cName: tamsulos in Not Available Not Available Not Available lisinopri l 10 mg tablet TAKE 1 TABLET BY MOUTH DAILY active Not Available Not Available No t Available omeprazol e 20 mg capsule,d elayed release TAKE 1 CAPSULE BY MOUTH DAILY AT 6.30 AM active Not Available Not Available No t Available lisinopri l 5 mg tablet TAKE 1 TABLET BY MOUTH DAILY 04/22 completed Not Available Not Available Not Available cefuroxim e axetil 500 mg tablet TAKE 1 TABLET BY MOUTH TWICE DAILY 04/22 completed Not Available Not Available Not Available sertralin e 50 mg tablet 08/13 completed Medicati on ID: [id number] B rand Name: sertrali ne Send Method: E-Prescr ibed Sub s Allowed: subs OK Speci al Instruct ion: TAKE 1 TABLET BY MOUTH DAILY Me dication GenericN jolynn: sertrali ne Not Available Not Available Not Available finasteri de 5 mg tablet 08/13 completed Medicati on ID: [id number] B rand Name: finaster julia Send Method: E-Prescr ibed Sub s Allowed: subs OK Speci al Instruct ion: TAKE 1 TABLET BY MOUTH DAILY Me dication GenericN jolynn: finaster julia Not Available Not Available Not Available amoxicill in 875 mg-potass ium clavulana te 125 mg tablet 08/13 completed Medicati on ID: [id number] B rand Name: amoxicil myra-pot clavulan ate Send Method: E-Prescr ibed Sub s Allowed: subs OK Speci al Instruct ion: TAKE 1 TABLET BY MOUTH TWICE DAILY FOR 7 DAYS Med icationG enericNa me: amoxicil myra-pot clavulan ate Not Available Not Available Not Available azithromy maryann 500 mg tablet TAKE 1 TABLET BY MOUTH EVERY DAY 04/22 completed Not Available Not Available Not Available mirtazapi ne 7.5 mg tablet TAKE 2 TABLETS BY MOUTH EVERY NIGHT AT BEDTIME active Not Available Not Available No t Available Vitals None Recorded Social History None recorded. Functional Status None recorded. Mental Status None recorded. Family History Nothing Reported. Medical History Condition Response Hypertension Y High Cholesterol Y GERD/Reflux Y Past Encounters Encounter ID Performer Location Encounter Start Date Encounter Closed Date Diagnosis/Indication Diagnosis SNOMED-CT Code Diagnosis ICD10 Code Diagnosis Note [id number] LINDA EDOUARD MD [facility] [address] [phone] 04/22/2024 09:41:53 04/22/2024 10:24:54 History of malignant neoplasm of tonsil [id number] 9102 Z85.818 Health Concerns Section Related Observation LastModified by Organization Detai ls LastModified Time None Recorded Concern Status LastModified by Organization Details LastModified Time None Recorded Advance Directives Directive None Recorded Payers Encounter Date Sequence Insurance Name Policy Number Policy Ramsay Covered Member ID Ramsay Member ID Guarantor Name 04/22/2024 1 [facility] - DOS ON OR AFTER 2022 - MEDICARE ADVANTAGE [place] (MEDICARE REPLACEMENT/ADV ANTAGE - PPO) Dragan Gagnon [id number] Dragan Gagnon Notes Date Note Type Note Provider Name and Address Organization Details Recorded Time 04/22/2024 text/html Primary tumor location: Right tonsil SCCA p16+ Tumor staging: E1P6Pzspcalhs: chemo XRTDate of treatment completion: 05/29/21Oncology team: Antonio De Los Santos feels an occasional tight in right neck, relaxes after a minute LINDA EDOUARD MD [address] [place] [address], [place], [address], [facility] - [facility] 04/22/2024 10:21:31
[2024-09-03 21:00] LABS: Alanine Aminotransferase 13 U/L (0-40); Albumin Level 4.4 g/dL (3.5-5.0); Alkaline Phosphatase 78 U/L (39-117); Anion Gap 14 (12-20); Aspartate Amino Transferase 19 U/L (5-37); Bilirubin Total 4.7 mg/dL (0.0-1.0); Blood Urea Nitrogen 16 mg/dL (9-16); Calcium 9.1 mg/dL (8.4-10.2); Carbon Dioxide 26 mmol/L (22-29); Chloride 103 mmol/L (96-108); Creatinine Clr Calc Pharmacy 52.6; Estimated Glomerular Filt Rate > 60; Glucose Random 114 mg/dL (60-115); Potassium 3.8 mmol/L (3.3-5.1); Sodium 139 mmol/L (135-145); Total Protein 7.6 g/dL (6.5-8.0)
[2024-09-03 21:09] LABS: SLIDE REVIEW MANUAL DIFF
[2024-09-03 21:15] LABS: Band Neutrophils Percent 6 % (3-5); Lymphocytes Absolute Manual 0.7 X10*3/uL (1.2-4.9); Lymphocytes Percent Manual 5 % (20-40); Metamyelocytes Absolute 0.1 X10*3/uL; Metamyelocytes Percent 1 %; Monocytes Absolute Manual 0.4 X10*3/uL (0.1-1.2); Monocytes Percent Manual 3 % (2-11); Neutrophils Absolute Manual 13.1 X10*3/uL (2.0-8.3); Neutrophils Percent Manual 85 % (45-73)
[2024-09-03 21:17] LABS: Platelet Estimate NORMAL (NORMAL); Platelet Morphology Comment NORMAL; RBC Morphology NORMAL
[2024-09-03 21:20] LABS: Influenza A PCR NEGATIVE (Negative); Influenza B PCR NEGATIVE (Negative); Resp Syncy Virus RNA Qual PCR NEGATIVE (Negative); SARS COV2 PCR INHOUSE NEGATIVE (Negative)
--- NOTE | 2024-09-03 21:25 | ED.SOB ---
HPI - SOB/Dyspnea General Chief Complaint: Dyspnea Stated Complaint: sob hx yesterday Time Seen by Provider: 09/03/24 21:05 Source: patient, family and EMS Mode of arrival: EMS Limitations: no limitations History of Present Illness ED Provider: Dr. Nicole Weiner HPI Narrative: Patient comes to the emergency room via ambulance from an urgent care. Patient reports that he has been having shortness of breath for over 24 hours. Patient known to have COPD, not oxygen dependent. Patient reporting chills, no fever. Patient states that when he was in urgent Care, he was short of breath, his oxygen saturation was 82-84% on room air, placed on 3 L and given a DuoNeb, patient was brought to emergency room via ambulance. Patient denies any sick contacts to his knowledge. Patient denies any nausea vomiting or diarrhea, denies UTI symptoms. Denies any chest pain. Patient states that with exertion he does feel short of breath but now that he is resting in bed with be L he is breathing comfortably but feels that his breathing is a bit tight and is requesting another breathing treatment. Related Data Home Medications ?Medication ?Instructions ?Recorded ?Confirmed multivitamin 1 tab PO DAILY 03/25/22 09/03/24 melatonin 10 mg tablet 10 mg PO BEDTIME PRN Sleep 03/05/24 09/03/24 nystatin 100,000 unit/mL oral 1 ml PO QID PRN Mouth Pain 06/29/24 09/03/24 suspension albuterol sulfate 90 mcg/actuation 2 puff inhalation Q4H PRN 09/03/24 09/03/24 aerosol inhaler shortness of breath or wheezing lisinopril 10 mg tablet 10 mg PO DAILY 09/03/24 09/03/24 omeprazole 20 mg capsule,delayed 20 mg PO DAILY@0630 09/03/24 09/03/24 release simvastatin 10 mg tablet 10 mg PO BEDTIME 09/03/24 09/03/24 Previous Rx's ?Medication ?Instructions ?Recorded alendronate 70 mg tablet 70 mg PO ROLDAN #12 tabs 05/24/24 mirtazapine 7.5 mg tablet 15 mg (2 x 7.5 mg) PO BEDTIME #90 05/24/24 tabs fluticasone 250 mcg-salmeterol 50 1 inh inhalation BID 30 days #60 ea 06/29/24 mcg/dose blistr powdr for inhalation (Wixela Inhub) Allergies Allergy/AdvReac Type Severity Reaction Status Date / Time Sulfa (Sulfonamide Allergy Unknown RASH Verified 09/03/24 19:57 Antibiotics) [SULFA (SULFONAMIDE ANTIBIOTICS)] hydrocodone [HYDROCODONE] AdvReac Severe severe Verified 09/03/24 19:57 constipation oxycodone AdvReac Severe severe Verified 09/03/24 19:57 constipation Review of Systems Review of Systems: Constitutional : No Weight loss, No Fever, No Chills, No Night Sweats, No Fatigue, No Malaise ENT/Mouth : No Hearing loss, No Ear Pain, No Nasal Congestion, No Sinus Pain, No Hoarseness, No sore throat, No Rhinorrhea, No Swallowing Difficulty Eyes: No Eye Pain, No Swelling, No Redness, No Foreign Body, No Discharge, No Vision Changes Cardiovascular : No Chest Pain, No SOB, No Dyspnea on Exertion, No Orthopnea, No Edema, No Palpitations Respiratory : Complaining of cough, wheezing and shortness of breath Gastrointestinal : No Nausea, No Vomiting, No Diarrhea, No Constipation, No abdominal Pain, No Hematochezia, No Melena Genitourinary : no irregular bleeding, No Dysuria, No Urinary Frequency, No Hematuria, No Urinary Incontinence, No Urgency, No Flank Pain, No Urinary Flow Changes, No Hesitancy Musculoskeletal : No joint pain, No Myalgias, No Joint Swelling Skin : No Skin Lesions, No rash Neuro : No Weakness, No Numbness, No Paresthesias, No Loss of Consciousness, No Dizziness, No Headache Psych : No Anxiety/Panic, No Depression, No SI/HI/AH/VH, No Social Issues, Heme/Lymph: No Bruising, No Bleeding,No Lymphadenopathy Endocrine : No Polyuria, No Polydipsia, No Temperature Intolerance [facility] Past Medical History Medical History COPD (chronic obstructive pulmonary disease) Hypoxemia Preop exam for internal medicine Pneumonia Generalized anxiety disorder 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 Mother Hypertension CVD (cardiovascular disease) Cancer Social History Social History Household Members: Spouse and Family Housing: House Are you a primary career counselor to a significant other at home: No Do you presently have visiting nurse or other home services: No Alcohol intake: never Patient Tobacco Use Status: Former Tobacco user Tobacco use type: Cigarette Years Smoked: quit 1995 e-Cigarette/Vaping Use: Never Used Second Hand Smoke Exposure: Yes Advance Directives: No Advance Directives Information Provided: No Do you have a plan to hurt others: No Plan service: Yes Current occupational status: retired Cognitive needs: No Hearing needs: No Vision needs: Yes Physical Exam Vital Signs: Vital Signs: Last Vital Signs Temp 102.0 F H 09/03/24 22:14 Pulse 122 H 09/03/24 19:53 Resp 22 H 09/03/24 19:53 BP 136/77 09/03/24 19:53 Pulse Ox 92 09/03/24 19:53 O2 Del Method Nasal Cannula 09/03/24 19:53 Oxygen Flow Rate 3 09/03/24 19:53 BMI result Body Mass Index 22.7 Const: Other: Appearance: Alert. Oriented X3. Eyes: Pupils equal, round and reactive to light. ENT: Pharynx normal. Neck: Normal inspection. Neck supple. No lymph nodes noted. No crepitus CVS: Normal heart rate and rhythm. Pulses normal. Normal S1 and S2 Respiratory: Per slips inspirations, decreased air movement bilaterally, bilateral mild wheezing Abdomen: Soft and nontender. No rigidity. No distention. Skin: Skin warm and dry. Normal skin color. Normal skin turgor. Extremities: No lower extremity edema. No Lacerations. No Rash Neuro: Oriented X 3. No motor deficit. No sensory deficit. Moving all extremities. No slurred speech. CN 2 through 12 grossly intact Psych: calm, cooperative, normal affect Course Course Course Narrative: It was noted on physical exam that patient is very hot to touch. Inpatients initial vitals, patient does not have a fever. However, we will obtain a rectal temperature now. Patient empirically being started on IV fluids, antibiotics IV Medications Administered Generic Name Dose Route Start Last Admin Trade Name Freq PRN Reason Stop Dose Admin Acetaminophen 975 mg 09/03/24 22:08 09/03/24 22:26 Acetaminophen 325 Mg Tablet PO 975 mg Q6H PRN Administration Pain, Mild 1-3,fever,headache Magnesium Sulfate 2 gm in 50 mls @ 25 mls/hr 09/03/24 21:22 09/03/24 21:42 Magnesium Sulfate/H2o IV 09/03/24 23:21 25 mls/hr ONCE ONE Administration Sodium Chloride 2,000 mls @ 999 mls/hr 09/03/24 21:22 09/03/24 22:07 Ns IVCONT 09/03/24 23:22 999 mls/hr .Q2H1M ONE Administration Azithromycin 500 mg/ Sodium 250 mls @ 125 mls/hr 09/03/24 21:22 09/03/24 22:07 Chloride IV 09/03/24 23:21 125 mls/hr ONCE ONE Administration Discontinued Medications Generic Name Dose Route Start Last Admin Trade Name Freq PRN Reason Stop Dose Admin Ceftriaxone Sodium 1 gm 09/03/24 21:22 09/03/24 22:07 Ceftriaxone Sodium 1 Gm Vial IVPUSH 09/03/24 21:23 1 gm ONCE ONE Administration Methylprednisolone Sodium Succinate 125 mg 09/03/24 21:22 09/03/24 21:42 Methylprednisolone Sod Succ 125 Mg/2 Ml Vial IVPUSH 09/03/24 21:23 125 mg ONCE ONE Administration Medical Decision Making Medical Decision Making MDM Narrative: My interpretation of labs: Patient's white blood cell count 14.4, normal chemistry LFTs. Serology negative for influenza a and B, RSV and COVID. Troponin negative My interpretation of CT scan: Bilateral mid to lower lung airspace disease, possible pulmonary edema versus atypical pneumonia. Patient is currently saturating 90-91% on 3 L. With any slight movement in bed, oxygen saturation drops to 88% on 3 L I discussed with the patient that he is using 3 L of oxygen. Without oxygen, his oxygen drops quite a bit. In urgent Care it was 82 24%. Patient's lactic acid and blood cultures pending I discussed the patient with Dr. Nuñez from the Medicine team, patient being admitted Patient has already been admitted I was informed by the patient's nurse that patient's rectal temperature is 102 degrees F Tylenol has been ordered Differential Diagnosis Differential Diagnoses: The differential diagnosis associated with the presentation includes (COPD, pneumonia, influenza, COVID, RSV) Admission/Observation Consideration of admission/observation: Escalation of care including admission/observation considered Consult Healthcare Provider Management of the patient was discussed with: Hospitalist Lab Data MDM Lab Attestation statement: I reviewed the patient's lab results. 09/03/24 20:04 09/03/24 20:04 Labs: Lab Results 09/03/24 09/03/24 Range/Units 20:04 21:49 WBC 14.4 H (4.8-10.8) X10*3/uL RBC 5.43 D (4.60-5.80) X10*6/uL Hgb 16.4 D (14.0-18.0) g/dl Hct 46.1 D (42.0-52.0) % MCV 84.9 (80.0-98.0) fL MCH 30.2 (27.0-33.0) pg MCHC 35.6 (31.0-36.0) g/dl RDW 14.1 (11.0-16.0) % Plt Count 133 L D (160-400) X10*3/uL MPV 8.7 L (9.4-12.4) fL Immature Gran % (Auto) Cancelled Neut % (Auto) Cancelled Lymph % (Auto) Cancelled Dickinson % (Auto) Cancelled Eos % (Auto) Cancelled Baso % (Auto) Cancelled Lymph # (Auto) Cancelled Dickinson # (Auto) Cancelled Eos # (Auto) Cancelled Baso # (Auto) Cancelled Abs Immat Gran (auto) Cancelled Absolute Neuts (auto) Cancelled Absolute Nucleated RBC 0.000 (0.0-0.012) X10*3/uL Nucleated RBC % (auto) 0.0 (0.0-0.2) /100WBC Neutrophils % (Manual) 85 H (45-73) % Band Neutrophils % 6 H (3-5) % Lymphocytes % (Manual) 5 L (20-40) % Monocytes % (Manual) 3 (2-11) % Metamyelocytes % 1 % Abs Neuts (Manual) 13.1 H (2.0-8.3) X10*3/uL Lymphocytes # (Manual) 0.7 L (1.2-4.9) X10*3/uL Monocytes # (Manual) 0.4 (0.1-1.2) X10*3/uL Metamyelocytes # 0.1 X10*3/uL Platelet Estimate NORMAL (NORMAL) Plt Morphology Comment NORMAL RBC Morphology NORMAL Smear Tech's Comments MANUAL DIFF VBG pH 7.44 H (7.32-7.43) VBG pCO2 47 mmHg VBG pO2 26 mmHg VBG HCO3 32 H (22-26) mmol/L VBG O2 Saturation 34.0 % VBG Base Excess 6.9 mmol/L Sodium 139 (135-145) mmol/L Potassium 3.8 (3.3-5.1) mmol/L Chloride 103 (96-108) mmol/L Carbon Dioxide 26 (22-29) mmol/L Anion Gap 14 (12-20) BUN 16 (9-16) mg/dL Creatinine 0.99 (0.5-1.4) mg/dL Estim Creat Clear Calc 52.6 Estimated GFR > 60 Random Glucose 114 (60-115) mg/dL Calcium 9.1 (8.4-10.2) mg/dL Total Bilirubin 4.7 H (0.0-1.0) mg/dL AST 19 (5-37) U/L ALT 13 (0-40) U/L Alkaline Phosphatase 78 (39-117) U/L Troponin I High Sens 7.4 D (<3.5-35.0) ng/L B-Natriuretic Peptide 20 (<100) pg/mL Total Protein 7.6 (6.5-8.0) g/dL Albumin 4.4 (3.5-5.0) g/dL Influenza Type A (PCR) NEGATIVE (Negative) Influenza Type B (PCR) NEGATIVE (Negative) RSV RNA Qual (PCR) NEGATIVE (Negative) SARS-CoV-2 RNA (RT-PCR) NEGATIVE (Negative) Independent Interpretation I performed an independent interpretation of an: EKG (My interpretation of EKG: Normal sinus rhythm, heart rate 64, nonspecific ST segment depression in V4 V5, no reciprocal changes, QTC 420) and Plain X-Ray Radiology Impression Discussion of test interpretation with radiology: I have reviewed the radiologist's reading. Radiologist Impression: FINDINGS: Diffuse prominent bilateral interstitial pulmonary markings. Patchy airspace disease in the bilateral mid to lower lungs. Pulmonary hyperinflation suggestive of COPD. Atelectasis or scarring at the lung bases. No pleural effusion. No pneumothorax. No cardiomegaly. No acute fracture. IMPRESSION: Bilateral airspace disease, which could be due to pulmonary edema and/or atypical pneumonia. Interstitial pulmonary edema versus chronic interstitial lung disease.
--- NOTE | 2024-09-03 21:36 | P.HPHOSP_ITS ---
History of Present Illness Date of Service: 09/03/24 Attending physician on admission: Adelina Daniels Chief Complaint: SOB Pt is a 79-year-old male with a PMH significant for?HTN, HLD, COPD no longer on prn home O2, BPH, tonsilar cancer with residual dysphagia, and osteoporosis who presents to the ED via ambulance from urgent care after noting to be desatting to 82% on RA. Pt reports sudden onset of symptoms yesterday afternoon when he experienced shaking chills, SOB, and difficulty breathing. Chronic nonproductive cough around baseline. Pt initially found some relief with home inhalers, but symptoms persisted through the night and into the morning, so he presented to urgent care. Denies chest pain/pressure, palpitations. No nausea, vomiting, abdominal pain. ? In the ED pt was tachycardic to 122, tachypneic up to 22, febrile up to 102.0, and satting at 92% on 3 L NC. Labs were significant for leukocytosis 14.4 with bandemia of 6, bilirubin 4.7, and lactic acid of 2.3. Stable H&H. No significant electrolyte abnormalities. Renal function baseline. Tested negative for flu, RSV, and COVID. CXR showed bilateral airspace disease representing likely pulmonary edema and/or atypical pneumonia, as well as interstitial pulmonary edema vs chronic ILD. Pt was treated with Solu-Medrol, Mag sulfate, ceftriaxone, and azithromycin. Pt will be admitted to the hospital for treatment and further evaluation of acute hypoxic respiratory failure in the setting of COPD exacerbation with superimposed pneumonia with sepsis. 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 Mother Hypertension CVD (cardiovascular disease) Cancer Surgical History Hx of kyphoplasty Hx of colonoscopy Deficient knowledge of leg surgery History of tonsillectomy Social History Household Members: Spouse and Family Housing: House Are you a primary client care coordinator to a significant other at home: No Do you presently have visiting nurse or other home services: No Alcohol intake: never Patient Tobacco Use Status: Former Tobacco user Tobacco use type: Cigarette Years Smoked: quit 1995 e-Cigarette/Vaping Use: Never Used Second Hand Smoke Exposure: Yes Advance Directives: No Advance Directives Information Provided: No Do you have a plan to hurt others: No Plan service: Yes Current occupational status: retired Cognitive needs: No Hearing needs: No Vision needs: Yes Meds Allergies Allergy/AdvReac Type Severity Reaction Status Date / Time Sulfa (Sulfonamide Allergy Unknown RASH Verified 09/03/24 19:57 Antibiotics) [SULFA (SULFONAMIDE ANTIBIOTICS)] hydrocodone [HYDROCODONE] AdvReac Severe severe Verified 09/03/24 19:57 constipation oxycodone AdvReac Severe severe Verified 09/03/24 19:57 constipation Active Medications: Current Medications Magnesium Sulfate (Magnesium Sulfate/H2o) 2 gm in 50 mls @ 25 mls/hr IV ONCE ONE Stop: 09/03/24 23:21 Sodium Chloride (Ns) 2,000 mls @ 999 mls/hr IVCONT .Q2H1M ONE Stop: 09/03/24 23:22 Azithromycin 500 mg/ Sodium (Chloride) 250 mls @ 125 mls/hr IV ONCE ONE Stop: 09/03/24 23:21 Home Medications ?Medication ?Instructions ?Recorded ?Confirmed ?Last Taken ?Type multivitamin 1 tab PO DAILY 03/25/22 09/03/24 09/03/24 History melatonin 10 mg tablet 10 mg PO BEDTIME PRN Sleep 03/05/24 09/03/24 03/04/24 History nystatin 100,000 unit/mL oral 1 ml PO QID PRN Mouth Pain 06/29/24 09/03/24 Unknown History suspension albuterol sulfate 90 mcg/actuation 2 puff inhalation Q4H PRN 09/03/24 09/03/24 Unknown History aerosol inhaler shortness of breath or wheezing lisinopril 10 mg tablet 10 mg PO DAILY 09/03/24 09/03/24 09/02/24 History omeprazole 20 mg capsule,delayed 20 mg PO DAILY@0630 09/03/24 09/03/24 09/03/24 History release simvastatin 10 mg tablet 10 mg PO BEDTIME 09/03/24 09/03/24 09/02/24 History Physical Exam 2 Vital Signs and Narrative: Vital Signs: Last Vital Signs Temp 98.8 F 09/03/24 19:53 Pulse 122 H 09/03/24 19:53 Resp 22 H 09/03/24 19:53 BP 136/77 09/03/24 19:53 Pulse Ox 92 09/03/24 19:53 O2 Del Method Nasal Cannula 09/03/24 19:53 Oxygen Flow Rate 3 09/03/24 19:53 BMI result Body Mass Index 22.7 Constitutional: Alert, in no acute distress. Mental Status: Oriented to person, place and time. Eyes: Pupils are equal, round, and reactive to light. Ear, Nose, and Throat: Oropharynx clear, mucous membranes moist. Ears and nose without deformities. Trachea midline. Respiratory: Decreased airflow bilaterally, breath sounds diminished. No significant wheezing or rhonchi appreciated. Diaphoretic breathing. Capable of speaking in full sentences Cardiovascular: S1, S2 regular rhythm, tachycardic. No murmurs, rubs, or gallops. Gastrointestinal: Abdomen soft, non-tender, non-distended. Normal bowel sounds. Neurologic: Cranial nerves II-XII are grossly intact bilaterally. No focal neurological deficits. Moves all extremities spontaneously. Skin: Warm, dry. Musculoskeletal: No cyanosis or clubbing. Extremities: No edema. Psychiatric: Normal mood and affect. Results Labs 09/03/24 20:04 09/03/24 20:04 Labs: Laboratory Results - last 24 hr 09/03/24 20:04 MCV 84.9 MCH 30.2 MCHC 35.6 RDW 14.1 Plt Count 133 L D MPV 8.7 L Immature Gran % (Auto) Cancelled Neut % (Auto) Cancelled Lymph % (Auto) Cancelled [place] % (Auto) Cancelled Eos % (Auto) Cancelled Baso % (Auto) Cancelled Lymph # (Auto) Cancelled [place] # (Auto) Cancelled Eos # (Auto) Cancelled Baso # (Auto) Cancelled Abs Immat Gran (auto) Cancelled Absolute Neuts (auto) Cancelled Absolute Nucleated RBC 0.000 Nucleated RBC % (auto) 0.0 Neutrophils % (Manual) 85 H Band Neutrophils % 6 H Lymphocytes % (Manual) 5 L Monocytes % (Manual) 3 Metamyelocytes % 1 Abs Neuts (Manual) 13.1 H Lymphocytes # (Manual) 0.7 L Monocytes # (Manual) 0.4 Metamyelocytes # 0.1 Platelet Estimate NORMAL Plt Morphology Comment NORMAL RBC Morphology NORMAL Smear Tech's Comments MANUAL DIFF Anion Gap 14 Estim Creat Clear Calc 52.6 Estimated GFR > 60 Random Glucose 114 Calcium 9.1 Total Bilirubin 4.7 H AST 19 ALT 13 Alkaline Phosphatase 78 Total Protein 7.6 Albumin 4.4 Influenza Type A (PCR) NEGATIVE Influenza Type B (PCR) NEGATIVE RSV RNA Qual (PCR) NEGATIVE SARS-CoV-2 RNA (RT-PCR) NEGATIVE Assessment and Plan (1) Hypoxemia: Status: Acute (2) COPD exacerbation: Status: Acute Plan Pt is a 79-year-old male with a PMH significant for?HTN, HLD, COPD no longer on prn home O2, BPH, tonsilar cancer with residual dysphagia, and osteoporosis who presents to the ED via ambulance from urgent care after noting to be desatting to 82% on RA. Pt will be admitted to the hospital for treatment and further evaluation of acute hypoxic respiratory failure in the setting of COPD exacerbation with superimposed pneumonia with sepsis. Acute hypoxic respiratory failure in the setting of COPD exacerbation with underlying pneumonia with sepsis Patient with increased SOB, WALTER, rigors, desatting to 82% on RA not on home O2, CXR showing pneumonia and/or pumonary edema Patient meets sepsis criteria: Tachycardia, tachypnea, leukocytosis, and fever; lactic acid 2.3 Patient given IVF and started on broad-spectrum antibiotics in the ED Will treat with ceftriaxone and azithromycin, started 09/03/2024 DuoNebs, Solu-Medrol, guaifenesin Titrate supplemental O2 >92, wean as tolerated Monitor respiratory status No hx of CHF; check BNP to r/o CHF Follow cultures Hx of tonsillar cancer with dysphagia Will place on chopped/advanced diet, thin liquids HTN Continue lisinopril HLD Continue statin GERD Continue PPI Full Code Attending:?Dr. Nuñez DVT Prophylaxis: Lovenox Pt will require a hospitalization of at least two nights for treatment of?acute hypoxic respiratory failure in the setting of COPD exacerbation with underlying pneumonia with sepsis. Given that patient is requiring O2 demands and meets sepsis criteria, he will require hospitalization for administration of IV antibiotics, IV steroids, breathing treatments, and close monitoring of respiratory status. Quality Stroke Does the patient have a stroke diagnosis?: No VTE Prior VTE?: No VTE Risk Level:: Medical - moderate - high VTE Device Contraindication: Treatment Not Indicated VTE Drug Contraindication: N/A - Med Ordered
[2024-09-03] MEDS: Magnesium Sulfate/H2O 2 GM/50 ML PIGGYBACK IV (21:42)
[2024-09-03] MEDS: methylPREDNISolone Sod Succ 125 MG/2 ML VIAL IVPUSH (21:42)
[2024-09-03 21:54] LABS: VBG Base Excess 6.9 mmol/L; VBG HCO3 32 mmol/L (22-26); VBG pCO2 47 mmHg; VBG pH 7.44 (7.32-7.43); VBG pO2 26 mmHg
[2024-09-03 21:55] LABS: Venous Blood Gas Refer to POC result
[2024-09-03 21:56] LABS: Troponin-I High Sensitivity 7.4 ng/L (<3.5-35.0)
[2024-09-03] MEDS: cefTRIAXone sodium 1 GM VIAL IVPUSH (22:07)
[2024-09-03] MEDS: Azithromycin 500 MG in 0.9 % Sodium Chloride 250 ML 125 MG IV (22:07)
[2024-09-03] MEDS: 0.9 % Sodium Chloride 2,000 ML 999 ML IVCONT (22:07)
[2024-09-03 22:09] LABS: B Type Natriuretic Peptide 20 pg/mL (<100)
[2024-09-03 22:14] VITALS: TEMP 38.9
[2024-09-03] MEDS: Acetaminophen 325 MG TABLET 975 MG PO (22:26)
--- NOTE | 2024-09-03 22:27 | PHA.MEDREC ---
Pharmacy Consult ? Medication Reconciliation Pharmacy has completed the medication reconciliation. Spoke to patient to confirm medication list. Last dose of medication was this morning 09/03/24.
[2024-09-03 22:31] LABS: Lactic Acid 2.3 mmol/L (0.5-2.0)
[2024-09-04] VITALS (15 sets, daily range): BP systolic 106–155; BP diastolic 53–73; PULSE 92–115; RESP 16–22; TEMP 36.4–38; O2SAT 92–96; BMI 22.3
[2024-09-04 00:09] LABS: Reflex Lactate? Lactic Acid Added
[2024-09-04] MEDS: Mirtazapine 15 MG TABLET PO ×2 (00:47→21:07)
[2024-09-04] MEDS: Omeprazole 20 MG CAPSULE.DR PO (05:46)
[2024-09-04 06:34] LABS: Alanine Aminotransferase 7 U/L (0-40); Albumin Level 3.7 g/dL (3.5-5.0); Anion Gap 13 (12-20); Aspartate Amino Transferase 17 U/L (5-37); Bilirubin Total 2.4 mg/dL (0.0-1.0); Blood Urea Nitrogen 16 mg/dL (9-16); Calcium 8.7 mg/dL (8.4-10.2); Carbon Dioxide 21 mmol/L (22-29); Chloride 111 mmol/L (96-108); Creatinine Clr Calc Pharmacy 57.2; Estimated Glomerular Filt Rate > 60; Glucose Random 157 mg/dL (60-115); Potassium 4.4 mmol/L (3.3-5.1); Sodium 141 mmol/L (135-145); Total Protein 6.8 g/dL (6.5-8.0)
[2024-09-04 06:37] LABS: Alkaline Phosphatase 66 U/L (39-117)
[2024-09-04] MEDS: Albuterol/Iprat 2.5/0.5MG 3 ML AMPUL.NEB INHALE ×4 (07:28→20:11)
[2024-09-04] MEDS: 0.9 % Sodium Chloride Flush 3 ML SYRINGE IVFLUSH ×3 (08:40→21:07)
[2024-09-04] MEDS: methylPREDNISolone Sod Succ 40 MG/ML VIAL IVPUSH ×2 (08:40→21:07)
[2024-09-04] MEDS: Enoxaparin Sodium 40 MG/0.4 ML SYRINGE SUBCUT (08:40)
[2024-09-04] MEDS: Multivitamin TABLET 1 TAB PO (08:40)
[2024-09-04] MEDS: lisinopriL 10 MG TABLET PO (08:40)
[2024-09-04 10:02] LABS: Procalcitonin 0.44 ng/mL
[2024-09-04] MEDS: iohexoL 350 MG/ML 100 ML INFUS..BTL 85 ML IV (12:53)
--- NOTE | 2024-09-04 16:04 | HO.PM.IMPN ---
Subjective Subjective Date of Service: 09/04/24 Interval History: breathing improved, weaned off of O2 Review of Systems Review of Systems: Yes all other systems are reviewed and are negative Physical Exam Vital Signs: Vital Signs: Last Vital Signs Temp 98.0 F 09/04/24 15:15 Pulse 112 H 09/04/24 15:39 Resp 18 09/04/24 15:39 BP 134/53 L 09/04/24 15:15 Pulse Ox 94 09/04/24 15:15 O2 Del Method Room Air 09/04/24 15:15 O2 Flow Rate 1 09/04/24 08:43 Oxygen Flow Rate 3 09/03/24 19:53 BMI result Body Mass Index 22.3 Gen: in no acute distress HEENT: sclera anicteric, moist mucus membranes Neck: supple Lungs: diminished Heart: regular rate and rhythm, no murmurs Abd: soft, non-tender, non-distended Ext: no edema Skin: warm/well-perfused Neuro: alert and oriented x3, no focal findings Psych: appropriate affect Objective Data Active Medications Acetaminophen (Acetaminophen 325 Mg Tablet) 975 mg PO Q6H PRN PRN Reason: Pain, Mild 1-3,fever,headache Last Admin: 09/03/24 22:26 Dose: 975 mg Documented By: ISRAEL Albuterol Sulfate (Albuterol Sulfate (0.083%) 2.5 Mg/3 Ml Vial.Neb) 2.5 mg INHALE Q2H PRN PRN Reason: Shortness of Breath/Wheezing Albuterol/Ipratropium (Albuterol/Iprat 2.5/0.5mg 3 Ml Ampul.Neb) 3 ml INHALE RQ4H WHILE AWAKE [facility] Last Admin: 09/04/24 15:37 Dose: 3 ml Documented By: AMBER Atorvastatin Calcium (Atorvastatin Calcium 10 Mg Tablet) 10 mg PO BEDTIME [facility] Calcium Carbonate (Calcium Carbonate 750 Mg Tab.Chew) 750 mg PO Q4H PRN PRN Reason: Heartburn Ceftriaxone Sodium (Ceftriaxone Sodium 1 Gm Vial) 1 gm IVPUSH Q24H [facility] Enoxaparin Sodium (Enoxaparin Sodium 40 Mg/0.4 Ml Syringe) 40 mg SUBCUT Q24H [facility] Last Admin: 09/04/24 08:40 Dose: 40 mg Documented By: RICHAR Guaifenesin/Dextromethorphan (Guaifenesin Dm 200/20/10 Ml 10 Ml Syrup) 10 ml PO Q4H PRN PRN Reason: Cough Azithromycin 500 mg/ Sodium (Chloride) 250 mls @ 125 mls/hr IV Q24H [facility] Lisinopril (Lisinopril 10 Mg Tablet) 10 mg PO DAILY [facility]; Protocol Last Admin: 09/04/24 08:40 Dose: 10 mg Documented By: RICHAR Magnesium Hydroxide (Milk Of Magnesia 30 Ml Oral.Susp) 30 ml PO DAILY PRN PRN Reason: Constipation Melatonin (Melatonin 3 Mg Tablet) 9 mg PO BEDTIME PRN PRN Reason: Insomnia Methylprednisolone Sodium Succinate (Methylprednisolone Sod Succ 40 Mg/Ml Vial) 40 mg IVPUSH BID [facility] Last Admin: 09/04/24 08:40 Dose: 40 mg Documented By: RICHAR Mirtazapine (Mirtazapine 15 Mg Tablet) 15 mg PO BEDTIME [facility] Last Admin: 09/04/24 00:47 Dose: 15 mg Documented By: ISRAEL Multivitamins/Vitamin C (Multivitamin Tablet) 1 tab PO DAILY [facility] Last Admin: 09/04/24 08:40 Dose: 1 tab Documented By: RICHAR Omeprazole (Omeprazole 20 Mg Capsule.Dr) 20 mg PO DAILY@0630 [facility] Last Admin: 09/04/24 05:46 Dose: 20 mg Documented By: ISRAEL Sodium Chloride (0.9 % Sodium Chloride Flush 3 Ml Syringe) 3 ml IVFLUSH QSHIFT [facility] Last Admin: 09/04/24 08:40 Dose: 3 ml Documented By: RICHAR Labs 09/03/24 20:04 09/04/24 05:36 Labs: Laboratory Results - last 24 hr 09/03/24 09/03/24 09/03/24 20:04 21:49 22:02 MCV 84.9 MCH 30.2 MCHC 35.6 RDW 14.1 Plt Count 133 L D MPV 8.7 L Immature Gran % (Auto) Cancelled Neut % (Auto) Cancelled Lymph % (Auto) Cancelled [place] % (Auto) Cancelled Eos % (Auto) Cancelled Baso % (Auto) Cancelled Lymph # (Auto) Cancelled [place] # (Auto) Cancelled Eos # (Auto) Cancelled Baso # (Auto) Cancelled Abs Immat Gran (auto) Cancelled Absolute Neuts (auto) Cancelled Absolute Nucleated RBC 0.000 Nucleated RBC % (auto) 0.0 Neutrophils % (Manual) 85 H Band Neutrophils % 6 H Lymphocytes % (Manual) 5 L Monocytes % (Manual) 3 Metamyelocytes % 1 Abs Neuts (Manual) 13.1 H Lymphocytes # (Manual) 0.7 L Monocytes # (Manual) 0.4 Metamyelocytes # 0.1 Platelet Estimate NORMAL Plt Morphology Comment NORMAL RBC Morphology NORMAL Smear Tech's Comments MANUAL DIFF Hold Purple Top VBG pH 7.44 H VBG pCO2 47 VBG pO2 26 VBG HCO3 32 H VBG O2 Saturation 34.0 VBG Base Excess 6.9 Anion Gap 14 Estim Creat Clear Calc 52.6 Estimated GFR > 60 Random Glucose 114 Lactic Acid 2.3 H* Lactic Acid F/U @ 2Hr Calcium 9.1 Total Bilirubin 4.7 H AST 19 ALT 13 Alkaline Phosphatase 78 Troponin I High Sens 7.4 D B-Natriuretic Peptide 20 Total Protein 7.6 Albumin 4.4 Procalcitonin Influenza Type A (PCR) NEGATIVE Influenza Type B (PCR) NEGATIVE RSV RNA Qual (PCR) NEGATIVE SARS-CoV-2 RNA (RT-PCR) NEGATIVE 09/04/24 09/04/24 00:34 05:36 MCV MCH MCHC RDW Plt Count MPV Immature Gran % (Auto) Neut % (Auto) Lymph % (Auto) [place] % (Auto) Eos % (Auto) Baso % (Auto) Lymph # (Auto) [place] # (Auto) Eos # (Auto) Baso # (Auto) Abs Immat Gran (auto) Absolute Neuts (auto) Absolute Nucleated RBC Nucleated RBC % (auto) Neutrophils % (Manual) Band Neutrophils % Lymphocytes % (Manual) Monocytes % (Manual) Metamyelocytes % Abs Neuts (Manual) Lymphocytes # (Manual) Monocytes # (Manual) Metamyelocytes # Platelet Estimate Plt Morphology Comment RBC Morphology Smear Tech's Comments Hold Purple Top SEE NOTE VBG pH VBG pCO2 VBG pO2 VBG HCO3 VBG O2 Saturation VBG Base Excess Anion Gap 13 Estim Creat Clear Calc 57.2 Estimated GFR > 60 Random Glucose 157 H Lactic Acid Lactic Acid F/U @ 2Hr 1.0 Calcium 8.7 Total Bilirubin 2.4 H AST 17 ALT 7 Alkaline Phosphatase 66 Troponin I High Sens B-Natriuretic Peptide Total Protein 6.8 Albumin 3.7 Procalcitonin 0.44 Influenza Type A (PCR) Influenza Type B (PCR) RSV RNA Qual (PCR) SARS-CoV-2 RNA (RT-PCR) Assessment and Plan (1) COPD (chronic obstructive pulmonary disease): Status: Acute Plan d2 for 79yo M with HTN, HLD, COPD, BPH, hx tonsillar CA with residual dysphagia, osteoporosis sent in from Urgent Care after noted to be hypoxic to 82% admitted for hypoxia due to COPD exacerbation, sepsis due to PNA AHRF due to COPD exacerbation sepsis due to PNA - lactate normalized - continue ceftriaxone + azithromycin 09/03-, follow BCx, trend PCT, send urinary antigens for pneumococcus + Legionella - continue IV methylprednisolone 09/03-, nebulized bronchodilators hx tonsillar CA with dysphaga - NDD3 solids, thin liquids HTN - lisinopril HLD - statin GERD - PPI VTE ppx - enoxaparin dispo - PT evaluation In my clinical judgment, the patient requires continued inpatient hospitalization for the following reasons: IV ABX Total time managing care of this patient today: 35 minutes. Quality Stroke Does the patient have a stroke diagnosis?: No VTE Prior VTE?: No VTE Risk Level:: Medical - moderate - high VTE Device Contraindication: Treatment Not Indicated VTE Drug Contraindication: N/A - Med Ordered
[2024-09-04] MEDS: cefTRIAXone sodium 1 GM VIAL IVPUSH (21:07)
[2024-09-04] MEDS: Azithromycin 500 MG in 0.9 % Sodium Chloride 250 ML 125 MG IV (21:08)
[2024-09-04] MEDS: Atorvastatin Calcium 10 MG TABLET PO (21:08)
[2024-09-05] VITALS (10 sets, daily range): BP systolic 117–145; BP diastolic 58–75; PULSE 84–119; RESP 16–18; TEMP 36.2–36.9; O2SAT 89–94
[2024-09-05 07:29] LABS: Venous Blood Gas Refer to POC result
[2024-09-05 07:32] LABS: VBG Base Excess 2.5 mmol/L; VBG HCO3 28 mmol/L (22-26); VBG pCO2 47 mmHg; VBG pH 7.38 (7.32-7.43); VBG pO2 28 mmHg
[2024-09-05 07:32] LABS: Hematocrit 41.2 % (42.0-52.0); Hemoglobin 14.2 g/dl (14.0-18.0); Mean Corpuscular HGB Conc 34.5 g/dl (31.0-36.0); Mean Corpuscular Hemoglobin 29.6 pg (27.0-33.0); Mean Platelet Volume 8.7 fL (9.4-12.4); Platelet Count 174 X10*3/uL (160-400); Red Blood Count 4.79 X10*6/uL (4.60-5.80); Red Cell Distribution Width 14.3 % (11.0-16.0); White Blood Count 14.5 X10*3/uL (4.8-10.8)
[2024-09-05 07:56] LABS: Anion Gap 12 (12-20); Blood Urea Nitrogen 18 mg/dL (9-16); Calcium 9.5 mg/dL (8.4-10.2); Carbon Dioxide 25 mmol/L (22-29); Chloride 110 mmol/L (96-108); Creatinine Clr Calc Pharmacy 57.7; Estimated Glomerular Filt Rate > 60; Glucose Random 117 mg/dL (60-115); Potassium 4.2 mmol/L (3.3-5.1); Sodium 143 mmol/L (135-145)
[2024-09-05] MEDS: Albuterol/Iprat 2.5/0.5MG 3 ML AMPUL.NEB INHALE ×4 (08:35→20:08)
[2024-09-05] MEDS: methylPREDNISolone Sod Succ 40 MG/ML VIAL IVPUSH ×2 (09:34→21:13)
[2024-09-05] MEDS: 0.9 % Sodium Chloride Flush 3 ML SYRINGE IVFLUSH ×2 (09:34→21:14)
[2024-09-05] MEDS: Enoxaparin Sodium 40 MG/0.4 ML SYRINGE SUBCUT (09:34)
[2024-09-05] MEDS: Multivitamin TABLET 1 TAB PO (09:34)
[2024-09-05] MEDS: lisinopriL 10 MG TABLET PO (09:38)
--- NOTE | 2024-09-05 10:40 | MHC.CM.PN ---
IMM 09/05. Pt self-care, lives at home with his , adult daughter, granddaughter, and great grandson. Pts will transport him home at discharge. New HCP completed with pt, now on file. PCP: Dr. Walton Po
--- NOTE | 2024-09-05 12:44 | HO.PM.IMPN ---
Subjective Subjective Date of Service: 09/05/24 Interval History: f/u on copd exacerbation, acute hypoxic resp failure, PNA overal doing better, no sob, Physical Exam Vital Signs: Vital Signs: Last Vital Signs Temp 97.6 F 09/05/24 11:04 Pulse 119 H 09/05/24 11:04 Resp 18 09/05/24 11:04 BP 139/69 09/05/24 11:04 Pulse Ox 94 09/05/24 11:04 O2 Del Method Room Air 09/05/24 11:04 O2 Flow Rate 1 09/04/24 08:43 Oxygen Flow Rate 3 09/03/24 19:53 BMI result Body Mass Index 22.3 Const: Other: General: AO X 3, no acute distress Resp: CTA bilateral CVS: S1,S2,RRR GI: +BS, NT, no distention Skin: No rash Neuro: motor grossly intact Psych: appropriate affect Objective Data Active Medications Acetaminophen (Acetaminophen 325 Mg Tablet) 975 mg PO Q6H PRN PRN Reason: Pain, Mild 1-3,fever,headache Last Admin: 09/03/24 22:26 Dose: 975 mg Documented By: ISRAEL Albuterol Sulfate (Albuterol Sulfate (0.083%) 2.5 Mg/3 Ml Vial.Neb) 2.5 mg INHALE Q2H PRN PRN Reason: Shortness of Breath/Wheezing Albuterol/Ipratropium (Albuterol/Iprat 2.5/0.5mg 3 Ml Ampul.Neb) 3 ml INHALE RQ4H WHILE AWAKE [facility] Last Admin: 09/05/24 08:35 Dose: 3 ml Documented By: SHAUN Atorvastatin Calcium (Atorvastatin Calcium 10 Mg Tablet) 10 mg PO BEDTIME [facility] Last Admin: 09/04/24 21:08 Dose: 10 mg Documented By: CECILY Calcium Carbonate (Calcium Carbonate 750 Mg Tab.Chew) 750 mg PO Q4H PRN PRN Reason: Heartburn Ceftriaxone Sodium (Ceftriaxone Sodium 1 Gm Vial) 1 gm IVPUSH Q24H [facility] Last Admin: 09/04/24 21:07 Dose: 1 gm Documented By: CECILY Enoxaparin Sodium (Enoxaparin Sodium 40 Mg/0.4 Ml Syringe) 40 mg SUBCUT Q24H [facility] Last Admin: 09/05/24 09:34 Dose: 40 mg Documented By: VANESSA Guaifenesin/Dextromethorphan (Guaifenesin Dm 200/20/10 Ml 10 Ml Syrup) 10 ml PO Q4H PRN PRN Reason: Cough Azithromycin 500 mg/ Sodium (Chloride) 250 mls @ 125 mls/hr IV Q24H [facility] Last Infusion: 09/04/24 23:23 Dose: Infused Documented By: CECILY Lisinopril (Lisinopril 10 Mg Tablet) 10 mg PO DAILY [facility]; Protocol Last Admin: 09/05/24 09:38 Dose: 10 mg Documented By: VANESSA Magnesium Hydroxide (Milk Of Magnesia 30 Ml Oral.Susp) 30 ml PO DAILY PRN PRN Reason: Constipation Melatonin (Melatonin 3 Mg Tablet) 9 mg PO BEDTIME PRN PRN Reason: Insomnia Methylprednisolone Sodium Succinate (Methylprednisolone Sod Succ 40 Mg/Ml Vial) 40 mg IVPUSH BID [facility] Last Admin: 09/05/24 09:34 Dose: 40 mg Documented By: VANESSA Mirtazapine (Mirtazapine 15 Mg Tablet) 15 mg PO BEDTIME [facility] Last Admin: 09/04/24 21:07 Dose: 15 mg Documented By: CECILY Multivitamins/Vitamin C (Multivitamin Tablet) 1 tab PO DAILY [facility] Last Admin: 09/05/24 09:34 Dose: 1 tab Documented By: VANESSA Omeprazole (Omeprazole 20 Mg Capsule.Dr) 20 mg PO DAILY@0630 [facility] Last Admin: 09/05/24 05:36 Dose: Not Given Documented By: CECILY Non-Admin Reason: Patient Asleep Sodium Chloride (0.9 % Sodium Chloride Flush 3 Ml Syringe) 3 ml IVFLUSH QSHIFT [facility] Last Admin: 09/05/24 09:34 Dose: 3 ml Documented By: VANESSA Labs 09/05/24 07:21 09/05/24 07:21 Labs: Laboratory Results - last 24 hr 09/05/24 09/05/24 07:21 07:27 MCV 86.0 MCH 29.6 MCHC 34.5 RDW 14.3 Plt Count 174 D MPV 8.7 L Absolute Nucleated RBC 0.000 Nucleated RBC % (auto) 0.0 VBG pH 7.38 VBG pCO2 47 VBG pO2 28 VBG HCO3 28 H VBG O2 Saturation 40.0 VBG Base Excess 2.5 Anion Gap 12 Estim Creat Clear Calc 57.7 Estimated GFR > 60 Random Glucose 117 H Calcium 9.5 D Microbiology Microbiology Results: Microbiology 09/03/24 22:02 Blood Culture - Preliminary Blood - Venous No growth after 24 hours. 09/03/24 21:44 Blood Culture - Preliminary Blood - Venous No growth after 24 hours. Assessment and Plan (1) COPD (chronic obstructive pulmonary disease): Status: Acute Plan 79yo M with HTN, HLD, COPD, BPH, hx tonsillar CA with residual dysphagia, osteoporosis sent in from Urgent Care after noted to be hypoxic to 82% admitted for hypoxia due to COPD exacerbation, sepsis due to PNA AHRF due to COPD exacerbation--improving sepsis due to PNA - lactate normalized - continue ceftriaxone + azithromycin 09/03-, follow BCx, trend PCT, send urinary antigens for pneumococcus + Legionella - continue IV methylprednisolone 09/03-, nebulized bronchodilators hx tonsillar CA with dysphaga - NDD3 solids, thin liquids HTN - lisinopril HLD - statin GERD - PPI VTE ppx - enoxaparin dispo - PT evaluationn in am In my clinical judgment, the patient requires continued inpatient hospitalization for the following reasons: IV ABX Total time managing care of this patient today: 35 minutes. Quality Stroke Does the patient have a stroke diagnosis?: No VTE Prior VTE?: No VTE Risk Level:: Medical - moderate - high VTE Device Contraindication: Treatment Not Indicated VTE Drug Contraindication: N/A - Med Ordered
[2024-09-05] MEDS: cefTRIAXone sodium 1 GM VIAL IVPUSH (21:13)
[2024-09-05] MEDS: Mirtazapine 15 MG TABLET PO (21:13)
[2024-09-05] MEDS: Azithromycin 500 MG in 0.9 % Sodium Chloride 250 ML 125 MG IV (21:13)
[2024-09-05] MEDS: Atorvastatin Calcium 10 MG TABLET PO (21:13)
[2024-09-06] VITALS (7 sets, daily range): BP systolic 132–154; BP diastolic 60–71; PULSE 64–114; RESP 12–18; TEMP 36.3–36.6; O2SAT 86–97
[2024-09-06] MEDS: Omeprazole 20 MG CAPSULE.DR PO (05:33)
[2024-09-06] MEDS: Albuterol/Iprat 2.5/0.5MG 3 ML AMPUL.NEB INHALE ×2 (07:55→11:32)
[2024-09-06] MEDS: methylPREDNISolone Sod Succ 40 MG/ML VIAL IVPUSH (08:58)
[2024-09-06] MEDS: 0.9 % Sodium Chloride Flush 3 ML SYRINGE IVFLUSH (08:58)
[2024-09-06] MEDS: Multivitamin TABLET 1 TAB PO (08:58)
[2024-09-06] MEDS: lisinopriL 10 MG TABLET PO (08:58)
[2024-09-06] MEDS: Enoxaparin Sodium 40 MG/0.4 ML SYRINGE SUBCUT (08:58)
--- NOTE | 2024-09-06 09:28 | P.DS_ITS ---
DS: Providers Provider Date of Service: 09/06/24 Date of admission: 09/03/24 22:09 Date of discharge: 09/06/24 Primary care physician: Tila Mcclure MD DS: Diagnosis Discharge Diagnosis (1) COPD (chronic obstructive pulmonary disease): Status: Acute DS: Summary Hospital Course Hospital Course: A 79-year-old male with a history of hypertension (HTN), hyperlipidemia (HLD), chronic obstructive pulmonary disease (COPD), benign prostatic hyperplasia (BPH), tonsillar cancer with residual dysphagia, and osteoporosis was sent from Urgent Care after being noted to be hypoxic to 82%. Workup revealed acute hypoxic respiratory failure associated with pneumonia, leading to a COPD exacerbation. His management included Azithromycin and Ceftriaxone for pneumonia, started on 09/03/24, as well as IV steroids and nebulized bronchodilators for the COPD exacerbation. Cultures have been negative. He has shown overall improvement, with no respiratory distress at present. He has been weaned off oxygen and is maintaining adequate oxygen saturation. He will be transitioned to oral Prednisone to complete a total of 5 days of steroid therapy, oral Azithromycin to complete a 5-day course, and oral Ceftin (cefuroxime) to complete a 7-day antibiotic course (in place of Ceftriaxone). He has qualified for home oxygen therapy. hx tonsillar CA with dysphaga - NDD3 solids, thin liquids HTN - lisinopril HLD - statin GERD - PPI Final diagnoses: Acute Hypoxic respiatory failure COPD exacerbation Sepsis Pneumonia Time Attestation Discharge Coordination Time (in mins): 45 Quality: Safe Use of Opioids Does Pt have an Active Cancer Diagnosis on the Problem List?: No Quality: Stroke Does the patient have a stroke diagnosis?: No Physical Exam Vital Signs: Vital Signs: Last Vital Signs Temp 97.4 F 09/06/24 08:00 Pulse 105 H 09/06/24 08:00 Resp 14 09/06/24 08:00 BP 141/69 H 09/06/24 08:00 Pulse Ox 88 L 09/06/24 08:00 O2 Del Method Room Air 09/06/24 08:00 O2 Flow Rate 1 09/04/24 08:43 Oxygen Flow Rate 3 09/03/24 19:53 BMI result Body Mass Index 22.3 Const: Other: General: AO X 3, no acute distress Resp: CTA bilateral CVS: S1,S2,RRR GI: +BS, NT, no distention Skin: No rash Neuro: motor grossly intact Psych: appropriate affect DS: Data Data Completed and Pending Labs on day of discharge: Preliminary micro results at discharge 09/03/24 22:02 Blood Culture - Preliminary Blood - Venous No growth after 48 hours. 09/03/24 21:44 Blood Culture - Preliminary Blood - Venous No growth after 48 hours. Discharge Plan Discharge Anticipated Discharge Date/Time: 09/06/24 10:34 Patient Disposition: Home Health Service Discharge Diagnosis: Acute hypoxic respiratory failure, COPD exacerbation, pneumonia, sepsis. Referrals: [facility] [Outside] - 1 Week Po,Tila Gonzalez MD [Primary Care Provider] - 1 Week Discharge Medications: New azithromycin 250 mg tablet 250 mg PO DAILY 2 Days Qty: 2 0RF Rx Instructions: start on day 2 of therapy cefuroxime axetil 500 mg tablet 500 mg PO BID 4 Days Qty: 8 0RF prednisone 10 mg tablet See Taper PO DIRECTED Qty: 14 0RF Taper: Prednisone 40 mg daily for 1 Day and 0 Hour 30 mg daily for 2 Days and 0 Hour 20 mg daily for 2 Days and 0 Hour Rx Instructions: see taper instructions Continued mirtazapine 7.5 mg tablet 15 mg PO BEDTIME Qty: 90 2RF alendronate 70 mg tablet 70 mg PO ROLDAN Qty: 12 2RF multivitamin Tablet 1 tab PO DAILY lisinopril 10 mg tablet 10 mg PO DAILY omeprazole 20 mg capsule,delayed release(DR/EC) 20 mg PO DAILY@0630 simvastatin 10 mg tablet 10 mg PO BEDTIME melatonin 10 mg Tablet 10 mg PO BEDTIME PRN (Reason: Sleep) nystatin 100,000 unit/mL suspension 1 ml PO QID PRN (Reason: Mouth Pain) Rx Instructions: swish in the mouth and retain for as long as possible (several minutes) before swallowing. fluticasone propion-salmeterol [Wixela Inhub] 250-50 mcg/dose blister with device 1 inh inhalation BID 30 Days Qty: 60 5RF No Action albuterol sulfate 90 mcg/actuation HFA aerosol inhaler 2 puff inhalation Q4H PRN (Reason: shortness of breath or wheezing) 60 Days Qty: 8.5 3RF Discharge Orders: Discharge Order (Routine); Ordered 09/06/24 Ordered By: Red Haney Diet: Advance to usual diet Activity on Discharge: As tolerated Stand Alone Forms: Patient Portal Discharge page Print Language: Jordanian Care Plan Goals: recovery from pneumonia, copd exacerbation and sepsis Health Concerns: COPD exacerbation Sepsis Pneumonia Acute hypoxic respiratory failure Plan of Treatment: Take azithromycin and cefuroxime as recommended for pneumonia Take prednisone as directed for COPD exacerbation, use oxygen as directed, avoid smoking Use oxygen as recommended Follow-up with your primary care doctor within a week call for appointment. Assessment: see above
--- NOTE | 2024-09-06 11:48 | P.F2F_ITS ---
Service Date Service Date: 09/06/24 Encounter Date of encounter: 09/06/24 Reasons for Services Signs and symptoms assessed: shortness of breath due to sepsis, pneumonia and acute hypoxic respiratory failure due to copd, new to oxygen Reason for intermediate: CV/CP assess and/or care, medication management and teach disease management Homebound: Leaving the home is medically contraindicated at this time without the asist of a device and/or another person due th the listed conditions above and below. Reason homebound: shortness of breath with minimal effort and shortness of breath at rest Homebound supporting statement: homebound due to shortness of breath with minimal effort, oxygen dependent and ther re needing the help of another person Certification: Based on the above findings, I certify that this patient is confined to the home and needs intermittent intermediate care, physical therapy and/or speech therapy, or continues to need occupational therapy. The patient is under my care, and I have initiated the establishment of the plan of care. The patient will be followed by a physician who will periodically review the plan of care. Time Spent With Patient Time: Total time managing care of this patient today ____ minutes.
--- NOTE | 2024-09-06 14:34 | MHC.CM.PN ---
Pt has been medically cleared for DC, he will go home via family transport and have home care services from [facility].
[2024-09-08 15:49] LABS: Legionella Ag Urine Not Detected (Not Detected)
[2024-09-08 19:38] LABS: Strep Pneumo Ag urine Not Detected (Not Detected)
== END 2024-09-06 14:00 | disposition home health service (06) | DRG 871 ==
LOC: HO.ED 21:05 → HO.EDOVER 22:18 → HO.IMC 09-04 07:49
PROVIDERS: Family Medicine; Admitting Provider Internal Medicine; Emergency Provider Emergency Medicine; PCP Internal Medicine; Visit Provider Internal Medicine
DX: A41.9 Sepsis, unspecified organism (principal); J18.9 Pneumonia, unspecified organism; J96.01 Acute respiratory failure with hypoxia; J43.9 Emphysema, unspecified; N40.0 Benign prostatic hyperplasia without lower urinary tract symptoms; R13.10 Dysphagia, unspecified; Z20.822 Contact with and (suspected) exposure to COVID-19; Z85.818 Personal history of malignant neoplasm of other sites of lip, oral cavity, and pharynx; Z87.891 Personal history of nicotine dependence; Z79.51 Long term (current) use of inhaled steroids; Z79.899 Other long term (current) drug therapy
CPT/HCPCS: 0241U; 36415; 71045; 71275; 80048; 80053; 82803; 83605; 83880; 84145; 84484; 85007; 85025; 85027; 87040; 87449; 87899; 93005; 94640; 99285; J0456; J0696; J1650; J2919; J3475; Q9967

== ENCOUNTER → 2024-09-03 20:07 | Outpatient (BNV) | payer MEDICARE, SELFPAY | PROVIDERS: Admitting Provider Internal Medicine; Emergency Provider Emergency Medicine; PCP Internal Medicine; Visit Provider Internal Medicine Cardiovascular Disease | DX: R06.02 Shortness of breath (principal); R00.0 Tachycardia, unspecified; R94.31 Abnormal electrocardiogram [ECG] [EKG] | CPT/HCPCS: 93010 ==

== ENCOUNTER → 2024-09-03 20:30 | Outpatient (BNV) | payer MEDICARE, SELFPAY | PROVIDERS: Emergency Provider Emergency Medicine; PCP Internal Medicine; Visit Provider Radiology Diagnostic Radiology | DX: R06.02 Shortness of breath (principal) | CPT/HCPCS: 71045 ==

== ENCOUNTER 2024-09-03 22:09 | Outpatient (BNV) | payer MEDICARE, SELFPAY | END 2024-09-04 12:15 | PROVIDERS: Admitting Provider Internal Medicine; Emergency Provider Emergency Medicine; PCP Internal Medicine; Visit Provider Radiology Vascular & Interventional Radiology | DX: J18.9 Pneumonia, unspecified organism (principal) | CPT/HCPCS: 71275 ==

== ENCOUNTER → 2024-09-03 22:09 | Outpatient (BNV) | payer MEDICARE, SELFPAY | PROVIDERS: Admitting Provider Internal Medicine; Emergency Provider Emergency Medicine; PCP Internal Medicine; Visit Provider Family Medicine | DX: J43.9 Emphysema, unspecified (principal) | CPT/HCPCS: 99223; 99232; 99239; G0180 ==

== ENCOUNTER 2024-09-17 10:17 | Outpatient (AMB) | payer MEDICARE, SELFPAY ==
[2024-09-17 10:20] VITALS: BP 120/76; PULSE 89; O2SAT 95; BMI 22.0
--- NOTE | 2024-09-17 10:20 | A.OFFPC_ITS ---
Vital Signs 09/17/24 10:20 Height 5 ft 5 in Weight 132 lb BMI 22.0 BP 120/76 Blood Pressure Location Lt brachial Position Sitting Pulse 89 Pulse Source Pulse Oximeter Pulse Oximetry (%) 95 Oxygen Delivery Method Nasal Cannula Oxygen Flow Rate 2 Intake Visit Reasons: [place] [facility] [place] COPD Accompanied by: Self / Same As Patient Allergies Sulfa (Sulfonamide Antibiotics) [SULFA (SULFONAMIDE ANTIBIOTICS)] Allergy (Unknown, Verified 09/17/24 10:21) RASH hydrocodone [HYDROCODONE] Adverse Reaction (Severe, Verified 09/17/24 10:21) severe constipation oxycodone Adverse Reaction (Severe, Verified 09/17/24 10:21) severe constipation Tobacco use date assessed: 09/17/24 Fall risk assessment: No Falls in past year Last assessed Fall Risk: 09/17/24 Dental Screening Dental Screen Date: 09/17/24 Did you have a dental visit in the last 12 months?: No Did you have a dental problem in the last 6 months where you did not have access to dental care?: No Was dental information given to patient?: No HPI TCM TCM Information Date of Discharge 09/07/24 Discharged From 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 Mother Hypertension CVD (cardiovascular disease) Cancer Social History Household Members: Spouse Housing: House Are you a primary healthcare economics manager to a significant other at home: No Do you presently have visiting nurse or other home services: No Alcohol intake: never Patient Tobacco Use Status: Former Tobacco user Tobacco use type: Cigarette Cigarette Packs Per Day: 1 Cigarettes Per Day: 20.0 Years Smoked: 35 Packs Per Year: 35 Packs per year/per ci.00 e-Cigarette/Vaping Use: Never Used Second Hand Smoke Exposure: Yes (marijuana) service: No Current occupational status: retired Cognitive needs: No Hearing needs: No Vision needs: Yes Questionnaire PHQ-9 Over the last 2 weeks, how often have you been bothered by any of the following problems? 1. Little interest or pleasure in doing things: not at all 2. Feeling down, depressed, or hopeless: not at all 3. Trouble falling or staying asleep, or sleeping too much: not at all 4. Feeling tired or having little energy: not at all 5. Poor appetite or overeating: not at all 6. Feeling bad about yourself - or that you are a failure or have let yourself or your family down: not at all 7. Trouble concentrating on things, such as reading the newspaper or watching television: not at all 8. Moving or speaking so slowly that other people could have noticed. Or the opposite - being so fidgety or restless that you have been moving around a lot more than usual: not at all 9. Thoughts that you would be better off or of hurting yourself in some way: not at all Total score: 0 Depression Screening Interpretation: Negative Depression Screening Done: Yes Source: Developed by Drs. Paul Greer, Capri Meraz, Robin Barksdale and colleagues, with an educational nanette from [employer]. Thrive Questionnaire Date Thrive assessed: 09/17/24 I am a: Patient What is your living situation today?: I have a steady place to live Within the past 12 months, did the food you bought not last and you didn't have the money to get more?: Never true Within the past 12 months, did you worry whether your food would run out before you got money to buy more?: Never true Do you have trouble paying for medicines?: No Do you have trouble getting transportation to medical appointments?: No Do you have trouble paying your heating and electricity bill?: No Do you have trouble taking care of your child, family member or friend?: No Do you have trouble with day-to-day activities such as bathing, preparing meals, shopping, managing finances, etc.?: No Are you currently unemployed and looking for a job?: No Are you interested in more education?: No Please select the resources that you would like help with: None Currently or been in a relationship where the following occur: No concerns reported THRIVE Score: 0 AUDIT C Alcohol Use Questionnaire (AUDIT-C) 1. How often do you have a drink containing alcohol?: Never 3. How often do you have six or more drinks on one occasion?: Never Total Score: 0 JOHAN-7 AMB Questionnaire JOHAN-7 Date JOHAN - 7 assessed: 09/17/24 Feeling nervous, anxious, or on edge: 0 = Not at all Not being able to stop or control worryin = Not at all Worrying too much about different things: 0 = Not at all Trouble relaxin = Not at all Being so restless that it is hard to sit still: 0 = Not at all Becoming easily annoyed or irritable: 0 = Not at all Feeling afraid as if something awful might happen: 0 = Not at all Total JOHAN-7 score (0-4 normal; 5-9 mild; 10-14 moderate; 15-21 severe): 0 Source: Developed by Drs. Paul Greer, Capri Meraz, Robin Barksdale and colleagues, with an educational nanette from [employer]. Review of Systems Const All systems reviewed & are unremarkable except as noted in HPI and below Physical exam (Primary Care) Vital Signs: Last Vital Signs Pulse 89 09/17/24 10:20 BP 120/76 09/17/24 10:20 Pulse Ox 95 09/17/24 10:20 Oxygen Delivery Method Nasal Cannula 09/17/24 10:20 Oxygen Flow Rate 2 09/17/24 10:20 BMI result Body Mass Index 22.0 Tobacco/Smoking Status: Tobacco use Status Tobacco use date assessed 09/17/24 09/17/24 10:21 Patient Tobacco Use Status Former Tobacco user 09/17/24 10:21 Tobacco use type Cigarette 09/17/24 10:21 e-Cigarette/Vaping Use Never Used 09/17/24 10:21 PHQ-9: PHQ-9 Score PHQ-9: Total score 0 09/17/24 10:33 Depression Screening Interpretation: Negative Thrive Assessment: Date of Thrive Assessment Date Thrive assessed 09/17/24 09/17/24 10:25 Currently or been in a relationship where the following occur: No concerns reported Const General: cooperative, comfortable and no acute distress Orientation/consciousness: patient oriented x3 Resp Other: On 2L of Oxygen via NC Effort & Inspection: normal respiratory effort and able to speak in complete sentences Auscultation: clear to auscultation bilaterally, no crackles, no rales, no rhonchi and no wheezes Cardio Heart sounds: S1 normal heart sound present and S2 normal heart sound present Neuro General: patient oriented x3 Coding Level of Care Code TCM Mod MDM <= 14 Days Diagnoses COPD with acute exacerbation J44.1 Time Spent (min) 20 Assessment & Plan Assessment & Plan (1) COPD with acute exacerbation: Code(s): J44.1 - Chronic obstructive pulmonary disease with (acute) exacerbation Category: Medical Plan: Managed by Pulmonology (Dr. Yusuf) Has an Appointment on Friday.
--- OUTSIDE RECORDS SUMMARY | 2024-09-17 11:13 | XMS_ITS | Clinical Summary ---
Author Organization [facility] Address [address] [place] [address] Care Team Providers Care Laborer Pipeline Name Role Phone Tila Mcclure MD Primary Care Provider [phone] Tila Mcclure MD Unavailable [phone] Allergies No known active allergies Medications Medication Sig Dispensed Refills Start Date End Date Status alendronate (FOSAMAX) 70 MG tablet Take 70 mg by mouth once a week. Take Friday morning 10/23/2021 Active finasteride (PROSCAR) 5 MG tablet Take 5 mg by mouth daily. 11/30/2021 Active fluticasone-salmet marisela (ADVAIR) 250-50 mcg/inh diskus inhaler Inhale 1 puff 2 (two) times a day. 11/16/2021 Active lisinopril (PRINIVIL,ZeSTRIL) 5 MG tablet Take 5 mg by mouth daily. 11/28/2021 Active OMEprazole (PriLOSEC) 20 MG capsule Take 20 mg by mouth daily. 11/14/2021 Active pilocarpine (SALAGEN) 5 MG tablet Take 5 mg by mouth 2 (two) times a day. 11/14/2021 Active sertraline (ZOLOFT) 50 MG tablet Take 50 mg by mouth daily. 10/28/2021 Active simvastatin (ZOCOR) 10 MG tablet Take 10 mg by mouth nightly. 11/30/2021 Active tamsulosin (FLOMAX) 0.4 MG capsule Take 0.4 mg by mouth nightly. 11/30/2021 Active Multiple Vitamins-Minerals (One-A-Day Mens 50+) Tab Take 1 tablet by mouth daily. Active diphenhydrAMINE-AP AP, sleep, (TYLENOL PM EXTRA STRENGTH PO) Take 1 tablet by mouth daily as needed (pain/ sleep). Active melatonin 5 MG Tab tablet Take 5 mg by mouth nightly. Active OxygenIndications: CAP (community acquired pneumonia) due to Chlamydia species,Chronic obstructive pulmonary disease, unspecified COPD type ([facility]) Oxygen 2 liters via nasal canula No humidification LOS 99 ICD code 10 J44.9 1 each 12/07/2021 Active predniSONE (DELTASONE) 10 MG tabletIndications: Chronic obstructive pulmonary disease, unspecified COPD type (HCC) Take 1 tablet (10 mg total) by mouth daily. With food. Taper. Take 2 tabs x 3d, then 1 tab x 3d Do not start before December 10, 2021. 9 tablet 12/10/2021 Active Active Problems Problem Noted Date Diagnosed Date Moderate protein-calorie mal nutrition (HCC) w/ 12% wt loss in 4 months, moderate muscle wasting (temporal, clavicle, interosseous), moderate fat loss (tricep, orbital) 12/07/2021 CAP (community acquired pneumonia) due to Chlamy chuyita species 12/02/2021 Resolved Problems Problem Noted Date Diagnosed Date Resolved Date Septic shock 12/02/2021 10/23/2023 Family History Medical History Relation Name Comments Hypertension Mother Stroke Mother Relation Name Status Comments Mother Social History Tobacco Use Types Packs/Day Years Used Date Smoking Tobacco: Never Assessed Sex and Gender Information Value Date Recorded Sex Assigned at Not on file Gender Identity Not on file Sexual Orientation Not on file Last Filed Vital Signs Vital Sign Reading Time Taken Comments Blood Pressure 113/58 12/09/2021 4:00 PM EDT Pulse 105 12/09/2021 4:00 PM EDT Temperature 36.4 ??C (97.5 ??F) 12/09/2021 4:00 PM ED T Respiratory Rate 18 12/09/2021 4:00 PM EDT Oxygen Saturation 93% 12/09/2021 4:00 PM EDT Inhaled Oxygen Concentration - - Weight 63.7 kg (140 lb 6.9 oz) 12/03/2021 6:00 A M EDT Height 165.1 cm (5' 5 ) 12/03/2021 6:00 AM EDT Body Mass Index 23.37 12/03/2021 6:00 AM EDT Plan of Treatment Health Maintenance Due Date Last Done Comments Hepatitis C Virus Screening 1945 DTaP/Tdap/Td Vaccines (1 - Tdap) 02/21/1964 Pneumococcal Vaccines 50+ (1 of 2 - PCV) 02/21/1964 Zoster (Shingles) Vaccine (1 of 2) 1995 RSV Vaccine 60 years and older and Patients (1 - 1-dose 75+ series) 02/21/2020 Influenza Vaccine 03/11/2024 04/29/2019, , 04/27/2017, Additional history exists COVID-19 Vaccine ( season) 2024 10/03/2020, 09/12/2020 Hepatitis B Vaccines Aged Out No long er eligible based on patient's age to complete this topic Advance Directives * Full Code (Latest Code Status on File) Date Activated Date Inactivated Comments 12/02/2021 2:40 AM Care Teams Laborer Pipeline Relationship Specialty Start Date End Date Tila Mcclure MD [address] [place] [address] [place] [id number] PCP - General Internal Medicine 12/05/21 Tila Mcclure MD [address] [place] [address] [place] [id number] Internal Medicine 12/05/21
--- OUTSIDE RECORDS SUMMARY | 2024-09-17 11:14 | XMS_ITS | Data Portability ---
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 [id number] Active 2020 Malignant neoplasm of pharyngea l tonsil; Note: Date Diagnosed : 02/09/2021 2:43 PM (C11.1) Not Available [facility] 4 03:29:21 Dysphagia [id number] Active 2022 Dysphagia , unspecifi ed; Note: Date Diagnosed : 01/22/2023 2:16 PM (R13.10) Not Available [facility] 4 03:29:21 Follow-up visit Active 2021 Encounter for follow-up examinati on after completed treatment for malignant neoplasm; Note: Date Diagnosed : 06/13/2022 11:00 AM (Z08) Not Available [facility] 4 03:29:22 History of malignant neoplasm of tonsil [id number] 102 Active 2023 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 Procedures Surgical History Date Name Laterality Status Provider Name and Address Organization Details Recorded Time 04/22/2024 FOL_DP completed LINDA EDOUARD MD [address], [place], [address], [place] - [facility] 04/21/2024 17:36:01 Imaging Results Imaging Date Name [...] Name and Address Organization Details Recorded Time [id number] hydrocodo ne Not available other Not available Not available 12/23/2023 5489 RxNorm React ion: other react ion, Unkno wn; Not Available [facility] 01:27:22 Medications Name Sig Start Date Stop Date Status Note LastModified by Organization Details LastModified Time fluticaso ne 250 mcg-salme terol 50 mcg/dose blistr powdr for inhalatio n active Medicati on ID: [id number] B rand Name: fluticas one propion- salmeter [...] mg capsule 08/13 completed Medicati on ID: [id number] B rand Name: tamsulos in Send Method: [...] mg tablet 08/13 completed Medicati on ID: [id number] B rand Name: sertrali ne Send Method: E-Prescr ibed Sub s Allowed: subs OK Speci al Instruct ion: TAKE 1 TABLET BY MOUTH DAILY Me dication GenericN jolynn: sertrali ne Not Available Not Available Not Available finasteri de 5 mg tablet 08/13 completed Medicati on ID: [id number] B rand Name: finaster julia Send Method: E-Prescr ibed Sub s Allowed: subs OK Speci al Instruct ion: TAKE 1 TABLET BY MOUTH DAILY Me dication GenericN jolynn: finaster julia Not Available Not Available Not Available amoxicill in 875 mg-potass ium clavulana te 125 mg tablet 08/13 completed Medicati on ID: [id number] B rand Name: amoxicil myra-pot clavulan ate [...] SNOMED-CT Code Diagnosis ICD10 Code Diagnosis Note [id number] LINDA EDOUARD MD [facility] [address] [address] 04/22/2024 09:41:53 04/22/2024 10:24:54 History of malignant neoplasm of tonsil [id number] 9102 Z85.818 Health Concerns Section Related Observation LastModified by Organization Detai ls LastModified Time None Recorded Concern Status LastModified by Organization Details LastModified Time None Recorded Advance Directives Directive None Recorded Payers Encounter Date Sequence Insurance Name Policy Number Policy Ramsay Covered Member ID Ramsay Member ID Guarantor Name 04/22/2024 1 [facility] - DOS ON OR AFTER 2022 - MEDICARE [place]VANTAGE [place] (MEDICARE [place]PLACEMENT/ADV ANTAGE - PPO) Dragan Gagnon [id number] Dragan Gagnon Notes Date Note Type Note Provider Name and Address Organization Details Recorded Time 04/22/2024 text/html Primary tumor location: Right tonsil SCCA p16+ Tumor staging: [id number]: chemo XRTDate of treatment completion: 05/29/21Oncology team: Antonio De Los Santos feels an occasional tight in right neck, relaxes after a minute LINDA EDOUARD MD [address] [place] [address], [place], [phone], [facility] - [facility] 04/22/2024 10:21:31
== END 2024-09-17 10:47 | disposition home or self-care (01) ==
PROVIDERS: PCP Internal Medicine; Visit Provider Nurse Practitioner Family
DX: J44.1 Chronic obstructive pulmonary disease with (acute) exacerbation (principal)

== ENCOUNTER → 2024-09-17 10:17 | Outpatient (BNVA) | payer MEDICARE, SELFPAY | PROVIDERS: PCP Internal Medicine; Visit Provider Nurse Practitioner Family | DX: J44.1 Chronic obstructive pulmonary disease with (acute) exacerbation (principal) | CPT/HCPCS: 99212 ==

== ENCOUNTER 2024-09-20 13:39 | Outpatient (AMB) | payer MEDICARE, SELFPAY ==
[2024-09-20 13:41] VITALS: BP 140/60; PULSE 83; O2SAT 90; BMI 22.2
--- NOTE | 2024-09-20 13:41 | A.OFFVIS_ITS ---
Vital Signs 09/20/24 13:41 Height 5 ft 5 in Weight 133 lb 6.075 oz BMI 22.2 BP 140/60 H Blood Pressure Location Lt brachial Position Sitting Pulse 83 Pulse Source Pulse Oximeter Pulse Oximetry (%) 90 L Oxygen Delivery Method Room Air Intake Visit Reasons: copd Intake Note: pt is here for follow up and states his breathing is okay, since last Friday taking breaks, with oxygen stating around 93-94, and using it at night on 2 liters. 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 Required: No Allergies Sulfa (Sulfonamide Antibiotics) [SULFA (SULFONAMIDE ANTIBIOTICS)] Allergy (Unknown, Verified 09/20/24 14:15) RASH hydrocodone [HYDROCODONE] Adverse Reaction (Severe, Verified 09/20/24 14:15) severe constipation oxycodone Adverse Reaction (Severe, Verified 09/20/24 14:15) severe constipation Medication List - Last Reconciled 09/20/24 by Niranjan Yusuf MD albuterol sulfate 90 mcg/actuation 2 puffs inhalation Q4H PRN 60 days alendronate 70 mg PO ROLDAN fluticasone propion-salmeterol 250-50 mcg/dose (Wixela Inhub) 1 inh inhalation BID 30 days lisinopril 10 mg PO DAILY melatonin 10 mg PO BEDTIME PRN mirtazapine 15 mg (2 x 7.5 mg) PO BEDTIME multivitamin 1 tab PO DAILY nystatin 1 mL PO QID PRN omeprazole 20 mg PO DAILY@0630 simvastatin 10 mg PO BEDTIME Do you need a note to return to daycare/school/sports/work: No HPI HPI copd: Details: THIS 79 YEARS OLD VERY PLEASANT GENTLEMAN WITH HISTORY OF CHRONIC OBSTRUCTIVE PULMONARY DISEASE AND ALSO HISTORY OF TONSILLAR CARCINOMA MANY YEARS AGO, WAS ADMITTED TO THE HOSPITAL JUST THE 2 WEEKS AGO WITH MULTIFOCAL PNEUMONIA AND ACUTE EXACERBATION OF COPD. HE RECOVERED QUITE WELL WITH USUAL TREATMENT INCLUDING IV STEROIDS THEN CHANGED TO ORAL PREDNISONE, AND ANTIBIOTICS. DISCHARGED HOME ON O2 2 L/MINUTE AT NIGHT AND TO USE P.R.N. DURING THE DAYTIME. HE CLAIMS THAT HE IS DOING OKAY SINCE HE WENT HOME. HAS VERY LITTLE RESIDUAL. COUGH OR EXPECTORATION HE HAS HAD NO FEVER. HE DOES USE OXYGEN AT NIGHT AND ONLY P.R.N. DURING THE DAYTIME WHEN HE GOES OUTDOORS. HIS MAIN ISSUE IS THAT THE PORTABLE CYLINDER IS TOO HEAVY TO CARRY AND HE WOULD LIKE TO GET A SMALL CONSERVING UNIT FOR EASY PORTABILITY. AT PRESENT HE DOES NOT HAVE MUCH COUGH OR EXPECTORATION. HE HAS COMPLETED THE COURSE OF PREDNISONE. HE IS USING WIXELA 250-51 INHALATION B.I.D. AND ALBUTEROL ONLY P.R.N.. 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 Mother Hypertension CVD (cardiovascular disease) Cancer Social History Household Members: Spouse Housing: House Are you a primary veterinarian laboratory animal care to a significant other at home: No Do you presently have visiting nurse or other home services: No Alcohol intake: never Patient Tobacco Use Status: Former Tobacco user Tobacco use type: Cigarette Cigarette Packs Per Day: 1 Cigarettes Per Day: 20.0 Years Smoked: 35 e-Cigarette/Vaping Use: Never Used Second Hand Smoke Exposure: Yes (marijuana) service: No Current occupational status: retired Cognitive needs: No Hearing needs: No Vision needs: Yes Review of Systems Const All systems reviewed & are unremarkable except as noted in HPI and below Eyes Reports no additional complaints ENT Reports no additional complaints Card Denies chest pain, Denies irregular heart rhythm and Denies leg edema Resp Reports as per HPI GI Reports constipation Reports no additional complaints Musc Reports back pain (Mild) Skin/Breast Reports system reviewed and no additional complaints, except as documented Neuro Reports no additional complaints Psych Reports depression (Well controlled with med) Endo Reports no additional complaints Physical Exam Vital Signs: Last Vital Signs Pulse 83 09/20/24 13:41 BP 140/60 H 02/10/25 13:41 Pulse Ox 90 L 09/20/24 13:41 Oxygen Delivery Method Room Air 09/20/24 13:41 BMI result Body Mass Index 22.2 Const General: comfortable, no acute distress, alert and awake Orientation/consciousness: patient oriented x3 HEENT Head: Yes normal to inspection General nose exam: No nasal polyps present and No nasal discharge present Face and sinus: Yes sinuses nontender Mouth: oropharynx normal Throat: Yes posterior oropharynx normal Eyes General: appearance normal, both eyes and all related structures Neck Neck: Yes normal visual inspection, Yes no lymphadenopathy, Yes trachea midline and Yes no JVD Thyroid: Thyroid normal Chest Chest palpation & inspection: normal inspection of the chest, normal palpation of entire chest wall and no tenderness Resp Other: Percussion note hyper-resonant, breath sounds are equal on both sides but distant with prolonged expiratory phase. Both lungs are clear and there are no audible wheezes or Creps. Cardio Palpation: normal PMI Rate: regular rate Rhythm: regular rhythm Heart sounds: no gallops and no murmurs Peripheral pulses: Peripheral pulses 2+ throughout GI Palpation (GI): Soft to palpation, nontender, No hepatosplenomegaly present and no masses Auscultation: normal bowel sounds Back/Spine/Pelvis Thoracic/Lumbar Spine: thoracic and lumbar spine normal to inspection Skin General skin exam: no rashes or lesions noted Neuro General: patient oriented x3 and no focal motor deficits Cranial nerves: Yes CN's II-XII intact bilaterally Extrem General: Yes normal to inspection, Yes no clubbing, cyanosis or edema and Yes no calf tenderness Psych Appearance: grossly normal and well kempt Speech and movement: Normal speech and movement present Assessment & Plan Assessment & Plan (1) COPD with acute exacerbation: Comment: RECENTLY TREATED IN HOSPITAL FOR ACUTE EXACERBATION OF COPD SECONDARY TO MULTILOBAR PNEUMONIA. HE HAS RECOVERED QUITE WELL AND SEEM TO BE BACK TO HIS BASELINE. Code(s): J44.1 - Chronic obstructive pulmonary disease with (acute) exacerbation Category: Medical Plan: CONTINUE WIXELA 250-51 INHALATION B.I.D.. ALBUTEROL HFA 2 PUFFS Q 4-6 HOURS P.R.N.. (2) Pneumonia: Comment: Treated for multifocal pneumonia complicating chronic obstructive pulmonary disease, He seems to have recovered well but still has some residual general weakness. Chest x-ray is ordered for follow-up. 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 LUCKILY NO RECURRENCE. HAS INTERMITTENT DIFFICULTY IN SWALLOWING. BUT NOW DOING OKAY WITH SOFT DIET. Code(s): C09.9 - Malignant neoplasm of tonsil, unspecified Category: Medical Plan: ABOVE (4) Hypoxemia: Comment: Post hospital discharge he was on oxygen supplementation, AT HOME . HE DOES HAVE NOCTURNAL HYPOXEMIA WELL EXERCISE INDUCED HYPOXEMIA 6 MINUTES WALK TODAY SHOWS THAT HE DESATURATES QUICKLY WITHIN A FEW MINUTES OF WALKING. HE WAS TRIED FOR OXYGEN CONSERVING UNIT, AND HE CAN MAINTAIN HIS O2 SAT ABOVE 90% WITH 3 L/MINUTE. Code(s): R09.02 - Hypoxemia Category: Medical Plan: HE DOES HAVE O2 CONCENTRATOR AT HOME AND IS ADVISED TO USE O2 2 L/MINUTE DURING NIGHT WHEN SLEEPING. DURING THE DAYTIME WHEN HE NEEDS PORTABLE O2 WE WILL ORDER A POC FOR HIM AND HE WAS USE AT 3 L/MINUTE. Orders: Orders XR chest 2V Today J18.9 - Pneumonia, unspecified organism Coding Level of Care Code Est Pt Level 4 (31348) Diagnoses COPD with acute exacerbation J44.1 Pneumonia J18.9 Tonsillar cancer C09.9 Hypoxemia R09.02
[2024-09-20 14:52] VITALS: PULSE 85; O2SAT 94
--- NOTE | 2024-09-21 08:51 | MHC.OFFVIS ---
Vital Signs 09/20/24 13:41 Height 5 ft 5 in Weight 133 lb 6.075 oz BMI 22.2 BP 140/60 H Blood Pressure Location Lt brachial Position Sitting Pulse 83 Pulse Source Pulse Oximeter Pulse Oximetry (%) 90 L Oxygen Delivery Method Room Air Intake Visit Reasons: copd Allergies Sulfa (Sulfonamide Antibiotics) [SULFA (SULFONAMIDE ANTIBIOTICS)] Allergy (Unknown, Verified 09/20/24 14:15) RASH hydrocodone [HYDROCODONE] Adverse Reaction (Severe, Verified 09/20/24 14:15) severe constipation oxycodone Adverse Reaction (Severe, Verified 09/20/24 14:15) severe constipation Medication List - Last Reconciled 09/20/24 by Niranjan Yusuf MD albuterol sulfate 90 mcg/actuation 2 puffs inhalation Q4H PRN 60 days alendronate 70 mg PO ROLDAN fluticasone propion-salmeterol 250-50 mcg/dose (Wixela Inhub) 1 inh inhalation BID 30 days lisinopril 10 mg PO DAILY melatonin 10 mg PO BEDTIME PRN mirtazapine 15 mg (2 x 7.5 mg) PO BEDTIME multivitamin 1 tab PO DAILY nystatin 1 mL PO QID PRN omeprazole 20 mg PO DAILY@0630 simvastatin 10 mg PO BEDTIME PFSH Medical History (Updated 09/21/24 @ 08:55 by Niranjan Yusuf MD) Hypoxemia Pneumonia COPD with acute exacerbation COPD (chronic obstructive pulmonary disease) Preop exam for internal medicine Generalized anxiety disorder 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 Mother Hypertension CVD (cardiovascular disease) Cancer Social History Household Members: Spouse Housing: House Are you a primary care management specialist to a significant other at home: No Do you presently have visiting nurse or other home services: No Alcohol intake: never Patient Tobacco Use Status: Former Tobacco user Tobacco use type: Cigarette Cigarette Packs Per Day: 1 Cigarettes Per Day: 20.0 Years Smoked: 35 e-Cigarette/Vaping Use: Never Used Second Hand Smoke Exposure: Yes (marijuana) service: No Current occupational status: retired Cognitive needs: No Hearing needs: No Vision needs: Yes Physical Exam Vital Signs: Last Vital Signs Pulse 83 09/20/24 13:41 BP 140/60 H 09/20/24 13:41 Pulse Ox 90 L 09/20/24 13:41 Oxygen Delivery Method Room Air 09/20/24 13:41 BMI result Body Mass Index 22.2 Office Procedures 6 Minute Walk Supplemental Oxygen: Patient currenty on 2lpm cont flow O2 pt ambulated on level ground on 2lpm pulsed O2 without assist, after 4 minutes O2 decreased to 88 increased the O2 3lpm pulsed O2 sat 94% Recommend Pulsed @ 3lpm with exertion. 6 Minute Walk (with oxygen) Time:: 13:40 SPO2 % at rest:: 94 Pulse at rest:: 85 SPO2 % during exercise:: 88 Pulse during exercise:: 104 SPO2 % after exercise: 92 Pulse after exercise:: 100 Distance in yards walked:: 230 Sarah Score:: 8 [id number] - 6 Minute Walk Quality Reporting (2019) Adult ([facility] ) Body Mass Index: 22.2 Assessment & Plan Assessment & Plan (1) COPD with acute exacerbation: Comment: RECENTLY TREATED IN HOSPITAL FOR ACUTE EXACERBATION OF COPD SECONDARY TO MULTILOBAR PNEUMONIA. HE HAS RECOVERED QUITE WELL AND SEEM TO BE BACK TO HIS BASELINE. Code(s): J44.1 - Chronic obstructive pulmonary disease with (acute) exacerbation Category: Medical Plan: Continue baseline medications as follows : WIXELA 250-51 INHALATION B.I.D. ALBUTEROL HFA 2 PUFFS Q 4-6 HOURS P.R.N. O2 2 L/MINUTE AT NIGHT AND AT REST DURING THE DAYTIME AND 3 L/MINUTE WITH PORTABLE UNIT. (2) Pneumonia: Comment: Treated for multifocal pneumonia complicating chronic obstructive pulmonary disease, He seems to have recovered well but still has some residual general weakness. CHEST X-RAY, REVIEWED, AND THE PREVIOUSLY NOTED CONSOLIDATIONS HAVE RESOLVED. 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 LUCKILY NO RECURRENCE. HAS INTERMITTENT DIFFICULTY IN SWALLOWING. BUT NOW DOING OKAY WITH SOFT DIET. Code(s): C09.9 - Malignant neoplasm of tonsil, unspecified Category: Medical Plan: ADVISED TO BE CAREFUL 1 EATING AND AVOID ANY POSSIBILITY OF ASPIRATION. (4) Hypoxemia: Comment: Post hospital discharge he was on oxygen supplementation, AT HOME . HE DOES HAVE NOCTURNAL HYPOXEMIA WELL EXERCISE INDUCED HYPOXEMIA 6 MINUTES WALK TODAY SHOWS THAT HE DESATURATES QUICKLY WITHIN A FEW MINUTES OF WALKING. HE WAS TRIED FOR OXYGEN CONSERVING UNIT, AND HE CAN MAINTAIN HIS O2 SAT ABOVE 90% WITH 3 L/MINUTE. Code(s): R09.02 - Hypoxemia Category: Medical Plan: POC UNIT IS ORDERED, FOR USE WHEN HE GOES OUTDOORS. Orders: Orders XR chest 2V 09/20/24 J18.9 - Pneumonia, unspecified organism Coding Level of Care Code Est Pt Level 3 (46197) Diagnoses COPD with acute exacerbation J44.1 Pneumonia J18.9 Tonsillar cancer C09.9 Hypoxemia R09.02 CPT Codes Coding ([id number])
[2024-09-21 08:56] VITALS: BMI 22.2
== END 2024-09-20 14:11 | disposition home or self-care (01) ==
PROVIDERS: PCP Internal Medicine; Visit Provider Internal Medicine
DX: J44.1 Chronic obstructive pulmonary disease with (acute) exacerbation (principal); J18.9 Pneumonia, unspecified organism; C09.9 Malignant neoplasm of tonsil, unspecified; R09.02 Hypoxemia
CPT/HCPCS: 94618; 99213; 99214

== ENCOUNTER 2024-09-20 13:39 | Outpatient (REF) | payer MEDICARE, SELFPAY ==
--- NOTE | ~2024-09-20 | XR_ITS ---
EXAMINATION: XR CHEST CLINICAL INFORMATION: J18.9 - Pneumonia, unspecified organism COMPARISON: 02/01/2025. TECHNIQUE: 2 views of the chest were obtained. FINDINGS: The cardiac, hilar, and mediastinal contours are normal. The lungs are diffusely hyperaerated, however clear bilaterally. Previously seen airspace opacities have resolved. Flattened hemidiaphragms. There is no pneumothorax or pleural effusion. Healed fracture deformity right proximal humerus. Mild wedge compression deformity T4, T5, and kyphoplasty cement seen in T6, as well as T12. XR/XR chest 2V IMPRESSION: 1. COPD. Resolution of previously seen airspace disease. Electronically signed by: Bartolo Sweet MD 09/20/2024 03:41 PM ZUNILDA
--- OUTSIDE RECORDS SUMMARY | 2024-09-20 15:51 | XMS_ITS | Clinical Summary ---
Author Organization [facility] Address [address] [place] [address] Care Team Providers Care Frame Builder Name Role Phone Tila Mcclure MD Primary Care Provider [phone] Tila Mcclure MD Unavailable [phone] Allergies No known active allergies Medications [...] species,Chronic obstructive pulmonary disease, unspecified COPD type ([facility]) Oxygen 2 liters via nasal canula No [...] Inactivated Comments 12/02/2021 2:40 AM Care Teams Frame Builder Relationship Specialty Start Date End Date Tila Mcclure MD [address] [place] [address] [place] [id number] PCP - General Internal Medicine 12/05/21 Tila Mcclure MD [address] [place] [address] [place] [id number] Internal Medicine 12/05/21
== END 2024-09-20 13:40 | disposition home or self-care (01) ==
LOC: HO.XRAY 13:39
PROVIDERS: PCP Internal Medicine; Visit Provider Internal Medicine
DX: J44.1 Chronic obstructive pulmonary disease with (acute) exacerbation (principal); R09.02 Hypoxemia; Z87.01 Personal history of pneumonia (recurrent); Z85.818 Personal history of malignant neoplasm of other sites of lip, oral cavity, and pharynx; Z92.3 Personal history of irradiation; Z92.21 Personal history of antineoplastic chemotherapy
CPT/HCPCS: 71046; 94618; 99212

== ENCOUNTER → 2024-09-20 14:37 | Outpatient (BNV) | payer MEDICARE, SELFPAY | PROVIDERS: PCP Internal Medicine; Visit Provider Radiology Diagnostic Radiology | DX: J18.9 Pneumonia, unspecified organism (principal); J44.9 Chronic obstructive pulmonary disease, unspecified | CPT/HCPCS: 71046 ==

== ENCOUNTER 2024-10-19 10:18 | Outpatient (AMB) | payer MEDICARE, SELFPAY ==
[2024-10-19 11:09] VITALS: BP 120/68; PULSE 63; O2SAT 96; BMI 23.5
--- NOTE | 2024-10-19 11:09 | A.OFFVIS_ITS ---
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 Required: No Allergies Sulfa (Sulfonamide Antibiotics) [SULFA (SULFONAMIDE ANTIBIOTICS)] Allergy (Unknown, Verified 10/19/24 11:36) RASH hydrocodone [HYDROCODONE] Adverse Reaction (Severe, Verified 10/19/24 11:36) severe constipation oxycodone Adverse Reaction (Severe, Verified 10/19/24 11:36) severe constipation Medication List - Last Reconciled 10/19/24 by Niranjan Yusuf MD albuterol sulfate 90 mcg/actuation 2 puffs inhalation Q4H PRN 60 days alendronate 70 mg PO ROLDAN fluticasone propion-salmeterol 250-50 mcg/dose (Wixela Inhub) 1 inh inhalation BID 30 days lisinopril 10 mg PO DAILY melatonin 10 mg PO BEDTIME PRN mirtazapine 15 mg (2 x 7.5 mg) PO BEDTIME multivitamin 1 tab PO DAILY nystatin 1 mL PO QID PRN omeprazole 20 mg PO DAILY@0630 simvastatin 10 mg PO BEDTIME Do you need a note to return to daycare/school/sports/work: No HPI HPI copd: Details: THIS 79 YEARS OLD VERY PLEASANT GENTLEMAN IS HERE FOR A SHORT TERM FOLLOW-UP. HE HAS BEEN DOING WELL SINCE HIS LAST VISIT. THE NOTE PER LAST VISIT HIS RECENT PNEUMONIA HAD RESOLVED. HE CONTINUES TO USE WIXELA 250-51 INHALATION B.I.D. AND HARDLY NEEDS TO USE THE RESCUE INHALER. HE DOES USE OXYGEN 24 HOURS A DAY AND IS HAPPY WITH HIS POC. HE CLAIMS THAT HE REMAINS ACTIVE AND WALKS AROUND DURING THE DAY, WITHOUT MUCH SHORTNESS OF BREATH. 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 Mother Hypertension CVD (cardiovascular disease) Cancer Social History Household Members: Spouse Housing: House Are you a primary medical care administrator to a significant other at home: No Do you presently have visiting nurse or other home services: No Alcohol intake: never Patient Tobacco Use Status: Former Tobacco user Tobacco use type: Cigarette Cigarette Packs Per Day: 1 Cigarettes Per Day: 20.0 Years Smoked: 35 e-Cigarette/Vaping Use: Never Used Second Hand Smoke Exposure: Yes (marijuana) service: No Current occupational status: retired Cognitive needs: No Hearing needs: No Vision needs: Yes Review of Systems Const All systems reviewed & are unremarkable except as noted in HPI and below Eyes Reports no additional complaints ENT Reports no additional complaints Card Denies chest pain, Denies irregular heart rhythm and Denies leg edema Resp Reports as per HPI GI Reports constipation Reports no additional complaints Musc Reports back pain (Mild) Skin/Breast Reports system reviewed and no additional complaints, except as documented Neuro Reports no additional complaints Psych Reports depression (Well controlled with med) Endo Reports no additional complaints Physical Exam Vital Signs: Last Vital Signs Pulse 63 10/19/24 11:09 BP 120/68 10/19/24 11:09 Pulse Ox 96 10/19/24 11:09 Oxygen Delivery Method Nasal Cannula 10/19/24 11:09 Oxygen Flow Rate 2 10/19/24 11:09 BMI result Body Mass Index 23.5 Const General: comfortable, no acute distress, alert and awake Orientation/consciousness: patient oriented x3 HEENT Head: Yes normal to inspection General nose exam: No nasal polyps present and No nasal discharge present Face and sinus: Yes sinuses nontender Mouth: oropharynx normal Throat: Yes posterior oropharynx normal Eyes General: appearance normal, both eyes and all related structures Neck Neck: Yes normal visual inspection, Yes no lymphadenopathy, Yes trachea midline and Yes no JVD Thyroid: Thyroid normal Chest Chest palpation & inspection: normal inspection of the chest, normal palpation of entire chest wall and no tenderness Resp Other: Percussion note hyper-resonant, breath sounds are equal on both sides but distant with prolonged expiratory phase. Both lungs are clear and there are no audible wheezes or Creps. Cardio Palpation: normal PMI Rate: regular rate Rhythm: regular rhythm Heart sounds: no gallops and no murmurs Peripheral pulses: Peripheral pulses 2+ throughout GI Palpation (GI): Soft to palpation, nontender, No hepatosplenomegaly present and no masses Auscultation: normal bowel sounds Back/Spine/Pelvis Thoracic/Lumbar Spine: thoracic and lumbar spine normal to inspection Skin General skin exam: no rashes or lesions noted Neuro General: patient oriented x3 and no focal motor deficits Cranial nerves: Yes CN's II-XII intact bilaterally Extrem General: Yes normal to inspection, Yes no clubbing, cyanosis or edema and Yes no calf tenderness Psych Appearance: grossly normal and well kempt Speech and movement: Normal speech and movement present Assessment & Plan Assessment & Plan (1) COPD with acute exacerbation: Comment: RECENTLY TREATED IN HOSPITAL FOR ACUTE EXACERBATION OF COPD SECONDARY TO MULTILOBAR PNEUMONIA. HE HAS RECOVERED QUITE WELL AND SEEM TO BE BACK TO HIS BASELINE. CLAIMS THAT HE IS DOING WELL AND AT THIS TIME, SHORTNESS OF BREATH IS DOWN TO MINIMAL, LONG HE USES O2. Code(s): J44.1 - Chronic obstructive pulmonary disease with (acute) exacerbation Category: Medical Plan: CONTINUE WIXELA 250-51 INHALATION B.I.D. AND ALBUTEROL HFA 2 PUFFS Q 6 HOURS P.R.N. (2) Hypoxemia: Comment: Post hospital discharge he was on oxygen supplementation, AT HOME . HE DOES HAVE NOCTURNAL HYPOXEMIA WELL EXERCISE INDUCED HYPOXEMIA 6 MINUTES WALK ON LAST VISIT SHOWED THAT HE DESATURATES QUICKLY WITHIN A FEW MINUTES OF WALKING. HE WAS TRIED FOR OXYGEN CONSERVING UNIT, AND HE CAN MAINTAIN HIS O2 SAT ABOVE 90% WITH 3 L/MINUTE. HE IS USING POC FOR OUTDOORS AND IS VERY HAPPY WITH THAT. Code(s): R09.02 - Hypoxemia Category: Medical Plan: CONTINUE USING O2 2 L/MINUTE AT HOME AND ALSO 3 L/MINUTE WITH THE PORTABLE UNIT WHEN HE GOES OUTDOORS (3) Pulmonary nodule: Comment: PET scan September 30 4.7 cm right lateral lung Code(s): R91.1 - Solitary pulmonary nodule Category: Medical Plan: HE HAS HAD MULTIPLE PULMONARY NODULES. THE LAST CT SCAN IN 2023 SHOWED THAT THERE IS NO FURTHER CHANGE, AND THE MULTIPLE NODULES ARE MOSTLY CALCIFIED. Coding Level of Care Code Est Pt Level 3 (33229) Diagnoses COPD with acute exacerbation J44.1 Hypoxemia R09.02 Pulmonary nodule R91.1
--- OUTSIDE RECORDS SUMMARY | 2024-10-19 12:11 | XMS_ITS | Clinical Summary ---
Author Organization [facility] Address [address] [place] [address] Care Team Providers Care Projection Technician Name Role Phone Tila Mcclure MD Primary Care Provider [phone] Tila Mcclure MD Unavailable [phone] Allergies No known active allergies Medications [...] species,Chronic obstructive pulmonary disease, unspecified COPD type ([facility]) Oxygen 2 liters via nasal [...] Inactivated Comments 12/02/2021 2:40 AM Care Teams Projection Technician Relationship Specialty Start Date End Date Tila Mcclure MD [address] [place] [address] [place] [id number] PCP - General Internal Medicine 12/05/21 Tila Mcclure MD [address] [place] [address] [place] [id number] Internal Medicine 12/05/21
--- OUTSIDE RECORDS SUMMARY | 2024-10-19 12:11 | XMS_ITS | Data Portability ---
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 431970103 Active 2020 Malignant neoplasm of pharyngea l tonsil; Note: Date Diagnosed : 02/09/2021 2:43 PM (C11.1) Not Available [facility] 4 03:29:21 Dysphagia 88046705 Active 2022 Dysphagia , unspecifi ed; Note: Date Diagnosed : 01/22/2023 2:16 PM (R13.10) Not Available [facility] 4 03:29:21 Follow-up visit Active 2021 Encounter for follow-up examinati on after completed treatment for malignant neoplasm; Note: Date Diagnosed : 06/13/2022 11:00 AM (Z08) Not Available [facility] 4 03:29:22 History of malignant neoplasm of tonsil [id number] 102 Active 2023 Primary tumor location: Right tonsil SCCA p16+ T umor staging: 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 Procedures Surgical History Date Name Laterality Status Provider Name and Address Organization Details Recorded Time 04/22/2024 FOL_DP completed LINDA EDOUARD MD [address], [place], [address], [place] - [facility] 04/21/2024 17:36:01 Imaging Results Imaging Date Name [...] Name and Address Organization Details Recorded Time 985209 hydrocodo ne Not available other Not available Not available 12/23/2023 5489 RxNorm React ion: other react ion, Unkno wn; Not Available [facility] 01:27:22 Medications Name Sig Start Date Stop Date Status Note LastModified by Organization Details LastModified Time fluticaso ne 250 mcg-salme terol 50 mcg/dose blistr powdr for inhalatio n active Medicati on ID: [id number] B rand Name: fluticas one propion- salmeter [...] mg capsule 08/13 completed Medicati on ID: [id number] B rand Name: tamsulos in Send Method: [...] mg tablet 08/13 completed Medicati on ID: [id number] B rand Name: sertrali ne Send Method: E-Prescr ibed Sub s Allowed: subs OK Speci al Instruct ion: TAKE 1 TABLET BY MOUTH DAILY Me dication GenericN jolynn: sertrali ne Not Available Not Available Not Available finasteri de 5 mg tablet 08/13 completed Medicati on ID: [id number] B rand Name: finaster julia Send Method: E-Prescr ibed Sub s Allowed: subs OK Speci al Instruct ion: TAKE 1 TABLET BY MOUTH DAILY Me dication GenericN jolynn: finaster julia Not Available Not Available Not Available amoxicill in 875 mg-potass ium clavulana te 125 mg tablet 08/13 completed Medicati on ID: [id number] B rand Name: amoxicil myra-pot clavulan ate [...] SNOMED-CT Code Diagnosis ICD10 Code Diagnosis Note [id number] LINDA EDOUARD MD [facility] [address] [address] 04/22/2024 09:41:53 04/22/2024 10:24:54 History of malignant neoplasm of tonsil [id number] 9102 Z85.818 Health Concerns Section Related Observation LastModified by Organization Detai ls LastModified Time None Recorded Concern Status LastModified by Organization Details LastModified Time None Recorded Advance Directives Directive None Recorded Payers Encounter Date Sequence Insurance Name Policy Number Policy Ramsay Covered Member ID Ramsay Member ID Guarantor Name 04/22/2024 1 [facility] - DOS ON OR AFTER 2022 - MEDICARE [place]ANTAGE [place] ([place]ACEMENT/ADV ANTAGE - PPO) Dragan Gagnon [id number] Dragan Gagnon Notes Date Note Type Note Provider Name and Address Organization Details Recorded Time 04/22/2024 text/html Primary tumor location: Right tonsil SCCA p16+ Tumor staging: Y2Z6Tqgaseuvg: chemo XRTDate of treatment completion: 05/29/21Oncology team: Antonio De Los Santos feels an occasional tight in right neck, relaxes after a minute LINDA EDOUARD MD [address] [place] [address], [place], [address], [facility] - [facility] 04/22/2024 10:21:31
--- OUTSIDE RECORDS SUMMARY | 2024-10-19 12:11 | XMS_ITS ---
Author Name [facility] Organization Unknown Encounters Encounter Type Encounter Reason Primary Diagnosis Location Date Ambulatory [facility] 12/14/2021 Inpatient Chronic obstruct [place] pulmonary disease, unspecified [facility] 12/02/2021
== END 2024-10-19 11:38 | disposition home or self-care (01) ==
LOC: HO.HPS 10:18
PROVIDERS: PCP Internal Medicine; Visit Provider Internal Medicine
DX: J44.1 Chronic obstructive pulmonary disease with (acute) exacerbation (principal); R09.02 Hypoxemia; R91.1 Solitary pulmonary nodule
CPT/HCPCS: 99213

== ENCOUNTER → 2024-10-19 10:18 | Outpatient (BNVA) | payer MEDICARE, SELFPAY | PROVIDERS: PCP Internal Medicine; Visit Provider Internal Medicine | DX: J44.1 Chronic obstructive pulmonary disease with (acute) exacerbation (principal); R09.02 Hypoxemia; R91.1 Solitary pulmonary nodule | CPT/HCPCS: 99212 ==

== ENCOUNTER 2024-10-27 11:19 | Outpatient (REF) | payer MEDICARE, SELFPAY ==
--- NOTE | ~2024-10-27 | MM_ITS ---
EXAMINATION: DXA BONE DENSITY AXIAL HISTORY: Osteoporosis TECHNIQUE: [facility]epaa Dual energy absorptiometry (DEXA) of the lumbar spine, total left hip, and femoral neck was performed. COMPARISON: Comparison is made with the prior examination dated 09/13/2022. FINDINGS: The bone mineral density of the lumbar spine is 0.927 with a T-score of -2.4, and a Z-score of -1.2. This is indicative of osteopenia. This represents a BMD change of 4.7% compared to the prior exam. This is statistically significant. The bone mineral density of the left total hip is 0.760 with a T-score of -2.4, and a Z-score of -0.9. This is indicative of osteopenia. This represents a BMD change of -4.5% compared to the prior exam. This is statistically significant. The bone mineral density of the left femoral neck is 0.731 with a T-score of -2.6, and a Z-score of -0.7. This is indicative of osteoporosis. This represents a BMD change of 3.4% compared to the prior exam. MM/XR DEXA axial skeleton IMPRESSION: Based on bone mineral density, and according to World Health Organization (WHO) criteria, the diagnosis is consistent with osteoporosis. All bone density values are in grams per centimeter squared (g/cm2). Statistically, 68% of repeat scans fall within 1 SD (+/- 0.010 g/cm2 for AP spine L1-L4) and 1 SD (+/- 0.012 g/cm2 for femur total) FRAX is a trademark of the [employer]'s [employer] [facility] [employer], a World Health Organization (WHO) Collaborating Center. Electronically signed by: Paul Lange MD 10/27/2024 01:23 PM EDT
--- OUTSIDE RECORDS SUMMARY | 2024-10-27 13:51 | XMS_ITS | Clinical Summary ---
Author Organization [facility] Address [address] [place] [address] Care Team Providers Care Care Team Coordinator Scheduler Name Role Phone Tila Mcclure MD Primary Care Provider [phone] Tila Mcclure MD Unavailable [phone] Allergies No known active allergies Medications [...] species,Chronic obstructive pulmonary disease, unspecified COPD type ([facility]) Oxygen 2 liters via nasal [...] Inactivated Comments 12/02/2021 2:40 AM Care Teams Care Team Coordinator Scheduler Relationship Specialty Start Date End Date Tila Mcclure MD [address] [place] [address] [place] [address] PCP - General Internal Medicine 12/05/21 Tila Mcclure MD [address] [place] [address] [place] [address] Internal Medicine 12/05/21
--- OUTSIDE RECORDS SUMMARY | 2024-10-27 13:51 | XMS_ITS | Continuity of Care Document ---
Author Organization [place] - [facility], [facility] Address [address] [place] [address] Care Team Providers Care Finance Specialist Name Role Phone SUSYSTEPHY Primary Care Provider Assessment Encounter Date Assessment Date Assessment LastModified by Organization Details LastModified Time 10/21/2024 10/21/2024 No evidence of disease on examination today. Fiberoptic examination of nasopharynx, hypopharynx and larynx was stable. Cancer surveillance in 6 months was recommended. [email or web address] Not available 10/19/2024 13:08:19 Plan of Treatment Reminders Order Date Submit [...] instructions recorded. Reason for Referral None Reported. 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 [id number] Active 2020 Malignant neoplasm of pharyngea l tonsil; Note: Date Diagnosed : 02/09/2021 2:43 PM (C11.1) Not Available [facility] 4 03:29:21 Dysphagia 88230700 Active 2022 Dysphagia , unspecifi ed; Note: Date Diagnosed : 01/22/2023 2:16 PM (R13.10) Not Available [facility] 4 03:29:21 Follow-up visit Active 2021 Encounter for follow-up examinati on after completed treatment for malignant neoplasm; Note: Date Diagnosed : 06/13/2022 11:00 AM (Z08) Not Available [facility] 4 03:29:22 History of malignant neoplasm of tonsil [id number] 102 Active 2023 Primary tumor location: Right tonsil SCCA p16+ T umor staging: 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 Procedures Surgical History Date Name Laterality Status Provider Name and Address Organization Details Recorded Time 10/21/2024 FOL_DP completed LINDA EDOUARD MD [address] [place] [address], [place], [address], [facility] - [facility] 10/19/2024 13:08:14 04/22/2024 FOL_DP completed LINDA EDOUARD MD [address] [place] [address], [address], [facility] - [facility] 04/21/2024 17:36:01 Imaging Results None recorded. Procedure Notes None recorded. Medical Equipment None Reported. Allergies Allergen ID Allergen Name Allergen Category Reaction Reaction Severity Criticality Documentation Date Start Date Code Code System Note Provider Name and Address Organization Details Recorded Time 990815 hydrocodo ne Not available other Not available Not available 12/23/2023 5489 RxNorm React ion: other react ion, Unkno wn; Not Available [facility] 4 01:27:22 Medications Name Sig Start Date Stop Date Status Note LastModified by Organization Details LastModified Time fluticaso ne 250 mcg-salme terol 50 mcg/dose blistr powdr for inhalatio n INHALE 1 PUFF BY MOUTH TWICE DAILY active Not Available Not Available No t Available nystatin 100,000 unit/mL oral suspensio n 04/22 completed Not Available Not Available Not Available prednison e 10 mg tablet TAKE 4 TABLETS BY MOUTH EVERY DAY FOR 3 DAYS. TAKE 3 TABLETS BY MOUTH X3 DAYS. T2 TABLETS X3 DAYS. 1 TABLET X3 DAYS. TAPER DIRECTED 10/21 completed Not Available Not Available Not Available azithromy maryann 250 mg tablet TAKE 2 TABLETS BY MOUTH ON DAY 1 TAKE 1 TABLET BY MOUTH DAILY ON DAYS 2-5 10/21 completed Not Available Not Available Not Available alendrona te 70 mg tablet TAKE 1 TABLET BY MOUTH EVERY FRIDAY active Not Available Not Available No t Available simvastat in 10 mg tablet TAKE 1 TABLET BY MOUTH AT BEDTIME active Not Available Not Available No t Available tamsulosi n 0.4 mg capsule 08/13 completed Medicati on ID: [id number] B rand Name: tamsulos in Send Method: [...] CAPSULE BY MOUTH DAILY AT 6.30 AM 10/21 completed Not Available Not Available Not Available lisinopri l 5 mg tablet TAKE 1 TABLET BY MOUTH DAILY 04/22 completed Not Available Not Available Not Available cefuroxim e axetil 500 mg tablet TAKE 1 TABLET BY MOUTH TWICE DAILY 10/21 completed Not Available Not Available Not Available albuterol sulfate HFA 90 mcg/actua tion aerosol inhaler INHALE 2 PUFFS BY MOUTH EVERY 4 HOURS NEEDED FOR SHORTNES S OF BREATH OR WHEEZING active Not Available Not Available No t Available sertralin e 50 mg tablet 08/13 completed Medicati on ID: [id number] B rand Name: sertrali ne Send Method: E-Prescr ibed Sub s Allowed: subs OK Speci al Instruct ion: TAKE 1 TABLET BY MOUTH DAILY Me dication GenericN jolynn: sertrali ne Not Available Not Available Not Available finasteri de 5 mg tablet 08/13 completed Medicati on ID: [id number] B rand Name: finaster julia Send Method: E-Prescr ibed Sub s Allowed: subs OK Speci al Instruct ion: TAKE 1 TABLET BY MOUTH DAILY Me dication GenericN jolynn: finaster julia Not Available Not Available Not Available amoxicill in 875 mg-potass ium clavulana te 125 mg tablet 08/13 completed Medicati on ID: [id number] B rand Name: amoxicil myra-pot clavulan ate [...] mg tablet TAKE 2 TABLETS BY MOUTH AT BEDTIME active Not Available Not Available No t Available melatonin active Not Available Not Consuelo ilable Not Available Vitals Date Recorded Body height Body mass index (BMI) Body weight Provider Name and Address Organization Details Last Updated DateTime 10/21/2024 165.1 cm 22.6 kg/m2 10059.56 g [facility] 10/21/2024 11:21:00 Social History None recorded. Functional Status None recorded. Mental Status None recorded. Family History Nothing Reported. Medical History Condition Response Hypertension Y GERD/Reflux Y High Cholesterol Y Past Encounters Encounter ID Performer Location Encounter Start Date Encounter Closed Date Diagnosis/Indication Diagnosis SNOMED-CT Code Diagnosis ICD10 Code Diagnosis Note [id number] LINDA EDOUARD MD [facility] [address] [address] 10/21/2024 10:52:13 10/21/2024 11:29:47 History of malignant neoplasm of tonsil [id number] 9102 Z85.818 Dysphagia 31381286 R13.1 0 cont work with COATING MACHINE OPERATOR for exercises Health Concerns Section Related Observation LastModified by Organization Detai ls LastModified Time None Recorded Concern Status LastModified by Organization Details LastModified Time None Recorded Payers Encounter Date Sequence Insurance Name Policy Number Policy Ramsay Covered Member ID Ramsay Member ID Guarantor Name 10/21/2024 1 [employer] (MEDICARE REPLACEMENT PPO) [id number] Dragan Gagnon [id number] Dragan Gagnon Notes Date Note Type Note Provider Name and Address Organization Details Recorded Time 10/21/2024 text/html Primary tumor location: Right tonsil SCCA p16+ TTumor staging: D7D5Nsxsabakz: chemo XRTDate of treatment completion: 05/29/21Oncology team: Antonio De Los Santos feels an occasional tight in right neck, relaxes after a minuterecent hospitalization at end of August 2024 for pneumonia, suspect aspirationworked with COATING MACHINE OPERATOR home visit to teach clearing throat exercises LINDA EDOUARD MD [address] [place] [address], [place], [address], [place] - [facility] 10/21/2024 11:30:05
--- OUTSIDE RECORDS SUMMARY | 2024-10-27 13:51 | XMS_ITS | Data Portability ---
Author Organization [place] - [facility], Allergy Address [address] [place] [address] Care Team Providers Care Mirror Silverer Name Role Phone STEPHY JAIN Primary Care Provider Assessment Encounter Date Assessment Date Assessment LastModified by Organization Details LastModified Time 04/22/2024 04/22/2024 No evidence of disease on examination today. Fiberoptic examination of nasopharynx, hypopharynx and larynx was stable. Cancer surveillance in 6 months was recommended. 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 316293436 Active 2020 Malignant neoplasm of pharyngea l tonsil; Note: Date Diagnosed : 02/09/2021 2:43 PM (C11.1) Not Available [facility] 4 03:29:21 Dysphagia 40829015 Active 2022 Dysphagia , unspecifi ed; Note: Date Diagnosed : 01/22/2023 2:16 PM (R13.10) Not Available [facility] 4 03:29:21 Follow-up visit Active 2021 Encounter for follow-up examinati on after completed treatment for malignant neoplasm; Note: Date Diagnosed : 06/13/2022 11:00 AM (Z08) Not Available [facility] 03:29:22 History of malignant neoplasm of tonsil 71872960450 102 Active 2023 Primary tumor location: Right tonsil SCCA p16+ T umor staging: 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 Procedures Surgical History Date Name Laterality Status Provider Name and Address Organization Details Recorded Time 10/21/2024 FOL_DP completed LINDA EDOUARD MD [address] [place] [address],[place] [address], [place], [address], [place] - [facility] [place] 10/19/2024 13:08:14 04/22/2024 FOL_DP completed LINDA EDOUARD MD [address] [place] [address],[place] [address], [place], [address], [place] - [facility] 04/21/2024 17:36:01 Imaging Results Imaging Date Name [...] Name and Address Organization Details Recorded Time 607336 hydrocodo ne Not available other Not available Not available 12/23/2023 5489 RxNorm React ion: other react ion, Unkno wn; Not Available [facility] 01:27:22 Medications Name Sig Start Date [...] mg capsule 08/13 completed Medicati on ID: [id number] B rand Name: tamsulos in Send Method: [...] mg tablet 08/13 completed Medicati on ID: [id number] B rand Name: sertrali ne Send Method: E-Prescr ibed Sub s Allowed: subs OK Speci al Instruct ion: TAKE 1 TABLET BY MOUTH DAILY Me dication GenericN jolynn: sertrali ne Not Available Not Available Not Available finasteri de 5 mg tablet 08/13 completed Medicati on ID: [id number] B rand Name: finaster julia Send Method: E-Prescr ibed Sub s Allowed: subs OK Speci al Instruct ion: TAKE 1 TABLET BY MOUTH DAILY Me dication GenericN jolynn: finaster julia Not Available Not Available Not Available amoxicill in 875 mg-potass ium clavulana te 125 mg tablet 08/13 completed Medicati on ID: [id number] B rand Name: amoxicil myra-pot clavulan ate [...] Updated DateTime 10/21/2024 165.1 cm 22.6 kg/m2 62111.56 g [facility] - [facility] 10/21/2024 11:21:00 Social History None recorded. Functional Status None recorded. Mental Status None recorded. Family History Nothing Reported. Medical History Condition Response Hypertension Y GERD/Reflux Y High Cholesterol Y Past Encounters Encounter ID Performer Location Encounter Start Date Encounter Closed Date Diagnosis/Indication Diagnosis SNOMED-CT Code Diagnosis ICD10 Code Diagnosis Note [id number] LINDA EDOUARD MD [facility] [address] [address] 04/22/2024 09:41:53 04/22/2024 10:24:54 History of malignant neoplasm of tonsil 7247009730 9102 Z85.818 [id number] LINDA EDOUARD MD [facility] [address] [address] 10/21/2024 10:52:13 10/21/2024 11:29:47 History of malignant neoplasm of tonsil 3744905257 9102 Z85.818 Dysphagia 00300173 R13.1 0 cont work with NAVAL MARINE ENGINEER for exercises Health Concerns Section Related Observation LastModified by Organization Detai ls LastModified Time None Recorded Concern Status LastModified by Organization Details LastModified Time None Recorded Advance Directives Directive None Recorded Payers Encounter Date Sequence Insurance Name Policy Number Policy Ramsay Covered Member ID Ramsay Member ID Guarantor Name 04/22/2024 1 [facility] - DOS ON OR AFTER 2022 - MEDICARE [place]AGE [place]/AD VANTAGE - PPO) Dragan Gagnon [id number] Dragan Gagnon 10/21/2024 1 [facility]UE (MEDICARE REPLACEMENT PPO) [id number] Dragan Gagnon [id number] Dragan Gagnon Notes Date Note Type Note Provider Name and Address Organization Details Recorded Time 04/22/2024 text/html Primary tumor location: Right tonsil SCCA p16+ Tumor staging: E0G6Xajxsnxet: chemo XRTDate of treatment completion: 05/29/21Oncology team: Antonio De Los Santos feels an occasional tight in right neck, relaxes after a minute LINDA EDOUARD MD [address] [facility],[address], [address], [place] - [facility] 04/22/2024 10:21:31 10/21/2024 text/html Primary tumor location: Right tonsil SCCA p16+ TTumor staging: Q6L3Enbjnrovq: chemo XRTDate of treatment completion: 05/29/21Oncology team: Antonio De Los Santos feels an occasional tight in right neck, relaxes after a minuterecent hospitalization at end of August 2024 for pneumonia, suspect aspirationworked with NAVAL MARINE ENGINEER home visit to teach clearing throat exercises LINDA EDOUARD MD [address] [facility],[place] [address], [place], [address], [place] - [facility] 10/21/2024 11:30:05
--- OUTSIDE RECORDS SUMMARY | 2024-10-27 13:51 | XMS_ITS | Clinical Summary ---
Author Organization [facility] Address [address] [place] [address] Care Team Providers Care Meat Team Lead Name Role Phone Tial Mcclure MD Primary Care Provider Unavailabl e Social History Tobacco Use Types Packs/Day Years Used Date Smoking Tobacco: Never Assessed Sex Assigned at Date Recorded Not on file Plan of Treatment Health Maintenance Due Date Last Done Comments Covid-19 Vaccine (#1) 1945 TOBACCO CHECK/ADVISE 1963 DTAP/TDAP/TD (1 - Tdap) 02/21/1964 CHOLESTEROL SCREENING 1965 SHINGLES VACCINE (1 of 2) 1995 PNEUMOCOCCAL VACCINE (1 - PCV) 2010 INFLUENZA (#1) 2024 BMI CHECK/ADVISE 08/11/2024 Care Teams Meat Team Lead Relationship Specialty Start Date End Date Tila Mcclure MD PCP - General Internal Medicine 06/17/18
== END 2024-10-27 11:20 | disposition home or self-care (01) ==
LOC: HO.MAMMO 11:19
PROVIDERS: PCP Internal Medicine; Visit Provider Internal Medicine
DX: M81.0 Age-related osteoporosis without current pathological fracture (principal)
CPT/HCPCS: 77080

== ENCOUNTER → 2024-10-27 11:30 | Outpatient (BNV) | payer MEDICARE, SELFPAY | PROVIDERS: PCP Internal Medicine; Visit Provider Radiology Diagnostic Radiology | DX: M81.0 Age-related osteoporosis without current pathological fracture (principal) | CPT/HCPCS: 77080 ==

== ENCOUNTER 2024-11-28 18:05 | Inpatient (IN) | payer MEDICARE, SELFPAY ==
[2024-11-28] VITALS (10 sets, daily range): BP systolic 101–143; BP diastolic 51–77; PULSE 107–132; RESP 11–24; TEMP 36.3–37.5; O2SAT 87–94; BMI 21.6; BMI 20.7
--- NOTE | ~2024-11-28 | XR_ITS ---
CLINICAL HISTORY: cough, shortness of breath 1 view chest x-ray Comparison: CR/SR - XR CHEST 2V - 09/20/24 14:59 EST Findings: Bibasilar patchy consolidations in both lungs. Chronic appearing interstitial lung markings may represent emphysematous changes. Heart size is normal. No acute fracture. IMPRESSION: 1. Bibasilar patchy consolidation in both lungs which could represent atelectasis or pneumonia. 2. Emphysema. This document has been electronically signed by: Eduardo Brooke MD on 11/28/2024 19:35:36
--- NOTE | 2024-11-28 18:22 | ECG_ITS ---
Test Reason : [place] Blood Pressure : */* mmHG Vent. Rate : 125 BPM Atrial Rate : 125 BPM P-R Int : 152 ms QRS Dur : 72 ms QT Int : 302 ms P-R-T Axes : 69 58 64 degrees QTcB Int : 435 ms Sinus tachycardia Cannot rule out Anterior infarct (cited on or before 03-Sep-2024) Nonspecific ST and T wave abnormality Abnormal ECG When compared with ECG of 03-Sep-2024 20:07, No significant change was found Referred By: Joseluis Barnett Electronically Signed By: ALEAH YIN
--- NOTE | 2024-11-28 18:35 | ED.GENADULT ---
HPI - General Adult General Chief complaint: Dyspnea Stated complaint: SOB, Pneumonia/ Fever 85% on room air Time Seen by Provider: 11/28/24 18:12 Source: patient, RN notes reviewed and old records reviewed Mode of arrival: EMS Limitations: no limitations History of Present Illness ED Provider: Ericka HPI narrative: 79-year-old male past medical history significant for COPD benign p.r.n. oxygen, history of tonsillar cancer, hypertension, hyperlipidemia presents for evaluation of shortness a breath, weakness. patient reports his symptoms started this morning, around 4:00 a.m.. He denies any chest pain. He reports he took tell but is unsure of the dose about an hour prior to arrival. Supposedly his temperature was a 102? prior to that. Denies any abdominal pain, nausea vomiting. He reports that he has felt to be due use his oxygen more than usual today denies any sick contacts Related Data Home Medications ?Medication ?Instructions ?Recorded ?Confirmed multivitamin 1 tab PO DAILY 03/25/22 09/20/24 melatonin 10 mg tablet 10 mg PO BEDTIME PRN Sleep 03/05/24 09/20/24 nystatin 100,000 unit/mL oral 1 ml PO QID PRN Mouth Pain 06/29/24 09/20/24 suspension lisinopril 10 mg tablet 10 mg PO DAILY 09/03/24 09/20/24 simvastatin 10 mg tablet 10 mg PO BEDTIME 09/03/24 09/20/24 Previous Rx's ?Medication ?Instructions ?Recorded alendronate 70 mg tablet 70 mg PO ROLDAN #12 tabs 05/24/24 fluticasone 250 mcg-salmeterol 50 1 inh inhalation BID 30 days #60 ea 06/29/24 mcg/dose blistr powdr for inhalation (Wixela Inhub) albuterol sulfate 90 mcg/actuation 2 puff inhalation Q4H PRN 09/06/24 aerosol inhaler shortness of breath or wheezing 60 days #8.5 grams mirtazapine 7.5 mg tablet 15 mg (2 x 7.5 mg) PO BEDTIME #90 10/12/24 tabs omeprazole 20 mg capsule,delayed 20 mg PO DAILY@0630 #90 caps 11/26/24 release Allergies Allergy/AdvReac Type Severity Reaction Status Date / Time Sulfa (Sulfonamide Allergy Unknown RASH Verified 11/28/24 18:20 Antibiotics) [SULFA (SULFONAMIDE ANTIBIOTICS)] hydrocodone [HYDROCODONE] AdvReac Severe severe Verified 11/28/24 18:20 constipation oxycodone AdvReac Severe severe Verified 11/28/24 18:20 constipation Review of Systems Constitutional: Constitutional: Reports body ache(s), Reports chills, Reports fever(s), Reports malaise and Reports weakness Eyes: Eyes: Denies blurry vision ENT: Denies sore throat Cardiovascular: Cardiovascular: Denies chest pain, Reports dyspnea and Reports dyspnea on exertion Respiratory: Respiratory: Reports change in phlegm color, Reports chest congestion, Reports cough, Denies hemoptysis, Reports excessive phlegm production, Denies pain on inspiration, Denies pain with cough, Reports dyspnea and Reports dyspnea on exertion Gastrointestinal: Gastrointestinal: Denies abdominal pain, Denies nausea and Denies vomiting Musculoskeletal: Musculoskeletal: Denies back pain Integumentary/Breasts: Skin/Breast: Denies rash Neurologic: Reports weakness PMFSH Past Medical History Medical History Hypoxemia Pneumonia COPD with acute exacerbation COPD (chronic obstructive pulmonary disease) Preop exam for internal medicine Generalized anxiety disorder 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 Mother Hypertension CVD (cardiovascular disease) Cancer Social History Social History Household Members: Spouse Housing: House Are you a primary nurse wound care to a significant other at home: No Do you presently have visiting nurse or other home services: No Alcohol intake: never Patient Tobacco Use Status: Former Tobacco user Tobacco use type: Cigarette Cigarette Packs Per Day: 1 Cigarettes Per Day: 20.0 Years Smoked: 35 Smoked in Last 30 Days: No e-Cigarette/Vaping Use: Never Used Second Hand Smoke Exposure: Yes (marijuana) Use of substances other than those prescribed or required for medical reasons: No Advance Directives: No Advance Directives Information Provided: Yes service: No Current occupational status: retired Cognitive needs: No Hearing needs: No Vision needs: Yes Physical Exam ED Vital Signs: Vital Signs - 24 hr 11/28/24 18:14 11/28/24 18:48 11/28/24 19:30 Temperature 99.5 F 99.1 F Pulse Rate 132 H 128 H 114 H Respiratory Rate 18 22 H 24 H Blood Pressure 126/67 118/64 Pulse Oximetry 87 L 88 L 94 Oxygen Delivery Method Nasal Cannula Nasal Cannula Nasal Cannula Oxygen Flow Rate 4 4 11/28/24 19:54 11/28/24 19:56 Temperature Pulse Rate 115 H 115 H Respiratory Rate 23 H 13 Blood Pressure 104/56 L 101/58 L Pulse Oximetry 93 93 Oxygen Delivery Method Nasal Cannula Nasal Cannula Oxygen Flow Rate 4 4 BMI result Body Mass Index 21.6 Const General: comfortable, no acute distress, alert and awake Nutritional Appearance: well nourished Orientation/consciousness: patient oriented x3 HENMT Head: Yes normocephalic and Yes atraumatic Eyes Eyelids: Yes eyelids normal Conjunctivae: conjunctivae normal Sclerae: sclerae normal Corneas: corneas normal Pupils: Equal, round and reactive pupils present EOM: EOMs intact bilaterally Neck Neck: Yes full ROM Resp Other: breath sounds are diminished but otherwise clear to auscultation Effort & Inspection: normal respiratory effort, able to speak in complete sentences and not labored Cardio Rhythm: regular rhythm GI Inspection: No distended Palpation (GI): Soft to palpation, not firm, nontender, no guarding and not rigid Skin General skin exam: elasticity normal Neuro General: patient oriented x3 Cranial nerves: Yes Equal, round and reactive pupils present and Yes Bilaterally intact EOM present Cognition (Neuro): normal cognition Extrem Other: Moving all extremities well without any obvious deformities Medications Administered Generic Name Dose Route Start Last Admin Trade Name Freq PRN Reason Stop Dose Admin Azithromycin 500 mg/ Sodium 250 mls @ 125 mls/hr 11/28/24 18:21 11/28/24 18:39 Chloride IV 11/28/24 20:20 125 mls/hr ONCE ONE Administration Discontinued Medications Generic Name Dose Route Start Last Admin Trade Name Freq PRN Reason Stop Dose Admin Ceftriaxone Sodium 1 gm 11/28/24 18:21 11/28/24 18:39 Ceftriaxone Sodium 1 Gm Vial IVPUSH 11/28/24 18:22 1 gm ONCE ONE Administration Sodium Chloride 1,000 mls @ 999 mls/hr 11/28/24 18:30 11/28/24 19:50 Ns IV 11/28/24 19:30 Infused .Q1H1M ZAIRA Infusion Methylprednisolone Sodium Succinate 125 mg 11/28/24 18:40 11/28/24 18:57 Methylprednisolone Sod Succ 125 Mg/2 Ml Vial IVPUSH 11/28/24 18:41 125 mg ONCE ONE Administration Medical Decision Making Medical Decision Making [facility] Narrative: 79-year-old male past medical history as above presents for evaluation of shortness of breath and fevers. High clinical suspicion for pneumonia and sepsis, a sepsis alert was called. His blood pressure is stable at 126/67. his temp is 98.5? orally which is likely he will be out of his recent antipyretic use. His heart rate is 132 it appears regular. EKG pending. His oxygen saturation is 87-88% on 4 L via nasal cannula. We will treat with IV fluids, ceftriaxone, azithromycin and a dose of IV steroids to his history with a history of COPD. Differential Diagnosis Differential Diagnoses: The differential diagnosis associated with the presentation includes Pneumonia COPD Sepsis CHF less likely Admission/Observation Consideration of admission/observation: Escalation of care including admission/observation considered Consult Healthcare Provider Management of the patient was discussed with: Hospitalist Dr Woo Lab Data [facility] Lab Attestation statement: I reviewed the patient's lab results. leukocytosis to 13.3 with a mild anemia. This is likely related to his acute infection consistent with pneumonia. No significant electrolyte abnormalities. 11/28/24 18:34 11/28/24 18:34 Labs: Lab Results 11/28/24 Range/Units 18:34 WBC 13.3 H (4.8-10.8) X10*3/uL RBC 4.82 (4.60-5.80) X10*6/uL Hgb 15.0 (14.0-18.0) g/dl Hct 41.3 L (42.0-52.0) % MCV 85.7 (80.0-98.0) fL MCH 31.1 (27.0-33.0) pg MCHC 36.3 H (31.0-36.0) g/dl RDW 13.1 (11.0-16.0) % Plt Count 166 (160-400) X10*3/uL MPV 9.1 L (9.4-12.4) fL Immature Gran % (Auto) 0.4 (0.0-0.4) % Neut % (Auto) 89.0 H (45-73) % Lymph % (Auto) 6.9 L (20-40) % [place] % (Auto) 3.2 (2-11) % Eos % (Auto) 0.3 (0-4) % Baso % (Auto) 0.2 (0-2) % Lymph # (Auto) 0.9 L (1.2-4.9) X10*3/uL [place] # (Auto) 0.4 (0.1-1.2) X10*3/uL Eos # (Auto) 0.0 (0.0-0.4) X10*3/uL Baso # (Auto) 0.0 (0.0-0.2) X10*3/uL Abs Immat Gran (auto) 0.05 H (0.00-0.03) X10*3/uL Absolute Neuts (auto) 11.9 H (2.0-8.3) x10*3/uL Absolute Nucleated RBC 0.000 (0.0-0.012) X10*3/uL Nucleated RBC % (auto) 0.0 (0.0-0.2) /100WBC Sodium 141 (135-145) mmol/L Potassium 3.8 (3.3-5.1) mmol/L Chloride 108 (96-108) mmol/L Carbon Dioxide 24 (22-29) mmol/L Anion Gap 13 (12-20) BUN 14 (9-16) mg/dL Creatinine 0.87 (0.5-1.4) mg/dL Estim Creat Clear Calc 62.7 Estimated GFR > 60 Random Glucose 116 H (60-115) mg/dL Lactic Acid 1.6 (0.5-2.0) mmol/L Calcium 9.4 (8.4-10.2) mg/dL Magnesium 1.9 (1.6-2.6) mg/dL Total Bilirubin 1.8 H (0.0-1.0) mg/dL AST 19 (5-37) U/L ALT 13 (0-40) U/L Alkaline Phosphatase 67 (39-117) U/L B-Natriuretic Peptide 10 (<100) pg/mL Total Protein 6.7 (6.5-8.0) g/dL Albumin 4.2 (3.5-5.0) g/dL Lipase 21 (8-78) U/L Influenza Type A (PCR) NEGATIVE (Negative) Influenza Type B (PCR) NEGATIVE (Negative) RSV RNA Qual (PCR) NEGATIVE (Negative) SARS-CoV-2 RNA (RT-PCR) NEGATIVE (Negative) Independent Interpretation I performed an independent interpretation of an: Plain X-Ray ( Bilateral lower lobe pneumonia) Radiology Impression Discussion of test interpretation with radiology: I have reviewed the radiologist's reading. Radiologist Impression: Findings: Bibasilar patchy consolidations in both lungs. Chronic appearing interstitial lung markings may represent emphysematous changes. Heart size is normal. No acute fracture. IMPRESSION: 1. Bibasilar patchy consolidation in both lungs which could represent atelectasis or pneumonia. 2. Emphysema. This document has been electronically signed by: Eduardo Brooke MD on 11/28/2024 19:35:36 Discharge Plan Discharge Clinical Impression: Community acquired pneumonia Patient Disposition: Admitted As Inpatient Prescriptions: No Action alendronate 70 mg tablet 70 mg PO ROLDAN Qty: 12 2RF albuterol sulfate 90 mcg/actuation HFA aerosol inhaler 2 puff inhalation Q4H PRN (Reason: shortness of breath or wheezing) 60 Days Qty: 8.5 3RF mirtazapine 7.5 mg tablet 15 mg PO BEDTIME Qty: 90 2RF omeprazole 20 mg capsule,delayed release(DR/EC) 20 mg PO DAILY@0630 Qty: 90 2RF multivitamin Tablet 1 tab PO DAILY lisinopril 10 mg tablet 10 mg PO DAILY simvastatin 10 mg tablet 10 mg PO BEDTIME melatonin 10 mg Tablet 10 mg PO BEDTIME PRN (Reason: Sleep) nystatin 100,000 unit/mL suspension 1 ml PO QID PRN (Reason: Mouth Pain) Rx Instructions: swish in the mouth and retain for as long as possible (several minutes) before swallowing. fluticasone propion-salmeterol [Wixela Inhub] 250-50 mcg/dose blister with device 1 inh inhalation BID 30 Days Qty: 60 5RF Print Language: Macedonian
[2024-11-28] MEDS: Azithromycin 500 MG in 0.9 % Sodium Chloride 250 ML 125 MG IV (18:39)
[2024-11-28] MEDS: cefTRIAXone sodium 1 GM VIAL IVPUSH (18:39)
[2024-11-28] MEDS: 0.9 % Sodium Chloride 1,000 ML 999 ML IV (18:40)
[2024-11-28 18:54] LABS: Lactic Acid 1.6 mmol/L (0.5-2.0)
[2024-11-28] MEDS: methylPREDNISolone Sod Succ 125 MG/2 ML VIAL IVPUSH (18:57)
[2024-11-28 19:05] LABS: MANUAL DIFF FLAG NO
[2024-11-28 19:07] LABS: Basophils Percent Auto 0.2 % (0-2); Eosinophils Percent Auto 0.3 % (0-4); Hematocrit 41.3 % (42.0-52.0); Imm Gran Abs Auto 0.05 X10*3/uL (0.00-0.03); Imm Gran Pct Auto 0.4 % (0.0-0.4); Lymphocytes Absolute Auto 0.9 X10*3/uL (1.2-4.9); Lymphocytes Percent Auto 6.9 % (20-40); Mean Corpuscular HGB Conc 36.3 g/dl (31.0-36.0); Mean Corpuscular Hemoglobin 31.1 pg (27.0-33.0); Mean Corpuscular Volume 85.7 fL (80.0-98.0); Mean Platelet Volume 9.1 fL (9.4-12.4); Monocytes Absolute Auto 0.4 X10*3/uL (0.1-1.2); Monocytes Percent Auto 3.2 % (2-11); Neutrophils Absolute Auto 11.9 x10*3/uL (2.0-8.3); Platelet Count 166 X10*3/uL (160-400); Red Blood Count 4.82 X10*6/uL (4.60-5.80); Red Cell Distribution Width 13.1 % (11.0-16.0); White Blood Count 13.3 X10*3/uL (4.8-10.8)
[2024-11-28 19:18] LABS: Influenza A PCR NEGATIVE (Negative); Influenza B PCR NEGATIVE (Negative); Resp Syncy Virus RNA Qual PCR NEGATIVE (Negative); SARS COV2 PCR INHOUSE NEGATIVE (Negative)
[2024-11-28 19:24] LABS: Alanine Aminotransferase 13 U/L (0-40); Albumin Level 4.2 g/dL (3.5-5.0); Alkaline Phosphatase 67 U/L (39-117); Anion Gap 13 (12-20); Aspartate Amino Transferase 19 U/L (5-37); Bilirubin Total 1.8 mg/dL (0.0-1.0); Blood Urea Nitrogen 14 mg/dL (9-16); Calcium 9.4 mg/dL (8.4-10.2); Carbon Dioxide 24 mmol/L (22-29); Chloride 108 mmol/L (96-108); Creatinine Clr Calc Pharmacy 62.7; Estimated Glomerular Filt Rate > 60; Glucose Random 116 mg/dL (60-115); Lipase 21 U/L (8-78); Magnesium 1.9 mg/dL (1.6-2.6); Potassium 3.8 mmol/L (3.3-5.1); Sodium 141 mmol/L (135-145); Total Protein 6.7 g/dL (6.5-8.0)
[2024-11-28 19:29] LABS: B Type Natriuretic Peptide 10 pg/mL (<100)
--- NOTE | 2024-11-28 19:32 | PC.NURSE ---
[place] [address]. PT a/ox3,restinig quietly in no acute distress, skin pwd, vss, Fluids and abx running at this time. sepsis workup completed awaiting fluids to be complete for final step. Plan of care ongoing
--- NOTE | 2024-11-28 19:42 | PM.IMHP ---
History of Present Illness Date of Service: 11/28/24 Chief Complaint: Dyspnea This is a 79-year-old male with pertinent history of chronic hypoxemic respiratory failure due to COPD on 2 L oxygen at nighttime, hypertension, mixed hyperlipidemia, BPH, tonsillar cancer with residual dysphagia, osteoporosis, gastroesophageal reflux disease who presents to the emergency department for evaluation of dyspnea. Patient states his symptoms started on the day of presentation. He has been having dyspnea which is worse with exertion. Also has been having cough with yellowish sputum production. Has associated wheezing and was using his home oxygen all day which is unusual for him as he uses it only at night at baseline. Denies chest pain or palpitations. Initially ER at temp of 99 degrees but when his took it his temp was 102 degrees degrees F at home. No sick contacts. Denies nausea, vomiting, abdominal pain, changes in urinary or bowel habits. In the emergency department, patient was requiring 4 L supplemental oxygen. Imaging concerning for pneumonia. Patient was given IV steroids and DuoNebs. Review of Systems Constitutional: Constitutional: Reports fatigue, Reports malaise and Reports weakness Cardiovascular: Cardiovascular: Reports dyspnea on exertion Respiratory: Respiratory: Reports cough, Reports dyspnea on exertion and Reports wheezing Gastrointestinal: Gastrointestinal: Reports no additional gastrointestinal complaints Genitourinary: Genitourinary: Reports no additional male genitourinary complaints Neurologic: Reports weakness Endocrine: Endocrine: Reports fatigue Allergic/Immunologic: Allergic/Immunologic: Reports wheezing [facility] Medical History Hypoxemia Pneumonia COPD with acute exacerbation COPD (chronic obstructive pulmonary disease) Preop exam for internal medicine Generalized anxiety disorder 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 Mother Hypertension CVD (cardiovascular disease) Cancer Surgical History Hx of kyphoplasty Hx of colonoscopy Deficient knowledge of leg surgery History of tonsillectomy Social History Household Members: Spouse Housing: House Are you a primary career manager to a significant other at home: No Do you presently have visiting nurse or other home services: No Alcohol intake: never Patient Tobacco Use Status: Former Tobacco user Tobacco use type: Cigarette Cigarette Packs Per Day: 1 Cigarettes Per Day: 20.0 Years Smoked: 35 Smoked in Last 30 Days: No e-Cigarette/Vaping Use: Never Used Second Hand Smoke Exposure: Yes (marijuana) Use of substances other than those prescribed or required for medical reasons: No Advance Directives: No Advance Directives Information Provided: Yes service: No Current occupational status: retired Cognitive needs: No Hearing needs: No Vision needs: Yes Meds Allergies Allergy/AdvReac Type Severity Reaction Status Date / Time Sulfa (Sulfonamide Allergy Unknown RASH Verified 11/28/24 18:20 Antibiotics) [SULFA (SULFONAMIDE ANTIBIOTICS)] hydrocodone [HYDROCODONE] AdvReac Severe severe Verified 11/28/24 18:20 constipation oxycodone AdvReac Severe severe Verified 11/28/24 18:20 constipation Active Medications: Current Medications Azithromycin 500 mg/ Sodium (Chloride) 250 mls @ 125 mls/hr IV ONCE ONE Stop: 11/28/24 20:20 Last Admin: 11/28/24 18:39 Dose: 125 mls/hr Home Medications ?Medication ?Instructions ?Recorded ?Confirmed ?Last Taken ?Type multivitamin 1 tab PO DAILY 03/25/22 09/20/24 09/03/24 History melatonin 10 mg tablet 10 mg PO BEDTIME PRN Sleep 03/05/24 09/20/24 03/04/24 History nystatin 100,000 unit/mL oral 1 ml PO QID PRN Mouth Pain 06/29/24 09/20/24 Unknown History suspension lisinopril 10 mg tablet 10 mg PO DAILY 09/03/24 09/20/24 09/02/24 History simvastatin 10 mg tablet 10 mg PO BEDTIME 09/03/24 09/20/24 09/02/24 History Physical Exam Vital Signs and Narrative: Vital Signs: Last Vital Signs Temp 99.1 F 11/28/24 19:30 Pulse 114 H 11/28/24 19:30 Resp 24 H 11/28/24 19:30 BP 118/64 11/28/24 19:30 Pulse Ox 94 11/28/24 19:30 O2 Del Method Nasal Cannula 11/28/24 19:30 O2 Flow Rate 4 11/28/24 19:30 BMI result Body Mass Index 21.6 Elderly male lying in bed in mild distress on supplemental oxygen Neck supple, no JVD Regular rate and rhythm, S1-S2 heard Bilateral wheezing present Abdomen soft nontender, no guarding, no rigidity Patient is awake, alert and oriented to self, place, time and person ; no focal motor deficit Psych: Normal mood No pedal edema Results Labs 11/28/24 18:34 11/28/24 18:34 Labs: Laboratory Results - last 24 hr 11/28/24 18:34 MCV 85.7 MCH 31.1 MCHC 36.3 H RDW 13.1 Plt Count 166 MPV 9.1 L Immature Gran % (Auto) 0.4 Neut % (Auto) 89.0 H Lymph % (Auto) 6.9 L [place] % (Auto) 3.2 Eos % (Auto) 0.3 Baso % (Auto) 0.2 Lymph # (Auto) 0.9 L [place] # (Auto) 0.4 Eos # (Auto) 0.0 Baso # (Auto) 0.0 Abs Immat Gran (auto) 0.05 H Absolute Neuts (auto) 11.9 H Absolute Nucleated RBC 0.000 Nucleated RBC % (auto) 0.0 Anion Gap 13 Estim Creat Clear Calc 62.7 Estimated GFR > 60 Random Glucose 116 H Lactic Acid 1.6 Calcium 9.4 Magnesium 1.9 Total Bilirubin 1.8 H AST 19 ALT 13 Alkaline Phosphatase 67 B-Natriuretic Peptide 10 Total Protein 6.7 Albumin 4.2 Lipase 21 Influenza Type A (PCR) NEGATIVE Influenza Type B (PCR) NEGATIVE RSV RNA Qual (PCR) NEGATIVE SARS-CoV-2 RNA (RT-PCR) NEGATIVE Assessment and Plan (1) Hypoxemia: Status: Acute (2) Community acquired pneumonia: Status: Acute (3) COPD with acute exacerbation: Status: Acute Plan This is a 79-year-old male with pertinent history of chronic hypoxemic respiratory failure due to COPD on 2 L oxygen at nighttime, hypertension, mixed hyperlipidemia, BPH, tonsillar cancer with residual dysphagia, osteoporosis, gastroesophageal reflux disease who presents to the emergency department for evaluation of dyspnea. #. Acute on chronic hypoxemic respiratory failure and sepsis due to community-acquired pneumonia leading to COPD exacerbation: Will admit patient with supplemental oxygen. Scheduled and p.r.n. DuoNebs. Initiating empiric IV antibiotics for CAP and systemic steroids. Continue home inhaler. Resuscitated with IV crystalloids. Lactic acid and blood culture obtained #. History of tonsillar cancer with dysphagia: On chopped diet with thin liquids #. Hypertension: On lisinopril #. Mixed hyperlipidemia: On statin #. Gastroesophageal reflux disease: On PPI Med rec pending DVT prophylaxis: Lovenox Full code Admit as inpatient and will require two night minimum hospital stay for supplemental oxygen, IV antibiotics (as above), which is not possible in a lesser acute setting. Quality Stroke Does the patient have a stroke diagnosis?: No VTE Prior VTE?: No VTE Risk Level:: Medical - moderate - high VTE Device Contraindication: Treatment Not Indicated VTE Drug Contraindication: N/A - Med Ordered
[2024-11-28] MEDS: Albuterol/Iprat 2.5/0.5MG 3 ML AMPUL.NEB INHALE (20:00)
[2024-11-28] MEDS: Enoxaparin Sodium 40 MG/0.4 ML SYRINGE SUBCUT (21:27)
[2024-11-28] MEDS: 0.9 % Sodium Chloride Flush 3 ML SYRINGE IVFLUSH (22:38)
[2024-11-29] VITALS (9 sets, daily range): BP systolic 109–127; BP diastolic 63–70; PULSE 77–113; RESP 16–18; TEMP 36.4–36.9; O2SAT 93–98
[2024-11-29 07:10] LABS: Hematocrit 39.2 % (42.0-52.0); Hemoglobin 13.8 g/dl (14.0-18.0); Mean Corpuscular HGB Conc 35.2 g/dl (31.0-36.0); Mean Corpuscular Hemoglobin 30.8 pg (27.0-33.0); Mean Corpuscular Volume 87.5 fL (80.0-98.0); Mean Platelet Volume 9.5 fL (9.4-12.4); Platelet Count 163 X10*3/uL (160-400); Red Blood Count 4.48 X10*6/uL (4.60-5.80); Red Cell Distribution Width 13.1 % (11.0-16.0); White Blood Count 14.9 X10*3/uL (4.8-10.8)
[2024-11-29 07:28] LABS: Anion Gap 14 (12-20); Blood Urea Nitrogen 16 mg/dL (9-16); Calcium 8.6 mg/dL (8.4-10.2); Carbon Dioxide 23 mmol/L (22-29); Chloride 108 mmol/L (96-108); Creatinine Clr Calc Pharmacy 60.1; Estimated Glomerular Filt Rate > 60; Glucose Random 162 mg/dL (60-115); Potassium 3.9 mmol/L (3.3-5.1); Sodium 141 mmol/L (135-145)
[2024-11-29 07:34] LABS: Band Neutrophils Percent 22 % (3-5); Lymphocytes Absolute Manual 0.7 X10*3/uL (1.2-4.9); Lymphocytes Percent Manual 5 % (20-40); Neutrophils Absolute Manual 14.2 X10*3/uL (2.0-8.3); Neutrophils Percent Manual 73 % (45-73)
[2024-11-29 07:36] LABS: Acanthocytes 1+ (0-2) /OIF; Burr Cells 1+ (0-2) /OIF; Platelet Estimate NORMAL (NORMAL); Platelet Morphology Comment NORMAL; RBC Morphology NOTED
[2024-11-29] MEDS: Albuterol/Iprat 2.5/0.5MG 3 ML AMPUL.NEB INHALE ×4 (07:57→19:24)
[2024-11-29 08:44] LABS: Procalcitonin 0.22 ng/mL
[2024-11-29] MEDS: 0.9 % Sodium Chloride Flush 3 ML SYRINGE IVFLUSH ×3 (08:51→21:15)
[2024-11-29] MEDS: methylPREDNISolone Sod Succ 40 MG/ML VIAL IVPUSH ×2 (08:54→21:14)
[2024-11-29 08:56] LABS: Appearance Urine Clear; Color Urine Yellow; Glucose Urine UA Negative (Negative); Leukocyte Esterase Urine Trace (Negative); Nitrite Urine Negative (Negative); UMIC TRIGGER UACC YES; Urine Blood Negative (Negative); Urine Ketones Negative (Negative); Urine Protein Negative (Neg-Trace)
[2024-11-29 08:58] LABS: Bacteria Urine None Seen (None Seen); Hyaline Casts Urine 0-2 /LPF (0-2); RBC Urine 0-2 /HPF (0-2); Squamous Epithelial Cell Urine 0-2 /HPF (0-2); WBC Urine 0-5 /HPF (0-5)
--- NOTE | 2024-11-29 09:16 | PHA.MEDREC ---
Pharmacy Consult ? Medication Reconciliation Pharmacy has completed the medication reconciliation. Spoke to patient at bedside, able to confirm meds.
--- NOTE | 2024-11-29 09:55 | HO.PM.IMPN ---
Subjective Subjective Date of Service: 11/29/24 Interval History: coughing; dyspnea improved Review of Systems Review of Systems: Yes all other systems are reviewed and are negative Physical Exam Vital Signs: Vital Signs: Last Vital Signs Temp 98.5 F 11/29/24 07:26 Pulse 77 11/29/24 08:01 Resp 16 11/29/24 08:01 BP 126/66 11/29/24 07:26 Pulse Ox 96 11/29/24 07:26 O2 Del Method Nasal Cannula 11/29/24 07:26 O2 Flow Rate 3.0 11/29/24 07:26 BMI result Body Mass Index 20.7 Gen: in no acute distress HEENT: sclera anicteric, moist mucus membranes Neck: supple Lungs: bilateral rhonchi Heart: regular rate and rhythm, no murmurs Abd: soft, non-tender, non-distended Ext: no edema Skin: warm/well-perfused Neuro: alert and oriented x3, no focal findings Psych: appropriate affect Objective Data Active Medications Acetaminophen (Acetaminophen 325 Mg Tablet) 650 mg PO Q6H PRN PRN Reason: Pain, Mild 1-3,fever,headache Albuterol/Ipratropium (Albuterol/Iprat 2.5/0.5mg 3 Ml Ampul.Neb) 3 ml INHALE RQ4H WHILE AWAKE [facility] Last Admin: 11/29/24 07:57 Dose: 3 ml Documented By: GHASSAN Albuterol/Ipratropium (Albuterol/Iprat 2.5/0.5mg 3 Ml Ampul.Neb) 3 ml INHALE Q4H PRN PRN Reason: Wheezing Benzonatate (Benzonatate 100 Mg Capsule) 200 mg PO TID PRN PRN Reason: Cough Calcium Carbonate (Calcium Carbonate 750 Mg Tab.Chew) 750 mg PO Q4H PRN PRN Reason: Heartburn Ceftriaxone Sodium (Ceftriaxone Sodium 1 Gm Vial) 1 gm IVPUSH Q24H [facility] Enoxaparin Sodium (Enoxaparin Sodium 40 Mg/0.4 Ml Syringe) 40 mg SUBCUT Q24H [facility] Last Admin: 11/28/24 21:27 Dose: 40 mg Documented By: HOLLI Azithromycin 500 mg/ Sodium (Chloride) 250 mls @ 125 mls/hr IV Q24H [facility] Magnesium Hydroxide (Milk Of Magnesia 30 Ml Oral.Susp) 30 ml PO DAILY PRN PRN Reason: Constipation Melatonin (Melatonin 3 Mg Tablet) 6 mg PO BEDTIME PRN PRN Reason: Insomnia Methylprednisolone Sodium Succinate (Methylprednisolone Sod Succ 40 Mg/Ml Vial) 40 mg IVPUSH Q12H [facility] Last Admin: 11/29/24 08:54 Dose: 40 mg Documented By: MARIANA Ondansetron HCl (Ondansetron Hcl 4 Mg/2 Ml Vial) 4 mg IVPUSH Q8H PRN PRN Reason: Nausea and Vomiting Sodium Chloride (0.9 % Sodium Chloride Flush 3 Ml Syringe) 3 ml IVFLUSH QSHIFT [facility] Last Admin: 11/29/24 08:51 Dose: 3 ml Documented By: MARIANA Labs 11/29/24 05:50 11/29/24 05:50 Labs: Laboratory Results - last 24 hr 11/28/24 11/29/24 11/29/24 18:34 05:50 08:44 MCV 85.7 87.5 MCH 31.1 30.8 MCHC 36.3 H 35.2 RDW 13.1 13.1 Plt Count 166 163 MPV 9.1 L 9.5 Immature Gran % (Auto) 0.4 Cancelled Neut % (Auto) 89.0 H Cancelled Lymph % (Auto) 6.9 L Cancelled Brewster % (Auto) 3.2 Cancelled Eos % (Auto) 0.3 Cancelled Baso % (Auto) 0.2 Cancelled Lymph # (Auto) 0.9 L Cancelled Brewster # (Auto) 0.4 Cancelled Eos # (Auto) 0.0 Cancelled Baso # (Auto) 0.0 Cancelled Abs Immat Gran (auto) 0.05 H Cancelled Absolute Neuts (auto) 11.9 H Cancelled Absolute Nucleated RBC 0.000 0.000 Nucleated RBC % (auto) 0.0 0.0 Neutrophils % (Manual) 73 Band Neutrophils % 22 H Lymphocytes % (Manual) 5 L Abs Neuts (Manual) 14.2 H Lymphocytes # (Manual) 0.7 L Platelet Estimate NORMAL Plt Morphology Comment NORMAL RBC Morphology NOTED Cassy Cells 1+ (0-2) Acanthocytes (Spur) 1+ (0-2) Anion Gap 13 14 Estim Creat Clear Calc 62.7 60.1 Estimated GFR > 60 > 60 Random Glucose 116 H 162 H Lactic Acid 1.6 Calcium 9.4 8.6 D Magnesium 1.9 Total Bilirubin 1.8 H AST 19 ALT 13 Alkaline Phosphatase 67 B-Natriuretic Peptide 10 Total Protein 6.7 Albumin 4.2 Lipase 21 Procalcitonin 0.22 Urine Color Yellow Urine Appearance Clear Urine pH 6.0 Ur Specific Tillman 1.020 Urine Protein Negative Urine Glucose (UA) Negative Urine Ketones Negative Urine Blood Negative Urine Nitrite Negative Ur Leukocyte Esterase Trace H Urine RBC 0-2 Urine WBC 0-5 Ur Squamous Epith Cells 0-2 Urine Bacteria None Seen Hyaline Casts 0-2 Influenza Type A (PCR) NEGATIVE Influenza Type B (PCR) NEGATIVE RSV RNA Qual (PCR) NEGATIVE SARS-CoV-2 RNA (RT-PCR) NEGATIVE Assessment and Plan (1) Pneumonia: Status: Acute Assessment and Plan: d2 for 79yo M with COPD on home O2 2L, HTN, HLD, tonsillar CA with residual dysphagia, osteoporosis, BPH, GERD presenting with dyspnea admitted for sepsis and hypoxia [requiring 4L O2] due to CAP/COPD exacerbation acute/chronic hypoxic respiratory failure CAP COPD exacerbation - 11/28- ceftriaxone + azithromycin, follow BCx, trend PCT, send urinary antigens for Legionella and pneumococcus - IV methylprednisolone, nebulized bronchodilators, continue Breo - wean O2 as tolerated HTN - lisinopril HLD - statin dysphagia s/p tonsillar CA - chopped diet/thin liquids GERD - PPI VTE ppx - enoxaparin dispo - TBD In my clinical judgment, the patient requires continued inpatient hospitalization for the following reasons: hypoxia, IV ABX Total time managing care of this patient today: 40 minutes. Quality Stroke Does the patient have a stroke diagnosis?: No VTE Prior VTE?: No VTE Risk Level:: Medical - moderate - high VTE Device Contraindication: Treatment Not Indicated VTE Drug Contraindication: N/A - Med Ordered
[2024-11-29] MEDS: Omeprazole 20 MG CAPSULE.DR PO (11:20)
[2024-11-29] MEDS: lisinopriL 10 MG TABLET PO (11:20)
--- NOTE | 2024-11-29 16:01 | MHC.CM.PN ---
IMM DELIVERED. PATIENT LIVES IN A HOME W/ , ADULT DTR, GRAND DTR, AND [employer]. FUNCTIONALLY INDEPENDENT. REPORTS HE HAS A CANE AND WALKER, BUT HAS NOT NEEDED TO USE THEM. 2L O2 @ NOC SUPPLIED BY [facility]. PCP STEPHY JAIN MD HCP ON FILE AND VERIFIED. DP: GOAL IS HOME W/ FAMILY, TO TRANSPORT. CM WILL CONTINUE TO FOLLOW.
[2024-11-29] MEDS: cefTRIAXone sodium 1 GM VIAL IVPUSH (17:21)
[2024-11-29] MEDS: Azithromycin 500 MG in 0.9 % Sodium Chloride 250 ML 125 MG IV (17:21)
[2024-11-29] MEDS: Melatonin 3 MG TABLET 6 MG PO (21:14)
[2024-11-29] MEDS: Enoxaparin Sodium 40 MG/0.4 ML SYRINGE SUBCUT (21:14)
[2024-11-29] MEDS: Atorvastatin Calcium 10 MG TABLET PO (21:15)
[2024-11-29] MEDS: Mirtazapine 15 MG TABLET PO (21:15)
[2024-11-30] VITALS (8 sets, daily range): BP systolic 105–120; BP diastolic 55–66; PULSE 93–109; RESP 16–18; TEMP 36.1–36.9; O2SAT 92–95
[2024-11-30] MEDS: Omeprazole 20 MG CAPSULE.DR PO (06:24)
[2024-11-30 06:42] LABS: Venous Blood Gas Refer to POC result
[2024-11-30 06:44] LABS: VBG Base Excess 5.2 mmol/L; VBG HCO3 30 mmol/L (22-26); VBG pCO2 44 mmHg; VBG pH 7.43 (7.32-7.43); VBG pO2 53 mmHg
[2024-11-30 06:48] LABS: Hematocrit 36.5 % (42.0-52.0); Hemoglobin 12.6 g/dl (14.0-18.0); Mean Corpuscular HGB Conc 34.5 g/dl (31.0-36.0); Mean Corpuscular Hemoglobin 30.4 pg (27.0-33.0); Mean Corpuscular Volume 88.2 fL (80.0-98.0); Mean Platelet Volume 9.1 fL (9.4-12.4); Platelet Count 156 X10*3/uL (160-400); Red Blood Count 4.14 X10*6/uL (4.60-5.80); Red Cell Distribution Width 13.1 % (11.0-16.0); White Blood Count 12.5 X10*3/uL (4.8-10.8)
[2024-11-30 07:08] LABS: Anion Gap 10 (12-20); Blood Urea Nitrogen 18 mg/dL (9-16); Calcium 8.8 mg/dL (8.4-10.2); Carbon Dioxide 24 mmol/L (22-29); Chloride 110 mmol/L (96-108); Creatinine Clr Calc Pharmacy 65.4; Estimated Glomerular Filt Rate > 60; Glucose Random 134 mg/dL (60-115); Potassium 4.1 mmol/L (3.3-5.1); Sodium 140 mmol/L (135-145)
[2024-11-30] MEDS: methylPREDNISolone Sod Succ 40 MG/ML VIAL IVPUSH ×2 (08:00→20:03)
[2024-11-30] MEDS: lisinopriL 10 MG TABLET PO (08:00)
[2024-11-30] MEDS: 0.9 % Sodium Chloride Flush 3 ML SYRINGE IVFLUSH ×3 (08:01→20:08)
[2024-11-30] MEDS: Albuterol/Iprat 2.5/0.5MG 3 ML AMPUL.NEB INHALE ×4 (08:12→20:47)
[2024-11-30] MEDS: Fluticasone/Vilanterol 100/25 BLST.W.DEV 1 PUFF INHALE (08:20)
--- NOTE | 2024-11-30 12:55 | HO.WOUND ---
Wound Consult: Initial 79yr old? male admitted to [facility] on 11/28/24 - See progress notes and H&P for detailed history.? Wound consult placed for Bilateral Heels.? Patient agreeable to assessment and photo documentation.? Patient denies pain and tenderness to both heels. Socks removed and feet including heels assessed. No Pressure injury noted - the right heel does have a red pigmentation noted but remains intact and blanchable. The patient was noted to be moving well and frequent repositions in bed. Pillows placed under calfs to off load heel pressure patient reports comfort. May use Preventative foams if patients activity decreases - at this time no topical interventions needed. Re-consult wound care Nurse for wound deterioration or wound changes. Left Heel Right Heel
--- NOTE | 2024-11-30 14:25 | P.PNIM_ITS ---
Subjective Subjective Date of Service: 11/30/24 Interval History: Notes improvement since admission. O2 back to baseline Review of Systems Denies chest pain Denies shortness of breath Denies nausea vomiting diarrhea Denies fever chills Physical Exam 2 Vital Signs: Vital Signs: Last Vital Signs Temp 97.2 F 11/30/24 07:34 Pulse 99 11/30/24 12:14 Resp 16 11/30/24 12:14 BP 120/61 11/30/24 07:34 Pulse Ox 95 11/30/24 07:34 O2 Del Method Nasal Cannula 11/30/24 07:34 O2 Flow Rate 2.0 11/30/24 07:34 BMI result Body Mass Index 20.7 Const: Other: Awake alert no acute distress Resp: Other: Diminished at bases without rales rhonchi or wheezes Cardio: Other: No S4; positive S1-S2; no S3 murmurs rubs or gallops GI: Other: Soft nontender nondistended normoactive bowel sounds Extrem: Other: No edema bilaterally Objective Data Active Medications Acetaminophen (Acetaminophen 325 Mg Tablet) 650 mg PO Q6H PRN PRN Reason: Pain, Mild 1-3,fever,headache Albuterol/Ipratropium (Albuterol/Iprat 2.5/0.5mg 3 Ml Ampul.Neb) 3 ml INHALE RQ4H WHILE AWAKE [facility] Last Admin: 11/30/24 12:14 Dose: 3 ml Documented By: AMBER Albuterol/Ipratropium (Albuterol/Iprat 2.5/0.5mg 3 Ml Ampul.Neb) 3 ml INHALE Q4H PRN PRN Reason: Wheezing Atorvastatin Calcium (Atorvastatin Calcium 10 Mg Tablet) 10 mg PO BEDTIME [facility] Last Admin: 11/29/24 21:15 Dose: 10 mg Documented By: KRIS Benzonatate (Benzonatate 100 Mg Capsule) 200 mg PO TID PRN PRN Reason: Cough Calcium Carbonate (Calcium Carbonate 750 Mg Tab.Chew) 750 mg PO Q4H PRN PRN Reason: Heartburn Ceftriaxone Sodium (Ceftriaxone Sodium 1 Gm Vial) 1 gm IVPUSH Q24H [facility] Last Admin: 11/29/24 17:21 Dose: 1 gm Documented By: MARIANA Enoxaparin Sodium (Enoxaparin Sodium 40 Mg/0.4 Ml Syringe) 40 mg SUBCUT Q24H [facility] Last Admin: 11/29/24 21:14 Dose: 40 mg Documented By: KRIS Fluticasone/Vilanterol (Fluticasone/Vilanterol 100/25 Blst.W.Dev) 1 puff INHALE RDAILY [facility] Last Admin: 11/30/24 08:20 Dose: 1 puff Documented By: AMBER Azithromycin 500 mg/ Sodium (Chloride) 250 mls @ 125 mls/hr IV Q24H [facility] Last Infusion: 11/29/24 19:21 Dose: Infused Documented By: KRIS Lisinopril (Lisinopril 10 Mg Tablet) 10 mg PO DAILY [facility]; Protocol Last Admin: 11/30/24 08:00 Dose: 10 mg Documented By: JIA Magnesium Hydroxide (Milk Of Magnesia 30 Ml Oral.Susp) 30 ml PO DAILY PRN PRN Reason: Constipation Melatonin (Melatonin 3 Mg Tablet) 6 mg PO BEDTIME PRN PRN Reason: Insomnia Last Admin: 11/29/24 21:14 Dose: 6 mg Documented By: KRIS Methylprednisolone Sodium Succinate (Methylprednisolone Sod Succ 40 Mg/Ml Vial) 40 mg IVPUSH Q12H [facility] Last Admin: 11/30/24 08:00 Dose: 40 mg Documented By: JIA Mirtazapine (Mirtazapine 15 Mg Tablet) 15 mg PO BEDTIME [facility] Last Admin: 11/29/24 21:15 Dose: 15 mg Documented By: KRIS Omeprazole (Omeprazole 20 Mg Capsule.Dr) 20 mg PO DAILY@0630 [facility] Last Admin: 11/30/24 06:24 Dose: 20 mg Documented By: KRIS Ondansetron HCl (Ondansetron Hcl 4 Mg/2 Ml Vial) 4 mg IVPUSH Q8H PRN PRN Reason: Nausea and Vomiting Sodium Chloride (0.9 % Sodium Chloride Flush 3 Ml Syringe) 3 ml IVFLUSH QSHIFT [facility] Last Admin: 11/30/24 08:01 Dose: 3 ml Documented By: JIA Labs 11/30/24 06:33 11/30/24 06:33 Labs: Laboratory Results - last 24 hr 11/30/24 11/30/24 06:33 06:41 MCV 88.2 MCH 30.4 MCHC 34.5 RDW 13.1 Plt Count 156 L MPV 9.1 L Absolute Nucleated RBC 0.000 Nucleated RBC % (auto) 0.0 VBG pH 7.43 VBG pCO2 44 VBG pO2 53 VBG HCO3 30 H VBG O2 Saturation 86.0 VBG Base Excess 5.2 Anion Gap 10 L Estim Creat Clear Calc 65.4 Estimated GFR > 60 Random Glucose 134 H Calcium 8.8 Microbiology Microbiology Results: Microbiology 11/28/24 18:35 Blood Culture - Preliminary Blood - Venous No growth after 24 hours. 11/28/24 18:33 Blood Culture - Preliminary Blood - Venous No growth after 24 hours. Assessment and Plan (1) Pneumonia: Status: Acute Assessment and Plan: 79yo M with COPD on home O2 2L, HTN, HLD, tonsillar CA with residual dysphagia, osteoporosis, BPH, GERD presenting with dyspnea admitted for sepsis and hypoxia [requiring 4L O2] due to CAP/COPD exacerbation 1.Acute/chronic hypoxic respiratory failure secondary to COPD exacerbation/CAP -ceftriaxone/azithromycin(3) -methylprednisolone/nebulized bronchodilators/Breo - wean O2 as tolerated 2.HTN -Acceptable control on current therapies -Adjust as indicated #.Dysphagia s/p tonsillar CA - chopped diet/thin liquids enoxaparin Full Code In my clinical judgment, the patient requires continued inpatient hospitalization for the following reasons: hypoxia, IV ABX (2) COPD with acute exacerbation: Status: Acute (3) Community acquired pneumonia: Status: Acute Quality Stroke Does the patient have a stroke diagnosis?: No VTE Prior VTE?: No VTE Risk Level:: Medical - moderate - high VTE Device Contraindication: Treatment Not Indicated VTE Drug Contraindication: N/A - Med Ordered
[2024-11-30] MEDS: cefTRIAXone sodium 1 GM VIAL IVPUSH (17:06)
[2024-11-30] MEDS: Azithromycin 500 MG in 0.9 % Sodium Chloride 250 ML 125 MG IV (18:09)
[2024-11-30] MEDS: Melatonin 3 MG TABLET 6 MG PO (20:03)
[2024-11-30] MEDS: Mirtazapine 15 MG TABLET PO (20:03)
[2024-11-30] MEDS: Atorvastatin Calcium 10 MG TABLET PO (20:03)
[2024-11-30] MEDS: Enoxaparin Sodium 40 MG/0.4 ML SYRINGE SUBCUT (20:03)
[2024-12-01] MEDS: Omeprazole 20 MG CAPSULE.DR PO (05:28)
[2024-12-01 06:00] VITALS: BP 117/64; PULSE 95; RESP 18; TEMP 36.6; O2SAT 95
[2024-12-01 07:11] VITALS: BP 133/67; PULSE 90; RESP 16; TEMP 36.3; O2SAT 96
[2024-12-01] MEDS: Fluticasone/Vilanterol 100/25 BLST.W.DEV 1 PUFF INHALE (07:31)
[2024-12-01] MEDS: Albuterol/Iprat 2.5/0.5MG 3 ML AMPUL.NEB INHALE ×2 (07:33→11:23)
[2024-12-01 07:34] VITALS: PULSE 90; RESP 16; O2SAT 95
[2024-12-01] MEDS: lisinopriL 10 MG TABLET PO (08:00)
[2024-12-01] MEDS: 0.9 % Sodium Chloride Flush 3 ML SYRINGE IVFLUSH (08:00)
[2024-12-01] MEDS: methylPREDNISolone Sod Succ 40 MG/ML VIAL IVPUSH (08:00)
[2024-12-01 11:23] VITALS: PULSE 80; RESP 16; O2SAT 92
--- NOTE | 2024-12-01 11:39 | PM.DS ---
DS: Providers Provider Date of Service: 12/01/24 Date of admission: 11/28/24 19:40 Date of discharge: 12/01/24 Primary care physician: Tila Mcclure MD Consults: 11/30/24 00:56 Consult to Wound Care Routine Reason for consultation: b/l blanchable redness to heels DS: Diagnosis Discharge Diagnosis (1) Pneumonia: Status: Acute (2) COPD with acute exacerbation: Status: Acute (3) Community acquired pneumonia: Status: Acute DS: Summary Hospital Course Hospital Course: 79-year-old male with pertinent history of chronic hypoxemic respiratory failure due to COPD on 2 L oxygen at nighttime, hypertension, mixed hyperlipidemia, BPH, tonsillar cancer with residual dysphagia, osteoporosis, gastroesophageal reflux disease who presents to the emergency department for evaluation of dyspnea. Patient states his symptoms started on the day of presentation. He has been having dyspnea which is worse with exertion. Also has been having cough with yellowish sputum production. Has associated wheezing and was using his home oxygen all day which is unusual for him as he uses it only at night at baseline. Denies chest pain or palpitations. Initially ER at temp of 99 degrees but when his took it his tem his PCP next available p was 102 degrees degrees F at home. No sick contacts. Denies nausea, vomiting, abdominal pain, changes in urinary or bowel habits. In the emergency department, patient was requiring 4 L supplemental oxygen. Imaging concerning for pneumonia. Patient was given IV steroids and DuoNebs. Hospital Course Patient admitted to general medical floor and started on ceftriaxone and azithromycin along with pulse dose steroids. Over the course of the next 48 hours he was able to be weaned down to his home O2 flow of 2 L and he remained afebrile. All cultures were negative. At this point in time he is medically acceptable for discharge to home to complete a course of doxycycline and a prednisone taper. Prior to his discharge he was ambulated without desaturation on 2 L. He will follow up with PCP next available Time Attestation Discharge Coordination Time (in mins): 35 Quality: Safe Use of Opioids Does Pt have an Active Cancer Diagnosis on the Problem List?: No Quality: Stroke Does the patient have a stroke diagnosis?: No Physical Exam Vital Signs: Vital Signs: Last Vital Signs Temp 97.4 F 12/01/24 07:11 Pulse 80 12/01/24 11:23 Resp 16 12/01/24 11:23 BP 133/67 12/01/24 07:11 Pulse Ox 96 12/01/24 07:11 O2 Del Method Nasal Cannula 12/01/24 07:11 O2 Flow Rate 2 12/01/24 07:11 BMI result Body Mass Index 20.7 Const: Other: Awake alert no acute distress Resp: Other: Diminished at bases without rales rhonchi or wheezes Cardio: Other: No S4; positive S1-S2; no S3 murmurs rubs or gallops GI: Other: Soft nontender nondistended normoactive bowel sounds Extrem: Other: No edema bilaterally DS: Data Data Completed and Pending Labs on day of discharge: Preliminary micro results at discharge 11/28/24 18:35 Blood Culture - Preliminary Blood - Venous No growth after 48 hours. 11/28/24 18:33 Blood Culture - Preliminary Blood - Venous No growth after 48 hours. Discharge Plan Discharge Anticipated Discharge Date/Time: 12/01/24 11:34 Patient Disposition: Home Health Service Discharge Diagnosis: Bibasilar pneumonia Referrals: [facility] [Outside] - 1 Week (HOME SERVICES FOR RESIDENTIAL- A NURSE WILL CALL YOU TO SET UP FIRST VISIT.) Ren,Tila Gonzalez MD [Primary Care Provider] - 1 Week Discharge Medications: New doxycycline hyclate 100 mg tablet 100 mg PO BID Qty: 14 0RF prednisone 10 mg tablet See Rx Instructions .Route .COMPLEX Qty: 45 0RF Rx Instructions: 10 mg orally; 5 tabs p.o. daily x3 days; 4 tabs p.o. daily x3 days; 3 tabs daily x3 days; 2 tabs daily x3 days; 1 tab daily x3 days Continued alendronate 70 mg tablet 70 mg PO ROLDAN Qty: 12 2RF albuterol sulfate 90 mcg/actuation HFA aerosol inhaler 2 puff inhalation Q4H PRN (Reason: shortness of breath or wheezing) 60 Days Qty: 8.5 3RF mirtazapine 7.5 mg tablet 15 mg PO BEDTIME Qty: 90 2RF omeprazole 20 mg capsule,delayed release(DR/EC) 20 mg PO DAILY@0630 Qty: 90 2RF lisinopril 10 mg tablet 10 mg PO DAILY simvastatin 10 mg tablet 10 mg PO BEDTIME melatonin 10 mg Tablet 9 mg PO BEDTIME PRN (Reason: Sleep) fluticasone propion-salmeterol [Wixela Inhub] 250-50 mcg/dose blister with device 1 inh inhalation BID 30 Days Qty: 60 5RF Discharge Orders: Discharge Order (Routine); Ordered 12/01/24 Ordered By: Kostas Carreon Diet: Advance to usual diet Activity on Discharge: As tolerated Stand Alone Forms: Patient Portal Discharge page Print Language: Tuvaluan Care Plan Goals: Resume all medications as taken prior to hospitalization Health Concerns: Doxycycline 100 mg twice daily for 1 week has been added to your regimen along with a prednisone taper. Take both as directed Plan of Treatment: Follow up with your PCP next available Assessment: See discharge summary
--- NOTE | 2024-12-01 11:41 | W.MHC.F2F ---
Service Date Service Date: 12/01/24 Encounter Date of encounter: 12/01/24 Encounter: Acute hospitalization Reasons for Services Signs and symptoms assessed: Respiratory status and med compliance Reason for intermediate: medication management, teach disease management and other (Monitor oxygen saturation and assess lung sounds) Homebound: Leaving the home is medically contraindicated at this time without the asist of a device and/or another person due th the listed conditions above and below. Reason homebound: unsteady gait / fall risk and shortness of breath with minimal effort Certification: Based on the above findings, I certify that this patient is confined to the home and needs intermittent intermediate care, physical therapy and/or speech therapy, or continues to need occupational therapy. The patient is under my care, and I have initiated the establishment of the plan of care. The patient will be followed by a physician who will periodically review the plan of care. Time Spent With Patient Time: Total time managing care of this patient today ____ minutes.
--- NOTE | 2024-12-01 11:41 | MHC.CM.PN ---
DP: PT HAS BEEN MEDICALLY CLEARED FOR DC HOME WITH NEW [facility] FOR NURSING. [facility] NOTIFIED OF TODAY'S DC. [facility] WILL TRANSPORT.
[2024-12-02 08:18] LABS: Strep Pneumo Ag urine Not Detected (Not Detected)
[2024-12-03 05:38] LABS: Legionella Ag Urine Not Detected (Not Detected)
== END 2024-12-01 12:50 | disposition home health service (06) | DRG 871 ==
LOC: HO.ED 20:00 → HO.EDOVER 20:04 → HO.S3 20:14
PROVIDERS: Family Medicine; Physician Assistant; Admitting Provider Student in an Organized Health Care Education/Training Program; Emergency Provider Emergency Medicine; PCP Internal Medicine; Visit Provider Hospitalist
DX: A41.9 Sepsis, unspecified organism (principal); J18.9 Pneumonia, unspecified organism; J96.21 Acute and chronic respiratory failure with hypoxia; J44.0 Chronic obstructive pulmonary disease with (acute) lower respiratory infection; J44.1 Chronic obstructive pulmonary disease with (acute) exacerbation; E78.2 Mixed hyperlipidemia; R13.10 Dysphagia, unspecified; I10 Essential (primary) hypertension; Z85.818 Personal history of malignant neoplasm of other sites of lip, oral cavity, and pharynx; Z99.81 Dependence on supplemental oxygen; Z20.822 Contact with and (suspected) exposure to COVID-19; Z79.51 Long term (current) use of inhaled steroids; Z79.899 Other long term (current) drug therapy
CPT/HCPCS: 0241U; 36415; 71045; 80048; 80053; 81001; 82803; 83605; 83690; 83735; 83880; 84145; 85007; 85025; 85027; 87040; 87449; 87899; 93005; 94640; 99285; J0456; J0696; J1650; J2919

== ENCOUNTER → 2024-11-28 18:21 | Outpatient (BNV) | payer MEDICARE, SELFPAY | PROVIDERS: Emergency Provider Emergency Medicine; PCP Internal Medicine; Visit Provider Student in an Organized Health Care Education/Training Program | DX: J43.9 Emphysema, unspecified (principal) | CPT/HCPCS: 71045 ==

== ENCOUNTER → 2024-11-28 18:22 | Outpatient (BNV) | payer MEDICARE, SELFPAY | PROVIDERS: Admitting Provider Student in an Organized Health Care Education/Training Program; Emergency Provider Emergency Medicine; PCP Internal Medicine; Visit Provider Internal Medicine | DX: R00.0 Tachycardia, unspecified (principal) | CPT/HCPCS: 93010 ==

== ENCOUNTER → 2024-11-28 19:40 | Outpatient (BNV) | payer MEDICARE, SELFPAY | PROVIDERS: Admitting Provider Student in an Organized Health Care Education/Training Program; Emergency Provider Emergency Medicine; PCP Internal Medicine; Visit Provider Student in an Organized Health Care Education/Training Program | DX: J18.9 Pneumonia, unspecified organism (principal); J44.1 Chronic obstructive pulmonary disease with (acute) exacerbation | CPT/HCPCS: 99222; 99232; 99233; 99239; G0180 ==

== ENCOUNTER 2024-12-06 10:43 | Outpatient (AMB) | payer BC, SELFPAY ==
--- NOTE | 2024-12-06 10:51 | MHC.PC.OV ---
Vital Signs 12/06/24 10:52 Height 5 ft 8 in Weight 133 lb BMI 20.2 BP 130/68 Blood Pressure Location Lt brachial Position Sitting Pulse 79 Pulse Source Pulse Oximeter Pulse Oximetry (%) 92 Oxygen Delivery Method Nasal Cannula Intake Visit Reasons: COPD, osteoporosis Allergies Sulfa (Sulfonamide Antibiotics) [SULFA (SULFONAMIDE ANTIBIOTICS)] Allergy (Unknown, Verified 12/06/24 10:52) RASH hydrocodone [HYDROCODONE] Adverse Reaction (Severe, Verified 12/06/24 10:52) severe constipation oxycodone Adverse Reaction (Severe, Verified 12/06/24 10:52) severe constipation Tobacco use date assessed: 09/17/24 Fall risk assessment: No Falls in past year Last assessed Fall Risk: 12/06/24 Dental Screening Dental Screen Date: 09/17/24 [facility] Medical History (Updated 12/06/24 @ 10:59 by Tila Mcclure MD) COPD (chronic obstructive pulmonary disease) Hypoxemia Pneumonia COPD with acute exacerbation Preop exam for internal medicine Generalized anxiety disorder 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 Mother Hypertension CVD (cardiovascular disease) Cancer Social History Household Members: Family Housing: House Are you a primary care information associate to a significant other at home: No Do you presently have visiting nurse or other home services: No Alcohol intake: never Patient Tobacco Use Status: Former Tobacco user Tobacco use type: Cigarette Cigarette Packs Per Day: 1 Cigarettes Per Day: 20.0 Years Smoked: 35 e-Cigarette/Vaping Use: Never Used Second Hand Smoke Exposure: Yes (marijuana) service: No Current occupational status: retired Cognitive needs: No Hearing needs: No Vision needs: Yes Questionnaire PHQ-9 Over the last 2 weeks, how often have you been bothered by any of the following problems? 1. Little interest or pleasure in doing things: not at all 2. Feeling down, depressed, or hopeless: not at all 3. Trouble falling or staying asleep, or sleeping too much: not at all 4. Feeling tired or having little energy: several days 5. Poor appetite or overeating: not at all 6. Feeling bad about yourself - or that you are a failure or have let yourself or your family down: not at all 7. Trouble concentrating on things, such as reading the newspaper or watching television: not at all 8. Moving or speaking so slowly that other people could have noticed. Or the opposite - being so fidgety or restless that you have been moving around a lot more than usual: not at all 9. Thoughts that you would be better off or of hurting yourself in some way: not at all Total score: 1 Depression Screening Interpretation: Positive Depression Screening Done: Yes 16060 - PHQ-9 Billing: Yes Source: Developed by Drs. Paul Greer, Capri Meraz, Robin Barksdale and colleagues, with an educational nanette from [employer]. Thrive Questionnaire Date Thrive assessed: 11/29/24 I am a: Patient What is your living situation today?: I have a steady place to live Within the past 12 months, did the food you bought not last and you didn't have the money to get more?: Often true Within the past 12 months, did you worry whether your food would run out before you got money to buy more?: Never true Do you have trouble paying for medicines?: No Do you have trouble getting transportation to medical appointments?: No Do you have trouble paying your heating and electricity bill?: No Do you have trouble taking care of your child, family member or friend?: No Do you have trouble with day-to-day activities such as bathing, preparing meals, shopping, managing finances, etc.?: No Are you currently unemployed and looking for a job?: No Are you interested in more education?: No Please select the resources that you would like help with: None Currently or been in a relationship where the following occur: No concerns reported THRIVE Score: 1 AUDIT C Alcohol Use Questionnaire (AUDIT-C) 1. How often do you have a drink containing alcohol?: Never Total Score: 0 JOHAN-7 AMB Questionnaire JOHAN-7 Date JOHAN - 7 assessed: 09/17/24 Feeling nervous, anxious, or on edge: 0 = Not at all Not being able to stop or control worryin = Not at all Worrying too much about different things: 0 = Not at all Trouble relaxin = Not at all Being so restless that it is hard to sit still: 0 = Not at all Becoming easily annoyed or irritable: 0 = Not at all Feeling afraid as if something awful might happen: 0 = Not at all Total JOHAN-7 score (0-4 normal; 5-9 mild; 10-14 moderate; 15-21 severe): 0 Source: Developed by Drs. Paul Greer, Capri Meraz, Robin Barksdale and colleagues, with an educational nanette from [employer]. JOHAN-7 Assessment Billing JOHAN-7 Assessment Tool: JOHAN-7 Assessment 49418 Physical exam (Primary Care) Vital Signs: Last Vital Signs Pulse 79 12/06/24 10:52 BP 130/68 12/06/24 10:52 Pulse Ox 92 12/06/24 10:52 Oxygen Delivery Method Nasal Cannula 12/06/24 10:52 BMI result Body Mass Index 20.2 Tobacco/Smoking Status: Tobacco use Status Tobacco use date assessed 09/17/24 12/06/24 10:57 Patient Tobacco Use Status Former Tobacco user 12/06/24 10:57 Tobacco use type Cigarette 12/06/24 10:57 e-Cigarette/Vaping Use Never Used 12/06/24 10:57 PHQ-9: PHQ-9 Score PHQ-9: Total score 1 12/06/24 10:57 Depression Screening Interpretation: Positive Thrive Assessment: Date of Thrive Assessment Date Thrive assessed 11/29/24 12/06/24 10:57 Currently or been in a relationship where the following occur: No concerns reported Const General: alert; No acute distress Eyes Conjunctivae: conjunctivae normal Resp Auscultation: clear to auscultation bilaterally Cardio Rate: regular rate Rhythm: regular rhythm GI Inspection: Yes normal to inspection Extrem General: Yes normal to inspection and No edema Coding Level of Care Code Est Pt Level 4 (31155) Complex EM visit Add On G2211 Diagnoses Essential hypertension I10 Hypertension type: essential hypertension Hypercholesterolemia E78.00 BPH loc w urin obs/LUTS N40.1 Generalized anxiety disorder F41.1 Pulmonary emphysema, unspecified emphysema type J43.9 COPD type: emphysema Emphysema type: unspecified Pulmonary nodule R91.1 Age-related osteoporosis with current pathological fracture, sequela M80.00XS Encounter type: sequela Osteoporosis type: age-related Presence of current pathological fracture: with current pathological fracture Additional Codes JOHAN-7 Assessment Billing - JOHAN-7 Assessment Tool: JOHAN-7 Assessment 79499 ([id number]) PHQ-9 - 34122 - PHQ-9 Billing: Yes ([id number]) Assessment & Plan Assessment & Plan (1) Hypertension: Code(s): I10 - Essential (primary) hypertension Category: Medical Qualifiers: Hypertension type: essential hypertension Qualified Code(s): I10 - Essential (primary) hypertension Plan: Continue with blood pressure medication. Decrease salt intake and exercise on lisinopril 10 mg once a day (2) Hypercholesterolemia: Code(s): E78.00 - Pure hypercholesterolemia, unspecified Category: Medical Plan: Avoid fried foods, chicken skin, eggs, butter margarine, pastries and meat. Be it pork or beef they have a lot of cholesterol LDL goal of less than 130 and triglyceride of less than 150 patient on simvastatin 10 mg at bedtime with last blood work October 2023 (3) BPH loc w urin obs/LUTS: Comment: Laser enucleation of the prostate March [address]22 Dr. Lewis Code(s): N40.1 - Benign prostatic hyperplasia with lower urinary tract symptoms Category: Medical Plan: Stable (4) Generalized anxiety disorder: Code(s): F41.1 - Generalized anxiety disorder Category: Medical Plan: On mirtazapine continuing with medication (5) COPD (chronic obstructive pulmonary disease): Comment: Has rather severe degree of COPD , but doing OK on current regimen AND IS STABLE . Code(s): J44.9 - Chronic obstructive pulmonary disease, unspecified Category: Medical Qualifiers: COPD type: emphysema Emphysema type: unspecified Qualified Code(s): J43.9 - Emphysema, unspecified Plan: Patient is being followed up by Pulmonary on albuterol inhaler, Wixela and on oxygen (6) Pulmonary nodule: Comment: PET scan September 30 4.7 cm right lateral lung, 06/2024 Code(s): R91.1 - Solitary pulmonary nodule Category: Medical Plan: Patient is having routine CT of the chest (7) Osteoporosis: Comment: May Code(s): M81.0 - Age-related osteoporosis without current pathological fracture Category: Medical Qualifiers: Encounter type: sequela Osteoporosis type: age-related Presence of current pathological fracture: with current pathological fracture Qualified Code(s): M80.00XS - Age-related osteoporosis with current pathological fracture, unspecified site, sequela Plan: Patient is up-to-date with bone density Plan History of Present Illness The patient is a 79-year-old male presenting with a follow-up for COPD exacerbation and recent pneumonia management. He was hospitalized in November 2022 with bacterial pneumonia, experiencing symptoms of cough, wheezing, and fever, and treated with intravenous antibiotics and steroids. Oxygen therapy was provided, with adjustments for exertion-related hypoxemia. The patient has a prior history of hospitalization in August 2024 due to similar respiratory issues leading to acute hypoxic respiratory failure. His chronic conditions include hypertension, hypercholesterolemia, osteoporosis, generalized anxiety disorder, and a previous history of tonsillar cancer. Medications include Lisinopril, Simvastatin, and Alendronate, among others. His preventive healthcare measures, including vaccinations and bone density screening, are current. Nutritional challenges persist, influenced by past cancer treatment affecting his appetite and taste. The patient's COPD management consists of Albuterol and Wexela inhalers and monitoring pulmonary nodules noted in a [address] scan showing no changes. Health Maintenance - Pneumonia vaccination completed. - RSV and shingles vaccinations administered recently. - Bone density screening conducted in October 2024, showing osteoporosis particularly affecting the hip. - Blood pressure and cholesterol management in place. Social History - Nutritional intake influenced by past cancer treatments, affecting taste and leading to difficulty consuming certain foods, particularly meat. - The patient seems to engage in outdoor activities, such as mowing the lawn, suggesting a certain level of functional status and physical activity. Review of Systems - Respiratory: Reports cough, wheezing, and exercise-induced hypoxemia. - Musculoskeletal: Denies acute pain but has osteoporosis. - Nutritional: Reports taste alterations and difficulty with certain foods. Physical Exam Results - CT scan of chest in 2023: No changes in pulmonary nodules. Plan I recommend continuing inhaler therapy with Albuterol and Wexela for ongoing COPD management, including exercise-induced hypoxemia considerations. The recent antibiotics, Ceftriaxone and Azithromycin, and Doxycycline should be completed as prescribed. Continuous use of O2 should be maintained with attention to necessary adjustments during exertion. Preventive advice includes wearing masks to protect against respiratory infections. The patient's inhaler regimen should be maintained, and follow-up with the medical policy specialist is planned to monitor COPD progression. Osteoporosis management with Alendronate should continue, and dietary adjustments with high-protein supplements can address taste and nutritional challenges due to past cancer therapies. Further evaluation and laboratory work are deferred until the patient is adequately prepared for fasting tests. Follow-up is scheduled for evaluation of treatment efficacy and adjustment if necessary. Patient was informed and verbally consented to the use of an ambient scribe for clinic note documentation during this visit. Discussion Notes During our visit, I addressed the management of chronic medical conditions, highlighting the maintenance of inhaler therapy, with focus on preventing further exacerbations by masking in cristine or pollen-rich environments. I discussed completing prescribed antibiotics and the importance of returning if symptoms worsen. I advised on nutritional strategies to enhance intake despite taste changes, supporting optimal health. Follow-up is planned in three months, focusing on treatment response and adapting care to evolving needs. The patient was encouraged to utilize the office portal for any concerns, ensuring communication efficiency. Patient Instructions - Use Albuterol and Wexela inhalers as directed. - Wear a mask when outside or in cristine environments. - Complete all prescribed antibiotics. - Continue taking your current medications as advised. - Include high-protein foods or supplements to maintain nutrition. - Follow up in three months for reassessment. - Reach out via the office portal for questions or concerns.
[2024-12-06 10:52] VITALS: BP 130/68; PULSE 79; O2SAT 92; BMI 20.2
--- OUTSIDE RECORDS SUMMARY | 2024-12-06 12:46 | XMS_ITS | Clinical Summary ---
Author Organization [facility] Address [address] [place] [address] Care Team Providers Care Manager Pacu Name Role Phone Tila Mcclure MD Primary Care Provider [phone] Tila Mcclure MD Unavailable [phone] Allergies No known active allergies Medications alendronate (FOSAMAX) 70 MG tablet Take 70 mg by mouth once a week. Take Friday morning 10/24/19 22 Active finasteride (PROSCAR) 5 MG tablet Take 5 mg by mouth daily. 12/01/19 22 Active fluticasone-jordan meterol (ADVAIR) 250-50 mcg/inh diskus inhaler Inhale 1 puff 2 (two) times a day. 11/17/19 22 Active lisinopril (PRINIVIL,ZeSTR IL) 5 MG tablet Take 5 mg by mouth daily. 11/29/19 22 Active OMEprazole (PriLOSEC) 20 MG capsule Take 20 mg by mouth daily. 11/15/19 22 Active pilocarpine (SALAGEN) 5 MG tablet Take 5 mg by mouth 2 (two) times a day. 11/15/19 22 Active sertraline (ZOLOFT) 50 MG tablet Take 50 mg by mouth daily. 10/29/19 22 Active simvastatin (ZOCOR) 10 MG tablet Take 10 mg by mouth nightly. 12/01/19 Active tamsulosin (FLOMAX) 0.4 MG capsule Take 0.4 mg by mouth nightly. 12/01/19 22 Active Multiple Vitamins-Minera ls (One-A-Day Mens 50+) Tab Take 1 tablet by mouth daily. Active diphenhydrAMINE -APAP, sleep, (TYLENOL PM EXTRA STRENGTH PO) Take 1 tablet by mouth daily as needed (pain/ sleep). Active melatonin 5 MG Tab tablet Take 5 mg by mouth nightly. Active OxygenIndicatio ns:CAP (community acquired pneumonia) due to Chlamydia species,Chronic obstructive pulmonary disease, unspecified COPD type (HCC) Oxygen 2 liters via nasal canula No humidification LOS 99 ICD code 10 J44.9 1 each 12/08/19 Active predniSONE (DELTASONE) 10 MG tabletIndicatio ns:Chronic obstructive pulmonary disease, unspecified COPD type (HCC) Take 1 tablet (10 mg total) by mouth daily. With food. Taper. Take 2 tabs x 3d, then 1 tab x 3d Do not start before December 10, 2021. 9 tablet 12/11/19 Active Active Problems Problem Noted Date Diagnosed [...] at Not on file Legal Sex Male 6:35 PM EST Gender Identity Not on file Sexual Orientation [...] on patient's age to complete this topic [place] [address] [address] MEDICARE Advance Directives * Full Code (Latest Code Status on File) Date Activated Date Inactivated Comments 12/02/2021 2:40 AM Care Teams Manager Pacu Relationship Specialty Start Date End Date Tila Mcclure MD [address] [place] [address] [place] [address] PCP - General Internal Medicine 12/05/21 Tila Mcclure MD [address] [place] [address] [place] [address] Internal Medicine 12/05/21
== END 2024-12-06 11:17 | disposition home or self-care (01) ==
LOC: HO.HMCH 10:44
PROVIDERS: PCP Internal Medicine; Visit Provider Internal Medicine
DX: I10 Essential (primary) hypertension (principal); E78.00 Pure hypercholesterolemia, unspecified; J43.9 Emphysema, unspecified; N40.1 Benign prostatic hyperplasia with lower urinary tract symptoms; F41.1 Generalized anxiety disorder; R91.1 Solitary pulmonary nodule; M80.00XS Age-related osteoporosis with current pathological fracture, unspecified site, sequela

== ENCOUNTER → 2024-12-06 10:43 | Outpatient (BNVA) | payer BC, SELFPAY | PROVIDERS: PCP Internal Medicine; Visit Provider Internal Medicine | DX: I10 Essential (primary) hypertension (principal); E78.00 Pure hypercholesterolemia, unspecified; N40.1 Benign prostatic hyperplasia with lower urinary tract symptoms; N13.8 Other obstructive and reflux uropathy; F41.1 Generalized anxiety disorder; J43.9 Emphysema, unspecified; R91.1 Solitary pulmonary nodule; M80.00XS Age-related osteoporosis with current pathological fracture, unspecified site, sequela | CPT/HCPCS: 96127 ==

== ENCOUNTER 2025-01-26 10:54 | Outpatient (AMB) | payer MEDICARE, SELFPAY ==
[2025-01-26 11:06] VITALS: BP 142/70; PULSE 57; O2SAT 94; BMI 20.4
--- NOTE | 2025-01-26 11:06 | MHC.OFFVIS ---
Vital Signs 01/26/25 11:06 Height 5 ft 8 in Weight 134 lb 7.712 oz BMI 20.4 BP 142/70 H Blood Pressure Location Lt brachial Position Sitting Pulse 57 Pulse Source Pulse Oximeter Pulse Oximetry (%) 94 Oxygen Delivery Method Room Air Intake Visit Reasons: COPD Intake Note: pt is here for follow up and states he is feeling well Restaurant Attendant Required: No Allergies Sulfa (Sulfonamide Antibiotics) (SULFA (SULFONAMIDE ANTIBIOTICS)) Allergy (Unknown, Verified 01/26/25 11:27) RASH hydrocodone (HYDROCODONE) Adverse Reaction (Severe, Verified 01/26/25 11:27) severe constipation oxycodone Adverse Reaction (Severe, Verified 01/26/25 11:27) severe constipation Medication List - Last Reconciled 01/26/25 by Niranjan Yusuf MD albuterol sulfate 90 mcg/actuation 2 puffs inhalation Q4H PRN 60 days alendronate 70 mg PO ROLDAN fluticasone propion-salmeterol 250-50 mcg/dose (Wixela Inhub) 1 inh inhalation BID 30 days lisinopril 10 mg PO DAILY melatonin 9 mg PO BEDTIME PRN mirtazapine 15 mg (2 x 7.5 mg) PO BEDTIME omeprazole 20 mg PO DAILY@0630 simvastatin 10 mg PO BEDTIME Do you need a note to return to daycare/school/sports/work: No HPI HPI COPD: Details: This 79 years old gentleman is a known case of chronic obstructive pulmonary disease, nocturnal and exercise induced hypoxemia, and pulmonary nodules. He is ex smoker. On his current medical regimen he is doing very well and remains stable. Lately he has had no chest infection, and no need to go to the hospital. While he does use oxygen at night during the daytime he is not using the portable unit all the times. But he does take it with him when he has to go outdoors for a longer trip. 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 Mother Hypertension CVD (cardiovascular disease) Cancer Social History Household Members: Family Housing: House Are you a primary geriatric care manager to a significant other at home: No Do you presently have visiting nurse or other home services: No Alcohol intake: never Patient Tobacco Use Status: Former Tobacco user Tobacco use type: Cigarette Cigarette Packs Per Day: 1 Cigarettes Per Day: 20.0 Years Smoked: 35 e-Cigarette/Vaping Use: Never Used Second Hand Smoke Exposure: Yes (marijuana) service: No Current occupational status: retired Cognitive needs: No Hearing needs: No Vision needs: Yes Review of Systems Const All systems reviewed & are unremarkable except as noted in HPI and below Eyes Reports no additional complaints ENT Reports no additional complaints Card Denies chest pain, Denies irregular heart rhythm and Denies leg edema Resp Reports as per HPI GI Reports constipation Reports no additional complaints Musc Reports back pain (Mild) Skin/Breast Reports system reviewed and no additional complaints, except as documented Neuro Reports no additional complaints Psych Reports depression (Well controlled with med) Endo Reports no additional complaints Physical Exam Vital Signs: Last Vital Signs Pulse 57 01/26/25 11:06 BP 142/70 H 01/26/25 11:06 Pulse Ox 94 01/26/25 11:06 Oxygen Delivery Method Room Air 01/26/25 11:06 BMI result Body Mass Index 20.4 Const General: comfortable, no acute distress, alert and awake Orientation/consciousness: patient oriented x3 HEENT Head: Yes normal to inspection General nose exam: No nasal polyps present and No nasal discharge present Face and sinus: Yes sinuses nontender Mouth: oropharynx normal Throat: Yes posterior oropharynx normal Eyes General: appearance normal, both eyes and all related structures Neck Neck: Yes normal visual inspection, Yes no lymphadenopathy, Yes trachea midline and Yes no JVD Thyroid: Thyroid normal Chest Chest palpation & inspection: normal inspection of the chest, normal palpation of entire chest wall and no tenderness Resp Other: Percussion note hyper-resonant, breath sounds are equal on both sides but distant with prolonged expiratory phase. Both lungs are clear and there are no audible wheezes or Creps. Cardio Palpation: normal PMI Rate: regular rate Rhythm: regular rhythm Heart sounds: no gallops and no murmurs Peripheral pulses: Peripheral pulses 2+ throughout GI Palpation (GI): Soft to palpation, nontender, No hepatosplenomegaly present and no masses Auscultation: normal bowel sounds Back/Spine/Pelvis Thoracic/Lumbar Spine: thoracic and lumbar spine normal to inspection Skin General skin exam: no rashes or lesions noted Neuro General: patient oriented x3 and no focal motor deficits Cranial nerves: Yes CN's II-XII intact bilaterally Extrem General: Yes normal to inspection, Yes no clubbing, cyanosis or edema and Yes no calf tenderness Psych Appearance: grossly normal and well kempt Speech and movement: Normal speech and movement present Assessment & Plan Assessment & Plan (1) COPD (chronic obstructive pulmonary disease): Comment: Has rather severe degree of COPD , but doing OK on current regimen AND IS STABLE . Code(s): J44.9 - Chronic obstructive pulmonary disease, unspecified Category: Medical Qualifiers: COPD type: emphysema Emphysema type: unspecified Qualified Code(s): J43.9 - Emphysema, unspecified Plan: Advised to continue using Wixela 250-51 inhalation b.i.d. and albuterol HFA 2 puffs Q 6 hours p.r.n.. (2) Pulmonary nodule: Comment: PET scan September 30 4.7 cm right lateral lung, 06/2024 , Benign, and a few other nodules which are calcified. Code(s): R91.1 - Solitary pulmonary nodule Category: Medical Plan: Will be monitored closely, no need to do annual lung scan Coding Level of Care Code Est Pt Level 3 (22078) Diagnoses Pulmonary emphysema, unspecified emphysema type J43.9 COPD type: emphysema Emphysema type: unspecified Pulmonary nodule R91.1
--- OUTSIDE RECORDS SUMMARY | 2025-01-26 12:35 | XMS_ITS | Clinical Summary ---
Author Organization [facility] Address [address] [place] [address] Care Team Providers Care Machine Biller Name Role Phone Tila Mcclure MD Primary Care Provider [phone] Tila Mcclure MD Unavailable [phone] Allergies No known active allergies Medications [...] 105 12/09/2021 4:00 PM EDT Temperature 36.4 C (97.5 F) 12/09/2021 4:00 PM EDT Respiratory Rate 18 12/09/2021 4:00 PM EDT [...] Patients (1 - 1-dose 75+ series) 02/21/2020 COVID-19 Vaccine (3 - 2023- season) 2024 10/03/2020, 09/12/2020 Influenza Vaccine 03/11/2025 04/29/2019, , 04/27/2017, Additional history exists Hepatitis B Vaccines Aged Out No long er eligible based on patient's age to complete this topic Insurance [facility] MEDICARE Advance Directives * Full Code (Latest Code Status on File) Date Activated Date Inactivated Comments 12/02/2021 2:40 AM Care Teams Machine Biller Relationship Specialty Start Date End Date Tila Mcclure MD [address] [place] [address] [place] [address] PCP - General Internal Medicine 12/05/21 Tila Mcclure MD [address] [place] [address] [place] [address] Internal Medicine 12/05/21
== END 2025-01-26 11:26 | disposition home or self-care (01) ==
LOC: HO.HPS 10:55
PROVIDERS: PCP Internal Medicine; Visit Provider Internal Medicine
DX: J43.9 Emphysema, unspecified (principal); R91.1 Solitary pulmonary nodule
CPT/HCPCS: 99213

== ENCOUNTER → 2025-01-26 10:54 | Outpatient (BNVA) | payer MEDICARE, SELFPAY | PROVIDERS: PCP Internal Medicine; Visit Provider Internal Medicine | DX: J43.9 Emphysema, unspecified (principal); R91.1 Solitary pulmonary nodule | CPT/HCPCS: 99212 ==

== ENCOUNTER 2025-03-10 09:18 | Outpatient (REF) | payer MEDICARE, SELFPAY ==
--- OUTSIDE RECORDS SUMMARY | 2025-03-10 09:35 | XMS_ITS | Clinical Summary ---
Author Organization [facility] Address [address] [place] [address] Care Team Providers Care Lens Blank Gauger Name Role Phone Tila Mcclure MD Primary Care Provider [phone] Tila Mcclure MD Unavailable [phone] Allergies No known active allergies Medications [...] Health Maintenance Due Date Last Done Comments DTaP/Tdap/Td Vaccines (1 - Tdap) 02/21/1964 Pneumococcal Vaccines 50+ (1 of 2 - PCV) 02/21/1964 Zoster (Shingles) Vaccine (1 of 2) 1995 RSV Vaccine 60 years and older and Patients (1 - 1-dose 75+ series) 02/21/2020 COVID-19 Vaccine (3 - season) 2024 10/03/2020, 09/12/2020 Influenza Vaccine 03/11/2025 04/29/2019, , 04/27/2017, Additional history exists Hepatitis B Vaccines Aged Out No long er eligible based on patient's age to complete this topic Insurance MEDICARE Advance Directives * Full Code (Latest Code Status on File) Date Activated Date Inactivated Comments 12/02/2021 2:40 AM Care Teams Lens Blank Gauger Relationship Specialty Start Date End Date Tila Mcclure MD [address] [place] [address] [place] [address] PCP - General Internal Medicine 12/05/21 Tila Mcclure MD [address] [place] [address] [place] [address] Internal Medicine 12/05/21
--- OUTSIDE RECORDS SUMMARY | 2025-03-10 09:35 | XMS_ITS | Patient Health Record ---
Author Organization [facility] Address [address] [place] [address] Care Team Providers Care Spout Worker Name Role Phone Po Tila ALLISON Primary Care Provider Paul Gallardo [phone] Allergies Allergen (clinical drug ingredient) Drug/Non Drug Allergy documented on EMR Reaction Allergy Type Onset Date Status Hydrocodone Bitartrate Unknown Drug Allergy Active Reason For Referral No Information Medications Medication SIG (Take, Route, Frequency, Duration) Notes Start Date End Date Status Lisinopril 5 MG 1 tablet Orally Once a day Active Advair Diskus 250-50 MCG/DOSE 1 puff Inhalation Twice a day Active Ventolin HFA 108 (90 Base) MCG/ACT 2 puffs as needed Inhalation every 4 hrs Active Zoloft 50 MG 1 tablet Orally Once a day Active Simvastatin 10 MG 1 tablet in the even ing Orally Once a day Active Alendronate Sodium 70 MG 1 tablet Orally once a week Active Multivitamin Adult - as directed Orally once a day Active Tylenol PM Extra Strength as directed Or ally Once a day Active Immunizations Vaccine Route Administration Date Status Comme nts Influenza Unknown 04/11/2018 Administered Problems Problem Type SNOMED Code ICD Code Onset Dates Problem Status W/U Status Risk Notes Problem 012215999 Encounter for screening for malignant neoplasm of colon (Z12.11) Active confirmed Problem 401667860845163 Preprocedural examination (Z01.818) Active confirmed Problem 063140706 Hx of adenomatou s colonic polyps (Z86.010) Active confirmed Plan Of Treatment Future Test Test Name Order Date COLONOSCOPY 01/18/2014 COLONOSCOPY 03/04/2019 Insurance Providers Payer Name Payer Address Payer Phone Subscriber Number Group Number Insured Name Patient Relationship to Insured Coverage Start Date Coverage End Date [facility] [address] [facility] [place] [phone] [id number] CARMEN HOOPER Self - patient is the insured Medical (General) History Medical History History ICD Code Colon polyps--tubular adenom as removed in 1997 and 2008--neg. colonoscopy in 2002; colonoscopy in 04/2014 with a small tubular adenoma removed COPD/Asthma Anxiety/depression Denies CT,DM,CVA,renal disease Elevated Cholesterol Vertebroplasty in 2006 and 2017 for a co mpression fracture HTN Surgical History Surgery Date(Month/Year) Left leg surgery--broken leg with hardwa re
--- OUTSIDE RECORDS SUMMARY | 2025-03-10 09:35 | XMS_ITS | Clinical Summary ---
Author Organization [facility] Address [address] [place] [address] Phone Care Team Providers Care Sack Keeper Name Role Phone Tila Mcclure MD Primary Care Provider [phone] Allergies Active Allergy Reactions Criticality Noted Date Comments Hydrocodone Other (See Comments) 09/03/2024 GI Upset Medications fluticasone propion-salmete roL (ADVAIR DISKUS) 100-50 mcg/dose DISKUS Inhale 100 mcg/actuation of fluticasone into the lungs. Active albuterol 90 mcg/actuation inhaler Inhale 2 puffs into the lungs every 6 (six) hours as needed for wheezing. Active benzonatate (TESSALON) 100 MG capsuleIndicati ons:Cough Take 1 capsule (100 mg total) by mouth 3 (three) times a day as needed for cough. 20 capsule 1 Active alendronate (FOSAMAX) 70 MG tablet TAKE 1 TABLET BY MOUTH EVERY WEEK 1 Active dexAMETHasone (DECADRON) 4 MG tablet TAKE 2 TABLETS BY MOUTH EVERY DAY AFTER CHEMOTHERAPY WITH FOOD FOR 3 DAYS 1 Active finasteride (PROSCAR) 5 mg tablet Take 5 mg by mouth daily. 1 Active fluconazole (DIFLUCAN) 100 MG tablet 1 Active LIDOCAINE 2 % solution 1 Active lisinopril (PRINIVIL,ZESTR IL) 5 MG tablet Take 5 mg by mouth daily. 1 Active nystatin (MYCOSTATIN) 100,000 units/mL suspension 1 Active OLANZapine (ZYPREXA) 5 MG tablet TAKE 1 TABLET BY MOUTH EVERY NIGHT AT BEDTIME FOR 4 DAYS. BEGIN NIGHT OF CHEMO 1 Active ondansetron (ZOFRAN) 8 MG tablet 1 Active oxyCODONE 5 MG immediate release tablet TAKE 1/2 TO 1 TABLET BY MOUTH EVERY 4 HOURS 1 Active prochlorperazin e (COMPAZINE) 5 MG tablet TAKE 1 TO 2 TABLETS BY MOUTH EVERY 6 HOURS NEEDED FOR NAUSEA OR VOMITING 1 Active sertraline (ZOLOFT) 50 MG tablet Take 50 mg by mouth daily. 1 Active simvastatin (ZOCOR) 10 MG tablet Take 10 mg by mouth nightly at bedtime. at bedtime. 1 Active tamsulosin (FLOMAX) 0.4 mg Cap Take 0.4 mg by mouth nightly at bedtime. 1 Active acetaminophen/d iphenhydramine (TYLENOL PM EXTRA STRENGTH ORAL) Take by mouth. Activ e mirtazapine (REMERON) 7.5 MG tablet Take 7.5 mg by mouth nightly at bedtime. Active Active Problems Problem Noted Date Diagnosed Date Cough 04/01/2021 Immunizations Immunization Administration Dates Next Due COVID-19 (Pre-06/02) Pfizer Vaccine, mRNA, PF 10/03/2020,09/12/2020 Influenza High-Dose Quadriva lent Preservative Free IM 04/25/2020 Influenza High-Dose Trivalen t Preservative Free IM 05/15/2018,04/27/2017,04/25/2016 Influenza Trivalent Adjuvant ed Preservative free IM 04/29/2019 Influenza Trivalent MDCK Pre servative Free IM 05/07/2015 Pneumococcal conjugate PCV13 06/21/2015 Pneumococcal polysaccharide PPSV23 05/28/2018 Zoster live 04/20/2014 Social History Tobacco Use Types Packs/Day Years Used Date Smoking Tobacco: Former Smokeless Tobacco: Never Tobacco Cessation:Counseling Given: Not Answered Alcohol Use Standard Drinks/Week Comments Not Currently [...] Sign Reading Time Taken Comments Blood Pressure 161/88 09/03/2024 7:06 PM EST Pulse 130 09/03/2024 7:06 PM EST Temperature 37.4 C (99.4 F) 09/03/2024 7:06 PM EST Respiratory Rate 30 09/03/2024 7:06 PM EST Oxygen Saturation 88% 09/03/2024 7:06 PM EST Inhaled Oxygen Concentration - - Weight 73.5 kg (162 lb) 04/01/2021 10:47 AM EDT Height 165.1 cm (5' 5 ) 04/01/2021 10:47 AM EDT Body Mass Index 26.96 04/01/2021 10:47 AM EDT Plan of Treatment Health Maintenance Due Date Last Done Comments CREATININE LEVEL 1945 LIPID PANEL 1945 POTASSIUM LEVEL 1945 DEPRESSION SCREENING 1957 SMOKING Hx and SMOKELESS TOBACCO SCREENING 1958 HEPATITIS C SCREENING 1963 ZOSTER VACCINES (2 of 3) 06/15/2014 04/20/2014 COVID-19 VACCINE ( season) 2024 04/19/2024, 02/28/2024, 04/29/2023, Additional history exists Adult Td,Tdap Booster 12/04/2032 12/04/2022 PNEUMOCOCCAL VACCINES (50+ years) Completed 05/28/2018, 06/21/2015 RSV VACCINE Completed 04/29/2023 HEPATITIS A VACCINES Aged Out No long er eligible based on patient's age to complete this topic HIB VACCINES Aged Out No longer eligi ble based on patient's age to complete this topic MENINGOCOCCAL VACCINES (ACWY) Aged Out No longer eligible based on patient's age to complete this topic MENINGOCOCCAL VACCINES (B) Aged Out N o longer eligible based on patient's age to complete this topic Medical Devices Not on file Insurance [facility] MEDICARE REPLACEMENT MEDICARE PART A & B [place] BL[place] RE[place] [facility] MED[facility]ARE REPLACEMENT MEDICARE PART A & [place] [facility] MED[facility]ARE REPLACEMENT MEDICARE PART A & B [facility] MED[facility]ARE REPLACEMENT MEDICARE PART A & B [facility] MED[facility]ARE REPLACEMENT MEDICARE PART A & [place] [facility] MEDICARE REPLACEMENT MEDICARE PART A & B Member Subscriber Plan / Payer (Ef fective 2010-Present) Name:Dragan Gagnon Member ID:[id number] Relation to Subscriber:Self Name:Dragan Gagnon Subscriber ID:[id number] Payer ID:[id number] Group ID:Not on file Type:Medicare Address: [employer] [address] [place] [phone] [facility] MEDICARE REPLACEMENT MEDICARE PART A & [place] [facility] MEDICARE REPLACEMENT MEDICARE PART A & [place] [facility] MEDICARE REPLACEMENT MEDICARE PART A & [place] Care Teams Sack Keeper Relationship Specialty Start Date End Date Tila Mcclure MD [address] [place] [address] [address] [place] [address] PCP - General Internal Medicine 03/30/21 Additional Source Comments The information contained in this document represents components of the legal health record. It is not the complete legal health record.[facility]
--- OUTSIDE RECORDS SUMMARY | 2025-03-10 09:35 | XMS_ITS ---
[facility] Name [facility] Encounters Encounter Type Encounter Reason Primary Diagnosis Location Date Ambulatory [facility] 12/14/2021 Inpatient Chronic obstruct [place] pulmonary disease, [facility]02[facility]2021 Care Team Organization Name Specialty Phone Email Start Date End Da te [facility] Primary Care 12/14/2021 03/29/2024 [facility] Primary Care 12/02/2021 12/14/2021 [facility] 12/02/2021 12/02/2021
[2025-03-10 09:38] LABS: MANUAL DIFF FLAG NO
[2025-03-10 10:23] LABS: Hematocrit 40.4 % (42.0-52.0); Hemoglobin 14.5 g/dl (14.0-18.0); Imm Gran Abs Auto 0.02 X10*3/uL (0.00-0.03); Imm Gran Pct Auto 0.3 % (0.0-0.4); Lymphocytes Absolute Auto 1.3 X10*3/uL (1.2-4.9); Mean Corpuscular HGB Conc 35.9 g/dl (31.0-36.0); Mean Corpuscular Hemoglobin 31.2 pg (27.0-33.0); Mean Corpuscular Volume 86.9 fL (80.0-98.0); NRBC Abs Auto 0.000 X10*3/uL (0.0-0.012); NRBC Pct Auto 0.0 /100WBC (0.0-0.2); Platelet Count 151 X10*3/uL (160-400); Red Blood Count 4.65 X10*6/uL (4.60-5.80); Reticulocytes Absolute 0.079 X10*6/uL (0.026-0.095); White Blood Count 7.1 X10*3/uL (4.8-10.8)
[2025-03-10 10:25] LABS: Hemoglobin A1C 115.7818 umol/L; Total Hemoglobin (HGBA1C) 3735.8341 umol/L
[2025-03-10 11:06] LABS: Alanine Aminotransferase 18 U/L (0-40); Albumin Level 4.7 g/dL (3.5-5.0); Alkaline Phosphatase 71 U/L (39-117); Anion Gap 12 (12-20); Aspartate Amino Transferase 16 U/L (5-37); Blood Urea Nitrogen 11 mg/dL (9-16); Calcium 9.4 mg/dL (8.4-10.2); Carbon Dioxide 29 mmol/L (22-29); Chloride 103 mmol/L (96-108); Cholesterol 127 mg/dL (<200); Estimated Glomerular Filt Rate > 60; HDL Cholesterol 46 mg/dL (>40); Iron 65 mcg/dL (45-160); Percent Iron Saturation 23 % (15-50); Potassium 4.2 mmol/L (3.3-5.1); Sodium 140 mmol/L (135-145); Total Iron Binding Capacity 278 mcg/dL (228-428); Total Protein 7.1 g/dL (6.5-8.0); Triglycerides 60 mg/dL (<150); Unsaturated Iron Binding 213 ug/dL
[2025-03-10 11:27] LABS: Ferritin 235 ng/mL (20-250); Free T4 (Free Thyroxine) 0.85 ng/dL (0.71-1.85); Thyroid Stimulating Hormone 3.88 uIU/mL (0.32-4.0)
[2025-03-10 11:28] LABS: Folate 9.1 ng/mL (> or = 4.0); Vitamin B12 497 pg/mL (200-900)
== END 2025-03-10 09:19 | disposition home or self-care (01) ==
LOC: HO.LAB 09:18
PROVIDERS: PCP Internal Medicine; Visit Provider Internal Medicine
DX: E78.00 Pure hypercholesterolemia, unspecified (principal); R73.01 Impaired fasting glucose
CPT/HCPCS: 36415; 80053; 80061; 82607; 82728; 82746; 83036; 83540; 84439; 84443; 85025; 85045

== ENCOUNTER 2025-03-11 15:51 | Outpatient (AMB) | payer BC, SELFPAY ==
--- OUTSIDE RECORDS SUMMARY | 2025-03-11 15:54 | XMS_ITS | Clinical Summary ---
Author Organization [facility] Address [address] [facility] [address] [place] [address] Phone Care Team Providers Care Bread Jockey Name Role Phone Tila Mcclure MD Primary Care Provider [phone] Allergies Active Allergy Reactions Criticality Noted Date [...] SMOKING Hx and SMOKELESS TOBACCO SCREENING 1958 ZOSTER VACCINES (2 of 3) 06/15/2014 04/20/2014 [...] topic Medical Devices Not on file Insurance [facility] MEDICARE REPLACEMENT MEDICARE PART A & B [place] BL[place] RE[place]AC[place] [facility] MEDICARE REPLACEMENT MEDICARE PART A & B [place] BL[place] RE[place]AC[place] [facility] MEDICARE REPLACEMENT MEDICARE PART A & B [facility] MEDICARE REPLACEMENT MEDICARE PART A & B [facility] MEDICARE REPLACEMENT MEDICARE PART A & B [place] RE[place]AC[place] [facility] MEDICARE REPLACEMENT MEDICARE PART A & B [facility] MEDICARE REPLACEMENT MEDICARE PART A & B [place] RE[place]AC[place] [facility] MEDICARE REPLACEMENT MEDICARE PART A & B [place] RE[place] [facility] MEDICARE REPLACEMENT MEDICARE PART A & B [place] Care Teams Bread Jockey Relationship Specialty Start Date End Date Tila Mcclure MD [address] [place] [address] PCP - General Internal Medicine 03/30/21 Additional Source Comments The information contained in this document represents components of the legal health record. It is not the complete legal health record.[facility]
--- OUTSIDE RECORDS SUMMARY | 2025-03-11 15:54 | XMS_ITS | Patient Health Record ---
Author Organization [facility] Address [address] [place] [phone] Care Team Providers Care Radiology Specialist Name Role Phone Po Tila ALLISON Primary Care Provider Paul Gallardo [phone] Allergies Allergen (clinical drug ingredient) Drug/Non Drug [...] Problem Status W/U Status Risk Notes Problem [id number] Encounter for screening for malignant neoplasm of colon (Z12.11) Active confirmed Problem [id number] Preprocedural examination (Z01.818) Active confirmed Problem 227936351 Hx of adenomatou s colonic polyps (Z86.010) Active confirmed Plan Of Treatment Future Test Test Name Order Date COLONOSCOPY 01/18/2014 COLONOSCOPY 03/04/2019 Insurance Providers Payer Name Payer Address Payer Phone Subscriber Number Group Number Insured Name Patient Relationship to Insured Coverage Start Date Coverage End Date [facility] [address] [place] [phone] [id number] CARMEN HOOPER Self - patient is the insured Medical (General) History Medical History History ICD Code Colon polyps--tubular adenom as removed in 1997 and 2008--neg. colonoscopy in 2002; colonoscopy in 04/2014 with a small tubular adenoma removed COPD/Asthma Anxiety/depression Denies NC,DM,CVA,renal disease Elevated Cholesterol Vertebroplasty in 2006 and 2017 for a co mpression fracture HTN Surgical History Surgery Date(Month/Year) Left leg surgery--broken leg with hardwa re
--- OUTSIDE RECORDS SUMMARY | 2025-03-11 15:54 | XMS_ITS | Clinical Summary ---
Author Organization [facility] Address [address] [place] [address] Care Team Providers Care Medical Office Worker Name Role Phone Tila Mcclure MD Primary Care Provider [phone] Tila Mcclure MD Unavailable [phone] Allergies No known active allergies Medications [...] Inactivated Comments 12/02/2021 2:40 AM Care Teams Medical Office Worker Relationship Specialty Start Date End Date Tila Mcclure MD [address] [place] [address] [place] [address] PCP - General Internal Medicine 12/05/21 Tila Mcclure MD [address] [place] [address] [place] [address] Internal Medicine 12/05/21
[2025-03-11 16:30] VITALS: BP 136/68; PULSE 81; O2SAT 90; BMI 20.4
--- NOTE | 2025-03-11 16:30 | A.OFFPC_ITS ---
Vital Signs 03/11/25 16:30 03/11/25 16:53 Height 5 ft 8 in Weight 134 lb BMI 20.4 BP 136/68 Blood Pressure Location Lt brachial Position Sitting Pulse 81 Pulse Source Pulse Oximeter Pulse Oximetry (%) 90 L 94 Oxygen Delivery Method Room Air Intake Visit Reasons: COPD Allergies Sulfa (Sulfonamide Antibiotics) (SULFA (SULFONAMIDE ANTIBIOTICS)) Allergy (Unknown, Verified 03/11/25 16:30) RASH hydrocodone (HYDROCODONE) Adverse Reaction (Severe, Verified 03/11/25 16:30) severe constipation oxycodone Adverse Reaction (Severe, Verified 03/11/25 16:30) severe constipation Medication List - Last Reconciled 03/11/25 by Tila Mcclure MD albuterol sulfate 90 mcg/actuation 2 puffs inhalation Q4H PRN 60 days alendronate 70 mg PO ROLDAN cholecalciferol (vitamin D3) 50 mcg PO DAILY 90 days fluticasone propion-salmeterol 250-50 mcg/dose (Wixela Inhub) 1 inh inhalation BID 30 days lisinopril 10 mg PO DAILY melatonin 9 mg PO BEDTIME PRN mirtazapine 15 mg (2 x 7.5 mg) PO BEDTIME omeprazole 20 mg PO DAILY@0630 simvastatin 10 mg PO BEDTIME Tobacco use date assessed: 09/17/24 Fall risk assessment: No Falls in past year Last assessed Fall Risk: 03/11/25 Dental Screening Dental Screen Date: 09/17/24 COUNTS INCLUDE 234 BEDS AT THE [facility] Medical History COPD (chronic obstructive pulmonary disease) Hypoxemia Pneumonia COPD with acute exacerbation Preop exam for internal medicine Generalized anxiety disorder 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 Mother Hypertension CVD (cardiovascular disease) Cancer Social History Household Members: Family Housing: House Are you a primary direct care staffer to a significant other at home: No Do you presently have visiting nurse or other home services: No Alcohol intake: never Patient Tobacco Use Status: Former Tobacco user Tobacco use type: Cigarette Cigarette Packs Per Day: 1 Cigarettes Per Day: 20.0 Years Smoked: 35 e-Cigarette/Vaping Use: Never Used Second Hand Smoke Exposure: Yes (marijuana) service: No Current occupational status: retired Cognitive needs: No Hearing needs: No Vision needs: Yes Questionnaire PHQ-9 Over the last 2 weeks, how often have you been bothered by any of the following problems? 1. Little interest or pleasure in doing things: not at all 2. Feeling down, depressed, or hopeless: not at all 3. Trouble falling or staying asleep, or sleeping too much: not at all 4. Feeling tired or having little energy: several days 5. Poor appetite or overeating: not at all 6. Feeling bad about yourself - or that you are a failure or have let yourself or your family down: not at all 7. Trouble concentrating on things, such as reading the newspaper or watching television: not at all 8. Moving or speaking so slowly that other people could have noticed. Or the opposite - being so fidgety or restless that you have been moving around a lot more than usual: not at all 9. Thoughts that you would be better off or of hurting yourself in some way: not at all Total score: 1 Depression Screening Interpretation: Positive Depression Screening Done: Yes 60300 - PHQ-9 Billing: Yes Source: Developed by Drs. Paul Greer, Capri Meraz, Robin Barksdale and colleagues, with an educational nanette from [employer]. Thrive Questionnaire Date Thrive assessed: 12/06/24 I am a: Patient What is your living situation today?: I have a steady place to live Within the past 12 months, did the food you bought not last and you didn't have the money to get more?: Often true Within the past 12 months, did you worry whether your food would run out before you got money to buy more?: Never true Do you have trouble paying for medicines?: No Do you have trouble getting transportation to medical appointments?: No Do you have trouble paying your heating and electricity bill?: No Do you have trouble taking care of your child, family member or friend?: No Do you have trouble with day-to-day activities such as bathing, preparing meals, shopping, managing finances, etc.?: No Are you currently unemployed and looking for a job?: No Are you interested in more education?: No Please select the resources that you would like help with: None Currently or been in a relationship where the following occur: No concerns reported THRIVE Score: 1 JOHAN-7 AMB Questionnaire JOHAN-7 Date JOHAN - 7 assessed: 09/17/24 Source: Developed by Drs. Paul Greer, Capri Meraz, Robin Barksdale and colleagues, with an educational nanette from [employer]. Physical exam (Primary Care) Vital Signs: Last Vital Signs Pulse 81 03/11/25 16:30 BP 136/68 03/11/25 16:30 Pulse Ox 90 L 03/11/25 16:30 Oxygen Delivery Method Room Air 03/11/25 16:30 BMI result Body Mass Index 20.4 Tobacco/Smoking Status: Tobacco use Status Tobacco use date assessed 09/17/24 03/11/25 16:36 Patient Tobacco Use Status Former Tobacco user 03/11/25 16:36 Tobacco use type Cigarette 03/11/25 16:36 e-Cigarette/Vaping Use Never Used 03/11/25 16:36 PHQ-9: PHQ-9 Score PHQ-9: Total score 1 03/11/25 16:36 Depression Screening Interpretation: Positive Thrive Assessment: Date of Thrive Assessment Date Thrive assessed 12/06/24 03/11/25 16:36 Currently or been in a relationship where the following occur: No concerns reported Const General: alert; No acute distress Eyes Conjunctivae: conjunctivae normal Resp Auscultation: clear to auscultation bilaterally Cardio Rate: regular rate Rhythm: regular rhythm GI Inspection: Yes normal to inspection Extrem General: Yes normal to inspection and No edema Coding Level of Care Code Est Pt Level 4 (72822) Complex EM visit Add On G2211 Diagnoses Essential hypertension I10 Hypertension type: essential hypertension Hypercholesterolemia E78.00 Age-related osteoporosis with current pathological fracture, sequela M80.00XS Osteoporosis type: age-related Presence of current pathological fracture: with current pathological fracture Encounter type: sequela Tonsillar cancer C09.9 Pulmonary emphysema, unspecified emphysema type J43.9 COPD type: emphysema Emphysema type: unspecified Additional Codes PHQ-9 - 95868 - PHQ-9 Billing: Yes ([id number]) Assessment & Plan Assessment & Plan (1) Hypertension: Code(s): I10 - Essential (primary) hypertension Category: Medical Qualifiers: Hypertension type: essential hypertension Qualified Code(s): I10 - Essential (primary) hypertension Plan: Continue with blood pressure medication. Decrease salt intake and exercise patient is on lisinopril 10 mg once a day (2) Hypercholesterolemia: Code(s): E78.00 - Pure hypercholesterolemia, unspecified Category: Medical Plan: Avoid fried foods, chicken skin, eggs, butter margarine, pastries and meat. 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 LUCKILY NO RECURRENCE. HAS INTERMITTENT DIFFICULTY IN SWALLOWING. BUT NOW DOING OKAY WITH SOFT DIET. Code(s): C09.9 - Malignant neoplasm of tonsil, unspecified Category: Medical Plan: Continue to follow-up with Hematology-Oncology (5) COPD (chronic obstructive pulmonary disease): Comment: Has rather severe degree of COPD , but doing OK on current regimen AND IS STABLE . Code(s): J44.9 - Chronic obstructive pulmonary disease, unspecified Category: Medical Qualifiers: COPD type: emphysema Emphysema type: unspecified Qualified Code(s): J43.9 - Emphysema, unspecified Plan: Patient follows up with Pulmonary continue with inhalers Plan History of Present Illness The patient is an 80-year-old male presenting for a follow-up visit. He has a history of hypertension, managed with lisinopril 10 mg once daily. His hypercholesterolemia is under control with an LDL level of 69 mg/dL, and he aims to maintain an LDL goal of less than 130 mg/dL and triglycerides less than 150 mg/dL. The patient has osteoporosis, with the last bone density test conducted in October 2024, which is up to date. He also has a history of generalized anxiety disorder and tonsillar cancer diagnosed in 2020. The patient has impaired glucose tolerance with a slightly elevated blood sugar level of 100 mg/dL, although his hemoglobin A1c remains normal. His renal and liver functions are reported as good, with normal blood count and electrolytes. He has benign prostatic hyperplasia and chronic obstructive pulmonary disease (COPD), for which he uses Wixela and albuterol inhalers. The patient was last seen by pulmonary in January 2025 and continues to follow up with dermatology and hematology oncology. Health Maintenance - Bone density screening up to date as of October 2024 Social History Review of Systems Physical Exam Results - Labs: Normal blood count, normal electrolytes, slightly elevated blood sugar at 100 mg/dL, normal hemoglobin A1c, good renal and liver function, LDL 69 mg/dL Plan The patient will continue with his current medication regimen, including lisinopril for hypertension and Wixela and albuterol for COPD management. He is advised to maintain his LDL cholesterol below 130 mg/dL and triglycerides below 150 mg/dL. Regular follow-ups with dermatology, hematology oncology, and pulmonary specialists are recommended to monitor his conditions. Patient was informed and verbally consented to the use of an ambient scribe for clinic note documentation during this visit. Discussion Notes Patient Instructions Medications: New cholecalciferol (vitamin D3) 50 mcg PO DAILY 90 caps 3RF 90 days E55.9 - Vitamin D deficiency, unspecified, M80.00XS - Age-related osteoporosis with current pathological fracture, unspecified site, sequela Refilled mirtazapine 15 mg (2 x 7.5 mg) PO BEDTIME 180 tabs 2RF M80.00XS - Age-related osteoporosis with current pathological fracture, unspecified site, sequela
[2025-03-11 16:53] VITALS: O2SAT 94
== END 2025-03-11 17:01 | disposition home or self-care (01) ==
LOC: HO.HMCH 15:52
PROVIDERS: PCP Internal Medicine; Visit Provider Internal Medicine
DX: I10 Essential (primary) hypertension (principal); M80.00XS Age-related osteoporosis with current pathological fracture, unspecified site, sequela; C09.9 Malignant neoplasm of tonsil, unspecified; J43.9 Emphysema, unspecified; E78.00 Pure hypercholesterolemia, unspecified

== ENCOUNTER → 2025-03-11 15:51 | Outpatient (BNVA) | payer BC, SELFPAY | PROVIDERS: PCP Internal Medicine; Visit Provider Internal Medicine | DX: I10 Essential (primary) hypertension (principal); E78.00 Pure hypercholesterolemia, unspecified; M80.00XS Age-related osteoporosis with current pathological fracture, unspecified site, sequela; C09.9 Malignant neoplasm of tonsil, unspecified; J43.9 Emphysema, unspecified; Z79.899 Other long term (current) drug therapy; Z13.31 Encounter for screening for depression | CPT/HCPCS: 96127 ==

== ENCOUNTER 2025-06-24 13:36 | Outpatient (AMB) | payer BC, SELFPAY ==
[2025-06-24 13:47] VITALS: BP 144/76; PULSE 77; O2SAT 95; BMI 20.7
--- NOTE | 2025-06-24 13:47 | MHC.PC.OV ---
Vital Signs 06/24/25 13:47 Height 5 ft 8 in Weight 136 lb BMI 20.7 BP 144/76 H Blood Pressure Location Lt brachial Position Sitting Pulse 77 Pulse Source Pulse Oximeter Pulse Oximetry (%) 95 Oxygen Delivery Method Room Air Intake Visit Reasons: COPD, tonsil cancer Allergies Sulfa (Sulfonamide Antibiotics) (SULFA (SULFONAMIDE ANTIBIOTICS)) Allergy (Unknown, Verified 06/24/25 13:47) RASH hydrocodone (HYDROCODONE) Adverse Reaction (Severe, Verified 06/24/25 13:47) severe constipation oxycodone Adverse Reaction (Severe, Verified 06/24/25 13:47) severe constipation Medication List - Last Reconciled 06/24/25 by Tila Mcclure MD albuterol sulfate 90 mcg/actuation 2 puffs inhalation Q4H PRN 60 days alendronate 70 mg PO ROLDAN cholecalciferol (vitamin D3) 50 mcg PO DAILY 90 days fluticasone propion-salmeterol 250-50 mcg/dose (Wixela Inhub) 1 inh inhalation BID 30 days lisinopril 10 mg PO DAILY melatonin 9 mg PO BEDTIME PRN mirtazapine 15 mg (2 x 7.5 mg) PO BEDTIME omeprazole 20 mg PO DAILY@0630 simvastatin 10 mg PO BEDTIME Tobacco use date assessed: 09/17/24 Fall risk assessment: No Falls in past year Last assessed Fall Risk: 06/24/25 Dental Screening Dental Screen Date: 09/17/24 [facility] Medical History COPD (chronic obstructive pulmonary disease) Hypoxemia Pneumonia COPD with acute exacerbation Preop exam for internal medicine Generalized anxiety disorder 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 Mother Hypertension CVD (cardiovascular disease) Cancer Social History Household Members: Family Housing: House Are you a primary field care manager to a significant other at home: No Do you presently have visiting nurse or other home services: No Alcohol intake: never Patient Tobacco Use Status: Former Tobacco user Tobacco use type: Cigarette Cigarette Packs Per Day: 1 Cigarettes Per Day: 20.0 Years Smoked: 35 e-Cigarette/Vaping Use: Never Used Second Hand Smoke Exposure: Yes (marijuana) service: No Current occupational status: retired Cognitive needs: No Hearing needs: No Vision needs: Yes Questionnaire PHQ-9 Over the last 2 weeks, how often have you been bothered by any of the following problems? 1. Little interest or pleasure in doing things: not at all 2. Feeling down, depressed, or hopeless: not at all 3. Trouble falling or staying asleep, or sleeping too much: not at all 4. Feeling tired or having little energy: several days 5. Poor appetite or overeating: not at all 6. Feeling bad about yourself - or that you are a failure or have let yourself or your family down: not at all 7. Trouble concentrating on things, such as reading the newspaper or watching television: not at all 8. Moving or speaking so slowly that other people could have noticed. Or the opposite - being so fidgety or restless that you have been moving around a lot more than usual: not at all 9. Thoughts that you would be better off or of hurting yourself in some way: not at all Total score: 1 Depression Screening Interpretation: Positive Depression Screening Done: Yes Source: Developed by Drs. Paul Greer, Capri Meraz, Robin Barksdale and colleagues, with an educational nanette from [facility]. Thrive Questionnaire Date Thrive assessed: 12/06/24 I am a: Patient What is your living situation today?: I have a steady place to live Within the past 12 months, did the food you bought not last and you didn't have the money to get more?: Often true Within the past 12 months, did you worry whether your food would run out before you got money to buy more?: Never true Do you have trouble paying for medicines?: No Do you have trouble getting transportation to medical appointments?: No Do you have trouble paying your heating and electricity bill?: No Do you have trouble taking care of your child, family member or friend?: No Do you have trouble with day-to-day activities such as bathing, preparing meals, shopping, managing finances, etc.?: No Are you currently unemployed and looking for a job?: No Are you interested in more education?: No Please select the resources that you would like help with: None Currently or been in a relationship where the following occur: No concerns reported THRIVE Score: 1 JOHAN-7 AMB Questionnaire JOHAN-7 Date JOHAN - 7 assessed: 09/17/24 Source: Developed by Drs. Paul Greer, Capri Meraz, Robin Barksdale and colleagues, with an educational nanette from [facility]. Physical exam (Primary Care) Vital Signs: Last Vital Signs Pulse 77 06/24/25 13:47 BP 144/76 H 06/24/25 13:47 Pulse Ox 95 06/24/25 13:47 Oxygen Delivery Method Room Air 06/24/25 13:47 BMI result Body Mass Index 20.7 Tobacco/Smoking Status: Tobacco use Status Tobacco use date assessed 09/17/24 06/24/25 13:52 Patient Tobacco Use Status Former Tobacco user 06/24/25 13:52 Tobacco use type Cigarette 06/24/25 13:52 e-Cigarette/Vaping Use Never Used 06/24/25 13:52 PHQ-9: PHQ-9 Score PHQ-9: Total score 1 06/24/25 13:52 Depression Screening Interpretation: Positive Thrive Assessment: Date of Thrive Assessment Date Thrive assessed 12/06/24 06/24/25 13:52 Currently or been in a relationship where the following occur: No concerns reported Const General: alert; No acute distress Eyes Conjunctivae: conjunctivae normal Resp Auscultation: clear to auscultation bilaterally Cardio Rate: regular rate Rhythm: regular rhythm GI Inspection: Yes normal to inspection Extrem General: Yes normal to inspection and No edema Coding Level of Care Code Est Pt Level 4 (73292) Complex EM visit Add On G2211 Diagnoses Essential hypertension I10 Hypertension type: essential hypertension Hypercholesterolemia E78.00 Impaired fasting glucose R73.01 Age-related osteoporosis with current pathological fracture, sequela M80.00XS Encounter type: sequela Osteoporosis type: age-related Presence of current pathological fracture: with current pathological fracture BPH loc w urin obs/LUTS N40.1 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 Decrease salt intake and exercise patient on lisinopril 10 mg once a day (2) Hypercholesterolemia: Code(s): E78.00 - Pure hypercholesterolemia, unspecified Category: Medical Plan: Avoid fried foods, chicken skin, eggs, butter margarine, pastries and meat. Be it pork or beef they have a lot of cholesterol LDL goal of less than 130 and triglyceride of less than 150 on simvastatin 10 mg at bedtime February 2025 last blood work (3) Impaired fasting glucose: Code(s): R73.01 - Impaired fasting glucose Category: Medical Plan: Decrease the amount of carbohydrate intake, pasta, bread, rice and potatoes are all sugar and that is aside from all the sweet stuff, remember that fruits are good but they are Sweet also. (4) Osteoporosis: Comment: May Code(s): M81.0 - Age-related osteoporosis without current pathological fracture Category: Medical Qualifiers: Encounter type: sequela Osteoporosis type: age-related Presence of current pathological fracture: with current pathological fracture Qualified Code(s): M80.00XS - Age-related osteoporosis with current pathological fracture, unspecified site, sequela Plan: Patient is up-to-date with bone density. Discussed about calcium and vitamin-D as well as alendronate (5) BPH loc w urin obs/LUTS: Comment: Laser enucleation of the prostate March 2022 Dr. 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 LUCKILY NO RECURRENCE. HAS INTERMITTENT DIFFICULTY IN SWALLOWING. BUT NOW DOING OKAY WITH SOFT DIET. Code(s): C09.9 - Malignant neoplasm of tonsil, unspecified Category: Medical Plan: Continuing to monitor (7) COPD (chronic obstructive pulmonary disease): Comment: Has rather severe degree of COPD , but doing OK on current regimen AND IS STABLE . Code(s): J44.9 - Chronic obstructive pulmonary disease, unspecified Category: Medical Qualifiers: COPD type: emphysema Emphysema type: unspecified Qualified Code(s): J43.9 - Emphysema, unspecified Plan: On albuterol inhaler as needed and Wixela Plan History of Present Illness The patient is an 80-year-old male presenting for a follow-up visit. He has a past medical history of essential hypertension, hypercholesterolemia, osteoporosis, benign prostatic hyperplasia, generalized anxiety disorder, and chronic obstructive pulmonary disease (COPD). The patient also has a history of tonsillar cancer treated in February 2021. Elevated blood pressure levels were noted during this visit, though he does not routinely monitor his blood pressure at home. His COPD is currently stable with the use of Wixela and albuterol inhalers, with no recent increase in the usage of the latter. Hypercholesterolemia remains well-managed, with an LDL cholesterol level of 69 recorded in February. Osteoporosis is under treatment with alendronate, Vitamin D, and dietary calcium. There are no reported issues with swallowing, and his anxiety disorder is managed with mirtazapine for sleep, which he reports as effective. Social stressors are identified, but no significant new symptoms are reported. Health Maintenance - Last bone density scan conducted in October 2024. - Recent blood work on March 10 showed normal results. - Vaccinations: Flu shot received, pneumonia and shingles vaccinations are up to date. RSV and tetanus vaccinations are also current. - Osteoporosis managed with alendronate, Vitamin D, and calcium intake encouraged. Social History - Reports high levels of stress related to family issues. - Advised to limit television viewing due to stress exacerbation. Review of Systems - Cardiovascular: Denies regular home blood pressure monitoring. - Respiratory: Denies increased use of albuterol inhaler. - Psychiatric: Reports effective management of anxiety with mirtazapine for sleep. - Gastrointestinal: Denies any changes or worsening in swallowing difficulties. Physical Exam - Cardiovascular- Elevated blood pressure noted during the visit. - Respiratory- No increased albuterol use reported. Results - Labs from March 10: - Blood count: Normal - Electrolytes and renal function: Within normal limits - Blood sugar: 100 with normal hemoglobin A1c - Liver function tests: Normal - LDL Cholesterol: 69 - Vitamin B12, folic acid, and thyroid levels: Normal Plan Patient was informed and verbally consented to the use of an ambient scribe for clinic note documentation during this visit. 1. Essential Hypertension Regular home blood pressure monitoring is essential. Current medication is lisinopril. If readings at home consistently show 140 or higher, earlier follow-up is advised. 2. Chronic Obstructive Pulmonary Disease Copd Symptoms are stable under current inhaler regimen. Continue with adherence to the Wixela and albuterol inhalers as prescribed. 3. Hypercholesterolemia LDL controlled at 69. Continue with current management. Next lipid panel in six months. 4. Osteoporosis Maintain current regimen with alendronate and supplements. Repeat bone density scan in two years if no symptoms arise. 5. Generalized Anxiety Disorder Manage with mirtazapine; consider reduction of stressors and limit news consumption. 6. History Of Tonsillar Cancer Continued surveillance without changes noted. Discussion Notes I discussed the importance of home blood pressure monitoring with the patient, emphasizing that achieving a level of 120/80 is imperative to optimal management. I advised the patient on the usage and potential side effects of his current COPD inhalers, specifically highlighting the importance of oral hygiene post-usage. Follow-up for these chronic conditions should continue as planned unless new issues arise. The patient was reassured about the stable control of hypercholesterolemia and osteoporosis but reminded of the importance of regular monitoring and supplemental intake. For generalized anxiety disorder, I recommended measures to curtail external stressors, including reducing exposure to distressing news. No new interventions were required for the history of tonsillar cancer, but ongoing vigilance for symptom changes was advised. I arranged for follow-up blood testing in six months unless clinically required sooner due to changes in blood pressure or other health concerns. Patient Instructions - Monitor blood pressure regularly at home. - Continue with current inhalers and rinse mouth after use. - Maintain Vitamin D and calcium intake for bone health. - Limit stressful media exposure to manage anxiety. - Schedule follow-up tests and revisit if blood pressure readings are consistently high. Orders: Orders Lipid Panel 6 Months E78.00 - Pure hypercholesterolemia, unspecified, I10 - Essential (primary) hypertension Complete Blood Count Auto Diff 6 Months I10 - Essential (primary) hypertension Comprehensive Met. Panel 6 Months I10 - Essential (primary) hypertension Thyroid Stimulating Hormone 6 Months I10 - Essential (primary) hypertension Vitamin B12 and Folate 6 Months I10 - Essential (primary) hypertension Hemoglobin A1c 6 Months I10 - Essential (primary) hypertension Free T4 (Free Thyroxine) 6 Months I10 - Essential (primary) hypertension UA CC w/rflx Micro + Cult 6 Months I10 - Essential (primary) hypertension, R30.0 - Dysuria
== END 2025-06-24 14:03 | disposition home or self-care (01) ==
LOC: HO.HMCH 13:37
PROVIDERS: PCP Internal Medicine; Visit Provider Internal Medicine
DX: I10 Essential (primary) hypertension (principal); E78.00 Pure hypercholesterolemia, unspecified; C09.9 Malignant neoplasm of tonsil, unspecified; J43.9 Emphysema, unspecified; R73.01 Impaired fasting glucose; M80.00XS Age-related osteoporosis with current pathological fracture, unspecified site, sequela; N40.1 Benign prostatic hyperplasia with lower urinary tract symptoms

== ENCOUNTER 2025-07-27 11:15 | Outpatient (AMB) | payer BC, SELFPAY ==
--- OUTSIDE RECORDS SUMMARY | 2021-03-30 12:53 | XMS_ITS | Encounter Summary ---
Author Organization [facility] Address [address] [facility] [address] [place] [id number] Phone Care Team Providers Care Gas Main Fitter Name Role Phone Tila Mcclure MD Primary Care Provider [phone] Encounter Details Date Type Department Care Team (Late st Contact Info) Description 03/30/2021 1:53 PM EDT Hospital Encounter [facility] [address] [place] [id number] Angelica Linn PA [address] [address] [email or web address] Social History Tobacco Use Types Packs/Day Years Used Date Smoking Tobacco: Former Smokeless Tobacco: Never Alcohol Use Standard Drinks/Week Comments Not Currently 0 (1 standard drink = 0.6 oz pur e alcohol) 25 years ago Education Answer Date Recorded Are you interested in more education? Not on kenisha e 12/06/2022 Are you concerned about learning? Not on file 12/06/2022 No 12/06/2022 No 12/06/2022 Digital Access Answer Date Recorded No 01/04/2023 No 01/04/2023 Reliable internet access at home? Not on file 01/04/2023 Device with a working camera? Not on file Sex and Gender Information Value Date Recorded Sex Assigned at Not on file Legal Sex Male 10:09 PM EDT Gender Identity Not on file Sexual Orientation Not on file documented as of this encounter Plan of Treatment Not on file documented as of this encounter Procedures Procedure Name Priority Date/Time Associated Diagnosis Comments XR CHEST PA AND LATERAL 2 VIEWS Urgent/patient waiting 03/30/2021 2:09 PM EDT Cough documented in this encounter Results * XR CHEST PA AND LATERAL 2 VIEWS (03/30/2021 2:09 PM EDT) Anatomical Region Laterality Modality Chest Computed Radiogr aphy 03/30/2021 2:16 PM EDT Impressions 03/30/2021 2:23 PM EDT No acute cardiopulmonary process. ATTESTATION: Tarah Lundy as teaching physician, have reviewed the images for this case and if necessary edited the report originally created by Jesus Mar. Narrative 03/30/2021 2:23 PM EDT XR CHEST PA AND LATERAL 2 VIEWS COMPARISON: None. FINDINGS: Devices/Tubes/Lines: Right-sided chest wall Chemo-Port tips projects over the superior vena cava. Lungs: Hyperinflated lungs. Scattered bibasal subsegmental atelectasis. No focal consolidation or pulmonary edema. Pleura: No pleural effusion or pneumothorax. Heart/Mediastinum: Tortuous and partially calcified aorta. Normal heart and mediastinum. Bones/Soft Tissues: Moderate thoracic spine spondylosis with mid and lower thoracic spine vertebroplasty/kyphoplasty changes. Procedure Note Tarah Moreira MD - 03/30/2021 XR CHEST PA AND LATERAL 2 VIEWS COMPARISON: None. FINDINGS: Devices/Tubes/Lines: Right-sided chest wall Chemo-Port tips projects overthe superior vena cava. Lungs: Hyperinflated lungs. Scattered bibasal subsegmental atelectasis. Nofocal consolidation or pulmonary edema. Pleura: No pleural effusion or pneumothorax. Heart/Mediastinum: Tortuous and partially calcified aorta. Normal heartand mediastinum. Bones/Soft Tissues: Moderate thoracic spine spondylosis with mid and lowerthoracic spine vertebroplasty/kyphoplasty changes. IMPRESSION: No acute cardiopulmonary process. ATTESTATION: Tarah Lundy as teaching physician, have reviewed theimages for this case and if necessary edited the report originally createdby Jesus Mar. Angelica Linn PA IMG XR CHEST Final Result documented in this encounter Visit Diagnoses Not on filedocumented in this encounter Additional Health Concerns Infection Onset Date Last Indicated Resolved Time CoV-Risk 03/30/2021 03/30/2021 03/31/2021 9:04 AM EDT CoV-Exposed Comment:Positive COVID-19 03/30/2021 03/30/2021 03/31/2021 9:0 4 AM EDT COVID-19 03/30/2021 03/30/2021 04/20/2021 1:23 AM EDT CoV-Risk 09/03/2024 09/03/2024 09/14/2024 1:23 AM EST documented as of this encounter Care Teams Gas Main Fitter Relationship Specialty Start Date End Date Tila Mcclure MD [address] [facility] [address] [place] [phone] PCP - General Internal Medicine 03/30/21 documented as of this encounter Additional Source Comments The information contained in this document represents components of the legal health record. It is not the complete legal health record.[facility]
[2025-07-27 11:22] VITALS: BP 140/68; PULSE 69; O2SAT 96; BMI 20.4
--- NOTE | 2025-07-27 11:22 | MHC.OFFVIS ---
Vital Signs 07/27/25 11:22 Height 5 ft 8 in Weight 134 lb 7.712 oz BMI 20.4 BP 140/68 H Blood Pressure Location Lt brachial Position Sitting Pulse 69 Pulse Source Pulse Oximeter Pulse Oximetry (%) 96 Oxygen Delivery Method Room Air Intake Visit Reasons: COPD Intake Note: pt is here for follow up and states he is feeling good, am is there a cough with phelgm. E Commerce Analyst Required: No Allergies Sulfa (Sulfonamide Antibiotics) (SULFA (SULFONAMIDE ANTIBIOTICS)) Allergy (Unknown, Verified 07/27/25 11:38) RASH hydrocodone (HYDROCODONE) Adverse Reaction (Severe, Verified 07/27/25 11:38) severe constipation oxycodone Adverse Reaction (Severe, Verified 07/27/25 11:38) severe constipation Medication List - Last Reconciled 07/27/25 by Niranjan Yusuf MD albuterol sulfate 90 mcg/actuation 2 puffs inhalation Q4H PRN 60 days alendronate 70 mg PO ROLDAN cholecalciferol (vitamin D3) 50 mcg PO DAILY 90 days fluticasone propion-salmeterol 250-50 mcg/dose 1 ea PO BID lisinopril 10 mg PO DAILY melatonin 9 mg PO BEDTIME PRN mirtazapine 15 mg (2 x 7.5 mg) PO BEDTIME omeprazole 20 mg PO DAILY@0630 simvastatin 10 mg PO BEDTIME Do you need a note to return to daycare/school/sports/work: No HPI HPI COPD: Details: Dragan is 80 years old gentleman of a thin build, has chronic obstructive pulmonary disorder. It remains well controlled with use of Wixela 250-50 b.i.d.. He hardly needs to use any rescue inhaler . Since the onset of the winter he is having some morning cough with urge to clear the phlegm. Once it is cleared he is okay during the daytime. He is of a thin build but weight is staying stable. 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 Mother Hypertension CVD (cardiovascular disease) Cancer Social History Household Members: Family Housing: House Are you a primary assistant child care teacher to a significant other at home: No Do you presently have visiting nurse or other home services: No Alcohol intake: never Patient Tobacco Use Status: Former Tobacco user Tobacco use type: Cigarette Cigarette Packs Per Day: 1 Cigarettes Per Day: 20.0 Years Smoked: 35 e-Cigarette/Vaping Use: Never Used Second Hand Smoke Exposure: Yes (marijuana) service: No Current occupational status: retired Cognitive needs: No Hearing needs: No Vision needs: Yes Review of Systems Const All systems reviewed & are unremarkable except as noted in HPI and below Eyes Reports no additional complaints ENT Reports no additional complaints Card Denies chest pain, Denies irregular heart rhythm and Denies leg edema Resp Reports as per HPI GI Reports constipation Reports no additional complaints Musc Reports back pain (Mild) Skin/Breast Reports system reviewed and no additional complaints, except as documented Neuro Reports no additional complaints Psych Reports depression (Well controlled with med) Endo Reports no additional complaints Physical Exam Vital Signs: Last Vital Signs Pulse 69 07/27/25 11:22 BP 140/68 H 07/27/25 11:22 Pulse Ox 96 07/27/25 11:22 Oxygen Delivery Method Room Air 07/27/25 11:22 BMI result Body Mass Index 20.4 Const General: comfortable, no acute distress, alert and awake Orientation/consciousness: patient oriented x3 HEENT Head: Yes normal to inspection General nose exam: No nasal polyps present and No nasal discharge present Face and sinus: Yes sinuses nontender Mouth: oropharynx normal Throat: Yes posterior oropharynx normal Eyes General: appearance normal, both eyes and all related structures Neck Neck: Yes normal visual inspection, Yes no lymphadenopathy, Yes trachea midline and Yes no JVD Thyroid: Thyroid normal Chest Chest palpation & inspection: normal inspection of the chest, normal palpation of entire chest wall and no tenderness Resp Other: Percussion note hyper-resonant, breath sounds are equal on both sides but distant with prolonged expiratory phase. Both lungs are clear and there are no audible wheezes or Creps. Cardio Palpation: normal PMI Rate: regular rate Rhythm: regular rhythm Heart sounds: no gallops and no murmurs Peripheral pulses: Peripheral pulses 2+ throughout GI Palpation (GI): Soft to palpation, nontender, No hepatosplenomegaly present and no masses Auscultation: normal bowel sounds Back/Spine/Pelvis Thoracic/Lumbar Spine: thoracic and lumbar spine normal to inspection Skin General skin exam: no rashes or lesions noted Neuro General: patient oriented x3 and no focal motor deficits Cranial nerves: Yes CN's II-XII intact bilaterally Extrem General: Yes normal to inspection, Yes no clubbing, cyanosis or edema and Yes no calf tenderness Psych Appearance: grossly normal and well kempt Speech and movement: Normal speech and movement present Assessment & Plan Assessment & Plan (1) COPD (chronic obstructive pulmonary disease): Comment: Has rather severe degree of COPD , but doing OK on current regimen , and has remained STABLE . Code(s): J44.9 - Chronic obstructive pulmonary disease, unspecified Category: Medical Qualifiers: COPD type: emphysema Emphysema type: unspecified Qualified Code(s): J43.9 - Emphysema, unspecified Plan: Keep on using Wixela 250-50 1 inhalation b.i.d.. Albuterol HFA 2 puffs Q 6 hours p.r.n. Try to use vaporizer in the bedroom during winter months (2) Pulmonary nodule: Comment: PET scan September 30 4.7 cm right lateral lung, 06/2024 , Benign, and a few other nodules which are calcified. 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 LUCKILY NO RECURRENCE. HAS INTERMITTENT DIFFICULTY IN SWALLOWING. BUT NOW DOING OKAY WITH SOFT DIET. Code(s): C09.9 - Malignant neoplasm of tonsil, unspecified Category: Medical Plan: As above Coding Level of Care Code Est Pt Level 3 (83370) Diagnoses Pulmonary emphysema, unspecified emphysema type J43.9 COPD type: emphysema Emphysema type: unspecified Pulmonary nodule R91.1 Tonsillar cancer C09.9
--- OUTSIDE RECORDS SUMMARY | 2025-07-27 14:56 | XMS_ITS | Clinical Summary ---
Author Organization [facility] Address [address] [place] [address] Care Team Providers Care Color Straining Bag Washer Name Role Phone Tila Mcclure MD Primary Care Provider [phone] Tila Mcclure MD Unavailable [phone] Allergies No known active allergies Medications [...] Health Maintenance Due Date Last Done Comments Advance Care Planning 1945 DTaP/Tdap/Td Vaccines (1 - Tdap) 02/21/1964 Pneumococcal Vaccines 50+ (1 of 1 - PCV) 1995 Zoster (Shingles) Vaccine (1 of 2) 1995 RSV Vaccine 50 years and older and Patients (1 - 1-dose 75+ series) 02/21/2020 Influenza Vaccine 03/11/2025 04/29/2019, , 04/27/2017, Additional history exists COVID-19 Vaccine ( season) 2025 10/03/2020, 09/12/2020 Hepatitis B Vaccines Aged Out No long er eligible based on patient's age to complete this topic Insurance [facility] MEDICARE Advance Directives * Full Code (Latest Code Status on File) Date Activated Date Inactivated Comments 12/02/2021 2:40 AM Care Teams Color Straining Bag Washer Relationship Specialty Start Date End Date Tila Mcclure MD [address] [place] [address] [place] [id number] PCP - General Internal Medicine 12/05/21 Tila Mcclure MD [address] [place] [address] [place] [id number] Internal Medicine 12/05/21
--- OUTSIDE RECORDS SUMMARY | 2025-07-27 14:57 | XMS_ITS | Patient Health Record ---
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 Phone Po Tila ALLISON Primary Care Provider Paul Gallardo [phone] Allergies Allergen (clinical drug ingredient) Drug/Non Drug Allergy documented on EMR Reaction Allergy Type Onset Date Status Hydrocodone Bitartrate Unknown Drug Allergy Active Reason For Referral No Information Medications Medication SIG (Take, Route, Frequency, Duration) Notes Start Date End Date Status Lisinopril 5 MG Tablet 1 tablet Orally O nce a day Active Advair Diskus 250-50 MCG/DOSE Aerosol Powder Breath Activated 1 puff Inhalation Twice a day Active Ventolin HFA 108 (90 Base) MCG/ACT Aerosol Solution 2 puffs as needed Inhalation every 4 hrs Active Zoloft 50 MG Tablet 1 tablet Orally Once a day Active Simvastatin 10 MG Tablet 1 tablet in the evening Orally Once a day Active Alendronate Sodium 70 MG Tablet 1 tablet Orally once a week Active Multivitamin Adult - Tablet as directed Orally once a day Active Tylenol PM Extra Strength as directed Or ally Once a day Active Immunizations Vaccine Route Administration Date Status Comme nts Influenza Unknown 04/11/2018 Administered Social History Social History Additional Details Category Social Info Options Details Miscellaneous: Marital status: Occupation: retired Section Notes: Nonsmoker > 10 years; no sig alcohol Nonsmoker > 10 years; no sig alcohol Problems Problem Type SNOMED Code ICD Code Onset Dates Problem Status W/U Status Risk Notes Problem Screening for malignant neoplasm of colon (337888580) Encounter for screening for malignant neoplasm of colon (Z12.11) Active confirmed Problem Preprocedural examination (268408215699103) Preprocedural examination (Z01.818) Active confirmed Problem History of adenomatous polyp of colon (084312121) Hx of adenomatous colonic polyps (Z86.010) Active confirmed Plan Of Treatment Future Test Test Name Order Date COLONOSCOPY 01/18/2014 COLONOSCOPY 03/04/2019 Insurance Providers Payer Name Payer Address Payer Phone Subscriber Number Group Number Insured Name Patient Relationship to Insured Coverage Start Date Coverage End Date [facility] [address] [place] [phone] [id number] CARMEN HOOPER Self - patient is the insured Medical (General) History Medical History History ICD Code Colon polyps--tubular adenom as removed in 1997 and 2008--neg. colonoscopy in 2002; colonoscopy in 04/2014 with a small tubular adenoma removed COPD/Asthma Anxiety/depression Denies VT,DM,CVA,renal disease Elevated Cholesterol Vertebroplasty in 2006 and 2017 for a co mpression fracture HTN Surgical History Surgery Date(Month/Year) Left leg surgery--broken leg with hardwa re
--- OUTSIDE RECORDS SUMMARY | 2025-07-27 14:57 | XMS_ITS | Clinical Summary ---
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 Role Phone Tila Mcclure MD Primary Care Provider Allergies Active Allergy Reactions Criticality Noted Date [...] ZOSTER VACCINES (2 of 3) 06/15/2014 04/20/2014 INFLUENZA VACCINE (#1) 2025 , 04/23/2022, 05/21/2021, Additional history exists COVID-19 VACCINE ( season) 2025 04/19/2024, 02/28/2024, 04/29/2023, Additional history exists Adult [...] topic Medical Devices Not on file Insurance [facility] MEDICARE REPLACEMENT MEDICARE PART A & B [place] BLUE REPLACEMENT [facility] MEDICARE REPLACEMENT [place] [id number] MEDICARE PART A & B [place] RE[place] [facility] MEDICARE REPLACEMENT MEDICARE PART A & B [facility] MEDICARE REPLACEMENT MEDICARE PART A & B [facility] MEDICARE REPLACEMENT MEDICARE PART A & B Member Subscriber Plan / Payer (Ef fective 2010-Present) Name:Dragan Gagnon Member ID:[id number] Relation to Subscriber:Self Name:Dragan Gagnon Subscriber ID:[id number] Payer ID:[id number] Group ID:Not on file Type:Medicare Address: [facility] [employer] [address] [place] [address] [place] BLUE REPLACEMENT [facility] MEDICARE REPLACEMENT MEDICARE PART A & B Member Subscriber Plan / Payer (Ef fective 2010-Present) Name:Dragan Gagnon Member ID:[id number] Relation to Subscriber:Self Name:Josemisti Dragan Subscriber ID:[id number] Payer ID:[id number] Group ID:Not on file Type:Medicare Address: [facility] [address] [place] [address] [facility] MEDICARE REPLACEMENT MEDICARE PART A & B Member Subscriber Plan / Payer (Ef fective 2010-Present) Name:Dragan Gagnon Member ID:[id number] Relation to Subscriber:Self Name:Dragan Gagnon Subscriber ID:[id number] Payer ID:[id number] Group ID:Not on file Type:Medicare Address: [facility] [address] [place] [address] [place] BLUE REPLACEMENT [facility] MEDICARE REPLACEMENT [place] [id number] MEDICARE PART A & B [place] BL[place] [facility] MEDICARE REPLACEMENT [place] [id number] MEDICARE PART A & B [place] BL[place] Care Teams Brazer Crawler Torch Relationship Specialty Start Date End Date Tila Mcclure MD [address] [place] [address] [address] [place] [phone] PCP - General Internal Medicine 03/30/21 Additional Source Comments The information contained in this document represents components of the legal health record. It is not the complete legal health record.[facility]
== END 2025-07-27 11:39 | disposition home or self-care (01) ==
LOC: HO.HPS 11:16
PROVIDERS: PCP Internal Medicine; Visit Provider Internal Medicine
DX: J43.9 Emphysema, unspecified (principal); R91.1 Solitary pulmonary nodule; C09.9 Malignant neoplasm of tonsil, unspecified
CPT/HCPCS: 99213